=== PATIENT | male | born 1980 | race Caucasian/White ===

== ENCOUNTER 2019-01-28 20:32 | Inpatient (IN) | payer OTHER ==
[~2019-01-28] VITALS: Ht 177.8 cm; Wt 81.4 kg
[2019-01-28 22:35] VITALS: PULSE 105
[2019-01-28 22:46] VITALS: BP 104/57; PULSE 101; RESP 20
[2019-01-28 22:52] VITALS: BP 107/70; PULSE 102; RESP 18; Ht 177.8 cm; Wt 81.4 kg
[2019-01-29] VITALS (12 sets, daily range): BP systolic 91–105; BP diastolic 50–57; PULSE 101–108; RESP 18–19
[2019-01-29] MEDS ORDERED: CEFTRIAXONE 1 GM/50 ML (PMX) 50 ML IVPB SCH (01:00)
[2019-01-29] MEDS ORDERED: ONDANSETRON 4 MG INJ IV PRN (01:00)
[2019-01-29] MEDS: PANTOPRAZOLE (EC) 40 MG TAB PO SCH (07:06)
[2019-01-29] MEDS: LACTULOSE 30ML CUP PO SCH ×3 (07:06→21:42)
[2019-01-29] MEDS: DOCUSATE SODIUM 100 MG CAP PO SCH ×2 (08:21→21:42)
[2019-01-29] MEDS: SENNA TAB PO SCH (08:22)
[2019-01-29] MEDS: MIDODRINE 5 MG TAB PO SCH ×3 (08:23→17:44)
--- NOTE | 2019-01-29 14:39 | QN ---
Documentation Comment pt seen and examined MAL ENRIQUE MD Jan 29, 2019 14:39
[2019-01-29] MEDS ORDERED: ALBUMIN HUMAN 25% 100 ML IV ONE (16:00)
--- NOTE | 2019-01-29 17:32 | HP ---
DATE OF ADMISSION: 01/28/2019 REASON FOR ADMISSION: The patient is transferred from [facility] for debility, liver cirrhosi s, end-stage renal disease. HISTORY OF PRESENTING ILLNESS: This is a 39-year-old male with a past medical history of heavy alcoh ol drinking, history of alcoholic liver cirrhosis, who was recently started on dialysis at [facility] 4 months ago where he has PermCath, history of decompensated liver failure, anemia, GI bl eed status post multiple EGDs, anasarca, debility, coagulopathy, who has had multiple admissions in t he past at [facility]. He presented to [facility] on 01/27 secondary to weakness, d ebility and back pain after his HD. For the last 4 months, patient has had multiple admissions in [facility] for the same reason. The patient has been coming there every week. It has been very difficult arranging for patient for hemodialysis because of the low blood pressures and weakness. T he patient was admitted there on 01/27 for the same reasons. The patient is also having generalized low back pain. The patient has been listed at [facility] for transp lant. According to the patient, he has been feeling weak, has low back pain. He denies any hemateme sis, any melena, any bright red blood per rectum. He is awake, alert. At [facility], patient's labs showed sodium of 135, potassium 5.3, chloride 92, bicarb 24; w kush count was 22.4; AST 56, ALT 8, alkaline phosphatase 135, total bilirubin 35.8. The patient also had an ultrasound that showed cirrhosis, no focal lesion or biliary dilatation, partially contracted gallbladder with gallstones and sludge. Findings suggestive of bilateral renal parenchymal disease without evidence of hydronephrosis, large-volume ascites, splenomegaly. The patient received hemodia lysis yesterday there and also received paracentesis and was transferred due to insurance reasons. PAST MEDICAL HISTORY: 1. Cirrhosis. 2. End-stage renal disease on hemodialysis for the last 4 months. 3. Secondary hyperparathyroidism. 4. History of hepatic encephalopathy. 5. History of GI bleed status post EGD 01/04/2019 that showed distal esophagitis with nonbleeding mu cosal tear, small hiatal hernia, moderate portal hypertensive gastropathy. ALLERGIES: NONE. PAST SURGICAL HISTORY: Right PermCath placement. MEDICATIONS PATIENT WAS AT HOME: 1. Multivitamin. 2. B complex vitamin. 3. Bumex 1 mg t.i.d. 4. Ciprofloxacin. 5. Hydrocortisone suppository for hemorrhoids. 6. Lactulose. 7. Midodrine 10 mg t.i.d. 8. Protonix. 9. Probiotic. 10. Spironolactone 50. SOCIAL HISTORY: According to the patient, his last drink was in September. Denies any smoking, any r ecreational drug use currently. REVIEW OF SYSTEMS: Denies any hematemesis, any melena, any blood per rectum. Denies any chest pain, any shortness of breath. PHYSICAL EXAMINATION: VITAL SIGNS: Blood pressure is currently 91/54, afebrile, heart rate 104, respirations 18. GENERAL: The patient is awake, alert, cachectic. HEENT: The patient has marked scleral icterus. NECK: Supple. HEART: Tachycardic. LUNGS: Decreased breath sounds bilaterally. ABDOMEN: Soft. Ascites is present. EXTREMITIES: There is 2+ edema. SKIN: The patient has yellowish discoloration of the skin. The patient has a right chest wall PermC ath. DIAGNOSTIC DATA: White count 22.8, hemoglobin 7.0, platelet count 119. Direct bilirubin 18.7, total 24.7, AST 38, ALT 13, albumin 2.7. ASSESSMENT AND PLAN: This is a 39-year-old male who presented with: 1. Weakness, low back pain. The patient had x-rays there which were negative for fractures. 2. Decompensated alcoholic cirrhosis with a history of EtOH use. 3. End-stage renal disease, on hemodialysis. 4. Hypotension likely secondary to cirrhosis, rule out sepsis. 5. History of gastrointestinal bleed. 6. Coagulopathy. 7. Thrombocytopenia likely due to cirrhosis. 8. Moderate anemia, likely multifactorial disease, likely secondary to end-stage renal disease versu s bone marrow suppression versus nutritional deficiency versus cirrhosis. PLAN: At this period of time, patient is admitted to [facility]. The patient will be continued on midodri ne, albumin. Also, we will continue the patient on lactulose, Rocephin. We will give the patient 1 unit of blood. At this period of time, patient is really in decompensated liver cirrhosis and the on ly way he will be salvageable is getting a liver transplant. We will evaluate the patient for liver transplant service. The patient has extremely grim prognosis. Rest of the treatment will depend on the patient's hospitalization course. Dictated By: MAL ROMERO/MUMTAZ Conf#: [id number] DID#: [id number] CC: ABEL BARRIENTOS MD;*EndCC*
[2019-01-29] MEDS: CEFEPIME 1GM/50 ML (PMX) 50 ML IVPB SCH (20:00)
[2019-01-30] VITALS (24 sets, daily range): BP systolic 83–123; BP diastolic 48–73; PULSE 76–110; RESP 16–20
[2019-01-30] MEDS: CEFEPIME 1GM/50 ML (PMX) 50 ML IVPB SCH ×3 (00:32→22:14)
[2019-01-30] MEDS: LACTULOSE 30ML CUP PO SCH ×3 (05:54→22:14)
[2019-01-30] MEDS: PANTOPRAZOLE (EC) 40 MG TAB PO SCH (05:54)
[2019-01-30] MEDS: SENNA TAB PO SCH (09:00)
[2019-01-30] MEDS: DOCUSATE SODIUM 100 MG CAP PO SCH (09:00)
[2019-01-30] MEDS: ALBUMIN HUMAN 25% 100 ML IV SCH ×2 (10:30→18:53)
[2019-01-30] MEDS: MIDODRINE 5 MG TAB PO SCH ×3 (10:59→18:58)
[2019-01-30] MEDS ORDERED: ALBUMIN HUMAN 25% 100 ML IV ONE (12:30)
--- NOTE | 2019-01-30 13:16 | PN ---
RAMON VILLAGRAN 01/30/19 1316: Date/Time of Note Date/Time of Note DATE: 01/30/19 TIME: 13:06 Assessment/Plan VTE Prophylaxis Risk score (from [facility])>0 risk: 4 SCD applied (from [facility]): No SCD contraindicated: other Pharmacological prophylaxis: NA/contraindicated Pharm contraindication: anticoag not tolerated Lines/Catheters IV Catheter Type (from [place]): Saline Lock Assessment/Plan Hospital Course 1. Weakness, low back pain. The patient had x-rays there which were negative for fractures. 2. Decompensated alcoholic cirrhosis with a history of EtOH use. Hyperbilirubinemia 3. End-stage renal disease, on hemodialysis. 4. Hypotension likely secondary to cirrhosis, rule out sepsis. 5. History of gastrointestinal bleed. 6. Coagulopathy. 7. Thrombocytopenia likely due to cirrhosis. 8. Moderate anemia, likely multifactorial disease, likely secondary to end- stage renal disease versus bone marrow suppression versus nutritional deficiency versus cirrhosis. 9. Leucocytosis. 10. S.p paracentesis in previous hospital 01/28/2019 Assessment/Plan - tele. -CT scan of lumbar and thoracic is pending, due to fact that CT scan is busy -full code per pt -PT to start -GI prophylaxis Protonix -DVT proph. unable to tolerate - midodrine, albumin. - continue the patient on lactulose, Rocephin. -s/p 1 unit of blood transfusion. -case management initiated transfer to tertiary center -need liver transplant. - grim prognosis. -might need paracentesis soon -pain control Result Diagram: 01/30/19 0506 01/30/19 0506 Results 24hrs Laboratory Tests Test 01/30/19 05:06 01/30/19 05:30 White Blood Count 26.2 H Red Blood Count 2.57 L Hemoglobin 8.1 L Hematocrit 23.7 L Mean Corpuscular Volume 92.2 Mean Corpuscular Hemoglobin 31.5 Mean Corpuscular Hemoglobin Concent 34.2 Red Cell Distribution Width 24.5 H Platelet Count 119 L Mean Platelet Volume 12.6 H Immature Granulocytes % 2.300 H Neutrophils % Segmented Neutrophils % (Manual) 73 Band Neutrophils % (Manual) 6 H Lymphocytes % Lymphocytes % (Manual) 10 L Monocytes % Monocytes % (Manual) 9 Eosinophils % Basophils % Basophils % (Manual) 2 Nucleated Red Blood Cells % 0.0 Immature Granulocytes # 0.590 H Neutrophils # Neutrophils # (Manual) 19.5 H Band Neutrophils # 1.5 H Lymphocytes (Manual) 2.6 Lymphocytes # Monocytes # Monocytes # (Manual) 2.3 H Eosinophils # Basophils # Basophils # (Manual) 0.5 H Nucleated Red Blood Cells # Platelet Estimate DECREASED Polychromasia 1+ Poikilocytosis 3+ Anisocytosis 2+ Macrocytosis 2+ Spherocytes 1+ Prothrombin Time 35.2 H Prothrombin Time Ratio 2.8 INR International Normalized Ratio 3.51 Sodium Level 136 Potassium Level 4.8 Chloride Level 98 Carbon Dioxide Level 26 Anion Gap 12 Blood Urea Nitrogen 52 H Creatinine 5.33 H Est Glomerular Filtrat Rate mL/min 12 L Glucose Level 81 Calcium Level 9.0 Phosphorus Level 4.6 Magnesium Level 1.9 Lab Scanned Report BLOOD TRANSFUSION Subjective 24 Hr Interval Summary Musculoskeletal: back pain, other (pain in body) Exam/Review of Systems Exam Vitals Vital Signs Date Temp Pulse Resp B/P (MAP) Pulse Ox O2 O2 Flow FiO2 Time Delivery Rate 01/30/19 97 12:08 01/30/19 98.6 18 96/51 (66) 98 11:22 01/30/19 Room Air 03:23 Intake and Output 01/29/19 01/29/19 01/30/19 1515:00 23:00 07:00 IntakeIntake Total 600 ml 250 ml BalanceBalance 600 ml 250 ml Exam right chest Permcath Constitutional: alert, oriented Neck: supple Respiratory: diminished breath sounds Cardiovascular: regular rate and rhythm Gastrointestinal: distended, surgical scars Skin: ecchymosis, other (icteric) Results Result Diagram: 01/30/19 0506 01/30/19 0506 Results 24hrs Laboratory Tests Test 01/30/19 05:06 01/30/19 05:30 White Blood Count 26.2 H Red Blood Count 2.57 L Hemoglobin 8.1 L Hematocrit 23.7 L Mean Corpuscular Volume 92.2 Mean Corpuscular Hemoglobin 31.5 Mean Corpuscular Hemoglobin Concent 34.2 Red Cell Distribution Width 24.5 H Platelet Count 119 L Mean Platelet Volume 12.6 H Immature Granulocytes % 2.300 H Neutrophils % Segmented Neutrophils % (Manual) 73 Band Neutrophils % (Manual) 6 H Lymphocytes % Lymphocytes % (Manual) 10 L Monocytes % Monocytes % (Manual) 9 Eosinophils % Basophils % Basophils % (Manual) 2 Nucleated Red Blood Cells % 0.0 Immature Granulocytes # 0.590 H Neutrophils # Neutrophils # (Manual) 19.5 H Band Neutrophils # 1.5 H Lymphocytes (Manual) 2.6 Lymphocytes # Monocytes # Monocytes # (Manual) 2.3 H Eosinophils # Basophils # Basophils # (Manual) 0.5 H Nucleated Red Blood Cells # Platelet Estimate DECREASED Polychromasia 1+ Poikilocytosis 3+ Anisocytosis 2+ Macrocytosis 2+ Spherocytes 1+ Prothrombin Time 35.2 H Prothrombin Time Ratio 2.8 INR International Normalized Ratio 3.51 Sodium Level 136 Potassium Level 4.8 Chloride Level 98 Carbon Dioxide Level 26 Anion Gap 12 Blood Urea Nitrogen 52 H Creatinine 5.33 H Est Glomerular Filtrat Rate mL/min 12 L Glucose Level 81 Calcium Level 9.0 Phosphorus Level 4.6 Magnesium Level 1.9 Lab Scanned Report BLOOD TRANSFUSION Medications Medication Current Medications Pantoprazole (Protonix Tab) 40 mg DAILY@06 PO Last administered on 01/30/19 05:54; Admin Dose 40 MG; Start 01/29/19 at 06:00 Lactulose (Enulose) 10 gm Q8 PO Last administered on 01/30/19 05:54; Admin Dose 10 GM; Start 01/29/19 at 06:00 Docusate Sodium (Colace) 100 mg BID PO Last administered on 01/29/19at 21:42; Admin Dose 100 MG; Start 01/29/19 at 09:00 Ondansetron HCl (Zofran Inj) 4 mg Q6H PRN IV NAUSEA AND/OR VOMITING; Start 01/29/19 at 01:00 Senna (Senokot) 2 tab DAILY PO ; Start 01/29/19 at 09:00 Cefepime HCl 50 ml @ 100 mls/hr Q12 IVPB Last administered on 01/30/19at 10:59; Admin Dose 100 MLS/HR; Start 01/29/19 at 16:00 Epoetin Daniel-epbx (Retacrit (Esrd)) 4,000 unit MoWeFr@1700 SC ; Start 01/30/19 at 17:00 Midodrine (Proamatine) 10 mg TID@,,17 PO Last administered on 01/30/19at 10:59; Admin Dose 10 MG; Start 01/29/19 at 17:00 Albumin Human 100 ml @ 100 mls/hr Q8H IV ; Start 01/30/19 at 10:30; Stop 01/31/19 at 03:29 Multivit/Ca Carb/ B Cmplx/FA/Prenat (Liz-Eugenia) 1 tab DAILY PO ; Start 01/31/19 at 09:00 Albumin Human 100 ml @ 100 mls/hr ONCE ONCE IV ; Start 01/30/19 at 12:30; Stop 01/30/19 at 13:29 MAL ENRIQUE MD 01/30/19 1633: Assessment/Plan Assessment/Plan Assessment/Plan refferal to [facility] tranplant for liver/kidney Result Diagram: 01/30/19 0506 01/30/19 0506 RAMON VILLAGRAN Jan 30, 2019 13:16 MAL ENRIQUE MD Jan 30, 2019 16:33
[2019-01-30] MEDS ORDERED: HYDROCODONE/APAP (5/325) TAB PO PRN (13:30)
[2019-01-30] MEDS ORDERED: DOCUSATE SODIUM 100 MG CAP PO PRN (14:00)
[2019-01-30] MEDS ORDERED: SENNA TAB PO PRN (14:00)
[2019-01-30] MEDS ORDERED: PHYTONADIONE 10 MG/ML INJ SC ONE (17:00)
[2019-01-30] MEDS: EPOETIN ALFA-EPBX (ESRD) 4,000 UNIT/ML VIAL SC SCH (18:54)
[2019-01-30] MEDS: BALSAM PERU/CASTOR OIL 60 GM TUBE TOP SCH (22:13)
[2019-01-31] VITALS (10 sets, daily range): BP systolic 85–104; BP diastolic 48–65; PULSE 103–109; RESP 18–20
[2019-01-31] MEDS: ALBUMIN HUMAN 25% 100 ML IV SCH (03:38)
[2019-01-31] MEDS: LACTULOSE 30ML CUP PO SCH ×3 (06:32→22:00)
[2019-01-31] MEDS: PANTOPRAZOLE (EC) 40 MG TAB PO SCH (06:32)
--- NOTE | 2019-01-31 09:23 | CONS ---
DATE OF ADMISSION: 01/28/2019 DATE OF CONSULTATION: 01/30/2019 HISTORY OF PRESENT ILLNESS: The patient is a 39-year-old male with a history of alcoholic cirrhosis of liver, multiple episodes of GI bleeding, was initially admitted to [facility] fo r debility and end-stage renal disease. The patient was at [facility] on 01/27/2019 for debil ity and back pain. He has been on hemodialysis for last 4 months. For the insurance purpose, the jayden saeed subsequently got transferred to this facility. GI consult was called in for profound jaundice. The patient does complain of abdominal distention, no nausea, vomiting, no GI bleeding, no fever, n o chills, no chest pain, no shortness of breath. PAST MEDICAL HISTORY: Cirrhosis, end-stage renal disease for which he is on hemodialysis, hepatic en cephalopathy, history of GI bleeding. He had EGD on 01/04/2019 which showed esophagitis and nonbleed ing mucosal tear with moderate portal gastropathy. PAST SURGICAL HISTORY: Right Perm-A-Cath. MEDICATIONS: All reviewed. He is on: 1. Bumex. 2. Ciprofloxacin. 3. Hydrocortisone suppository. 4. Midodrine. 5. Protonix. 6. Spironolactone. SOCIAL HISTORY: He is sober for the last 4 or 5 months. No smoking. No recreational drug. PHYSICAL EXAMINATION GENERAL: Cachectic. Definitely jaundiced. VITAL SIGNS: Otherwise stable. ABDOMEN: He has got ascites. EXTREMITIES: 1 to 2+ pedal edema. CENTRAL NERVOUS SYSTEM: Grossly within normal limit. LUNGS: Clear. ABDOMEN: Otherwise was benign. LABORATORY DATA: B surface antigen was negative. His hematocrit is 23. WBC is 26.2, BUN 52, creati nine 5.33, total bilirubin is 24. Albumin is 2.7 and his INR is 32.8. IMPRESSION: 1. Cirrhosis of liver, decompensated. 2. Severe anemia. 3. Leukocytosis. 4. Ascites. 5. End-stage renal disease on dialysis. Plan: Correct the coagulopathy if he continues to bleed. Continue antibiotic and will do paracentes is and send the fluid for analysis. Dictated By: ELLIS SIMPSON/MUMTAZ Conf#: [id number] DID#: [id number] CC: ABEL BARRIENTOS MD;*End*
--- NOTE | 2019-01-31 09:26 | PN ---
Date/Time of Note Date/Time of Note DATE: 01/31/19 TIME: 09:24 Assessment/Plan VTE Prophylaxis Risk score (from [facility])>0 risk: 4 SCD applied (from [facility]): No SCD contraindicated: other Pharmacological prophylaxis: NA/contraindicated Pharm contraindication: anticoag not tolerated Lines/Catheters IV [facility]from [facility] Saline Lock Assessment/Plan Hospital Course 1. Weakness, low back pain. The patient had x-rays there which were negative for fractures. 2. Decompensated alcoholic cirrhosis with a history of EtOH use. Hyperbilirubinemia 3. End-stage renal disease, on hemodialysis. 4. Hypotension likely secondary to cirrhosis, rule out sepsis. 5. History of gastrointestinal bleed. 6. Coagulopathy. 7. Thrombocytopenia likely due to cirrhosis. 8. Moderate anemia, likely multifactorial disease, likely secondary to end- stage renal disease versus bone marrow suppression versus nutritional deficiency versus cirrhosis. 9. Leucocytosis. 10. S.p paracentesis in previous hospital 01/28/2019 Assessment/Plan - tele, ST on monitor. -CT scan of lumbar and thoracic is pending -full code per pt -PT for eval -GI prophylaxis Protonix -DVT proph. unable to tolerate - c/w midodrine, albumin. - continue the patient on lactulose, Rocephin. -s/p 1 unit of blood transfusion. -need liver transplant. - grim prognosis. -might need paracentesis soon -pain control CASE MANAGEMENT NOTE: PT HAS BEEN ACCEPTED AT [facility] , not contracted with [facility], [facility] other tertiary center Result Diagram: 01/31/19 0513 01/31/19 0513 Results 24hrs Laboratory Tests Test 01/31/19 05:12 01/31/19 05:13 Ammonia 22 White Blood Count 25.4 H Red Blood Count 2.25 L Hemoglobin 7.3 L Hematocrit 20.8 L Mean Corpuscular Volume 92.4 Mean Corpuscular Hemoglobin 32.4 Mean Corpuscular Hemoglobin Concent 35.1 Red Cell Distribution Width 24.8 H Platelet Count 102 L Mean Platelet Volume 12.4 H Immature Granulocytes % 1.700 H Neutrophils % Segmented Neutrophils % (Manual) 76 Band Neutrophils % (Manual) 1 Lymphocytes % Lymphocytes % (Manual) 13 L Monocytes % Monocytes % (Manual) 5 Eosinophils % Eosinophils % (Manual) 3 Basophils % Basophils % (Manual) 1 Myelocytes % (Manual) 1 H Nucleated Red Blood Cells % 0.0 Immature Granulocytes # 0.440 H Neutrophils # Neutrophils # (Manual) 19.4 H Band Neutrophils # 0.2 Lymphocytes (Manual) 3.3 H Lymphocytes # Monocytes # Monocytes # (Manual) 1.2 H Eosinophils # Basophils # Basophils # (Manual) 0.2 H Myelocytes # 0.2 H Nucleated Red Blood Cells # Platelet Estimate DECREASED Giant Platelets 1 H Polychromasia 1+ Hypochromasia 1+ Poikilocytosis 3+ Anisocytosis 3+ Target Cells 2+ Acanthocytes 2+ Schistocytes 1+ Sodium Level 136 Potassium Level 4.8 Chloride Level 98 Carbon Dioxide Level 27 Anion Gap 11 Blood Urea Nitrogen 44 H Creatinine 4.44 H Est Glomerular Filtrat Rate mL/min 15 L Glucose Level 117 Calcium Level 9.4 Subjective 24 Hr Interval Summary Musculoskeletal: back pain, bone/joint pain Exam/Review of Systems Exam Vitals Vital Signs Date Temp Pulse Resp B/P (MAP) Pulse Ox O2 O2 Flow FiO2 Time Delivery Rate 01/31/19 107 08:01 01/31/19 98.2 20 90/52 (65) 98 Room Air 07:42 Intake and Output 01/30/19 01/30/19 01/31/19 1515:00 23:00 07:00 IntakeIntake Total 400 ml 650 ml OutputOutput Total 300 ml 1100 ml BalanceBalance -300 ml -700 ml 650 ml Constitutional: alert, oriented Psych: no complaints Head: normocephalic Eyes: icteric Neck: supple Respiratory: diminished breath sounds Cardiovascular: regular rate and rhythm Gastrointestinal: distended Skin: other (icteric) Results Results 24hrs Laboratory Tests Test 01/31/19 05:12 01/31/19 05:13 Ammonia 22 White Blood Count 25.4 H Red Blood Count 2.25 L Hemoglobin 7.3 L Hematocrit 20.8 L Mean Corpuscular Volume 92.4 Mean Corpuscular Hemoglobin 32.4 Mean Corpuscular Hemoglobin Concent 35.1 Red Cell Distribution Width 24.8 H Platelet Count 102 L Mean Platelet Volume 12.4 H Immature Granulocytes % 1.700 H Neutrophils % Segmented Neutrophils % (Manual) 76 Band Neutrophils % (Manual) 1 Lymphocytes % Lymphocytes % (Manual) 13 L Monocytes % Monocytes % (Manual) 5 Eosinophils % Eosinophils % (Manual) 3 Basophils % Basophils % (Manual) 1 Myelocytes % (Manual) 1 H Nucleated Red Blood Cells % 0.0 Immature Granulocytes # 0.440 H Neutrophils # Neutrophils # (Manual) 19.4 H Band Neutrophils # 0.2 Lymphocytes (Manual) 3.3 H Lymphocytes # Monocytes # Monocytes # (Manual) 1.2 H Eosinophils # Basophils # Basophils # (Manual) 0.2 H Myelocytes # 0.2 H Nucleated Red Blood Cells # Platelet Estimate DECREASED Giant Platelets 1 H Polychromasia 1+ Hypochromasia 1+ Poikilocytosis 3+ Anisocytosis 3+ Target Cells 2+ Acanthocytes 2+ Schistocytes 1+ Sodium Level 136 Potassium Level 4.8 Chloride Level 98 Carbon Dioxide Level 27 Anion Gap 11 Blood Urea Nitrogen 44 H Creatinine 4.44 H Est Glomerular Filtrat Rate mL/min 15 L Glucose Level 117 Calcium Level 9.4 Medications Medication Current Medications Pantoprazole (Protonix Tab) 40 mg DAILY@06 PO Last administered on 01/31/19 06:32; Admin Dose 40 MG; Start 01/29/19 at 06:00 Lactulose (Enulose) 10 gm Q8 PO Last administered on 01/31/19at 06:32; Admin Dose 10 GM; Start 01/29/19 at 06:00 Ondansetron HCl (Zofran Inj) 4 mg Q6H PRN IV NAUSEA AND/OR VOMITING; Start 01/29/19 at 01:00 Cefepime HCl 50 ml @ 100 mls/hr Q12 IVPB Last administered on 01/30/19at 22:14; Admin Dose 100 MLS/HR; Start 01/29/19 at 16:00 Epoetin Daniel-epbx (Retacrit (Esrd)) 4,000 unit MoWeFr@1700 SC Last administered on 01/30/19at 18:54; Admin Dose 4,000 UNIT; Start 01/30/19 at 17:00 Midodrine (Proamatine) 10 mg TID@,13,17 PO Last administered on 01/30/19at 18:58; Admin Dose 10 MG; Start 01/29/19 at 17:00 Multivit/Ca Carb/ B Cmplx/FA/Prenat (Liz-Eugenia) 1 tab DAILY PO ; Start 01/31/19 at 09:00 Acetaminophen/ Hydrocodone Bitart ([place] (5/325)) 1 tab Q12H PRN PO MODERATE PAIN LEVEL 4-6; Start 01/30/19 at 13:30 Docusate Sodium (Colace) 100 mg BID PRN PO constipation; Start 01/30/19 at 14:00 Senna (Senokot) 2 tab DAILY PRN PO constipation; Start 01/30/19 at 14:00 RAMON VILLAGRAN Jan 31, 2019 09:26
[2019-01-31] MEDS: MIDODRINE 5 MG TAB PO SCH ×3 (10:36→19:12)
[2019-01-31] MEDS: BALSAM PERU/CASTOR OIL 60 GM TUBE TOP SCH ×2 (10:37→21:15)
[2019-01-31] MEDS: MULTIVIT/CA CARB/B CMPLX/FA TAB PO SCH (10:37)
[2019-01-31] MEDS: CEFEPIME 1GM/50 ML (PMX) 50 ML IVPB SCH ×2 (10:37→21:15)
--- NOTE | 2019-01-31 14:53 | CONS ---
Assessment/Plan Assessment/Plan Assessment/Plan (Daily) IMPRESSION: 1. Cirrhosis of liver, decompensated. 2. Severe anemia. 3. Leukocytosis. 4. Ascites. 5. End-stage renal disease on dialysis. Plan Continue present care Abdominal paracentesis and will send fluid for culture Stool for C. difficile toxins Continue antibiotic Consultation Date/Type/Reason Admit Date/Time Jan 28, 2019 at 22:17 Initial Consult Date Date/Time of Note DATE: 01/31/19 TIME: 14:51 24 HR Interval Summary Free Text/Dictation Planes of some diarrhea No abdominal pain no nausea no vomiting Exam/Review of Systems Exam Vitals Vital Signs Date Temp Pulse Resp B/P (MAP) Pulse Ox O2 O2 Flow FiO2 Time Delivery Rate 01/31/19 104 12:01 01/31/19 98.1 20 85/48 (60) 98 Room Air 11:05 Intake and Output 01/30/19 01/30/19 01/31/19 1515:00 23:00 07:00 IntakeIntake Total 400 ml 650 ml OutputOutput Total 300 ml 1100 ml BalanceBalance -300 ml -700 ml 650 ml Respiratory: clear to auscultation, normal air movement Gastrointestinal: non-tender, ascites, distended Extremities: edema Neurological: [employer] II-XII intact, nl mental status, nl speech, nl strength Results Result Diagram: 01/31/1913 01/31/19 0513 Results 24hrs Laboratory Tests Test 01/31/19 05:12 01/31/19 05:13 Ammonia 22 White Blood Count 25.4 H Red Blood Count 2.25 L Hemoglobin 7.3 L Hematocrit 20.8 L Mean Corpuscular Volume 92.4 Mean Corpuscular Hemoglobin 32.4 Mean Corpuscular Hemoglobin Concent 35.1 Red Cell Distribution Width 24.8 H Platelet Count 102 L Mean Platelet Volume 12.4 H Immature Granulocytes % 1.700 H Neutrophils % Segmented Neutrophils % (Manual) 76 Band Neutrophils % (Manual) 1 Lymphocytes % Lymphocytes % (Manual) 13 L Monocytes % Monocytes % (Manual) 5 Eosinophils % Eosinophils % (Manual) 3 Basophils % Basophils % (Manual) 1 Myelocytes % (Manual) 1 H Nucleated Red Blood Cells % 0.0 Immature Granulocytes # 0.440 H Neutrophils # Neutrophils # (Manual) 19.4 H Band Neutrophils # 0.2 Lymphocytes (Manual) 3.3 H Lymphocytes # Monocytes # Monocytes # (Manual) 1.2 H Eosinophils # Basophils # Basophils # (Manual) 0.2 H Myelocytes # 0.2 H Nucleated Red Blood Cells # Platelet Estimate DECREASED Giant Platelets 1 H Polychromasia 1+ Hypochromasia 1+ Poikilocytosis 3+ Anisocytosis 3+ Target Cells 2+ Acanthocytes 2+ Schistocytes 1+ Sodium Level 136 Potassium Level 4.8 Chloride Level 98 Carbon Dioxide Level 27 Anion Gap 11 Blood Urea Nitrogen 44 H Creatinine 4.44 H Est Glomerular Filtrat Rate mL/min 15 L Glucose Level 117 Calcium Level 9.4 Medications Medication Current Medications Pantoprazole (Protonix Tab) 40 mg DAILY@06 PO Last administered on 01/31/19 06:32; Admin Dose 40 MG; Start 01/29/19 at 06:00 Lactulose (Enulose) 10 gm Q8 PO Last administered on 01/31/19 06:32; Admin Dos e 10 GM; Start 01/29/19 at 06:00 Ondansetron HCl (Zofran Inj) 4 mg Q6H PRN IV NAUSEA AND/OR VOMITING; Start 01/29/19 at 01:00 Cefepime HCl 50 ml @ 100 mls/hr Q12 IVPB Last administered on 01/31/19 10:37; Admin Dose 100 MLS/HR; Start 01/29/19 at 16:00 Epoetin Daniel-epbx (Retacrit (Esrd)) 4,000 unit MoWeFr@1700 SC Last administered on 01/30/19 18:54; Admin Dose 4,000 UNIT; Start 01/30/19 at 17:00 Midodrine (Proamatine) 10 mg TID@,13,17 PO Last administered on 01/31/19 14:33; Admin Dose 10 MG; Start 01/29/19 at 17:00 Multivit/Ca Carb/ B Cmplx/FA/Prenat (Liz-Eugenia) 1 tab DAILY PO Last ad ministered on 01/31/19 10:37; Admin Dose 1 TAB; Start 01/31/19 at 09:00 Acetaminophen/ Hydrocodone Bitart ([place] (5/325)) 1 tab Q12H PRN PO MODERATE PAIN LEVEL 4-6; Start 01/30/19 at 13:30 Docusate Sodium (Colace) 100 mg BID PRN PO constipation; Start 01/30/19 at 14:00 Senna (Senokot) 2 tab DAILY PRN PO constipation; Start 01/30/19 at 14:00 ELLIS ESTRADA MD Jan 31, 2019 14:53
[2019-02-01] VITALS (9 sets, daily range): BP systolic 94–103; BP diastolic 54–60; PULSE 97–109; RESP 18–20
[2019-02-01] MEDS: LACTULOSE 30ML CUP PO SCH ×3 (06:48→21:23)
[2019-02-01] MEDS: PANTOPRAZOLE (EC) 40 MG TAB PO SCH (06:48)
[2019-02-01] MEDS: CEFEPIME 1GM/50 ML (PMX) 50 ML IVPB SCH ×2 (08:28→21:22)
[2019-02-01] MEDS: BALSAM PERU/CASTOR OIL 60 GM TUBE TOP SCH ×2 (08:29→21:23)
[2019-02-01] MEDS: MIDODRINE 5 MG TAB PO SCH ×3 (08:29→17:57)
[2019-02-01] MEDS: MULTIVIT/CA CARB/B CMPLX/FA TAB PO SCH (08:29)
--- NOTE | 2019-02-01 12:31 | PN ---
Date/Time of Note Date/Time of Note DATE: 02/01/19 TIME: 12:27 Assessment/Plan VTE Prophylaxis Risk score (from Ns)>0 risk: 3 SCD applied (from Ns): Yes Pharmacological prophylaxis: NA/contraindicated Pharm contraindication: blood coag disorder Lines/Catheters [facility]from [facility] Saline Lock Assessment/Plan Hospital Course 1. Weakness, low back pain. The patient had x-rays there which were negative for fractures. CT scan is positive for: Suspected acute or subacute fractures of the superior endplates/bodies of L1, L2 and L3 with associated slight anterior superior endplate wedge compression of the L1 and L3 vertebral bodies. Multilevel degenerative changes greatest at L4-5 as described above. Mild degenerative changes of the right posterior lateral aspect of the T11-12 disc space with mild central canal stenosis. 2. Decompensated alcoholic cirrhosis with a history of EtOH use. Hyperbilirubinemia 3. End-stage renal disease, on hemodialysis. 4. Hypotension likely secondary to cirrhosis, rule out sepsis. 5. History of gastrointestinal bleed. 6. Coagulopathy. 7. Thrombocytopenia likely due to cirrhosis. 8. Moderate anemia, likely multifactorial disease, likely secondary to end- stage renal disease versus bone marrow suppression versus nutritional deficiency versus cirrhosis. 9. Leucocytosis. 10. S.p paracentesis in previous hospital 01/28/2019 11. Suspicious for metastatic disease Assessment/Plan - tele, ST on monitor. -CT scan of lumbar and thoracic showed: Suspected acute or subacute fractures of the superior endplates/bodies of L1, L2 and L3 with associated slight anterior superior endplate wedge compression of the L1 and L3 vertebral bodies. No posterior retropulsion. Recommend correlate to with MRI of the lumbar spine for the most accurate determination of the chronicity is of the fractures. Mult ilevel degenerative changes greatest at L4-5 as described above -dr Borrero consult , spoke to him, he requested MRI -full code per pt -PT for eval -GI prophylaxis Protonix -DVT proph. unable to tolerate - c/w midodrine, albumin. - continue the patient on lactulose, Rocephin. -s/p 1 unit of blood transfusion. -need liver transplant, bilirubin is rising. - grim prognosis. -paracentesis tomorrow -pain control -PT HAS BEEN ACCEPTED AT [facility] , not contracted with [facility], [facility] other tertiary center Result Diagram: 02/01/19 0448 02/01/19 0448 Results 24hrs Laboratory Tests Test 02/01/19 04:48 02/01/19 10:38 White Blood Count 27.7 H Red Blood Count 2.27 L Hemoglobin 7.3 L Hematocrit 21.0 L Mean Corpuscular Volume 92.5 Mean Corpuscular Hemoglobin 32.2 Mean Corpuscular Hemoglobin Concent 34.8 Red Cell Distribution Width 24.9 H Platelet Count 108 L Mean Platelet Volume 12.8 H Immature Granulocytes % 2.100 H Neutrophils % Segmented Neutrophils % (Manual) 78 H Band Neutrophils % (Manual) 2 Lymphocytes % Lymphocytes % (Manual) 10 L Monocytes % Monocytes % (Manual) 6 Eosinophils % Eosinophils % (Manual) 1 Basophils % Basophils % (Manual) 2 Metamyelocytes % (manual) 1 H Nucleated Red Blood Cells % 0.0 Immature Granulocytes # 0.580 H Neutrophils # Neutrophils # (Manual) 21.7 H Band Neutrophils # 0.5 Lymphocytes (Manual) 2.7 Lymphocytes # Monocytes # Monocytes # (Manual) 1.6 H Eosinophils # Basophils # Basophils # (Manual) 0.5 H Metamyelocytes # 0.2 H Nucleated Red Blood Cells # Platelet Estimate DECREASED Poikilocytosis 3+ Anisocytosis 3+ Microcytosis 1+ Macrocytosis 2+ Target Cells 1+ Acanthocytes 1+ Schistocytes 1+ Sodium Level 137 Potassium Level 4.9 Chloride Level 98 Carbon Dioxide Level 23 Anion Gap 16 H Blood Urea Nitrogen 50 H Creatinine 5.19 H Est Glomerular Filtrat Rate mL/min 12 L Glucose Level 85 Calcium Level 9.4 Total Bilirubin 25.3 H Direct Bilirubin 19.80 *H Indirect Bilirubin 5.5 H Aspartate Amino Transf (AST/SGOT) 40 Alanine Aminotransferase (ALT/SGPT) 12 L Alkaline Phosphatase 105 Total Protein 6.3 Albumin 2.8 L Globulin 3.50 H Albumin/Globulin Ratio 0.80 Alpha Fetoprotein 1.28 Subjective 24 Hr Interval Summary Musculoskeletal: back pain, restricted range of motion Skin: other (icteric) Exam/Review of Systems Exam Vitals Vital Signs Date Temp Pulse Resp B/P (MAP) Pulse Ox O2 O2 Flow FiO2 Time Delivery Rate 02/01/19 107 12:01 02/01/19 98.6 20 99/55 (70) 96 Room Air 11:33 Intake and Output 01/31/19 01/31/19 02/01/19 1515:00 23:00 07:00 IntakeIntake Total 940 ml 100 ml OutputOutput Total 0 ml BalanceBalance 940 ml 100 ml Constitutional: alert, oriented Head: normocephalic Cardiovascular: regular rate and rhythm Gastrointestinal: soft Results Results 24hrs Laboratory Tests Test 02/01/19 04:48 02/01/19 10:38 White Blood Count 27.7 H Red Blood Count 2.27 L Hemoglobin 7.3 L Hematocrit 21.0 L Mean Corpuscular Volume 92.5 Mean Corpuscular Hemoglobin 32.2 Mean Corpuscular Hemoglobin Concent 34.8 Red Cell Distribution Width 24.9 H Platelet Count 108 L Mean Platelet Volume 12.8 H Immature Granulocytes % 2.100 H Neutrophils % Segmented Neutrophils % (Manual) 78 H Band Neutrophils % (Manual) 2 Lymphocytes % Lymphocytes % (Manual) 10 L Monocytes % Monocytes % (Manual) 6 Eosinophils % Eosinophils % (Manual) 1 Basophils % Basophils % (Manual) 2 Metamyelocytes % (manual) 1 H Nucleated Red Blood Cells % 0.0 Immature Granulocytes # 0.580 H Neutrophils # Neutrophils # (Manual) 21.7 H Band Neutrophils # 0.5 Lymphocytes (Manual) 2.7 Lymphocytes # Monocytes # Monocytes # (Manual) 1.6 H Eosinophils # Basophils # Basophils # (Manual) 0.5 H Metamyelocytes # 0.2 H Nucleated Red Blood Cells # Platelet Estimate DECREASED Poikilocytosis 3+ Anisocytosis 3+ Microcytosis 1+ Macrocytosis 2+ Target Cells 1+ Acanthocytes 1+ Schistocytes 1+ Sodium Level 137 Potassium Level 4.9 Chloride Level 98 Carbon Dioxide Level 23 Anion Gap 16 H Blood Urea Nitrogen 50 H Creatinine 5.19 H Est Glomerular Filtrat Rate mL/min 12 L Glucose Level 85 Calcium Level 9.4 Total Bilirubin 25.3 H Direct Bilirubin 19.80 *H Indirect Bilirubin 5.5 H Aspartate Amino Transf (AST/SGOT) 40 Alanine Aminotransferase (ALT/SGPT) 12 L Alkaline Phosphatase 105 Total Protein 6.3 Albumin 2.8 L Globulin 3.50 H Albumin/Globulin Ratio 0.80 Alpha Fetoprotein 1.28 Medications Medication Current Medications Pantoprazole (Protonix Tab) 40 mg DAILY@06 PO Last administered on 02/01/19at 06:48; Admin Dose 40 MG; Start 01/29/19 at 06:00 Lactulose (Enulose) 10 gm Q8 PO Last administered on 02/01/19at 06:48; Admin Dose 10 GM; Start 01/29/19 at 06:00 Ondansetron HCl (Zofran Inj) 4 mg Q6H PRN IV NAUSEA AND/OR VOMITING; Start 01/29/19 at 01:00 Cefepime HCl 50 ml @ 100 mls/hr Q12 IVPB Last administered on 02/01/19at 08:28; Admin Dose 100 MLS/HR; Start 01/29/19 at 16:00 Epoetin Daniel-epbx (Retacrit (Esrd)) 4,000 unit MoWeFr@1700 SC Last administered on 01/30/19at 18:54; Admin Dose 4,000 UNIT; Start 01/30/19 at 17:00 Midodrine (Proamatine) 10 mg TID@09,13,17 PO Last administered on 02/01/19at 08:29; Admin Dose 10 MG; Start 01/29/19 at 17:00 Multivit/Ca Carb/ B Cmplx/FA/Prenat ([place]iz[place]) 1 tab DAILY PO Last administered on 02/01/19at 08:29; Admin Dose 1 TAB; Start 01/31/19 at 09:00 Acetaminophen/ Hydrocodone Bitart ([place] (5/325)) 1 tab Q12H PRN PO MODERATE PAIN LEVEL 4-6; Start 01/30/19 at 13:30 Docusate Sodium (Colace) 100 mg BID PRN PO constipation; Start 01/30/19 at 14:00 Senna (Senokot) 2 tab DAILY PRN PO constipation; Start 01/30/19 at 14:00 RAMON VILLAGRAN Feb 01, 2019 12:31
[2019-02-01] MEDS ORDERED: PHYTONADIONE 10 MG/ML INJ SC ONE (17:00)
[2019-02-02] VITALS (24 sets, daily range): BP systolic 78–101; BP diastolic 45–61; PULSE 97–109; RESP 17–20
[2019-02-02] MEDS: PANTOPRAZOLE (EC) 40 MG TAB PO SCH (06:28)
[2019-02-02] MEDS: LACTULOSE 30ML CUP PO SCH ×3 (06:28→20:33)
--- NOTE | 2019-02-02 07:51 | CONS ---
Assessment/Plan Assessment/Plan Hospital Course (Demo Recall) 39 yo male with liver disease with profound jaundice 1. Decompensated end stage liver disease with hyperbilirubinemia -pt accepted at [facility] for liver tx 2. Severe anemia. 3. Leukocytosis. 4. Ascites. 5. End-stage renal disease on dialysis. Plan stat cbc, cmp, INR Plan for abdominal paracentesis and HD today Ascitic fluid cultures and count Continue lactulose Pending Stool for C. difficile toxins Continue antibiotic Consider diuretic Pt examined and plan of care discussed with Dr. Guerra Consultation Date/Type/Reason Admit Date/Time Jan 28, 2019 at 22:17 Initial Consult Date Date/Time of Note DATE: 02/02/19 TIME: 07:33 24 HR Interval Summary Free Text/Dictation SBP in 90s. Mild intermittent tachycardia. No labs ordered today Labs done 02/01: WBC 27, afebrile. HH 7.3/21. Platelets 108. total bilirubin 25. AFP 1.28. odd bundle worker 5.19. Pt received FFP yesterday. Abdominal paracentesis scheduled for today. Denies abdominal pain, or SOB. Exam/Review of Systems Exam Vitals Vital Signs Date Temp Pulse Resp B/P (MAP) Pulse Ox O2 O2 Flow FiO2 Time Delivery Rate 02/02/19 98.3 99 20 90/52 (65) 94 07:27 02/01/19 Room Air 15:32 Intake and Output 02/01/19 02/01/19 02/02/19 1515:00 23:00 07:00 IntakeIntake Total 600 ml 250 ml BalanceBalance 600 ml 250 ml Constitutional: alert, oriented Head: normocephalic Eyes: icteric ENMT: nl lips & teeth Respiratory: normal air movement, diminished breath sounds Cardiovascular: regular rate and rhythm Gastrointestinal: soft, non-tender, ascites Extremities: edema, pitting pedal edema Neurological: nl mental status, nl speech Results Result Diagram: 02/01/19 0448 02/01/19447 Results 24hrs Laboratory Tests Test 02/01/19 10:38 02/01/19 15:25 Alpha Fetoprotein 1.28 Prothrombin Time 31.6 H Prothrombin Time Ratio 2.5 INR International Normalized Ratio 3.05 Activated Partial Thromboplast Time 92.6 *H Medications Medication Current Medications Pantoprazole (Protonix Tab) 40 mg DAILY@06 PO Last administered on 02/02/19 06:28; Admin Dose 40 MG; Start 01/29/19 at 06:00 Lactulose (Enulose) 10 gm Q8 PO Last administered on 02/02/19 06:28; Admin Dose 10 GM; Start 01/29/19 at 06:00 Ondansetron HCl (Zofran Inj) 4 mg Q6H PRN IV NAUSEA AND/OR VOMITING; Start 01/29/19 at 01:00 Cefepime HCl 50 ml @ 100 mls/hr Q12 IVPB Last administered on 02/01/19at 21:22; Admin Dose 100 MLS/HR; Start 01/29/19 at 16:00 Epoetin Daniel-epbx (Retacrit (Esrd)) 4,000 unit MoWeFr@1700 SC Last administered on 01/30/19at 18:54; Admin Dose 4,000 UNIT; Start 01/30/19 at 17:00 Midodrine (Proamatine) 10 mg TID@,,17 PO Last administered on 02/01/19at 17:57; Admin Dose 10 MG; Start 01/29/19 at 17:00 Multivit/Ca Carb/ B Cmplx/FA/Prenat (Liz-[place]ug[place]) 1 tab DAILY PO Last administered on 02/01/19at 08:29; Admin Dose 1 TAB; Start 01/31/19 at 09:00 Acetaminophen/ Hydrocodone Bitart ([place] (5/325)) 1 tab Q12H PRN PO MODERATE PAIN LEVEL 4-6; Start 01/30/19 at 13:30 Docusate Sodium (Colace) 100 mg BID PRN PO constipation; Start 01/30/19 at 14:00 Senna (Senokot) 2 tab DAILY PRN PO constipation; Start 01/30/19 at 14:00 PHOENIX CUELLAR Feb 02, 2019 07:44
[2019-02-02] MEDS: CEFEPIME 1GM/50 ML (PMX) 50 ML IVPB SCH ×2 (08:15→20:33)
[2019-02-02] MEDS: MULTIVIT/CA CARB/B CMPLX/FA TAB PO SCH (08:16)
[2019-02-02] MEDS: BALSAM PERU/CASTOR OIL 60 GM TUBE TOP SCH ×2 (08:16→20:33)
[2019-02-02] MEDS: MIDODRINE 5 MG TAB PO SCH ×3 (08:16→16:42)
[2019-02-02] MEDS ORDERED: SOD CHLORIDE 0.9% 250 ML IV* ONE (09:12)
[2019-02-02] MEDS ORDERED: ALBUMIN HUMAN 25% 100 ML IV ONE (12:00)
--- NOTE | 2019-02-02 12:32 | PN ---
Date/Time of Note Date/Time of Note DATE: 02/02/19 TIME: 12:14 Assessment/Plan VTE Prophylaxis Risk score (from Nsg)>0 risk: 8 SCD applied (from Ns): No SCD contraindicated: low risk/ambulating Pharmacological prophylaxis: NA/contraindicated Pharm contraindication: low risk/ambulating Lines/Catheters IV Catheter Type (from Nrs): Saline Lock Assessment/Plan Assessment/Plan a/p 1. Weakness, low back pain. The patient had x-rays there which were negative for fractures. CT scan is positive for: Suspected acute or subacute fractures of the superior endplates/bodies of L1, L2 and L3 with associated slight anterior superior endplate wedge compression of the L1 and L3 vertebral bodies. Multilevel degenerative changes greatest at L4-5 as described above. Mild degenerative changes of the right posterior lateral aspect of the T11-12 disc space with mild central canal stenosis. 2. Decompensated alcoholic cirrhosis with a history of EtOH use. Hyperbiliru binemia BIRIBUMIN 19 3. End-stage renal disease, on hemodialysis. 4. Hypotension likely secondary to cirrhosis, rule out sepsis. 5. History of gastrointestinal bleed. 6. Coagulopathy. 7. Thrombocytopenia likely due to cirrhosis. 8. Moderate anemia, likely multifactorial disease, likely secondary to end- stage renal disease versus bone marrow suppression versus nutritional deficiency versus cirrhosis. 9. Leucocytosis. 10. S.p paracentesis in previous hospital 01/28/2019 11. Suspicious for metastatic disease Assessment/Plan -CT scan of lumbar and thoracic showed: Suspected acute or subacute fractures of the superior endplates/bodies of L1, L2 and L3 with associated slight anterior superior endplate wedge compression of the L1 and L3 vertebral bodies. No posterior retropulsion. Recommend correlate to with MRI of the lumbar spine for the most accurate determination of the chronicity is of the fractures. Multilevel degenerative changes greatest at L4-5 as described above -dr Borrero consult , spoke to him, he requested MRI> mri ppo film -2 units of blood today -will give Midodrin/albumiun and blood along with hemodialysis -Needs a tertiary setting with there is a Ability of CRRT and patient will need liver and a kidney transplant - INR elevated and elevated APTT patient questionable fresh frozen plasma vitamin K will call him consult - c/w midodrine, albumin. - grim prognosis. paracentesis on hold due to severe anemia, patient will need INR to be corrected Result Diagram: 02/02/19 0806 02/02/19 0806 Results 24hrs Laboratory Tests Test 02/01/19 15:25 02/02/19 08:06 Prothrombin Time 31.6 H 32.4 H Prothrombin Time Ratio 2.5 2.5 INR International Normalized Ratio 3.05 3.15 Activated Partial Thromboplast Time 92.6 *H 100.8 *H White Blood Count 26.1 H Red Blood Count 2.01 L Hemoglobin 6.6 *L Hematocrit 18.9 L Mean Corpuscular Volume 94.0 Mean Corpuscular Hemoglobin 32.8 Mean Corpuscular Hemoglobin Concent 34.9 Red Cell Distribution Width 25.3 H Platelet Count 91 L Mean Platelet Volume 12.0 H Immature Granulocytes % 1.700 H Neutrophils % 75.0 Lymphocytes % 10.8 L Monocytes % 11.3 H Eosinophils % 1.0 Basophils % 0.2 Nucleated Red Blood Cells % 0.0 Immature Granulocytes # 0.450 H Neutrophils # 19.6 H Lymphocytes # 2.8 Monocytes # 3.0 H Eosinophils # 0.3 Basophils # 0.1 Nucleated Red Blood Cells # 0.0 Sodium Level 136 Potassium Level 4.9 Chloride Level 98 Carbon Dioxide Level 22 Anion Gap 16 H Blood Urea Nitrogen 57 H Creatinine 5.76 H Est Glomerular Filtrat Rate mL/min 11 L Glucose Level 69 #L Calcium Level 9.7 Total Bilirubin 24.7 H Direct Bilirubin 19.70 *H Indirect Bilirubin 5.0 H Aspartate Amino Transf (AST/SGOT) 41 Alanine Aminotransferase (ALT/SGPT) 16 Alkaline Phosphatase 96 Total Protein 6.4 Albumin 2.8 L Globulin 3.60 H Albumin/Globulin Ratio 0.77 Subjective 24 Hr Interval Summary Free Text/Dictation Globin is 6.6 today no evidence of any GI bleed Blood pressure is in 80s to 90s Exam/Review of Systems Exam Vitals Vital Signs Date Temp Pulse Resp B/P (MAP) Pulse Ox O2 O2 Flow FiO2 Time Delivery Rate 02/02/19 97.5 97 20 80/45 (57) 96 11:40 02/01/19 Room Air 15:32 Intake and Output 02/01/19 02/01/19 02/02/19 1515:00 23:00 07:00 IntakeIntake Total 600 ml 250 ml BalanceBalance 600 ml 250 ml Exam Constitutional: alert, oriented, scleral icterus Head: normocephalic Cardiovascular: regular rate and rhythm Gastrointestinal: soft, distended/ascites Diffuse a yellowish discoloration of the skin Tender to palpation in the lumbar area Results Results 24hrs Laboratory Tests Test 02/01/19 15:25 02/02/19 08:06 Prothrombin Time 31.6 H 32.4 H Prothrombin Time Ratio 2.5 2.5 INR International Normalized Ratio 3.05 3.15 Activated Partial Thromboplast Time 92.6 *H 100.8 *H White Blood Count 26.1 H Red Blood Count 2.01 L Hemoglobin 6.6 *L Hematocrit 18.9 L Mean Corpuscular Volume 94.0 Mean Corpuscular Hemoglobin 32.8 Mean Corpuscular Hemoglobin Concent 34.9 Red Cell Distribution Width 25.3 H Platelet Count 91 L Mean Platelet Volume 12.0 H Immature Granulocytes % 1.700 H Neutrophils % 75.0 Lymphocytes % 10.8 L Monocytes % 11.3 H Eosinophils % 1.0 Basophils % 0.2 Nucleated Red Blood Cells % 0.0 Immature Granulocytes # 0.450 H Neutrophils # 19.6 H Lymphocytes # 2.8 Monocytes # 3.0 H Eosinophils # 0.3 Basophils # 0.1 Nucleated Red Blood Cells # 0.0 Sodium Level 136 Potassium Level 4.9 Chloride Level 98 Carbon Dioxide Level 22 Anion Gap 16 H Blood Urea Nitrogen 57 H Creatinine 5.76 H Est Glomerular Filtrat Rate mL/min 11 L Glucose Level 69 #L Calcium Level 9.7 Total Bilirubin 24.7 H Direct Bilirubin 19.70 *H Indirect Bilirubin 5.0 H Aspartate Amino Transf (AST/SGOT) 41 Alanine Aminotransferase (ALT/SGPT) 16 Alkaline Phosphatase 96 Total Protein 6.4 Albumin 2.8 L Globulin 3.60 H Albumin/Globulin Ratio 0.77 Medications Medication Current Medications Pantoprazole (Protonix Tab) 40 mg DAILY@06 PO Last administered on 02/02/19at 06:28; Admin Dose 40 MG; Start 01/29/19 at 06:00 Lactulose (Enulose) 10 gm Q8 PO Last administered on 02/02/19at 06:28; Admin Dose 10 GM; Start 01/29/19 at 06:00 Ondansetron HCl (Zofran Inj) 4 mg Q6H PRN IV NAUSEA AND/OR VOMITING; Start 01/29/19 at 01:00 Cefepime HCl 50 ml @ 100 mls/hr Q12 IVPB Last administered on 02/02/19at 08:15; Admin Dose 100 MLS/HR; Start 01/29/19 at 16:00 Epoetin Daniel-epbx (Retacrit (Esrd)) 4,000 unit MoWeFr@1700 SC Last administered on 01/30/19at 18:54; Admin Dose 4,000 UNIT; Start 01/30/19 at 17:00 Midodrine (Proamatine) 10 mg TID@,,17 PO Last administered on 02/02/19at 12:09; Admin Dose 10 MG; Start 01/29/19 at 17:00 Multivit/Ca Carb/ B Cmplx/FA/Prenat (Liz-Eugenia) 1 tab DAILY PO Last administered on 02/02/19at 08:16; Admin Dose 1 TAB; Start 01/31/19 at 09:00 Acetaminophen/ Hydrocodone Bitart ([place] (5/325)) 1 tab Q12H PRN PO MODERATE PAIN LEVEL 4-6; Start 01/30/19 at 13:30 Docusate Sodium (Colace) 100 mg BID PRN PO constipation; Start 01/30/19 at 14:00 Senna (Senokot) 2 tab DAILY PRN PO constipation; Start 01/30/19 at 14:00 Albumin Human 100 ml @ 100 mls/hr ONCE ONCE IV ; Start 02/02/19 at 12:00; Stop 02/02/19 at 12:59 MAL ENRIQUE MD Feb 02, 2019 12:32
[2019-02-02] MEDS: EPOETIN ALFA-EPBX (ESRD) 4,000 UNIT/ML VIAL SC SCH (16:43)
[2019-02-02] MEDS: LEVALBUTEROL (NEB) 0.63 MG/3 ML AMP HHN PRN (22:42)
[2019-02-03] VITALS (20 sets, daily range): BP systolic 85–102; BP diastolic 47–79; PULSE 93–110; RESP 17–20
[2019-02-03] MEDS: LACTULOSE 30ML CUP PO SCH ×3 (06:00→21:03)
[2019-02-03] MEDS: PANTOPRAZOLE (EC) 40 MG TAB PO SCH (06:44)
--- NOTE | 2019-02-03 07:21 | CONS ---
Assessment/Plan Assessment/Plan Hospital Course (Demo Recall) 39 yo male with liver disease with profound jaundice 1. Decompensated end stage liver disease with hyperbilirubinemia -pt accepted at [facility] for liver tx 2. Severe anemia. -Hgb yesterday 6.0, requiring PRBC replacement, today 7.7 3. Leukocytosis. 4. Ascites. -paracentesis on hold 5. End-stage renal disease on dialysis. 6. Coagulopathy due to #1 -paracentesis on hold, -heme onc consulted 7. Thrombocytopenia due to #1 -downtrending Plan Paracentesis on hold for coagulopathy and anemia, heme onc consulted Continue lactulose Pending Stool for C. difficile toxins Continue antibiotic Pt examined and plan of care discussed with Dr. Guerra Consultation Date/Type/Reason Admit Date/Time Jan 28, 2019 at 22:17 Initial Consult Date Date/Time of Note DATE: 02/03/19 TIME: 07:14 24 HR Interval Summary Free Text/Dictation Pt resting comfortably, denies abd pain, sob, fever or chills. Pt on 5 L NC. Exam/Review of Systems Exam Vitals Vital Signs Date Temp Pulse Resp B/P (MAP) Pulse Ox O2 O2 Flow FiO2 Time Delivery Rate 02/03/19 98.1 98 17 90/53 (65) 99 04:00 02/03/19 5.0 01:47 02/02/19 Nasal 22:42 Cannula Intake and Output 02/02/19 02/02/19 02/03/19 1515:00 23:00 07:00 IntakeIntake Total 650 ml 250 ml OutputOutput Total 1200 ml BalanceBalance -1200 ml 650 ml 250 ml Constitutional: alert, oriented Head: normocephalic Eyes: PERRL Respiratory: diminished breath sounds Cardiovascular: regular rate and rhythm Gastrointestinal: non-tender, ascites Extremities: pitting pedal edema, other (no cyanosis, warm) Neurological: nl mental status Results Result Diagram: 02/03/19 0531 02/02/19 0806 Results 24hrs Laboratory Tests Test 02/02/19 08:06 02/02/19 22:04 02/03/19 05:31 White Blood Count 26.1 H 24.7 H Red Blood Count 2.01 L 2.39 L Hemoglobin 6.6 *L 7.7 L Hematocrit 18.9 L 22.0 L Mean Corpuscular Volume 94.0 92.1 Mean Corpuscular Hemoglobin 32.8 32.2 Mean Corpuscular 34.9 35.0 Hemoglobin Concent Red Cell Distribution Width 25.3 H 22.3 H Platelet Count 91 L 79 L Mean Platelet Volume 12.0 H 13.2 H Immature Granulocytes % 1.700 H 2.000 H Neutrophils % 75.0 73.1 Lymphocytes % 10.8 L 10.3 L Monocytes % 11.3 H 13.3 H Eosinophils % 1.0 0.9 Basophils % 0.2 0.4 Nucleated Red Blood Cells % 0.0 0.0 Immature Granulocytes # 0.450 H 0.500 H Neutrophils # 19.6 H 18.1 H Lymphocytes # 2.8 2.5 Monocytes # 3.0 H 3.3 H Eosinophils # 0.3 0.2 Basophils # 0.1 0.1 Nucleated Red Blood Cells # 0.0 0.0 Prothrombin Time 32.4 H Prothrombin Time Ratio 2.5 INR International 3.15 Normalized Ratio Activated 100.8 *H Partial Thromboplast Time Sodium Level 136 Potassium Level 4.9 Chloride Level 98 Carbon Dioxide Level 22 Anion Gap 16 H Blood Urea Nitrogen 57 H Creatinine 5.76 H Est Glomerular Filtrat 11 L Rate mL/min Glucose Level 69 #L Calcium Level 9.7 Total Bilirubin 24.7 H Direct Bilirubin 19.70 *H Indirect Bilirubin 5.0 H Aspartate Amino 41 Transf (AST/SGOT) Alanine 16 Aminotransferase (ALT/SGPT) Alkaline Phosphatase 96 Total Protein 6.4 Albumin 2.8 L Globulin 3.60 H Albumin/Globulin Ratio 0.77 Blood Gas Specimen Source Blood arterial Arterial Blood Date Drawn 02/02/2019 10:21:25 PM Arterial Blood pH 7.392 (Temp corrected) Arterial Blood pCO2 40.4 (Temp correct) Arterial Blood pO2 87.5 (Temp corrected) Arterial Blood HCO3 24.0 Arterial Blood Base Excess -0.8 Arterial Blood 96.2 Oxygen Saturation [place] Test N/A Arterial Blood Gas LB Puncture Site Arterial 2.5 Blood Carboxyhemoglobin Arterial Blood 0.2 Methemoglobin Blood Gas A-a O2 122.3 H Differential Oxyhemoglobin Percent 93.6 Blood Gas Temperature 37.0 Blood Gas Modality NASAL CANNULA FiO2 36.0 Blood Gas Notified Whom LW Blood Gas Notified Time 02/02/2019 10:32:02 PM Phosphorus Level 4.1 Magnesium Level 2.0 Medications Medication Current Medications Pantoprazole (Protonix Tab) 40 mg DAILY@06 PO Last administered on 02/03/19 06:44; Admin Dose 40 MG; Start 01/29/19 at 06:00 Lactulose (Enulose) 10 gm Q8 PO Last administered on 02/02/19 20:33; Admin Dose 10 GM; Start 01/29/19 at 06:00 Ondansetron HCl (Zofran Inj) 4 mg Q6H PRN IV NAUSEA AND/OR VOMITING; Start 01/29/19 at 01:00 Cefepime HCl 50 ml @ 100 mls/hr Q12 IVPB Last administered on 02/02/19 20:33; Admin Dose 100 MLS/HR; Start 01/29/19 at 16:00 Epoetin Daniel-epbx (Retacrit (Esrd)) 4,000 unit MoWeFr@1700 SC Last administered on 02/02/19 16:43; Admin Dose 4,000 UNIT; Start 01/30/19 at 17:00 Midodrine (Proamatine) 10 mg TID@,,17 PO Last administered on 02/02/19 16:42; Admin Dose 10 MG; Start 01/29/19 at 17:00 Multivit/Ca Carb/ B Cmplx/FA/Prenat (Liz-[place]ug[place]) 1 tab DAILY PO Last administere d on 02/02/19 08:16; Admin Dose 1 TAB; Start 01/31/19 at 09:00 Acetaminophen/ Hydrocodone Bitart ([place] (5/325)) 1 tab Q12H PRN PO MODERATE PAIN LEVEL 4-6; Start 01/30/19 at 13:30 Docusate Sodium (Colace) 100 mg BID PRN PO constipation; Start 01/30/19 at 14:00 Senna (Senokot) 2 tab DAILY PRN PO constipation; Start 01/30/19 at 14:00 Levalbuterol (Xopenex Neb) 0.63 mg Q4H RESP THERAPY PRN HHN WHEEZING AND RESP DISTRESS Last administered on 02/02/19 22:42; Admin Dose 0.63 MG; Start 02/02/19 at 22:30 PHOENIX CUELLAR Feb 03, 2019 07:21
--- NOTE | 2019-02-03 07:55 | CONS ---
DATE OF ADMISSION: 01/28/2019 DATE OF CONSULTATION: 02/02/2019 HISTORY OF PRESENT ILLNESS: The patient is a 39-year-old male with multiple medical problems who was transferred in from [facility] because of the insurance arrangement on 01/28/2019. He has al coholic cirrhosis of the liver with multiple history of GI bleeding, along with end-stage renal disea se, on dialysis. Prior to the transfer, he was admitted to the [facility] because of debility along with the back pain. On inquiring, he claims that his back pain started about a month ago without any memorable trauma or heavy lifting or unusual activities. His pain is localized in the low back and without any significa nt radiation to lower extremities. He denies any significant numbness or tingling involving the lowe r extremity. His pain usually gets worse with motion or ambulation or prolonged standing. PHYSICAL EXAMINATION: My examination did not show any typical signs of radiculopathy such as numbnes s or motor weakness in the distribution of the lumbosacral nerve. Deep tendon reflexes were equal bi laterally and present with a detectable knee jerk and ankle jerk. Straight leg raising was essential ly negative up to 80 degrees bilaterally. IMAGING DATA: CT scan of the lumbar spine shows possible mild compression fracture involving the nedra tebral body of L1, L2, and L3, but this is mildly without any retroversion and mainly involving super ior endplate. MRI scan was done; however, the MRI scan was not providing any diagnostic information because of dielectric effect artifact, according to Radiology; however, the limited information repor ts congenitally short pedicle with narrow spinal canal and spinal canal stenosis in the lower lumbar area. DIAGNOSTIC IMPRESSION: Low back pain without any signs of radiculopathy, possibly from compression f racture or possibly from spinal stenosis. RECOMMENDATIONS FOR MANAGEMENT: 1. Repeat MRI scan of the lumbosacral spine with the arrangement to avoid dielectric effect artifact . 2. Trial of lumbosacral brace just in case the pain is from compression fracture of the lumbar area as reported by CT scan. 3. Trial of Medrol Dosepak if it is compatible with his other medical conditions just in case his pa in is from spinal stenosis after reviewing repeated MRI scan. Judging from history of rather sudden onset of 1 month's duration, his pain may be from compression fracture. Dictated By: NARA CONCEPCION/MUMTAZ Conf#: [id number] DID#: [id number] CC: ABEL BARRIENTOS MD;*End*
[2019-02-03] MEDS: BALSAM PERU/CASTOR OIL 60 GM TUBE TOP SCH ×2 (08:36→20:46)
[2019-02-03] MEDS: MULTIVIT/CA CARB/B CMPLX/FA TAB PO SCH (08:36)
[2019-02-03] MEDS: CEFEPIME 1GM/50 ML (PMX) 50 ML IVPB SCH (08:36)
[2019-02-03] MEDS: MIDODRINE 5 MG TAB PO SCH ×3 (08:36→18:23)
[2019-02-03] MEDS ORDERED: BUMETANIDE 1 MG INJ IV SCH (12:00)
[2019-02-03] MEDS ORDERED: PHYTONADIONE 10 MG/ML INJ SC ONE (12:00)
--- NOTE | 2019-02-03 12:07 | CONS ---
Assessment/Plan Assessment/Plan Hospital Course (Demo Recall) 39 yo with ETOH related cirrhosis, coagulopathy, on dialysis who we are asked to see for coagulopathy #coagulopathy his coags are quite elevated especially the PTT is out of proportion to what would be expected for cirrhosis related liver dysfunction give vit K 5 mg sq daily check PT/PTT mixing study check Lupus anticoagulant as this is a common cause of elevated PTT check fibrinogen to r/o DIC in terms of procedures, recommend 2 u FFP prior to proceeding with paracentesis Consultation Date/Type/Reason Admit Date/Time Jan 28, 2019 at 22:17 Date/Time of Note DATE: 02/02/19 TIME: 11:54 Hx of Present Illness 39-year-old male with heavy alcohol use, history of alcoholic liver cirrhosis, who was recently started on dialysis at [facility] 4 months ago where he has PermCath> also has history of decompensated liver failure, anemia, GI bleed status post multiple EGDs, liver failure related coagulopathy, The patient has been listed at [facility] for transplant. The ptr was at an outside hospital for weakness. The patient's labs showed sodium of 135, potassium 5.3, chloride 92, bicarb 24; white count was 22.4; AST 56, ALT 8, alkaline phosphatase 135, total bilirubin 35.8. The patient also had an ultrasound that showed cirrhosis, no focal lesion or biliary dilatation, partially contracted gallbladder with gallstones and sludge. Findings suggestive of bilateral renal parenchymal disease without evidence of hydronephrosis, large-volume ascites, splenomegaly. He is transferred to [facility] due to insurance reasons We are asked to see him for coagulopathy. PT/INR/PTT are 34/2.5/100 Constitutional: no complaints, improved Eyes: no complaints ENT: no complaints Respiratory: no complaints Cardiovascular: no complaints Gastrointestinal: no complaints Genitourinary: no complaints Musculoskeletal: no complaints Skin: no complaints Endocrine: no complaints Past Medical History Medications Current Medications Pantoprazole (Protonix Tab) 40 mg DAILY@06 PO Last administered on 02/03/19at 06:44; Admin Dose 40 MG; Start 01/29/19 at 06:00 Lactulose (Enulose) 10 gm Q8 PO Last administered on 02/02/19at 20:33; Admin Dose 10 GM; Start 01/29/19 at 06:00 Ondansetron HCl (Zofran Inj) 4 mg Q6H PRN IV NAUSEA AND/OR VOMITING; Start 01/29/19 at 01:00 Cefepime HCl 50 ml @ 100 mls/hr Q12 IVPB Last administered on 02/03/19at 08:36; Admin Dose 100 MLS/HR; Start 01/29/19 at 16:00 Epoetin Daniel-epbx (Retacrit (Esrd)) 4,000 unit MoWeFr@1700 SC Last administered on 02/02/19at 16:43; Admin Dose 4,000 UNIT; Start 01/30/19 at 17:00 Midodrine (Proamatine) 10 mg TID@,,17 PO Last administered on 02/03/19at 08:36; Admin Dose 10 MG; Start 01/29/19 at 17:00 Multivit/Ca Carb/ B Cmplx/FA/Prenat (Liz-Eugenia) 1 tab DAILY PO Last administered on 02/03/19at 08:36; Admin Dose 1 TAB; Start 01/31/19 at 09:00 Acetaminophen/ Hydrocodone Bitart ([place] (5/325)) 1 tab Q12H PRN PO MODERATE PAIN LEVEL 4-6; Start 01/30/19 at 13:30 Docusate Sodium (Colace) 100 mg BID PRN PO constipation; Start 01/30/19 at 14:00 Senna (Senokot) 2 tab DAILY PRN PO constipation; Start 01/30/19 at 14:00 Levalbuterol (Xopenex Neb) 0.63 mg Q4H RESP THERAPY PRN HHN WHEEZING AND RESP DISTRESS Last administered on 02/02/19at 22:42; Admin Dose 0.63 MG; Start 02/02/19 at 22:30 Allergies: Coded Allergies: No Known Allergy (Unverified , 01/29/19) Social History Smoking Status: Former smoker Exam/Review of Systems Exam Vitals Vital Signs Date Temp Pulse Resp B/P (MAP) Pulse Ox O2 O2 Flow FiO2 Time Delivery Rate 02/03/19 98.2 99 20 96/55 (69) 96 11:19 02/03/19 Nasal 5.0 07:26 Cannula Intake and Output 02/02/19 02/02/19 02/03/19 1515:00 23:00 07:00 IntakeIntake Total 650 ml 250 ml OutputOutput Total 1200 ml BalanceBalance -1200 ml 650 ml 250 ml Results Result Diagram: 02/03/19 0531 02/03/19 0531 Results 24hrs Laboratory Tests Test 02/02/19 22:04 02/03/19 05:31 Blood Gas Specimen Source Blood arterial Arterial Blood Date Drawn 02/02/2019 10:21:25 PM Arterial Blood pH (Temp corrected) 7.392 Arterial Blood pCO2 (Temp correct) 40.4 Arterial Blood pO2 (Temp corrected) 87.5 Arterial Blood HCO3 24.0 Arterial Blood Base Excess -0.8 Arterial Blood Oxygen Saturation 96.2 Benito Test N/A Arterial Blood Gas Puncture Site LB Arterial Blood Carboxyhemoglobin 2.5 Arterial Blood Methemoglobin 0.2 Blood Gas A-a O2 Differential 122.3 H Oxyhemoglobin Percent 93.6 Blood Gas Temperature 37.0 Blood Gas Modality NASAL CANNULA FiO2 36.0 Blood Gas Notified Whom LW Blood Gas Notified Time 02/02/2019 10:32:02 PM White Blood Count 24.7 H Red Blood Count 2.39 L Hemoglobin 7.7 L Hematocrit 22.0 L Mean Corpuscular Volume 92.1 Mean Corpuscular Hemoglobin 32.2 Mean Corpuscular Hemoglobin Concent 35.0 Red Cell Distribution Width 22.3 H Platelet Count 79 L Mean Platelet Volume 13.2 H Immature Granulocytes % 2.000 H Neutrophils % 73.1 Segmented Neutrophils % (Manual) 76 Band Neutrophils % (Manual) 7 H Lymphocytes % 10.3 L Lymphocytes % (Manual) 9 L Reactive Lymphocytes % (Manual) 2 H Monocytes % 13.3 H Monocytes % (Manual) 5 Eosinophils % 0.9 Basophils % 0.4 Basophils % (Manual) 1 Nucleated Red Blood Cells % 0.0 Immature Granulocytes # 0.500 H Neutrophils # 18.1 H Neutrophils # (Manual) 19.2 H Band Neutrophils # 1.7 H Lymphocytes (Manual) 2.2 Lymphocytes # 2.5 Reactive Lymphocytes # 0.4 H Monocytes # 3.3 H Monocytes # (Manual) 1.2 H Eosinophils # 0.2 Basophils # 0.1 Basophils # (Manual) 0.2 H Nucleated Red Blood Cells # 0.0 Platelet Estimate DECREASED Polychromasia 2+ Hypochromasia 1+ Poikilocytosis 3+ Anisocytosis 2+ Microcytosis 1+ Macrocytosis 2+ Spherocytes 1+ Sodium Level 137 Potassium Level 4.0 Chloride Level 98 Carbon Dioxide Level 26 Anion Gap 13 Blood Urea Nitrogen 38 #H Creatinine 3.91 #H Est Glomerular Filtrat Rate mL/min 17 L Glucose Level 116 # Calcium Level 9.1 Phosphorus Level 4.1 Magnesium Level 2.0 Total Bilirubin 26.5 H Direct Bilirubin 20.90 *H Indirect Bilirubin 5.6 H Aspartate Amino Transf (AST/SGOT) 42 Alanine Aminotransferase (ALT/SGPT) 14 Alkaline Phosphatase 81 Total Protein 6.4 Albumin 2.8 L Globulin 3.60 H Albumin/Globulin Ratio 0.77 Medications Medication Current Medications Pantoprazole (Protonix Tab) 40 mg DAILY@06 PO Last administered on 02/03/19 06:44; Admin Dose 40 MG; Start 01/29/19 at 06:00 Lactulose (Enulose) 10 gm Q8 PO Last administered on 02/02/19 20:33; Admin Dose 10 GM; Start 01/29/19 at 06:00 Ondansetron HCl (Zofran Inj) 4 mg Q6H PRN IV NAUSEA AND/OR VOMITING; Start 01/29/19 at 01:00 Cefepime HCl 50 ml @ 100 mls/hr Q12 IVPB Last administered on 02/03/19 08:36; Admin Dose 100 MLS/HR; Start 01/29/19 at 16:00 Epoetin Daniel-epbx (Retacrit (Esrd)) 4,000 unit MoWeFr@1700 SC Last administered on 02/02/19at 16:43; Admin Dose 4,000 UNIT; Start 01/30/19 at 17:00 Midodrine (Proamatine) 10 mg TID@09,13,17 PO Last administered on 02/03/19 08:36; Admin Dose 10 MG; Start 01/29/19 at 17:00 Multivit/Ca Carb/ B Cmplx/FA/Prenat (Liz-Eugenia) 1 tab DAILY PO Last administered on 02/03/19 08:36; Admin Dose 1 TAB; Start 01/31/19 at 09:00 Acetaminophen/ Hydrocodone Bitart ([place] (5/325)) 1 tab Q12H PRN PO MODERATE PAIN LEVEL 4-6; Start 01/30/19 at 13:30 Docusate Sodium (Colace) 100 mg BID PRN PO constipation; Start 01/30/19 at 14:00 Senna (Senokot) 2 tab DAILY PRN PO constipation; Start 01/30/19 at 14:00 Levalbuterol (Xopenex Neb) 0.63 mg Q4H RESP THERAPY PRN HHN WHEEZING AND RESP DISTRESS Last administered on 02/02/19at 22:42; Admin Dose 0.63 MG; Start 02/02/19 at 22:30 PIERCE PACE Feb 03, 2019 12:07
--- NOTE | 2019-02-03 12:14 | PN ---
Date/Time of Note Date/Time of Note DATE: 02/03/19 TIME: 12:10 Assessment/Plan VTE Prophylaxis Risk score (from Nsg)>0 risk: 3 SCD applied (from Nsg): No SCD contraindicated: low risk/ambulating Pharmacological prophylaxis: NA/contraindicated Pharm contraindication: low risk/ambulating Lines/Catheters IV Catheter Type (from Nrsg): Saline Lock Urinary Cath still in place: No Reason Cath still needed: urinary retention Assessment/Plan Assessment/Plan a/p 1. Weakness, low back pain. The patient had x-rays there which were negative for fractures. CT scan is positive for: Suspected acute or subacute fractures of the superior endplates/bodies of L1, L2 and L3 with associated slight anterior superior endplate wedge compression of the L1 and L3 vertebral bodies. Multilevel degenerative changes greatest at L4-5 as described above. Mild degenerative changes of the right posterior lateral aspect of the T11-12 disc space with mild central canal stenosis. 2. Decompensated alcoholic cirrhosis with a history of EtOH use. Hyperbilirubinemia BIRIBUMIN 19 3. End-stage renal disease, on hemodialysis. 4. Hypotension likely secondary to cirrhosis, rule out sepsis. 5. History of gastrointestinal bleed. 6. Coagulopathy. 7. Thrombocytopenia likely due to cirrhosis. 8. Moderate anemia, likely multifactorial disease, likely secondary to end- stage renal disease versus bone marrow suppression versus nutritional deficiency versus cirrhosis. 9. Leucocytosis. 10. S.p paracentesis in previous hospital 01/28/2019 11. SOB likely pul edema/ ascites Assessment/Plan -CT scan of lumbar and thoracic showed: Suspected acute or subacute fractures of the superior endplates/bodies of L1, L2 and L3 with associated slight anterior superior endplate wedge compression of the L1 and L3 vertebral bodies. No posterior retropulsion. Recommend correlate to with MRI of the lumbar spine for the most accurate determination of the chronicity is of the fractures. Multilevel degenerative changes greatest at L4-5 as described above - stat chest xray - will start iv bumex/albumin - reassess for HD ? - cw midrodrine - vitamin K, Heme consult -cw iv cefepime - cw epogen s/p 2 units PRBC --Needs a tertiary setting with there is a Ability of CRRT and patient will need liver and a kidney transplant, spoke to [facility] will call us back about update - c/w midodrine, albumin. - grim prognosis. paracentesis on hold due to severe anemia, patient will need INR to be corrected Result Diagram: 02/03/19 0531 02/03/19 0531 Results 24hrs Laboratory Tests Test 02/02/19 22:04 02/03/19 05:31 Blood Gas Specimen Source Blood arterial Arterial Blood Date Drawn 02/02/2019 10:21:25 PM Arterial Blood pH (Temp corrected) 7.392 Arterial Blood pCO2 (Temp correct) 40.4 Arterial Blood pO2 (Temp corrected) 87.5 Arterial Blood HCO3 24.0 Arterial Blood Base Excess -0.8 Arterial Blood Oxygen Saturation 96.2 Benito Test N/A Arterial Blood Gas Puncture Site LB Arterial Blood Carboxyhemoglobin 2.5 Arterial Blood Methemoglobin 0.2 Blood Gas A-a O2 Differential 122.3 H Oxyhemoglobin Percent 93.6 Blood Gas Temperature 37.0 Blood Gas Modality NASAL CANNULA FiO2 36.0 Blood Gas Notified Whom LW Blood Gas Notified Time 02/02/2019 10:32:02 PM White Blood Count 24.7 H Red Blood Count 2.39 L Hemoglobin 7.7 L Hematocrit 22.0 L Mean Corpuscular Volume 92.1 Mean Corpuscular Hemoglobin 32.2 Mean Corpuscular Hemoglobin Concent 35.0 Red Cell Distribution Width 22.3 H Platelet Count 79 L Mean Platelet Volume 13.2 H Immature Granulocytes % 2.000 H Neutrophils % 73.1 Segmented Neutrophils % (Manual) 76 Band Neutrophils % (Manual) 7 H Lymphocytes % 10.3 L Lymphocytes % (Manual) 9 L Reactive Lymphocytes % (Manual) 2 H Monocytes % 13.3 H Monocytes % (Manual) 5 Eosinophils % 0.9 Basophils % 0.4 Basophils % (Manual) 1 Nucleated Red Blood Cells % 0.0 Immature Granulocytes # 0.500 H Neutrophils # 18.1 H Neutrophils # (Manual) 19.2 H Band Neutrophils # 1.7 H Lymphocytes (Manual) 2.2 Lymphocytes # 2.5 Reactive Lymphocytes # 0.4 H Monocytes # 3.3 H Monocytes # (Manual) 1.2 H Eosinophils # 0.2 Basophils # 0.1 Basophils # (Manual) 0.2 H Nucleated Red Blood Cells # 0.0 Platelet Estimate DECREASED Polychromasia 2+ Hypochromasia 1+ Poikilocytosis 3+ Anisocytosis 2+ Microcytosis 1+ Macrocytosis 2+ Spherocytes 1+ Sodium Level 137 Potassium Level 4.0 Chloride Level 98 Carbon Dioxide Level 26 Anion Gap 13 Blood Urea Nitrogen 38 #H Creatinine 3.91 #H Est Glomerular Filtrat Rate mL/min 17 L Glucose Level 116 # Calcium Level 9.1 Phosphorus Level 4.1 Magnesium Level 2.0 Total Bilirubin 26.5 H Direct Bilirubin 20.90 *H Indirect Bilirubin 5.6 H Aspartate Amino Transf (AST/SGOT) 42 Alanine Aminotransferase (ALT/SGPT) 14 Alkaline Phosphatase 81 Total Protein 6.4 Albumin 2.8 L Globulin 3.60 H Albumin/Globulin Ratio 0.77 Subjective 24 Hr Interval Summary Free Text/Dictation SOB since yesterday unable to do paracentesis due to high INR and APTT sbp 94 Exam/Review of Systems Exam Vitals Vital Signs Date Temp Pulse Resp B/P (MAP) Pulse Ox O2 O2 Flow FiO2 Time Delivery Rate 02/03/19 99 12:02 02/03/19 98.2 20 96/55 (69) 96 11:19 02/03/19 Nasal 5.0 07:26 Cannula Intake and Output 02/02/19 02/02/19 02/03/19 1515:00 23:00 07:00 IntakeIntake Total 650 ml 250 ml OutputOutput Total 1200 ml BalanceBalance -1200 ml 650 ml 250 ml Exam onstitutional: alert, oriented, scleral icterus Head: normocephalic Cardiovascular: regular rate and rhythm decreased breath sounds at bases Gastrointestinal: soft, distended/ascites Diffuse a yellowish discoloration of the skin Tender to palpation in the lumbar area Edema legs Results Results 24hrs Laboratory Tests Test 02/02/19 22:04 02/03/19 05:31 Blood Gas Specimen Source Blood arterial Arterial Blood Date Drawn 02/02/2019 10:21:25 PM Arterial Blood pH (Temp corrected) 7.392 Arterial Blood pCO2 (Temp correct) 40.4 Arterial Blood pO2 (Temp corrected) 87.5 Arterial Blood HCO3 24.0 Arterial Blood Base Excess -0.8 Arterial Blood Oxygen Saturation 96.2 Benito Test N/A Arterial Blood Gas Puncture Site LB Arterial Blood Carboxyhemoglobin 2.5 Arterial Blood Methemoglobin 0.2 Blood Gas A-a O2 Differential 122.3 H Oxyhemoglobin Percent 93.6 Blood Gas Temperature 37.0 Blood Gas Modality NASAL CANNULA FiO2 36.0 Blood Gas Notified Whom LW Blood Gas Notified Time 02/02/2019 10:32:02 PM White Blood Count 24.7 H Red Blood Count 2.39 L Hemoglobin 7.7 L Hematocrit 22.0 L Mean Corpuscular Volume 92.1 Mean Corpuscular Hemoglobin 32.2 Mean Corpuscular Hemoglobin Concent 35.0 Red Cell Distribution Width 22.3 H Platelet Count 79 L Mean Platelet Volume 13.2 H Immature Granulocytes % 2.000 H Neutrophils % 73.1 Segmented Neutrophils % (Manual) 76 Band Neutrophils % (Manual) 7 H Lymphocytes % 10.3 L Lymphocytes % (Manual) 9 L Reactive Lymphocytes % (Manual) 2 H Monocytes % 13.3 H Monocytes % (Manual) 5 Eosinophils % 0.9 Basophils % 0.4 Basophils % (Manual) 1 Nucleated Red Blood Cells % 0.0 Immature Granulocytes # 0.500 H Neutrophils # 18.1 H Neutrophils # (Manual) 19.2 H Band Neutrophils # 1.7 H Lymphocytes (Manual) 2.2 Lymphocytes # 2.5 Reactive Lymphocytes # 0.4 H Monocytes # 3.3 H Monocytes # (Manual) 1.2 H Eosinophils # 0.2 Basophils # 0.1 Basophils # (Manual) 0.2 H Nucleated Red Blood Cells # 0.0 Platelet Estimate DECREASED Polychromasia 2+ Hypochromasia 1+ Poikilocytosis 3+ Anisocytosis 2+ Microcytosis 1+ Macrocytosis 2+ Spherocytes 1+ Sodium Level 137 Potassium Level 4.0 Chloride Level 98 Carbon Dioxide Level 26 Anion Gap 13 Blood Urea Nitrogen 38 #H Creatinine 3.91 #H Est Glomerular Filtrat Rate mL/min 17 L Glucose Level 116 # Calcium Level 9.1 Phosphorus Level 4.1 Magnesium Level 2.0 Total Bilirubin 26.5 H Direct Bilirubin 20.90 *H Indirect Bilirubin 5.6 H Aspartate Amino Transf (AST/SGOT) 42 Alanine Aminotransferase (ALT/SGPT) 14 Alkaline Phosphatase 81 Total Protein 6.4 Albumin 2.8 L Globulin 3.60 H Albumin/Globulin Ratio 0.77 Medications Medication Current Medications Pantoprazole (Protonix Tab) 40 mg DAILY@06 PO Last administered on 02/03/19at 06:44; Admin Dose 40 MG; Start 01/29/19 at 06:00 Lactulose (Enulose) 10 gm Q8 PO Last administered on 02/02/19at 20:33; Admin D ose 10 GM; Start 01/29/19 at 06:00 Ondansetron HCl (Zofran Inj) 4 mg Q6H PRN IV NAUSEA AND/OR VOMITING; Start 01/29/19 at 01:00 Cefepime HCl 50 ml @ 100 mls/hr Q12 IVPB Last administered on 02/03/19 08:36; Admin Dose 100 MLS/HR; Start 01/29/19 at 16:00 Epoetin Daniel-epbx (Retacrit (Esrd)) 4,000 unit MoWeFr@1700 SC Last administered on 02/02/19 16:43; Admin Dose 4,000 UNIT; Start 01/30/19 at 17:00 Midodrine (Proamatine) 10 mg TID@,,17 PO Last administered on 02/03/19at 08:36; Admin Dose 10 MG; Start 01/29/19 at 17:00 Multivit/Ca Carb/ B Cmplx/FA/Prenat (Liz-Eugenia) 1 tab DAILY PO Last administered on 02/03/19at 08:36; Admin Dose 1 TAB; Start 01/31/19 at 09:00 Acetaminophen/ Hydrocodone Bitart ([place] (5/325)) 1 tab Q12H PRN PO MODERATE PAIN LEVEL 4-6; Start 01/30/19 at 13:30 Docusate Sodium (Colace) 100 mg BID PRN PO constipation; Start 01/30/19 at 14:00 Senna (Senokot) 2 tab DAILY PRN PO constipation; Start 01/30/19 at 14:00 Levalbuterol (Xopenex Neb) 0.63 mg Q4H RESP THERAPY PRN HHN WHEEZING AND RESP DISTRESS Last administered on 02/02/19at 22:42; Admin Dose 0.63 MG; Start 02/02/19 at 22:30 Bumetanide (Bumex) 1 mg BID DIURETICS IV ; Start 02/03/19 at 12:00 Albumin Human 100 ml @ 100 mls/hr Q8H IV ; Start 02/03/19 at 12:00; Stop 02/04/19 at 04:59 MAL ENRIQUE MD Feb 03, 2019 12:14
--- NOTE | 2019-02-03 12:29 | CONS ---
Assessment/Plan Assessment/Plan Assessment/Plan (Daily) Assessment and recommendations; 1. Patient with history of end-stage liver cirrhosis admitted for severe abdominal distention with leukocytosis possibly spontaneous bacterial peritonitis in the setting of end-stage liver disease from alcoholic cirrhosis. 2. Coagulopathy from liver disease. Patient has received vitamin K. 3. End-stage renal disease, on hemodialysis. 4. Anemia and thrombocytopenia. 5. History of variceal bleeding. Continue current supportive care. Continue current antimicrobial regimen. 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 Paracentesis once INR is in an acceptable range. Will obtain chest x-ray. Prognosis is very poor. Consultation Date/Type/Reason Admit Date/Time Jan 28, 2019 at 22:17 Date of Consultation: Feb 03, 2019 Type of Consult Pulmonary Patient is a 39-year-old male who has been transferred from another facility because of end-stage liver disease and large ascites. By the time I saw the patient, patient appeared awake and alert and did not appear to be in any distress. Past medical history; 1. End-stage alcoholic liver cirrhosis. 2. History of variceal bleeding. 3. End-stage renal disease, on hemodialysis. 4. Chronic anemia. 5. Secondary hyperparathyroidism. Medications; reviewed. Allergies; none. Social he; history of heavy alcohol abuse. Patient has quit for some time though. Family history; noncontributory. Occupational history; patient is on disability. Review of systems; denies any headache, seizures. Complains of mild shortness of breath. Complains of abdominal distention without any pain. Denies any nausea vomiting. Denies any orthopnea. Complains of dark urine. Denies any melena or hematochezia. Complains of weight loss. Complains of easy skin bruising. General exam; young male, appears severely icteric. Currently no distress. Laying flat in bed. Date/Time of Note DATE: 02/03/19 TIME: 12:25 Past Medical History Medications Current Medications Pantoprazole (Protonix Tab) 40 mg DAILY@06 PO Last administered on 02/03/19at 06:44; Admin Dose 40 MG; Start 01/29/19 at 06:00 Lactulose (Enulose) 10 gm Q8 PO Last administered on 02/02/19at 20:33; Admin Dose 10 GM; Start 01/29/19 at 06:00 Ondansetron HCl (Zofran Inj) 4 mg Q6H PRN IV NAUSEA AND/OR VOMITING; Start 01/29/19 at 01:00 Cefepime HCl 50 ml @ 100 mls/hr Q12 IVPB Last administered on 02/03/19at 08:36; Admin Dose 100 MLS/HR; Start 01/29/19 at 16:00 Epoetin Daniel-epbx (Retacrit (Esrd)) 4,000 unit MoWeFr@1700 SC Last administered on 02/02/19at 16:43; Admin Dose 4,000 UNIT; Start 01/30/19 at 17:00 Midodrine (Proamatine) 10 mg TID@,13,17 PO Last administered on 02/03/19at 08:36; Admin Dose 10 MG; Start 01/29/19 at 17:00 Multivit/Ca Carb/ B Cmplx/FA/Prenat (Liz-Eugenia) 1 tab DAILY PO Last admini stered on 02/03/19at 08:36; Admin Dose 1 TAB; Start 01/31/19 at 09:00 Acetaminophen/ Hydrocodone Bitart ([place] (5/325)) 1 tab Q12H PRN PO MODERATE PAIN LEVEL 4-6; Start 01/30/19 at 13:30 Docusate Sodium (Colace) 100 mg BID PRN PO constipation; Start 01/30/19 at 14:00 Senna (Senokot) 2 tab DAILY PRN PO constipation; Start 01/30/19 at 14:00 Levalbuterol (Xopenex Neb) 0.63 mg Q4H RESP THERAPY PRN HHN WHEEZING AND RESP DISTRESS Last administered on 02/02/19at 22:42; Admin Dose 0.63 MG; Start 02/02 at 22:30 Bumetanide (Bumex) 1 mg BID DIURETICS IV ; Start 02/03/19 at 12:00 Albumin Human 100 ml @ 100 mls/hr Q8H IV ; Start 02/03/19 at 12:00; Stop 02/04/19 at 04:59 Allergies: Coded Allergies: No Known Allergy (Unverified , 01/29/19) Social History Smoking Status: Former smoker Exam/Review of Systems Exam Vitals Vital Signs Date Temp Pulse Resp B/P (MAP) Pulse Ox O2 O2 Flow FiO2 Time Delivery Rate 02/03/19 99 12:02 02/03/19 98.2 20 96/55 (69) 96 11:19 02/03/19 Nasal 5.0 07:26 Cannula Intake and Output 02/02/19 02/02/19 02/03/19 1515:00 23:00 07:00 IntakeIntake Total 650 ml 250 ml OutputOutput Total 1200 ml BalanceBalance -1200 ml 650 ml 250 ml Exam H EENT exam; supple neck, patient is strongly icteric. No oral bleeding seen. Pupils are midsize. No neck masses. Pharynx is clear. Patient has fair dentition. Chest exam; diminished breath sounds bilaterally. S1-S2 audible, no murmurs. Regular rhythm. Abdomen exam; grossly distended with positive fluid thrill. Bowel sounds are sluggish. Extremity exam; no peripheral edema. APPLIED TECHNOLOGIST exam; patient awake alert follows simple commands no tremor noted. Results Result Diagram: 02/03/19 0531 02/03/19 0531 Results 24hrs Laboratory Tests Test 02/02/19 22:04 02/03/19 05:31 Blood Gas Specimen Source Blood arterial Arterial Blood Date Drawn 02/02/2019 10:21:25 PM Arterial Blood pH (Temp corrected) 7.392 Arterial Blood pCO2 (Temp correct) 40.4 Arterial Blood pO2 (Temp corrected) 87.5 Arterial Blood HCO3 24.0 Arterial Blood Base Excess -0.8 Arterial Blood Oxygen Saturation 96.2 Benito Test N/A Arterial Blood Gas Puncture Site LB Arterial Blood Carboxyhemoglobin 2.5 Arterial Blood Methemoglobin 0.2 Blood Gas A-a O2 Differential 122.3 H Oxyhemoglobin Percent 93.6 Blood Gas Temperature 37.0 Blood Gas Modality NASAL CANNULA FiO2 36.0 Blood Gas Notified Whom LW Blood Gas Notified Time 02/02/2019 10:32:02 PM White Blood Count 24.7 H Red Blood Count 2.39 L Hemoglobin 7.7 L Hematocrit 22.0 L Mean Corpuscular Volume 92.1 Mean Corpuscular Hemoglobin 32.2 Mean Corpuscular Hemoglobin Concent 35.0 Red Cell Distribution Width 22.3 H Platelet Count 79 L Mean Platelet Volume 13.2 H Immature Granulocytes % 2.000 H Neutrophils % 73.1 Segmented Neutrophils % (Manual) 76 Band Neutrophils % (Manual) 7 H Lymphocytes % 10.3 L Lymphocytes % (Manual) 9 L Reactive Lymphocytes % (Manual) 2 H Monocytes % 13.3 H Monocytes % (Manual) 5 Eosinophils % 0.9 Basophils % 0.4 Basophils % (Manual) 1 Nucleated Red Blood Cells % 0.0 Immature Granulocytes # 0.500 H Neutrophils # 18.1 H Neutrophils # (Manual) 19.2 H Band Neutrophils # 1.7 H Lymphocytes (Manual) 2.2 Lymphocytes # 2.5 Reactive Lymphocytes # 0.4 H Monocytes # 3.3 H Monocytes # (Manual) 1.2 H Eosinophils # 0.2 Basophils # 0.1 Basophils # (Manual) 0.2 H Nucleated Red Blood Cells # 0.0 Platelet Estimate DECREASED Polychromasia 2+ Hypochromasia 1+ Poikilocytosis 3+ Anisocytosis 2+ Microcytosis 1+ Macrocytosis 2+ Spherocytes 1+ Sodium Level 137 Potassium Level 4.0 Chloride Level 98 Carbon Dioxide Level 26 Anion Gap 13 Blood Urea Nitrogen 38 #H Creatinine 3.91 #H Est Glomerular Filtrat Rate mL/min 17 L Glucose Level 116 # Calcium Level 9.1 Phosphorus Level 4.1 Magnesium Level 2.0 Total Bilirubin 26.5 H Direct Bilirubin 20.90 *H Indirect Bilirubin 5.6 H Aspartate Amino Transf (AST/SGOT) 42 Alanine Aminotransferase (ALT/SGPT) 14 Alkaline Phosphatase 81 Total Protein 6.4 Albumin 2.8 L Globulin 3.60 H Albumin/Globulin Ratio 0.77 Medications Medication Current Medications Pantoprazole (Protonix Tab) 40 mg DAILY@06 PO Last administered on 02/03/19at 06:44; Admin Dose 40 MG; Start 01/29/19 at 06:00 Lactulose (Enulose) 10 gm Q8 PO Last administered on 02/02/19at 20:33; Admin Dose 10 GM; Start 01/29/19 at 06:00 Ondansetron HCl (Zofran Inj) 4 mg Q6H PRN IV NAUSEA AND/OR VOMITING; Start 01/29/19 at 01:00 Cefepime HCl 50 ml @ 100 mls/hr Q12 IVPB Last administered on 02/03/19at 08:36; Admin Dose 100 MLS/HR; Start 01/29/19 at 16:00 Epoetin Daniel-epbx (Retacrit (Esrd)) 4,000 unit MoWeFr@1700 SC Last administered on 02/02/19at 16:43; Admin Dose 4,000 UNIT; Start 01/30/19 at 17:00 Midodrine (Proamatine) 10 mg TID@09,13,17 PO Last administered on 02/03/19at 08:36; Admin Dose 10 MG; Start 01/29/19 at 17:00 Multivit/Ca Carb/ B Cmplx/FA/Prenat (Liz-[place]ug[place]) 1 tab DAILY PO Last administered on 02/03/19at 08:36; Admin Dose 1 TAB; Start 01/31/19 at 09:00 Acetaminophen/ Hydrocodone Bitart ([place] (5/325)) 1 tab Q12H PRN PO MODERATE PAIN LEVEL 4-6; Start 01/30/19 at 13:30 Docusate Sodium (Colace) 100 mg BID PRN PO constipation; Start 01/30/19 at 14 :00 Senna (Senokot) 2 tab DAILY PRN PO constipation; Start 01/30/19 at 14:00 Levalbuterol (Xopenex Neb) 0.63 mg Q4H RESP THERAPY PRN HHN WHEEZING AND RESP DISTRESS Last administered on 02/02/19at 22:42; Admin Dose 0.63 MG; Start 02/02/19 at 22:30 Bumetanide (Bumex) 1 mg BID DIURETICS IV ; Start 02/03/19 at 12:00 Albumin Human 100 ml @ 100 mls/hr Q8H IV ; Start 02/03/19 at 12:00; Stop 02/04/19 at 04:59 FRANCE LINARES Feb 03, 2019 12:29
[2019-02-03] MEDS: ALBUMIN HUMAN 25% 100 ML IV SCH ×2 (12:34→20:47)
--- NOTE | 2019-02-03 13:24 | PDOCDIS ---
Discharge Instructions DIAGNOSIS Discharge Diagnosis LIVER CIRRHOSIS ESRD ON HD COAGULOPATHY CONDITION [id number] Patient Condition: [id number] Fair HOME CARE INSTRUCTIONS: Elizabeth Diet Instructions: Gerald Low Fat /Cholesterol ACTIVITY: Elizabeth Activity Restrictions: Gerald Slowly Increase Activity FOLLOW UP/APPOINTMENTS Follow-up Plan [facility] [place] MAL MURPHY MD Feb 03, 2019 13:24
--- NOTE | 2019-02-03 13:59 | CONS ---
Assessment/Plan Assessment/Plan Hospital Course (Demo Recall) 39 yo with ETOH related cirrhosis, coagulopathy, on dialysis who we are asked to see for coagulopathy #coagulopathy -2/2 cirrhosis and decompensated liver failure -IV vitamin K 5m ordered -f/u mixing studies and LAC -low fibrinogen is from liver failure. will order cryoprecipitate -if patient need paracentesis, would recommend to given 12 units of FFP 4 hours prior ot planned procedure and check stat PT/INR prior to procedure #EtOH cirrhosis -pt to be transferred ot [facility] for liver transplant #ESRD -continue HD Consultation Date/Type/Reason Admit Date/Time Jan 28, 2019 at 22:17 Initial Consult Date 02/03/19 Type of Consult hematology Reason for Consultation coagulopathy Requesting Provider: MAL ENRIQUE MD Date/Time of Note DATE: 02/03/19 TIME: 13:50 24 HR Interval Summary Free Text/Dictation no acute overnight events. Exam/Review of Systems Exam Vitals Vital Signs Date Temp Pulse Resp B/P (MAP) Pulse Ox O2 O2 Flow FiO2 Time Delivery Rate 02/03/19 99 12:02 02/03/19 98.2 20 96/55 (69) 96 11:19 02/03/19 Nasal 5.0 07:26 Cannula Intake and Output 02/02/19 02/02/19 02/03/19 1515:00 23:00 07:00 IntakeIntake Total 650 ml 250 ml OutputOutput Total 1200 ml BalanceBalance -1200 ml 650 ml 250 ml Constitutional: alert, oriented Psych: no complaints Head: normocephalic Eyes: icteric ENMT: nl external ears & nose Neck: supple Respiratory: clear to auscultation Cardiovascular: regular rate and rhythm Gastrointestinal: soft Results Result Diagram: 02/03/19 0531 02/03/19 0531 Results 24hrs Laboratory Tests Test 02/02/19 22:04 02/03/19 05:31 02/03/19 12:20 Blood Gas Specimen Source Blood arterial Arterial Blood Date Drawn 02/02/2019 10:21:25 PM Arterial Blood pH 7.392 (Temp corrected) Arterial Blood pCO2 40.4 (Temp correct) Arterial Blood pO2 87.5 (Temp corrected) Arterial Blood HCO3 24.0 Arterial Blood Base Excess -0.8 Arterial Blood 96.2 Oxygen Saturation Benito Test N/A Arterial Blood Gas LB Puncture Site Arterial 2.5 Blood Carboxyhemoglobin Arterial Blood 0.2 Methemoglobin Blood Gas A-a O2 122.3 H Differential Oxyhemoglobin Percent 93.6 Blood Gas Temperature 37.0 Blood Gas Modality NASAL CANNULA FiO2 36.0 Blood Gas Notified Whom LW Blood Gas Notified Time 02/02/2019 10:32:02 PM White Blood Count 24.7 H Red Blood Count 2.39 L Hemoglobin 7.7 L Hematocrit 22.0 L Mean Corpuscular Volume 92.1 Mean Corpuscular Hemoglobin 32.2 Mean Corpuscular 35.0 Hemoglobin Concent Red Cell Distribution Width 22.3 H Platelet Count 79 L Mean Platelet Volume 13.2 H Immature Granulocytes % 2.000 H Neutrophils % 73.1 Segmented Neutrophils 76 % (Manual) Band Neutrophils % (Manual) 7 H Lymphocytes % 10.3 L Lymphocytes % (Manual) 9 L Reactive Lymphocytes 2 H % (Manual) Monocytes % 13.3 H Monocytes % (Manual) 5 Eosinophils % 0.9 Basophils % 0.4 Basophils % (Manual) 1 Nucleated Red Blood Cells % 0.0 Immature Granulocytes # 0.500 H Neutrophils # 18.1 H Neutrophils # (Manual) 19.2 H Band Neutrophils # 1.7 H Lymphocytes (Manual) 2.2 Lymphocytes # 2.5 Reactive Lymphocytes # 0.4 H Monocytes # 3.3 H Monocytes # (Manual) 1.2 H Eosinophils # 0.2 Basophils # 0.1 Basophils # (Manual) 0.2 H Nucleated Red Blood Cells # 0.0 Platelet Estimate DECREASED Polychromasia 2+ Hypochromasia 1+ Poikilocytosis 3+ Anisocytosis 2+ Microcytosis 1+ Macrocytosis 2+ Spherocytes 1+ Sodium Level 137 Potassium Level 4.0 Chloride Level 98 Carbon Dioxide Level 26 Anion Gap 13 Blood Urea Nitrogen 38 #H Creatinine 3.91 #H Est Glomerular Filtrat 17 L Rate mL/min Glucose Level 116 # Calcium Level 9.1 Phosphorus Level 4.1 Magnesium Level 2.0 Total Bilirubin 26.5 H Direct Bilirubin 20.90 *H Indirect Bilirubin 5.6 H Aspartate Amino 42 Transf (AST/SGOT) Alanine 14 Aminotransferase (ALT/SGPT) Alkaline Phosphatase 81 Total Protein 6.4 Albumin 2.8 L Globulin 3.60 H Albumin/Globulin Ratio 0.77 Prothrombin Time 33.4 H Prothrombin Time Ratio 2.6 INR International 3.28 Normalized Ratio Activated 88.3 *H Partial Thromboplast Time Mix PTT Normal 40.0 Plasma Immediate Fibrinogen 90.0 L Medications Medication Current Medications Pantoprazole (Protonix Tab) 40 mg DAILY@06 PO Last administered on 02/03/19at 06:44; Admin Dose 40 MG; Start 01/29/19 at 06:00 Lactulose (Enulose) 10 gm Q8 PO Last administered on 02/02/19at 20:33; Admin Dose 10 GM; Start 01/29/19 at 06:00 Ondansetron HCl (Zofran Inj) 4 mg Q6H PRN IV NAUSEA AND/OR VOMITING; Start 01/29/19 at 01:00 Cefepime HCl 50 ml @ 100 mls/hr Q12 IVPB Last administered on 02/03/19at 08:36; Admin Dose 100 MLS/HR; Start 01/29/19 at 16:00 Epoetin Daniel-epbx (Retacrit (Esrd)) 4,000 unit MoWeFr@1700 SC Last administered on 02/02/19at 16:43; Admin Dose 4,000 UNIT; Start 01/30/19 at 17:00 Midodrine (Proamatine) 10 mg TID@,13,17 PO Last administered on 02/03/19at 12:37; Admin Dose 10 MG; Start 01/29/19 at 17:00 Multivit/Ca Carb/ B Cmplx/FA/Prenat (Liz-Eugenia) 1 tab DAILY PO Last administered on 02/03/19at 08:36; Admin Dose 1 TAB; Start 01/31/19 at 09:00 Acetaminophen/ Hydrocodone Bitart ([place] (5/325)) 1 tab Q12H PRN PO MODERATE PAIN LEVEL 4-6; Start 01/30/19 at 13:30 Docusate Sodium (Colace) 100 mg BID PRN PO constipation; Start 01/30/19 at 14:00 Senna (Senokot) 2 tab DAILY PRN PO constipation; Start 01/30/19 at 14:00 Levalbuterol (Xopenex Neb) 0.63 mg Q4H RESP THERAPY PRN HHN WHEEZING AND RESP DISTRESS Last administered on 02/02/19at 22:42; Admin Dose 0.63 MG; Start 02/02/19 at 22:30 Bumetanide (Bumex) 1 mg BID DIURETICS IV ; Start 02/03/19 at 12:00 Albumin Human 100 ml @ 100 mls/hr Q8H IV Last administered on 02/03/19at 12:34; Admin Dose 100 MLS/HR; Start 02/03/19 at 12:00; Stop 02/04/19 at 04:59 EBONIE TOBAR M.D. Feb 03, 2019 13:59
[2019-02-03] MEDS ORDERED: PHYTONADIONE 5 MG in DEXTROSE 5% 50 ML IVPB ONE (15:30)
[2019-02-04] VITALS (75 sets, daily range): BP systolic 81–132; BP diastolic 42–78; PULSE 85–134; RESP 11–27
[2019-02-04] MEDS: ALBUMIN HUMAN 25% 100 ML IV SCH ×3 (04:02→18:06)
[2019-02-04] MEDS: LACTULOSE 30ML CUP PO SCH ×3 (05:16→21:18)
[2019-02-04] MEDS: PANTOPRAZOLE (EC) 40 MG TAB PO SCH (05:16)
[2019-02-04] MEDS: LEVALBUTEROL (NEB) 0.63 MG/3 ML AMP HHN PRN (05:40)
--- NOTE | 2019-02-04 06:06 | EN ---
Date/Time of Note Date/Time of Note DATE: 02/04/19 TIME: 06:00 Event Note Medicine Medicine Event Note Rapid response note Rapid response was called at approximately 5:46 AM Rapid response called for altered mental status Patient was seen and examined at the bedside. Bedside RN reported that the patient was talking and then started saying that something does not feel right something does not feel right and then basically stopped being communicated.. Patient had his eyes open but he appeared to be in a daze, he was noncommunicative. Bedside blood pressure cuff showed a blood pressure of 80/50 and then subsequently upon recheck became unreadable. Patient has diffuse abdom inal ascites as well as bilateral lower extremity edema. Given his altered status decision was made to transfer the patient stat to the ICU. Vitals: Temperature 98 blood pressure 80/50 with subsequently unable to be read on the bedside monitor, rate 105, SPO2 96% on nonrebreather General: Patient appears altered, noncommunicative, awake CVS: Sinus tachycardia Lungs: Coarse breath sounds bilaterally Abdomen: Distended, ascites Neuro: Patient appears altered, his eyes are open but he is on communicative Assessment and plan: #1 acute encephalopathy: Toxic metabolic, hepatic encephalopathy, secondary to sepsis. We will check a stat ABG, CBC CMP ammonia level lactic acid level. We will transfer the patient emergently to the ICU for closer monitoring. Chest x- ray. Consider CT scan of the brain once hemodynamically stable. #2 hypotension: Suspect development of septic shock versus further decompensation of liver failure. Patient was initiated on Levophed via peripheral line. Will obtain stat CBC BMP ammonia lactic acid levels as well as blood cultures x2. Will obtain a chest x-ray. #3 anasarca: Patient does appear to be third spacing, patient is end-stage renal disease and end-stage cirrhosis. Further management as per nephrology Greater than 35 minutes critical care time spent on the care management this patient. Patient will be transferred to the ICU. Primary doctor to be notified by the RN for further orders and management. SHAILESH EVANS Feb 04, 2019 06:06
[2019-02-04] MEDS ORDERED: NA BICARBONATE 8.4% 50 ML SYG ONE (06:23)
[2019-02-04] MEDS ORDERED: LIDOCAINE 1% (MPF) 5 ML VIAL SC ONE (06:30)
[2019-02-04] MEDS ORDERED: NA BICARBONATE 8.4% 50 ML SYG IV ONE ×2 (06:30)
--- NOTE | 2019-02-04 06:56 | EN ---
Date/Time of Note Date/Time of Note DATE: 02/04/19 TIME: 06:50 ER Progress Note I have been consulted to see the patient for intubation. The patient has a history of end-stage renal disease on dialysis, cirrhosis and became altered this morning. Remainder of HPI is very limited. On exam: General: No significant distress, not protecting airway, being bagged Head: Normocephalic, atraumatic. Eyes: Pupils equally reactive, EOM intact ENT: Moist mucous membranes Neck: Supple, no lymphadenopathy Respiratory: Labored Cardiovascular: tachycardia Abdominal: Soft, protuberant : Deferred MSK: Limited movement of all 4 extremities, no bony abnormalities Neurologic: Limited exam, and encephalopathic, limited movement of all 4 extremities Skin: Jaundiced Psych: Unable to assess Procedure(s): Intubation Note: Indication: Airway protection Consent: This was an emergent situation, implied consent was observed RSI Medications: Etomidate 20 mg, succinylcholine 120 mg Tube size: 7.5 Secured at: 22 at the corner of the mouth Procedure: Endotracheal intubation was performed. The patient was preoxygenated with supplemental oxygen, the room was set up with emergency airway equipment including [id number], suction, and adjunct airways. Direct visualization of the cords was performed with direct laryngoscopy using video laryngoscope, insertion of the endotracheal tube through the cords was visualized. Bilateral breath sounds were auscultated, color change was observed. The tube was then secured in a postintubation chest x-ray was ordered. The patient tolerated the procedure well there were no complications. Assessment and plan: Patient with evidence of acute respiratory failure and acute encephalopathy requiring intubation. Patient intubated. Primary team will manage ventilator settings and follow on x-ray imaging. Diagnostic impression: Acute respiratory failure NAT TEE MD Feb 04, 2019 06:55
[2019-02-04] MEDS: MIDAZOLAM (DRIP) 50 mg/50 mL 50 ML IV SCH ×3 (07:29→21:44)
[2019-02-04] MEDS: FENTAnyl (DRIP) 1000 mcg/100mL 100 ML IV SCH ×2 (07:40→21:48)
[2019-02-04] MEDS: NORepinephrine 8MG/250 ML (PMX 250 ML IV SCH ×2 (08:07→13:53)
[2019-02-04] MEDS ORDERED: VANCOMYCIN IV PER PHARMACY XX SCH (08:30)
[2019-02-04] MEDS: MIDODRINE 5 MG TAB PO SCH ×3 (09:00→17:29)
[2019-02-04] MEDS: MULTIVIT/CA CARB/B CMPLX/FA TAB PO SCH (09:00)
--- NOTE | 2019-02-04 09:05 | CONS ---
Assessment/Plan Assessment/Plan Assessment/Plan (Daily) Chest x-ray was reviewed from today which is showing bilateral large pleural effusions. Significant worsening compared to yesterday. Ventilator setting; AC of 20, tidal volume 500, PEEP of 5, 100% FiO2. Patient is currently on Versed 5 mg/h, fentanyl 75 mics per hour, Levophed 60 mics per minute. Assessment and recommendations; 1. Patient with history of end-stage liver disease admitted with sepsis likely due to spontaneous bacterial peritonitis, currently on appropriate empiric antimicrobial regimen. INR was very high therefore paracentesis could not be performed. 2. Interval development of respiratory failure due to large bilateral pleural effusions from volume overload. 3. Chronic renal failure, on hemodialysis. 4. Severe coagulopathy. 5. Hypotension, on Levophed. 6. Anemia. 7. Thrombocytopenia. Continue current supportive care. Prognosis appears extremely poor. 35 minutes of critical care time was spent evaluating the patient. Consultation Date/Type/Reason Admit Date/Time Jan 28, 2019 at 22:17 Initial Consult Date 02/03/19 Type of Consult Pulmonary Patient is a 39-year-old male who has been transferred from another facility because of end-stage liver disease and large ascites. By the time I saw the patient, patient appeared awake and alert and did not appear to be in any distress. Past medical history; 1. End-stage alcoholic liver cirrhosis. 2. History of variceal bleeding. 3. End-stage renal disease, on hemodialysis. 4. Chronic anemia. 5. Secondary hyperparathyroidism. Medications; reviewed. Allergies; none. Social he; history of heavy alcohol abuse. Patient has quit for some time though. Family history; noncontributory. Occupational history; patient is on disability. Review of systems; denies any headache, seizures. Complains of mild shortness of breath. Complains of abdominal distention without any pain. Denies any nausea vomiting. Denies any orthopnea. Complains of dark urine. Denies any melena or hematochezia. Complains of weight loss. Complains of easy skin bruising. General exam; young male, appears severely icteric. Currently no distress. Laying flat in bed. Requesting Provider: MAL ENRIQUE MD Date/Time of Note DATE: 02/04/19 TIME: 09:01 24 HR Interval Summary Free Text/Dictation Patient's condition is extremely critical. Patient had respiratory failure last evening requiring intubation. General exam; young male, appearing deeply icteric. Orally intubated. Sedated. Currently in no distress. Exam/Review of Systems Exam Vitals Vital Signs Date Temp Pulse Resp B/P (MAP) Pulse Ox O2 O2 Flow FiO2 Time Delivery Rate 02/04/19 115 08:00 02/04/19 20 114/73 97 Mechanical 07:00 (87) Ventilator 02/04/19 100 06:47 02/04/19 97.8 06:45 02/04/19 15.0 06:33 Intake and Output 02/03/19 02/03/19 02/04/19 1515:00 23:00 07:00 IntakeIntake Total 150 ml 800 ml 609 ml OutputOutput Total 200 ml 2532 ml BalanceBalance -50 ml -1732 ml 609 ml Exam H HEENT exam; supple neck, positive JVD. No lymphadenopathy. Midline trachea. No thyromegaly. Patient is deeply icteric. Pupils are small bilaterally. No oral bleeding seen. Patient has fair dentition. Orally intubated. Chest exam; diminished breath sounds throughout. S1-S2 audible, no murmurs. Abdomen exam; protuberant. Positive fluid thrill. Umbilicus is flat. Bowel sounds are absent. Organomegaly difficult to assess. Extremity exam; no peripheral edema. TRANSACTION PROCESSOR exam; patient is sedated. Results Result Diagram: 02/04/19 0651 02/04/19 0651 Results 24hrs Laboratory Tests Test 02/03/19 12:20 02/04/19 05:10 02/04/19 05:47 02/04/19 05:53 Prothrombin Time 33.4 H 29.6 H Prothrombin Time 2.6 2.3 Ratio INR 3.28 2.81 International Normalized Ratio Activated 88.3 *H 85.3 *H Partial Thrombop last Time Mix PTT Normal 40.0 Plasma Immediate Fibrinogen 90.0 L White Blood 28.3 H Count Red Blood Count 2.16 L Hemoglobin 7.0 L Hematocrit 20.1 L Mean Corpuscular 93.1 Volume Mean Corpuscular 32.4 Hemoglobin Mean Corpuscular 34.8 Hemoglobin Criselda nt Red Cell 22.4 H Distribution Width Platelet Count 69 L Mean Platelet 12.5 H Volume Immature 1.700 H Granulocytes % Neutrophils % Segmented 81 H Neutrophils % (Manual) Band Neutrophils 1 % (Manual) Lymphocytes % Lymphocytes % 10 L (Manual) Monocytes % Monocytes % 5 (Manual) Eosinophils % Eosinophils % 2 (Manual) Basophils % Basophils % 1 (Manual) Nucleated Red 0.0 Blood Cells % Immature 0.490 H Granulocytes # Neutrophils # Neutrophils # 23.0 H (Manual) Band Neutrophils 0.2 # Lymphocytes 2.8 (Manual) Lymphocytes # Monocytes # Monocytes # 1.4 H (Manual) Eosinophils # Basophils # Basophils # 0.2 H (Manual) Nucleated Red Blood Cells # Platelet DECREASED Estimate Giant Platelets 3 H Poikilocytosis 2+ Anisocytosis 3+ Macrocytosis 2+ Target Cells 1+ Sodium Level 138 Potassium Level 4.3 Chloride Level 97 Carbon Dioxide 22 Level Anion Gap 19 H Blood Urea 43 H Nitrogen Creatinine 4.32 H Est Glomerular 15 L Filtrat Rate mL/min Glucose Level 115 Calcium Level 9.4 Phosphorus Level 4.5 Magnesium Level 1.9 Total Bilirubin 25.7 H Direct Bilirubin 20.00 *H Indirect 5.7 H Bilirubin Aspartate Amino 38 Transf (AST/SGOT ) Alanine 15 Aminotransferase (ALT/SGPT) Alkaline 98 Phosphatase Total Protein 6.6 Albumin 3.0 L Globulin 3.60 H Albumin/Globulin 0.83 Ratio Bedside Glucose 121 Blood Gas Blood arterial Specimen Source Arterial Blood 02/04/2019 5:55: Date Drawn 25 AM Arterial Blood 7.029 *L pH (Temp corrected) Arterial Blood 53.2 H pCO2 (Temp correct) Arterial Blood 76.7 L pO2 (Temp corrected) Arterial Blood 13.7 L HCO3 Arterial Blood -15.2 L Base Excess Arterial Blood 87.4 L Oxygen Saturatio n Benito Test ACCEPTAB Arterial Blood Right Radial Gas Puncture Site Arterial 1.8 Blood Carboxyhem oglobin Arterial Blood 0.7 Methemoglobin Blood Gas A-a O2 583.1 H Differential Oxyhemoglobin 85.2 L Percent Blood Gas 37.0 Temperature Blood Gas Actual 24 Respiration Rate Blood Gas MASK - NRB Modality FiO2 100.0 Blood Gas CRISTINA Whipple MD Critical Value Read Back Blood Gas KB Notified Whom Blood Gas 02/04/2019 6:08: Notified Time 14 AM Test 02/04/19 06:51 02/04/19 08:30 White Blood 32.4 H Count Red Blood Count 2.23 L Hemoglobin 7.2 L Hematocrit 21.4 L Mean Corpuscular 96.0 Volume Mean Corpuscular 32.3 Hemoglobin Mean Corpuscular 33.6 Hemoglobin Criselda nt Red Cell 23.2 H Distribution Width Platelet Count 77 L Mean Platelet 12.6 H Volume Immature 3.800 H Granulocytes % Neutrophils % Segmented 72 Neutrophils % (Manual) Lymphocytes % Lymphocytes % 20 (Manual) Monocytes % Monocytes % 2 (Manual) Eosinophils % Eosinophils % 2 (Manual) Basophils % Myelocytes % 4 H (Manual) Nucleated Red 0.1 H Blood Cells % Immature 1.220 H Granulocytes # Neutrophils # Lymphocytes 6.4 H (Manual) Lymphocytes # Monocytes # Monocytes # 0.6 (Manual) Eosinophils # Basophils # Myelocytes # 1.2 H Nucleated Red Blood Cells # Platelet DECREASED Estimate Poikilocytosis 3+ Anisocytosis 3+ Macrocytosis 2+ Target Cells 1+ Sodium Level 141 Potassium Level 5.2 H Chloride Level 95 L Carbon Dioxide 26 Level Anion Gap 20 H Blood Urea 43 H Nitrogen Creatinine 4.57 H Est Glomerular 14 L Filtrat Rate mL/min Glucose Level 114 Lactic Acid 4.3 *H Level Calcium Level 9.3 Total Bilirubin 28.4 H Direct Bilirubin 22.50 *H Indirect 5.9 H Bilirubin Aspartate Amino 41 Transf (AST/SGOT ) Alanine 14 Aminotransferase (ALT/SGPT) Alkaline 99 Phosphatase Ammonia 90 #H Total Protein 7.6 # Albumin 3.6 Globulin 4.00 H Albumin/Globulin 0.90 Ratio Blood Gas Blood arterial Specimen Source Arterial Blood 02/04/2019 8:45: Date Drawn 08 AM Arterial Blood 7.392 pH (Temp corrected) Arterial Blood 37.3 pCO2 (Temp correct) Arterial Blood 142.9 H pO2 (Temp corrected) Arterial Blood 22.2 HCO3 Arterial Blood -2.5 Base Excess Arterial Blood 99.1 H Oxygen Saturatio n Benito Test ACCEPTAB Arterial Blood Right Brachial Gas Puncture Site Arterial 2.2 Blood Carboxyhem oglobin Arterial Blood 0.6 Methemoglobin Blood Gas A-a O2 532.8 H Differential Oxyhemoglobin 96.3 Percent Blood Gas 37.0 Temperature Blood Gas 20.0 Respiration Rate Blood Gas Actual 20 Respiration Rate Blood Gas VENT - AC Modality FiO2 100.0 Blood Gas Tidal 500.0 Volume Blood Gas Low 5.0 PEEP Setting Blood Gas TM Notified Whom Blood Gas 02/04/2019 8:53: Notified Time 48 AM Medications Medication Current Medications Pantoprazole (Protonix Tab) 40 mg DAILY@06 PO Last administered on 02/04/19 05:16; Admin Dose 40 MG; Start 01/29/19 at 06:00 Lactulose (Enulose) 10 gm Q8 PO Last administered on 02/02/19at 20:33; Admin Dose 10 GM; Start 01/29/19 at 06:00 Ondansetron HCl (Zofran Inj) 4 mg Q6H PRN IV NAUSEA AND/OR VOMITING; Start 01/29/19 at 01:00 Epoetin Daniel-epbx (Retacrit (Esrd)) 4,000 unit MoWeFr@1700 SC Last administered on 02/02/19 16:43; Admin Dose 4,000 UNIT; Start 01/30/19 at 17:00 Midodrine (Proamatine) 10 mg TID@,,17 PO Last administered on 02/03/19 18:23; Admin Dose 10 MG; Start 01/29/19 at 17:00 Multivit/Ca Carb/ B Cmplx/FA/Prenat (Liz-Eugenia) 1 tab DAILY PO Last administere d on 02/03/19at 08:36; Admin Dose 1 TAB; Start 01/31/19 at 09:00 Acetaminophen/ Hydrocodone Bitart ([place] (5/325)) 1 tab Q12H PRN PO MODERATE PAIN LEVEL 4-6 Last administered on 02/04/19 05:16; Admin Dose 1 TAB; Start 01/30/19 at 13:30 Docusate Sodium (Colace) 100 mg BID PRN PO constipation; Start 01/30/19 at 14:00 Senna (Senokot) 2 tab DAILY PRN PO constipation; Start 01/30/19 at 14:00 Levalbuterol (Xopenex Neb) 0.63 mg Q4H RESP THERAPY PRN HHN WHEEZING AND RESP DISTRESS Last administered on 02/04/19 05:40; Admin Dose 0.63 MG; Start 02/02/19 at 22:30 Cefepime HCl 50 ml @ 100 mls/hr Q24H IVPB ; Start 02/04/19 at 09:00 Norepinephrine 250 ml @ 1.875 mls/ hr TITRATE IV Last administered on 02/04/19 08:07; Admin Dose 30 MLS/HR; Start 02/04/19 at 06:30 Midazolam HCl 50 ml @ 1 mls/hr TITRATE IV Last administered on 02/04/19at 07:29; Admin Dose 1 MLS/HR; Start 02/04/19 at 07:00 Fentanyl 100 ml @ 2.5 mls/hr TITRATE IV Last administered on 02/04/19at 07:40; Admin Dose 2.5 MLS/HR; Start 02/04/19 at 07:00 Vancomycin HCl (Vanco Iv Per Pharmacy) VANCOMYCIN PER PHARMACY PER PROTOCOL XX ; Start 02/04/19 at 08:30 Vancomycin HCl 1.5 gm/Sodium Chloride 250 ml @ 83.333 mls/ hr ONCE ONCE IVPB ; Start 02/04/19 at 09:30; Stop 02/04/19 at 12:29 [place] LINARSE 19, 2019 09:05
[2019-02-04] MEDS: CEFEPIME 1GM/50 ML (PMX) 50 ML IVPB SCH (09:23)
[2019-02-04] MEDS: BALSAM PERU/CASTOR OIL 60 GM TUBE TOP SCH ×2 (09:23→21:18)
[2019-02-04] MEDS ORDERED: VANCOMYCIN HCL 1.5 GM in SOD CHLORIDE 0.9% 250 ML IVPB ONE (09:30)
[2019-02-04] MEDS ORDERED: PHYTONADIONE 10 MG/ML INJ SC ONE (11:00)
[2019-02-04] MEDS: BUMETANIDE 1 MG INJ IV SCH ×2 (11:16→18:03)
--- NOTE | 2019-02-04 11:45 | PN ---
Date/Time of Note Date/Time of Note DATE: 02/04/19 TIME: 11:35 Assessment/Plan VTE Prophylaxis Risk score (from Nsg)>0 risk: 3 SCD applied (from Nsg): No SCD contraindicated: low risk/ambulating Pharmacological prophylaxis: NA/contraindicated Pharm contraindication: low risk/ambulating Lines/Catheters IV Catheter Type (from Nrsg): Intraosseous Central line still needed: Yes Urinary Cath still in place: No Assessment/Plan Assessment/Plan #Shock likely secondary to sepsis , patient has history of cirrhosis #Respiratory failure status post intubation secondary to large pleural effusions secondary to volume overload s post hemodialysis yesterday # Weakness, low back pain. The patient had x-rays there which were negative for fractures. CT scan is positive for: Suspected acute or subacute fractures of the superior endplates/bodies of L1, L2 and L3 with associated slight anterior superior endplate wedge compression of the L1 and L3 vertebral bodies. Multilevel degenerative changes greatest at L4-5 as described above. Mild degenerative changes of the right posterior lateral aspect of the T11-12 disc space with mild central canal stenosis. #. Decompensated alcoholic cirrhosis with a history of EtOH use. Hyperbilirubinemia BIRIBUMIN 19 > 20 # Abdominal distention with ascites # End-stage renal disease, on hemodialysis. # History of gastrointestinal bleed. This post multiple EGDs in the past # Coagulopathy. Elevated INR 2.81 elevated APTT and low fibrinogen Jennifer due to his liver disease # Thrombocytopenia likely due to cirrhosis. # Moderate anemia, likely multifactorial disease, likely secondary to end-stage renal disease versus bone marrow suppression versus nutritional deficiency versus cirrhosis. #. Leucocytosis. Be secondary to sepsis/alcoholic liver cirrhosis #. S.p paracentesis in previous hospital 01/28/2019 # Hepatic encephlaopathy Assessment/Plan -Will give 2 units of FFP/cryoprecipitate/vitamin K, INR 2.81 -Spoke to radiology Dr. Noble will do paracentesis today, hopefully will help to lower down FI02 REQUIREMENTS -Give IV albumin before start of paracentesis -Slow HD today with likely 1 unit of blood -The new with the vancomycin/cefepime -Continue with lactulose - cw with midodrine - blood cx - cw epogen s/p 2 units PRBC --Needs a tertiary setting with there is a Ability of CRRT and patient will need liver and a kidney transplant, spoke to [facility] will call us back about update, patient was accepted by Dr. Moore however now on higher amounts of FiO2, need to be stabilized before transfer, spoke to for possible transfer in 1-2 days - c/w midodrine, albumin. - grim prognosis. spoke to uncle at bedside Result Diagram: 02/04/19 0651 02/04/19 0651 Results 24hrs Laboratory Tests Test 02/03/19 12:20 02/04/19 05:10 02/04/19 05:47 02/04/19 05:53 Prothrombin Time 33.4 H 29.6 H Prothrombin Time 2.6 2.3 Ratio INR 3.28 2.81 International Normalized Ratio Activated 88.3 *H 85.3 *H Partial Thrombop last Time Mix PTT Normal 40.0 Plasma Immediate Fibrinogen 90.0 L White Blood 28.3 H Count Red Blood Count 2.16 L Hemoglobin 7.0 L Hematocrit 20.1 L Mean Corpuscular 93.1 Volume Mean Corpuscular 32.4 Hemoglobin Mean Corpuscular 34.8 Hemoglobin Criselda nt Red Cell 22.4 H Distribution Width Platelet Count 69 L Mean Platelet 12.5 H Volume Immature 1.700 H Granulocytes % Neutrophils % Segmented 81 H Neutrophils % (Manual) Band Neutrophils 1 % (Manual) Lymphocytes % Lymphocytes % 10 L (Manual) Monocytes % Monocytes % 5 (Manual) Eosinophils % Eosinophils % 2 (Manual) Basophils % Basophils % 1 (Manual) Nucleated Red 0.0 Blood Cells % Immature 0.490 H Granulocytes # Neutrophils # Neutrophils # 23.0 H (Manual) Band Neutrophils 0.2 # Lymphocytes 2.8 (Manual) Lymphocytes # Monocytes # Monocytes # 1.4 H (Manual) Eosinophils # Basophils # Basophils # 0.2 H (Manual) Nucleated Red Blood Cells # Platelet DECREASED Estimate Giant Platelets 3 H Poikilocytosis 2+ Anisocytosis 3+ Macrocytosis 2+ Target Cells 1+ Sodium Level 138 Potassium Level 4.3 Chloride Level 97 Carbon Dioxide 22 Level Anion Gap 19 H Blood Urea 43 H Nitrogen Creatinine 4.32 H Est Glomerular 15 L Filtrat Rate mL/min Glucose Level 115 Calcium Level 9.4 Phosphorus Level 4.5 Magnesium Level 1.9 Total Bilirubin 25.7 H Direct Bilirubin 20.00 *H Indirect 5.7 H Bilirubin Aspartate Amino 38 Transf (AST/SGOT ) Alanine 15 Aminotransferase (ALT/SGPT) Alkaline 98 Phosphatase Total Protein 6.6 Albumin 3.0 L Globulin 3.60 H Albumin/Globulin 0.83 Ratio Bedside Glucose 121 Blood Gas Blood arterial Specimen Source Arterial Blood 02/04/2019 5:55: Date Drawn 25 AM Arterial Blood 7.029 *L pH (Temp corrected) Arterial Blood 53.2 H pCO2 (Temp correct) Arterial Blood 76.7 L pO2 (Temp corrected) Arterial Blood 13.7 L HCO3 Arterial Blood -15.2 L Base Excess Arterial Blood 87.4 L Oxygen Saturatio n Benito Test ACCEPTAB Arterial Blood Right Radial Gas Puncture Site Arterial 1.8 Blood Carboxyhem oglobin Arterial Blood 0.7 Methemoglobin Blood Gas A-a O2 583.1 H Differential Oxyhemoglobin 85.2 L Percent Blood Gas 37.0 Temperature Blood Gas Actual 24 Respiration Rate Blood Gas MASK - NRB Modality FiO2 100.0 Blood Gas CRISTINA Whipple MD Critical Value Read Back Blood Gas KB Notified Whom Blood Gas 02/04/2019 6:08: Notified Time 14 AM Test 02/04/19 06:51 02/04/19 08:30 White Blood 32.4 H Count Red Blood Count 2.23 L Hemoglobin 7.2 L Hematocrit 21.4 L Mean Corpuscular 96.0 Volume Mean Corpuscular 32.3 Hemoglobin Mean Corpuscular 33.6 Hemoglobin Criselda nt Red Cell 23.2 H Distribution Width Platelet Count 77 L Mean Platelet 12.6 H Volume Immature 3.800 H Granulocytes % Neutrophils % Segmented 72 Neutrophils % (Manual) Lymphocytes % Lymphocytes % 20 (Manual) Monocytes % Monocytes % 2 (Manual) Eosinophils % Eosinophils % 2 (Manual) Basophils % Myelocytes % 4 H (Manual) Nucleated Red 0.1 H Blood Cells % Immature 1.220 H Granulocytes # Neutrophils # Lymphocytes 6.4 H (Manual) Lymphocytes # Monocytes # Monocytes # 0.6 (Manual) Eosinophils # Basophils # Myelocytes # 1.2 H Nucleated Red Blood Cells # Platelet DECREASED Estimate Poikilocytosis 3+ Anisocytosis 3+ Macrocytosis 2+ Target Cells 1+ Sodium Level 141 Potassium Level 5.2 H Chloride Level 95 L Carbon Dioxide 26 Level Anion Gap 20 H Blood Urea 43 H Nitrogen Creatinine 4.57 H Est Glomerular 14 L Filtrat Rate mL/min Glucose Level 114 Lactic Acid 4.3 *H Level Calcium Level 9.3 Total Bilirubin 28.4 H Direct Bilirubin 22.50 *H Indirect 5.9 H Bilirubin Aspartate Amino 41 Transf (AST/SGOT ) Alanine 14 Aminotransferase (ALT/SGPT) Alkaline 99 Phosphatase Ammonia 90 #H Total Protein 7.6 # Albumin 3.6 Globulin 4.00 H Albumin/Globulin 0.90 Ratio Blood Gas Blood arterial Specimen Source Arterial Blood 02/04/2019 8:45: Date Drawn 08 AM Arterial Blood 7.392 pH (Temp corrected) Arterial Blood 37.3 pCO2 (Temp correct) Arterial Blood 142.9 H pO2 (Temp corrected) Arterial Blood 22.2 HCO3 Arterial Blood -2.5 Base Excess Arterial Blood 99.1 H Oxygen Saturatio n Benito Test ACCEPTAB Arterial Blood Right Brachial Gas Puncture Site Arterial 2.2 Blood Carboxyhem oglobin Arterial Blood 0.6 Methemoglobin Blood Gas A-a O2 532.8 H Differential Oxyhemoglobin 96.3 Percent Blood Gas 37.0 Temperature Blood Gas 20.0 Respiration Rate Blood Gas Actual 20 Respiration Rate Blood Gas VENT - AC Modality FiO2 100.0 Blood Gas Tidal 500.0 Volume Blood Gas Low 5.0 PEEP Setting Blood Gas TM Notified Whom Blood Gas 02/04/2019 8:53: Notified Time 48 AM Subjective 24 Hr Interval Summary Free Text/Dictation Patient was altered yesterday, rapid response was called, patient was acidotic and was intubated Ammonia levels are high Currently patient is on levo fed 12 FiO2 of 80% INR 2.81 , elevated APTT and low fibrogen Exam/Review of Systems Exam Vitals Vital Signs Date Temp Pulse Resp B/P (MAP) Pulse Ox O2 O2 Flow FiO2 Time Delivery Rate 02/04/19 110 20 98 80 11:27 02/04/19 114/73 Mechanical 07:00 (87) Ventilator 02/04/19 97.8 06:45 02/04/19 15.0 06:33 Intake and Output 02/03/19 02/03/19 02/04/19 1515:00 23:00 07:00 IntakeIntake Total 150 ml 800 ml 609 ml OutputOutput Total 200 ml 2532 ml BalanceBalance -50 ml -1732 ml 609 ml Exam nstitutional: sedated scleral icterus, open eyes Head: normocephalic Cardiovascular: regular rate and rhythm decreased breath sounds at bases Gastrointestinal: soft, distended/ascites ++ Diffuse a yellowish discoloration of the skin Tender to palpation in the lumbar area Edema legs Right permacath site oozing blood Blood also noted from mouth Results Results 24hrs Laboratory Tests Test 02/03/19 12:20 02/04/19 05:10 02/04/19 05:47 02/04/19 05:53 Prothrombin Time 33.4 H 29.6 H Prothrombin Time 2.6 2.3 Ratio INR 3.28 2.81 International Normalized Ratio Activated 88.3 *H 85.3 *H Partial Thrombop last Time Mix PTT Normal 40.0 Plasma Immediate Fibrinogen 90.0 L White Blood 28.3 H Count Red Blood Count 2.16 L Hemoglobin 7.0 L Hematocrit 20.1 L Mean Corpuscular 93.1 Volume Mean Corpuscular 32.4 Hemoglobin Mean Corpuscular 34.8 Hemoglobin Criselda nt Red Cell 22.4 H Distribution Width Platelet Count 69 L Mean Platelet 12.5 H Volume Immature 1.700 H Granulocytes % Neutrophils % Segmented 81 H Neutrophils % (Manual) Band Neutrophils 1 % (Manual) Lymphocytes % Lymphocytes % 10 L (Manual) Monocytes % Monocytes % 5 (Manual) Eosinophils % Eosinophils % 2 (Manual) Basophils % Basophils % 1 (Manual) Nucleated Red 0.0 Blood Cells % Immature 0.490 H Granulocytes # Neutrophils # Neutrophils # 23.0 H (Manual) Band Neutrophils 0.2 # Lymphocytes 2.8 (Manual) Lymphocytes # Monocytes # Monocytes # 1.4 H (Manual) Eosinophils # Basophils # Basophils # 0.2 H (Manual) Nucleated Red Blood Cells # Platelet DECREASED Estimate Giant Platelets 3 H Poikilocytosis 2+ Anisocytosis 3+ Macrocytosis 2+ Target Cells 1+ Sodium Level 138 Potassium Level 4.3 Chloride Level 97 Carbon Dioxide 22 Level Anion Gap 19 H Blood Urea 43 H Nitrogen Creatinine 4.32 H Est Glomerular 15 L Filtrat Rate mL/min Glucose Level 115 Calcium Level 9.4 Phosphorus Level 4.5 Magnesium Level 1.9 Total Bilirubin 25.7 H Direct Bilirubin 20.00 *H Indirect 5.7 H Bilirubin Aspartate Amino 38 Transf (AST/SGOT ) Alanine 15 Aminotransferase (ALT/SGPT) Alkaline 98 Phosphatase Total Protein 6.6 Albumin 3.0 L Globulin 3.60 H Albumin/Globulin 0.83 Ratio Bedside Glucose 121 Blood Gas Blood arterial Specimen Source Arterial Blood 02/04/2019 5:55: Date Drawn 25 AM Arterial Blood 7.029 *L pH (Temp corrected) Arterial Blood 53.2 H pCO2 (Temp correct) Arterial Blood 76.7 L pO2 (Temp corrected) Arterial Blood 13.7 L HCO3 Arterial Blood -15.2 L Base Excess Arterial Blood 87.4 L Oxygen Saturatio n Benito Test ACCEPTAB Arterial Blood Right Radial Gas Puncture Site Arterial 1.8 Blood Carboxyhem oglobin Arterial Blood 0.7 Methemoglobin Blood Gas A-a O2 583.1 H Differential Oxyhemoglobin 85.2 L Percent Blood Gas 37.0 Temperature Blood Gas Actual 24 Respiration Rate Blood Gas MASK - NRB Modality FiO2 100.0 Blood Gas CRISTINA Whipple MD Critical Value Read Back Blood Gas KB Notified Whom Blood Gas 02/04/2019 6:08: Notified Time 14 AM Test 02/04/19 06:51 02/04/19 08:30 White Blood 32.4 H Count Red Blood Count 2.23 L Hemoglobin 7.2 L Hematocrit 21.4 L Mean Corpuscular 96.0 Volume Mean Corpuscular 32.3 Hemoglobin Mean Corpuscular 33.6 Hemoglobin Criselda nt Red Cell 23.2 H Distribution Width Platelet Count 77 L Mean Platelet 12.6 H Volume Immature 3.800 H Granulocytes % Neutrophils % Segmented 72 Neutrophils % (Manual) Lymphocytes % Lymphocytes % 20 (Manual) Monocytes % Monocytes % 2 (Manual) Eosinophils % Eosinophils % 2 (Manual) Basophils % Myelocytes % 4 H (Manual) Nucleated Red 0.1 H Blood Cells % Immature 1.220 H Granulocytes # Neutrophils # Lymphocytes 6.4 H (Manual) Lymphocytes # Monocytes # Monocytes # 0.6 (Manual) Eosinophils # Basophils # Myelocytes # 1.2 H Nucleated Red Blood Cells # Platelet DECREASED Estimate Poikilocytosis 3+ Anisocytosis 3+ Macrocytosis 2+ Target Cells 1+ Sodium Level 141 Potassium Level 5.2 H Chloride Level 95 L Carbon Dioxide 26 Level Anion Gap 20 H Blood Urea 43 H Nitrogen Creatinine 4.57 H Est Glomerular 14 L Filtrat Rate mL/min Glucose Level 114 Lactic Acid 4.3 *H Level Calcium Level 9.3 Total Bilirubin 28.4 H Direct Bilirubin 22.50 *H Indirect 5.9 H Bilirubin Aspartate Amino 41 Transf (AST/SGOT ) Alanine 14 Aminotransferase (ALT/SGPT) Alkaline 99 Phosphatase Ammonia 90 #H Total Protein 7.6 # Albumin 3.6 Globulin 4.00 H Albumin/Globulin 0.90 Ratio Blood Gas Blood arterial Specimen Source Arterial Blood 02/04/2019 8:45: Date Drawn 08 AM Arterial Blood 7.392 pH (Temp corrected) Arterial Blood 37.3 pCO2 (Temp correct) Arterial Blood 142.9 H pO2 (Temp corrected) Arterial Blood 22.2 HCO3 Arterial Blood -2.5 Base Excess Arterial Blood 99.1 H Oxygen Saturatio n Benito Test ACCEPTAB Arterial Blood Right Brachial Gas Puncture Site Arterial 2.2 Blood Carboxyhem oglobin Arterial Blood 0.6 Methemoglobin Blood Gas A-a O2 532.8 H Differential Oxyhemoglobin 96.3 Percent Blood Gas 37.0 Temperature Blood Gas 20.0 Respiration Rate Blood Gas Actual 20 Respiration Rate Blood Gas VENT - AC Modality FiO2 100.0 Blood Gas Tidal 500.0 Volume Blood Gas Low 5.0 PEEP Setting Blood Gas TM Notified Whom Blood Gas 02/04/2019 8:53: Notified Time 48 AM Medications Medication Current Medications Pantoprazole (Protonix Tab) 40 mg DAILY@06 PO Last administered on 02/04/19at 05:16; Admin Dose 40 MG; Start 01/29/19 at 06:00 Lactulose (Enulose) 10 gm Q8 PO Last administered on 02/02/19at 20:33; Admin Dose 10 GM; Start 01/29/19 at 06:00 Ondansetron HCl (Zofran Inj) 4 mg Q6H PRN IV NAUSEA AND/OR VOMITING; Start 01/29/19 at 01:00 Epoetin Daniel-epbx (Retacrit (Esrd)) 4,000 unit MoWeFr@1700 SC Last administered on 02/02/19at 16:43; Admin Dose 4,000 UNIT; Start 01/30/19 at 17:00 Midodrine (Proamatine) 10 mg TID@,,17 PO Last administered on 02/03/19at 18:23; Admin Dose 10 MG; Start 01/29/19 at 17:00 Multivit/Ca Carb/ B Cmplx/FA/Prenat (Liz-Eugenia) 1 tab DAILY PO Last administered on 02/03/19 08:36; Admin Dose 1 TAB; Start 01/31/19 at 09:00 Docusate Sodium (Colace) 100 mg BID PRN PO constipation; Start 01/30/19 at 14:00 Senna (Senokot) 2 tab DAILY PRN PO constipation; Start 01/30/19 at 14:00 Levalbuterol (Xopenex Neb) 0.63 mg Q4H RESP THERAPY PRN HHN WHEEZING AND RESP DISTRESS Last administered on 02/04/19 05:40; Admin Dose 0.63 MG; Start 02/02/19 at 22:30 Cefepime HCl 50 ml @ 100 mls/hr Q24H IVPB Last administered on 02/04/19 09:23; Admin Dose 100 MLS/HR; Start 02/04/19 at 09:00 Norepinephrine 250 ml @ 1.875 mls/ hr TITRATE IV Last administered on 02/04/19 08:07; Admin Dose 30 MLS/HR; Start 02/04/19 at 06:30 Midazolam HCl 50 ml @ 1 mls/hr TITRATE IV Last administered on 02/04/19 07:29; Admin Dose 1 MLS/HR; Start 02/04/19 at 07:00 Fentanyl 100 ml @ 2.5 mls/hr TITRATE IV Last administered on 02/04/19 07:40; Admin Dose 2.5 MLS/HR; Start 02/04/19 at 07:00 Vancomycin HCl (Vanco Iv Per Pharmacy) VANCOMYCIN PER PHARMACY PER PROTOCOL XX ; Start 02/04/19 at 08:30 Vancomycin HCl 1.5 gm/Sodium Chloride 250 ml @ 83.333 mls/ hr ONCE ONCE IVPB Last administered on 02/04/19 10:30; Admin Dose 83.333 MLS/HR; Start 02/04/19 at 09:30; Stop 02/04/19 at 12:29 Bumetanide (Bumex) 1 mg BID DIURETICS IV Last administered on 02/04/19 11:16; Admin Dose 1 MG; Start 02/04/19 at 10:30 Albumin Human 100 ml @ 100 mls/hr Q8H IV ; Start 02/04/19 at 11:00; Stop 02/05/19 at 03:59 MAL ENRIQUE MD Feb 04, 2019 11:45
--- NOTE | 2019-02-04 16:36 | CONS ---
Assessment/Plan Assessment/Plan Assessment/Plan (Daily) Consultation Assessment/Plan Assessment/Plan Hospital Course (Demo Recall) 39 yo male with liver disease with profound jaundice 1. Decompensated end stage liver disease with hyperbilirubinemia -pt accepted at [facility] for liver tx 2. Severe anemia. -Hgb yesterday 6.0, requiring PRBC replacement, today 7.7 3. Leukocytosis. 4. Ascites. -paracentesis possible today 5. End-stage renal disease on dialysis. 6. Coagulopathy due to #1 - 7. Thrombocytopenia due to #1 -downtrending Plan Paracentesis today we will send fluid for culture and WBC Continue lactulose Pending Stool for C. difficile toxins Continue antibiotic Alpha-fetoprotein Rifaximin Continue antibiotic and pressor support Consultation Date/Type/Reason Admit Date/Time Jan 28, 2019 at 22:17 Initial Consult Date Requesting Provider: MAL ENRIQUE MD Date/Time of Note DATE: 02/04/19 TIME: 16:34 24 HR Interval Summary Free Text/Dictation Is intubated on ventilator Paracentesis in process Abdomen is massively distended Exam/Review of Systems Exam Vitals Vital Signs Date Temp Pulse Resp B/P (MAP) Pulse Ox O2 O2 Flow FiO2 Time Delivery Rate 02/04/19 102 12:00 02/04/19 20 98 80 11:27 02/04/19 114/73 Mechanical 07:00 (87) Ventilator 02/04/19 97.8 06:45 02/04/19 15.0 06:33 Intake and Output 02/03/19 02/03/19 02/04/19 1414:59 22:59 06:59 IntakeIntake Total 150 ml 800 ml 609 ml OutputOutput Total 2732 ml BalanceBalance 150 ml -1932 ml 609 ml Constitutional: non-verbal Respiratory: diminished breath sounds Cardiovascular: regular rate and rhythm, nl pulses Gastrointestinal: ascites, distended Extremities: edema Results Result Diagram: 02/04/19 0651 02/04/19 0651 Results 24hrs Laboratory Tests Test 02/04/19 05:10 02/04/19 05:47 02/04/19 05:53 02/04/19 06:51 White Blood 28.3 H 32.4 H Count Red Blood Count 2.16 L 2.23 L Hemoglobin 7.0 L 7.2 L Hematocrit 20.1 L 21.4 L Mean Corpuscular 93.1 96.0 Volume Mean Corpuscular 32.4 32.3 Hemoglobin Mean Corpuscular 34.8 33.6 Hemoglobin Criselda nt Red Cell 22.4 H 23.2 H Distribution Width Platelet Count 69 L 77 L Mean Platelet 12.5 H 12.6 H Volume Immature 1.700 H 3.800 H Granulocytes % Neutrophils % Segmented 81 H 72 Neutrophils % (Manual) Band Neutrophils 1 % (Manual) Lymphocytes % Lymphocytes % 10 L 20 (Manual) Monocytes % Monocytes % 5 2 (Manual) Eosinophils % Eosinophils % 2 2 (Manual) Basophils % Basophils % 1 (Manual) Nucleated Red 0.0 0.1 H Blood Cells % Immature 0.490 H 1.220 H Granulocytes # Neutrophils # Neutrophils # 23.0 H (Manual) Band Neutrophils 0.2 # Lymphocytes 2.8 6.4 H (Manual) Lymphocytes # Monocytes # Monocytes # 1.4 H 0.6 (Manual) Eosinophils # Basophils # Basophils # 0.2 H (Manual) Nucleated Red Blood Cells # Platelet DECREASED DECREASED Estimate Giant Platelets 3 H Poikilocytosis 2+ 3+ Anisocytosis 3+ 3+ Macrocytosis 2+ 2+ Target Cells 1+ 1+ Prothrombin Time 29.6 H Prothrombin Time 2.3 Ratio INR 2.81 International Normalized Ratio Activated 85.3 *H Partial Thrombop last Time Sodium Level 138 141 Potassium Level 4.3 5.2 H Chloride Level 97 95 L Carbon Dioxide 22 26 Level Anion Gap 19 H 20 H Blood Urea 43 H 43 H Nitrogen Creatinine 4.32 H 4.57 H Est Glomerular 15 L 14 L Filtrat Rate mL/min Glucose Level 115 114 Calcium Level 9.4 9.3 Phosphorus Level 4.5 Magnesium Level 1.9 Total Bilirubin 25.7 H 28.4 H Direct Bilirubin 20.00 *H 22.50 *H Indirect 5.7 H 5.9 H Bilirubin Aspartate Amino 38 41 Transf (AST/SGOT ) Alanine 15 14 Aminotransferase (ALT/SGPT) Alkaline 98 99 Phosphatase Total Protein 6.6 7.6 # Albumin 3.0 L 3.6 Globulin 3.60 H 4.00 H Albumin/Globulin 0.83 0.90 Ratio Bedside Glucose 121 Blood Gas Blood arterial Specimen Source Arterial Blood 02/04/2019 5:55: Date Drawn 25 AM Arterial Blood 7.029 *L pH (Temp corrected) Arterial Blood 53.2 H pCO2 (Temp correct) Arterial Blood 76.7 L pO2 (Temp corrected) Arterial Blood 13.7 L HCO3 Arterial Blood -15.2 L Base Excess Arterial Blood 87.4 L Oxygen Saturatio n Benito Test ACCEPTAB Arterial Blood Right Radial Gas Puncture Site Arterial 1.8 Blood Carboxyhem oglobin Arterial Blood 0.7 Methemoglobin Blood Gas A-a O2 583.1 H Differential Oxyhemoglobin 85.2 L Percent Blood Gas 37.0 Temperature Blood Gas Actual 24 Respiration Rate Blood Gas MASK - NRB Modality FiO2 100.0 Blood Gas CRISTINA Whipple MD Critical Value Read Back Blood Gas KB Notified Whom Blood Gas 02/04/2019 6:08: Notified Time 14 AM Myelocytes % 4 H (Manual) Myelocytes # 1.2 H Lactic Acid 4.3 *H Level Ammonia 90 #H Test 02/04/19 08:30 Blood Gas Blood arterial Specimen Source Arterial Blood 02/04/2019 8:45: Date Drawn 08 AM Arterial Blood 7.392 pH (Temp corrected) Arterial Blood 37.3 pCO2 (Temp correct) Arterial Blood 142.9 H pO2 (Temp corrected) Arterial Blood 22.2 HCO3 Arterial Blood -2.5 Base Excess Arterial Blood 99.1 H Oxygen Saturatio n Benito Test ACCEPTAB Arterial Blood Right Brachial Gas Puncture Site Arterial 2.2 Blood Carboxyhem oglobin Arterial Blood 0.6 Methemoglobin Blood Gas A-a O2 532.8 H Differential Oxyhemoglobin 96.3 Percent Blood Gas 37.0 Temperature Blood Gas 20.0 Respiration Rate Blood Gas Actual 20 Respiration Rate Blood Gas VENT - AC Modality FiO2 100.0 Blood Gas Tidal 500.0 Volume Blood Gas Low 5.0 PEEP Setting Blood Gas TM Notified Whom Blood Gas 02/04/2019 8:53: Notified Time 48 AM Medications Medication Current Medications Lactulose (Enulose) 10 gm Q8 PO Last administered on 02/04/19at 13:11; Admin Dose 10 GM; Start 01/29/19 at 06:00 Ondansetron HCl (Zofran Inj) 4 mg Q6H PRN IV NAUSEA AND/OR VOMITING; Start 01/29/19 at 01:00 Epoetin Daniel-epbx (Retacrit (Esrd)) 4,000 unit MoWeFr@1700 SC Last administered on 02/02/19at 16:43; Admin Dose 4,000 UNIT; Start 01/30/19 at 17:00 Midodrine (Proamatine) 10 mg TID@09,13,17 PO Last administered on 02/04/19 13:11; Admin Dose 10 MG; Start 01/29/19 at 17:00 Multivit/Ca Carb/ B Cmplx/FA/Prenat (Liz-Eugenia) 1 tab DAILY PO Last administered on 02/03/19 08:36; Admin Dose 1 TAB; Start 01/31/19 at 09:00 Docusate Sodium (Colace) 100 mg BID PRN PO constipation; Start 01/30/19 at 14:00 Senna (Senokot) 2 tab DAILY PRN PO constipation; Start 01/30/19 at 14:00 Levalbuterol (Xopenex Neb) 0.63 mg Q4H RESP THERAPY PRN HHN WHEEZING AND RESP DISTRESS Last administered on 02/04/19 05:40; Admin Dose 0.63 MG; Start 02/02/19 at 22:30 Cefepime HCl 50 ml @ 100 mls/hr Q24H IVPB Last administered on 02/04/19 09:23; Admin Dose 100 MLS/HR; Start 02/04/19 at 09:00 Norepinephrine 250 ml @ 1.875 mls/ hr TITRATE IV Last administered on 02/04/19 13:53; Admin Dose 22.5 MLS/HR; Start 02/04/19 at 06:30 Midazolam HCl 50 ml @ 1 mls/hr TITRATE IV Last administered on 02/04/19at 12:07; Admin Dose 2 MLS/HR; Start 02/04/19 at 07:00 Fentanyl 100 ml @ 2.5 mls/hr TITRATE IV Last administered on 02/04/19at 07:40; Admin Dose 2.5 MLS/HR; Start 02/04/19 at 07:00 Vancomycin HCl (Vanco Iv Per Pharmacy) VANCOMYCIN PER PHARMACY PER PROTOCOL XX ; Start 02/04/19 at 08:30 Bumetanide (Bumex) 1 mg BID DIURETICS IV Last administered on 02/04/19 11:16; Admin Dose 1 MG; Start 02/04/19 at 10:30 Albumin Human 100 ml @ 100 mls/hr Q8H IV ; Start 02/04/19 at 11:00; Stop 02/05/19 at 03:59 Pantoprazole (Protonix Iv) 40 mg BID@06,18 IV ; Start 02/04/19 at 18:00 ELLIS ESTRADA MD Feb 04, 2019 16:36
[2019-02-04] MEDS: EPOETIN ALFA-EPBX (ESRD) 4,000 UNIT/ML VIAL SC SCH (17:00)
[2019-02-04] MEDS ORDERED: LIDOCAINE 1% (MPF) 5 ML VIAL ONE (17:11)
[2019-02-04] MEDS: PANTOPRAZOLE 40 MG INJ IV SCH (18:03)
[2019-02-04] MEDS ORDERED: ETOMIDATE 20 MG INJ IV SCH (20:30)
[2019-02-04] MEDS ORDERED: SUCCINYLCHOLINE CHLORIDE 100 MG/5 ML SYG IV SCH (20:30)
[2019-02-05] VITALS (105 sets, daily range): BP systolic 70–116; BP diastolic 35–59; PULSE 86–130; RESP 20–25
[2019-02-05] MEDS: NORepinephrine 8MG/250 ML (PMX 250 ML IV SCH ×4 (00:43→20:06)
[2019-02-05] MEDS: ALBUMIN HUMAN 25% 100 ML IV SCH ×3 (02:24→17:46)
[2019-02-05] MEDS: LACTULOSE 30ML CUP PO SCH ×3 (06:38→21:10)
[2019-02-05] MEDS: PANTOPRAZOLE 40 MG INJ IV SCH ×2 (06:38→17:45)
[2019-02-05] MEDS: BUMETANIDE 1 MG INJ IV SCH ×2 (06:38→17:46)
[2019-02-05] MEDS: BALSAM PERU/CASTOR OIL 60 GM TUBE TOP SCH ×2 (08:43→21:10)
[2019-02-05] MEDS: CEFEPIME 1GM/50 ML (PMX) 50 ML IVPB SCH (08:43)
[2019-02-05] MEDS: MULTIVIT/CA CARB/B CMPLX/FA TAB PO SCH (08:43)
[2019-02-05] MEDS: MIDODRINE 5 MG TAB PO SCH ×3 (08:43→17:46)
--- NOTE | 2019-02-05 09:06 | CONS ---
DATE OF ADMISSION: 01/28/2019 DATE OF CONSULTATION: 02/04/2019 TYPE OF CONSULTATION: Infectious Disease. REASON FOR CONSULTATION: Antibiotic management. HISTORY OF PRESENT ILLNESS: Kosta Carias is a 39-year-old unfortunate male admitted on with numerous problems who was transferred from [facility] for debility, liver cirrhosi s and end-stage renal disease. He is a 39-year-old male with has a long history of heavy al cohol drinking, alcoholic cirrhosis. He was recently started on dialysis four months ago. He had a Perm-A-Cath placed. He has a history of decompensated liver failure, anemia, GI bleed, multiple EGD s, anasarca, debility and coagulopathy. He has had multiple admissions in the past to [facility]. He presented to [facility] on 01/27/2019 secondary to weakness, debility and back pain after his hemodialysis for the last 4 months. The patient has had multiple admissions in the same hospital for the same reason. According to Dr. Cunningham difficult to arrange for hemodialysis because of low b lood pressure and weakness. He has generalized low back pain. He is listed at [facility] for some type of transplant, although it makes no sense because he has both end-stage renal disease and cirrhosis of the liver. His other problems include secondary hyperparathyroidism and hepatic encephalopathy, hist ory of GI bleed. On admission, his white count was 22.8, hemoglobin 7, platelet count 119,000, direc t bilirubin 18.7, total 24.7, AST 38, ALT 13, albumin 2.7. The patient presented with weakness, low back pain. X-rays were negative for fractures, hypotension, likely secondary to cirrhosis. HOSPITAL COURSE: The patient was seen by Dr. Dani Guerra in GI consultation. The patient has been sober for the last 4 or 5 months. White count on the was 26.2. The patient was seen by Dr. Miranda Borrero, orthopedist, for low back pain. His exam did not show any type of radiculopathy such as numbness or motor weakness in the distributio n of the lumbosacral nerves. CT scan of the lumbar spine shows possible mild compression fractures i nvolving the vertebral bodies of L1, L2, L3. His diagnostic impression was low back pain without any signs of radiculopathy, possibly from compression fracture or possibly spinal stenosis. The patient has some urinary retention. On the , his white count was 24.7, hemoglobin and hematocrit 7.7 an d 22, platelet count 79,000. BUN and creatinine 38/3.91. Today the patient was transferred to the ntensive care unit and intubated. Chest x-ray showed bilateral large pleural effusions, worse since yesterday, end-stage liver disease admitted with sepsis likely due to spontaneous bacterial peritonit is, currently on empiric antibiotic therapy. He developed respiratory failure due to large effusions . He has a severe coagulopathy, chronic renal failure on hemodialysis. PAST MEDICAL HISTORY: Essentially as outlined. FAMILY HISTORY: Noncontributory. PHYSICAL EXAMINATION: GENERAL: The patient is extremely ill and deeply icteric. He has respiratory failure requiring intu bation last night. SKIN: Skin is markedly icteric. HEENT: The patient is intubated. He has an ET tube, and OG tube. NECK: Supple. LYMPH NODES: None palpable. THORAX: He has a Perm-A-Cath in the right chest, which is bleeding significantly and oozing, he has pressure dressing on it. CHEST: Decreased breath sounds at the bases. HEART: Without murmur or gallop. ABDOMEN: Status post thoracentesis. It is still somewhat protuberant. EXTREMITIES: Without cyanosis, clubbing, or edema. [place] catheter in place. RECTAL AND GENITAL: Deferred. NEUROLOGIC: The patient is sedated. ANCILLARY LABORATORY DATA: White count 32.4, hemoglobin and hematocrit 7.2 and 21.4, platelet count 77,000. BUN and creatinine 43/4.57, potassium 5.2. He has 81 polys, 1 bands. 10 lymphocytes. The patient is on vancomycin and cefepime. Chest x-ray, increasing opacification left hemithorax consist ent with worsening atelectasis infiltrate and pleural effusion, moderate right pleural effusion, righ t patchy lung consolidation consistent with atelectasis and infiltrate. In conclusion, the patient appears to have respiratory failure. He has liver failure. He has kidney failure. He is on appropriate antibiotic therapy, although he has a white count of 32.4. We will c ontinue him on his current therapy. Dictated By: URSULA SANDOVAL MD, JD/MUMTAZ Conf#: [id number] DID#: [id number] CC: URSULA SANDOVAL MD; ABEL BARRIENTOS MD;*End*
--- NOTE | 2019-02-05 09:16 | CONS ---
Assessment/Plan Assessment/Plan Assessment/Plan (Daily) Ventilator setting; assist control of 20, tidal volume 500, PEEP of 5, 30% FiO2. Patient is currently on Versed 1 mg/h, fentanyl 50 mics per hour. Assessment and recommendations; 1. Patient admitted with end-stage liver cirrhosis then developed respiratory failure requiring intubation. 2. Massive ascites with large bilateral pleural effusion, status post large- volume paracentesis yesterday with marked overall clinical improvement. 3. End-stage renal disease, on hemodialysis. 4. Coagulopathy. 5. Anemia and thrombocytopenia. 6. Interval improvement in hypotension. 7. Possibly spontaneous bacterial peritonitis. Patient currently on appropriate antimicrobial regimen. Continue current supportive care. Patient likely to be transferred to tertiary care center for liver transplant. Clinically patient is stable for transportation. Prognosis though remains very guarded. 35 minutes of critical care time was spent evaluating the patient. Consultation Date/Type/Reason Admit Date/Time Jan 28, 2019 at 22:17 Initial Consult Date 02/03/19 Type of Consult Pulmonary Patient is a 39-year-old male who has been transferred from another facility because of end-stage liver disease and large ascites. By the time I saw the patient, patient appeared awake and alert and did not appear to be in any distress. Past medical history; 1. End-stage alcoholic liver cirrhosis. 2. History of variceal bleeding. 3. End-stage renal disease, on hemodialysis. 4. Chronic anemia. 5. Secondary hyperparathyroidism. Medications; reviewed. Allergies; none. Social he; history of heavy alcohol abuse. Patient has quit for some time though. Family history; noncontributory. Occupational history; patient is on disability. Review of systems; denies any headache, seizures. Complains of mild shortness of breath. Complains of abdominal distention without any pain. Denies any nausea vomiting. Denies any orthopnea. Complains of dark urine. Denies any melena or hematochezia. Complains of weight loss. Complains of easy skin bruising. General exam; young male, appears severely icteric. Currently no distress. Laying flat in bed. Requesting Provider: MAL ENRIQUE MD Date/Time of Note DATE: 02/05/19 TIME: 09:12 24 HR Interval Summary Free Text/Dictation Patient's condition is critical. But the patient has improved hemodynamically. Underwent paracentesis yesterday. Around 4 L of fluid was removed. General exam; young male, orally intubated, sedated, currently in no distress. Exam/Review of Systems Exam Vitals Vital Signs Date Temp Pulse Resp B/P (MAP) Pulse Ox O2 O2 Flow FiO2 Time Delivery Rate 02/05/19 104 20 88/46 (60) 98 08:45 02/05/19 Mechanical 08:00 Ventilator 02/05/19 98.2 07:30 02/05/19 30 05:00 02/04/19 15.0 06:33 Intake and Output 02/04/19 02/04/19 02/05/19 1515:00 23:00 07:00 IntakeIntake Total 704.75 ml 444.00 ml 198.625 ml OutputOutput Total 700 ml 2100 ml BalanceBalance 4.75 ml 444.00 ml -1901.375 ml Exam H EENT exam; supple neck, no lymphadenopathy. Positive JVD. No oral bleeding seen. Pupils are small bilaterally. Patient remains deeply icteric. Chest exam; diminished breath sounds bilaterally. S1-S2 audible, no murmurs. Regular rhythm. Abdomen exam; soft, protuberant. Positive fluid thrill. Umbilicus is flat. There is no scrotal edema. Extremity exam; trace peripheral edema. GROOMING ASSISTANT exam; patient is sedated. Results Result Diagram: 02/05/1952302/05/19523 Results 24hrs Laboratory Tests Test 02/04/19 16:30 02/04/19 17:18 02/05/19 00:52 02/05/19 04:49 Body Fluid Type ASCITIES FLUID Body Fluid 550.0 Volume Body Fluid Color RED Body Fluid CLOUDY Appearance Body Fluid WBC 954 Body Fluid RBC [id number] (Auto) Body Fluid 71.7 Polynuclear WBCs (%) Body Fluid 28.3 Mononuclear Cells % Auto Body Fluid 75 Glucose Body Fluid Total 2.6 Protein Body Fluid 414 Lactate Dehydrog enase White Blood 26.6 H Count Red Blood Count 1.69 #L Hemoglobin 5.6 #*L Hematocrit 15.9 #L Mean Corpuscular 94.1 Volume Mean Corpuscular 33.1 H Hemoglobin Mean Corpuscular 35.2 Hemoglobin Criselda nt Red Cell 22.6 H Distribution Width Platelet Count 66 L Mean Platelet 13.3 H Volume Immature 2.000 H Granulocytes % Neutrophils % 80.1 H Segmented 78 H Neutrophils % (Manual) Band Neutrophils 1 % (Manual) Lymphocytes % 8.0 L Lymphocytes % 8 L (Manual) Monocytes % 9.3 Monocytes % 11 (Manual) Eosinophils % 0.4 Basophils % 0.2 Promyelocytes % 2 H (Manual) Nucleated Red 0.0 Blood Cells % Immature 0.520 H Granulocytes # Neutrophils # 21.4 H Neutrophils # 20.8 H (Manual) Band Neutrophils 0.2 # Lymphocytes 2.1 (Manual) Lymphocytes # 2.1 Monocytes # 2.5 H Monocytes # 2.9 H (Manual) Eosinophils # 0.1 Basophils # 0.0 Promyelocytes # 0.5 H Nucleated Red 0.0 Blood Cells # Poikilocytosis 2+ Basophilic 1+ Stippling Anisocytosis 2+ Macrocytosis 2+ Ovalocytes 1+ Echinocytes 1+ Elliptocytes 1+ Acanthocytes 2+ Schistocytes 1+ Prothrombin Time 24.0 H 25.9 H Prothrombin Time 1.9 2.0 Ratio INR 2.14 2.36 International Normalized Ratio Activated 70.7 *H Partial Thrombop last Time Fibrinogen 154.0 #L Lab Scanned BLOOD TRANSFUSI Report ON Test 02/05/19 05:24 02/05/19 08:20 White Blood 29.3 H Count Red Blood Count 2.50 #L Hemoglobin 7.8 #L Hematocrit 22.4 #L Mean Corpuscular 89.6 Volume Mean Corpuscular 31.2 Hemoglobin Mean Corpuscular 34.8 Hemoglobin Criselda nt Red Cell 19.5 H Distribution Width Platelet Count 61 L Mean Platelet 13.2 H Volume Immature 1.800 H Granulocytes % Neutrophils % Segmented 76 Neutrophils % (Manual) Band Neutrophils 7 H % (Manual) Lymphocytes % Lymphocytes % 5 L (Manual) Monocytes % Monocytes % 5 (Manual) Eosinophils % Eosinophils % 1 (Manual) Basophils % Basophils % 1 (Manual) Myelocytes % 4 H (Manual) Promyelocytes % 1 H (Manual) Nucleated Red 0.0 Blood Cells % Immature 0.520 H Granulocytes # Neutrophils # Neutrophils # 22.9 H (Manual) Band Neutrophils 2.0 H # Lymphocytes 1.4 (Manual) Lymphocytes # Monocytes # Monocytes # 1.4 H (Manual) Eosinophils # Basophils # Basophils # 0.2 H (Manual) Myelocytes # 1.1 H Promyelocytes # 0.2 H Nucleated Red Blood Cells # Platelet DECREASED Estimate Polychromasia 1+ Poikilocytosis 3+ Anisocytosis 2+ Microcytosis 1+ Macrocytosis 1+ Acanthocytes 1+ Prothrombin Time 24.5 H Prothrombin Time 1.9 Ratio INR 2.20 International Normalized Ratio Sodium Level 140 Potassium Level 3.8 Chloride Level 95 L Carbon Dioxide 24 Level Anion Gap 21 H Blood Urea 35 H Nitrogen Creatinine 3.60 H Est Glomerular 19 L Filtrat Rate mL/min Glucose Level 53 #L Calcium Level 10.3 H Total Bilirubin 27.3 H Direct Bilirubin 19.60 *H Indirect 7.7 H Bilirubin Aspartate Amino 47 H Transf (AST/SGOT ) Alanine 10 L Aminotransferase (ALT/SGPT) Alkaline 94 Phosphatase Total Protein 7.5 Albumin 4.0 Globulin 3.50 H Albumin/Globulin 1.14 Ratio Bedside Glucose 119 Medications Medication Current Medications Lactulose (Enulose) 10 gm Q8 PO Last administered on 02/05/19 06:38; Admin Dose 10 GM; Start 01/29/19 at 06:00 Ondansetron HCl (Zofran Inj) 4 mg Q6H PRN IV NAUSEA AND/OR VOMITING; Start 01/29/19 at 01:00 Epoetin Daniel-epbx (Retacrit (Esrd)) 4,000 unit MoWeFr@1700 SC Last administered on 02/04/19 17:00; Admin Dose 4,000 UNIT; Start 01/30/19 at 17:00 Midodrine (Proamatine) 10 mg TID@09,13,17 PO Last administered on 02/05/19 08:43; Admin Dose 10 MG; Start 01/29/19 at 17:00 Multivit/Ca Carb/ B Cmplx/FA/Prenat (Liz-Eugenia) 1 tab DAILY PO Last administered on 02/05/19 08:43; Admin Dose 1 TAB; Start 01/31/19 at 09:00 Docusate Sodium (Colace) 100 mg BID PRN PO constipation; Start 01/30/19 at 14:00 Senna (Senokot) 2 tab DAILY PRN PO constipation; Start 01/30/19 at 14:00 Levalbuterol (Xopenex Neb) 0.63 mg Q4H RESP THERAPY PRN HHN WHEEZING AND RESP DISTRESS Last administered on 02/04/19at 05:40; Admin Dose 0.63 MG; Start 02/02/19 at 22:30 Cefepime HCl 50 ml @ 100 mls/hr Q24H IVPB Last administered on 02/05/19 08:43; Admin Dose 100 MLS/HR; Start 02/04/19 at 09:00 Norepinephrine 250 ml @ 1.875 mls/ hr TITRATE IV Last administered on 02/05/19 04:48; Admin Dose 22.5 MLS/HR; Start 02/04/19 at 06:30 Midazolam HCl 50 ml @ 1 mls/hr TITRATE IV Last administered on 02/04/19 21:44; Admin Dose 5 MLS/HR; Start 02/04/19 at 07:00 Fentanyl 100 ml @ 2.5 mls/hr TITRATE IV Last administered on 02/04/19 21:48; Admin Dose 5 MLS/HR; Start 02/04/19 at 07:00 Vancomycin HCl (Vanco Iv Per Pharmacy) VANCOMYCIN PER PHARMACY PER PROTOCOL XX ; Start 02/04/19 at 08:30 Bumetanide (Bumex) 1 mg BID DIURETICS IV Last administered on 02/05/19 06:38; Admin Dose 1 MG; Start 02/04/19 at 10:30 Pantoprazole (Protonix Iv) 40 mg BID@06,18 IV Last administered on 02/05/19 06:38; Admin Dose 40 MG; Start 02/04/19 at 18:00 [place] LINARES Feb 05, 2019 09:16
--- NOTE | 2019-02-05 09:50 | PN ---
Date/Time of Note Date/Time of Note DATE: 02/05/19 TIME: 09:44 Assessment/Plan VTE Prophylaxis Risk score (from Nsg)>0 risk: 7 SCD applied (from Nsg): No SCD contraindicated: low risk/ambulating Pharmacological prophylaxis: NA/contraindicated Pharm contraindication: low risk/ambulating Lines/Catheters IV Catheter Type (from Nrsg): Intraosseous Urinary Cath still in place: Yes Reason Cath still needed: urinary retention Assessment/Plan Assessment/Plan ssessment/Plan #Shock likely secondary to sepsis , patient has history of cirrhosis #Respiratory failure status post intubation secondary to large pleural effusions secondary to volume overload s post hemodialysis # Weakness, low back pain. The patient had x-rays there which were negative for fractures. CT scan is positive for: Suspected acute or subacute fractures of the superior endplates/bodies of L1, L2 and L3 with associated slight anterior superior endplate wedge compression of the L1 and L3 vertebral bodies. Multilevel degenerative changes greatest at L4-5 as described above. Mild degenerative changes of the right posterior lateral aspect of the T11-12 disc space with mild central canal stenosis. #. Decompensated alcoholic cirrhosis with a history of EtOH use. Hyperbilirubinemia BIRIBUMIN 19 > 20 # Abdominal distention with ascites # End-stage renal disease, on hemodialysis. # History of gastrointestinal bleed. This post multiple EGDs in the past # Coagulopathy. Elevated INR 2.81 elevated APTT and low fibrinogen Jennifer due to his liver disease # Thrombocytopenia likely due to cirrhosis. # Moderate anemia, likely multifactorial disease, likely secondary to end-stage renal disease versus bone marrow suppression versus nutritional deficiency versus cirrhosis. #. Leucocytosis. Be secondary to sepsis/alcoholic liver cirrhosis #. S.p paracentesis in previous hospital 01/28/2019 # Hepatic encephlaopathy Assessment/Plan -FiO2 is much lower down today -Titrate the levo fed to keep systolic blood pressure greater than 85 and map greater than 60 as patient has history of cirrhosis -Status post HD yesterday and paracentesis yesterday with removal of 4 L -Status post vitamin K/FFP/cryoprecipitate yesterday -Hemoglobin 7.8 and INR 2.2 today -Give more albumin today to lower down the pressor requirements -repeat chest x-ray and ABG tomorrow - cw vancomycin/cefepime -Continue with lactulose - blood cx NEG SO Fr - cw epogen s/p 2 units PRBC --Needs a tertiary setting with there is a Ability of CRRT and patient will need liver and a kidney transplant, spoke to [facility] will call us back about update, patient was accepted by Dr. Moore however now on higher amounts of FiO2> however prior FiO2 has improved considerable status post paracentesis> will try to transfer today Result Diagram: 02/05/19 0524 02/05/19 0524 Results 24hrs Laboratory Tests Test 02/04/19 16:30 02/04/19 17:18 02/05/19 00:52 02/05/19 04:49 Body Fluid Type ASCITIES FLUID Body Fluid 550.0 Volume Body Fluid Color RED Body Fluid CLOUDY Appearance Body Fluid WBC 954 Body Fluid RBC 119358 (Auto) Body Fluid 71.7 Polynuclear WBCs (%) Body Fluid 28.3 Mononuclear Cells % Auto Body Fluid 75 Glucose Body Fluid Total 2.6 Protein Body Fluid 414 Lactate Dehydrog enase White Blood 26.6 H Count Red Blood Count 1.69 #L Hemoglobin 5.6 #*L Hematocrit 15.9 #L Mean Corpuscular 94.1 Volume Mean Corpuscular 33.1 H Hemoglobin Mean Corpuscular 35.2 Hemoglobin Criselda nt Red Cell 22.6 H Distribution Width Platelet Count 66 L Mean Platelet 13.3 H Volume Immature 2.000 H Granulocytes % Neutrophils % 80.1 H Segmented 78 H Neutrophils % (Manual) Band Neutrophils 1 % (Manual) Lymphocytes % 8.0 L Lymphocytes % 8 L (Manual) Monocytes % 9.3 Monocytes % 11 (Manual) Eosinophils % 0.4 Basophils % 0.2 Promyelocytes % 2 H (Manual) Nucleated Red 0.0 Blood Cells % Immature 0.520 H Granulocytes # Neutrophils # 21.4 H Neutrophils # 20.8 H (Manual) Band Neutrophils 0.2 # Lymphocytes 2.1 (Manual) Lymphocytes # 2.1 Monocytes # 2.5 H Monocytes # 2.9 H (Manual) Eosinophils # 0.1 Basophils # 0.0 Promyelocytes # 0.5 H Nucleated Red 0.0 Blood Cells # Poikilocytosis 2+ Basophilic 1+ Stippling Anisocytosis 2+ Macrocytosis 2+ Ovalocytes 1+ Echinocytes 1+ Elliptocytes 1+ Acanthocytes 2+ Schistocytes 1+ Prothrombin Time 24.0 H 25.9 H Prothrombin Time 1.9 2.0 Ratio INR 2.14 2.36 International Normalized Ratio Activated 70.7 *H Partial Thrombop last Time Fibrinogen 154.0 #L Lab Scanned BLOOD TRANSFUSI Report ON Test 02/05/19 05:24 02/05/19 08:20 White Blood 29.3 H Count Red Blood Count 2.50 #L Hemoglobin 7.8 #L Hematocrit 22.4 #L Mean Corpuscular 89.6 Volume Mean Corpuscular 31.2 Hemoglobin Mean Corpuscular 34.8 Hemoglobin Criselda nt Red Cell 19.5 H Distribution Width Platelet Count 61 L Mean Platelet 13.2 H Volume Immature 1.800 H Granulocytes % Neutrophils % Segmented 76 Neutrophils % (Manual) Band Neutrophils 7 H % (Manual) Lymphocytes % Lymphocytes % 5 L (Manual) Monocytes % Monocytes % 5 (Manual) Eosinophils % Eosinophils % 1 (Manual) Basophils % Basophils % 1 (Manual) Myelocytes % 4 H (Manual) Promyelocytes % 1 H (Manual) Nucleated Red 0.0 Blood Cells % Immature 0.520 H Granulocytes # Neutrophils # Neutrophils # 22.9 H (Manual) Band Neutrophils 2.0 H # Lymphocytes 1.4 (Manual) Lymphocytes # Monocytes # Monocytes # 1.4 H (Manual) Eosinophils # Basophils # Basophils # 0.2 H (Manual) Myelocytes # 1.1 H Promyelocytes # 0.2 H Nucleated Red Blood Cells # Platelet DECREASED Estimate Polychromasia 1+ Poikilocytosis 3+ Anisocytosis 2+ Microcytosis 1+ Macrocytosis 1+ Acanthocytes 1+ Prothrombin Time 24.5 H Prothrombin Time 1.9 Ratio INR 2.20 International Normalized Ratio Sodium Level 140 Potassium Level 3.8 Chloride Level 95 L Carbon Dioxide 24 Level Anion Gap 21 H Blood Urea 35 H Nitrogen Creatinine 3.60 H Est Glomerular 19 L Filtrat Rate mL/min Glucose Level 53 #L Calcium Level 10.3 H Total Bilirubin 27.3 H Direct Bilirubin 19.60 *H Indirect 7.7 H Bilirubin Aspartate Amino 47 H Transf (AST/SGOT ) Alanine 10 L Aminotransferase (ALT/SGPT) Alkaline 94 Phosphatase Total Protein 7.5 Albumin 4.0 Globulin 3.50 H Albumin/Globulin 1.14 Ratio Bedside Glucose 119 Subjective 24 Hr Interval Summary Free Text/Dictation he is much better today. On 30% of FiO2 down from 100, post paracentesis with removal of 4 L yesterday This post HD yesterday with removal of 1 L Currently on levo fed of 15 however map is greater than 60 Bleeding has stopped from the permacath site. hb has improved to 7.8 today Exam/Review of Systems Exam Vitals Vital Signs Date Temp Pulse Resp B/P (MAP) Pulse Ox O2 O2 Flow FiO2 Time Delivery Rate 02/05/19 104 20 88/46 (60) 98 08:45 02/05/19 Mechanical 08:00 Ventilator 02/05/19 98.2 07:30 02/05/19 30 05:00 02/04/19 15.0 06:33 Intake and Output 02/04/19 02/04/19 02/05/19 1515:00 23:00 07:00 IntakeIntake Total 704.75 ml 444.00 ml 198.625 ml OutputOutput Total 700 ml 2100 ml BalanceBalance 4.75 ml 444.00 ml -1901.375 ml Exam nstitutional: sedated scleral icterus, intubated Head: normocephalic Cardiovascular: regular rate and rhythm decreased breath sounds at bases Gastrointestinal: soft, distended/ascites ++ Diffuse a yellowish discoloration of the skin Tender to palpation in the lumbar area Edema legs Right permacath site oozing blood stopped with bandage Blood also noted from mouth stopped Results Results 24hrs Laboratory Tests Test 02/04/19 16:30 02/04/19 17:18 02/05/19 00:52 02/05/19 04:49 Body Fluid Type ASCITIES FLUID Body Fluid 550.0 Volume Body Fluid Color RED Body Fluid CLOUDY Appearance Body Fluid WBC 954 Body Fluid RBC 616841 (Auto) Body Fluid 71.7 Polynuclear WBCs (%) Body Fluid 28.3 Mononuclear Cells % Auto Body Fluid 75 Glucose Body Fluid Total 2.6 Protein Body Fluid 414 Lactate Dehydrog enase White Blood 26.6 H Count Red Blood Count 1.69 #L Hemoglobin 5.6 #*L Hematocrit 15.9 #L Mean Corpuscular 94.1 Volume Mean Corpuscular 33.1 H Hemoglobin Mean Corpuscular 35.2 Hemoglobin Criselda nt Red Cell 22.6 H Distribution Width Platelet Count 66 L Mean Platelet 13.3 H Volume Immature 2.000 H Granulocytes % Neutrophils % 80.1 H Segmented 78 H Neutrophils % (Manual) Band Neutrophils 1 % (Manual) Lymphocytes % 8.0 L Lymphocytes % 8 L (Manual) Monocytes % 9.3 Monocytes % 11 (Manual) Eosinophils % 0.4 Basophils % 0.2 Promyelocytes % 2 H (Manual) Nucleated Red 0.0 Blood Cells % Immature 0.520 H Granulocytes # Neutrophils # 21.4 H Neutrophils # 20.8 H (Manual) Band Neutrophils 0.2 # Lymphocytes 2.1 (Manual) Lymphocytes # 2.1 Monocytes # 2.5 H Monocytes # 2.9 H (Manual) Eosinophils # 0.1 Basophils # 0.0 Promyelocytes # 0.5 H Nucleated Red 0.0 Blood Cells # Poikilocytosis 2+ Basophilic 1+ Stippling Anisocytosis 2+ Macrocytosis 2+ Ovalocytes 1+ Echinocytes 1+ Elliptocytes 1+ Acanthocytes 2+ Schistocytes 1+ Prothrombin Time 24.0 H 25.9 H Prothrombin Time 1.9 2.0 Ratio INR 2.14 2.36 International Normalized Ratio Activated 70.7 *H Partial Thrombop last Time Fibrinogen 154.0 #L Lab Scanned BLOOD TRANSFUSI Report ON Test 02/05/19 05:24 02/05/19 08:20 White Blood 29.3 H Count Red Blood Count 2.50 #L Hemoglobin 7.8 #L Hematocrit 22.4 #L Mean Corpuscular 89.6 Volume Mean Corpuscular 31.2 Hemoglobin Mean Corpuscular 34.8 Hemoglobin Criselda nt Red Cell 19.5 H Distribution Width Platelet Count 61 L Mean Platelet 13.2 H Volume Immature 1.800 H Granulocytes % Neutrophils % Segmented 76 Neutrophils % (Manual) Band Neutrophils 7 H % (Manual) Lymphocytes % Lymphocytes % 5 L (Manual) Monocytes % Monocytes % 5 (Manual) Eosinophils % Eosinophils % 1 (Manual) Basophils % Basophils % 1 (Manual) Myelocytes % 4 H (Manual) Promyelocytes % 1 H (Manual) Nucleated Red 0.0 Blood Cells % Immature 0.520 H Granulocytes # Neutrophils # Neutrophils # 22.9 H (Manual) Band Neutrophils 2.0 H # Lymphocytes 1.4 (Manual) Lymphocytes # Monocytes # Monocytes # 1.4 H (Manual) Eosinophils # Basophils # Basophils # 0.2 H (Manual) Myelocytes # 1.1 H Promyelocytes # 0.2 H Nucleated Red Blood Cells # Platelet DECREASED Estimate Polychromasia 1+ Poikilocytosis 3+ Anisocytosis 2+ Microcytosis 1+ Macrocytosis 1+ Acanthocytes 1+ Prothrombin Time 24.5 H Prothrombin Time 1.9 Ratio INR 2.20 International Normalized Ratio Sodium Level 140 Potassium Level 3.8 Chloride Level 95 L Carbon Dioxide 24 Level Anion Gap 21 H Blood Urea 35 H Nitrogen Creatinine 3.60 H Est Glomerular 19 L Filtrat Rate mL/min Glucose Level 53 #L Calcium Level 10.3 H Total Bilirubin 27.3 H Direct Bilirubin 19.60 *H Indirect 7.7 H Bilirubin Aspartate Amino 47 H Transf (AST/SGOT ) Alanine 10 L Aminotransferase (ALT/SGPT) Alkaline 94 Phosphatase Total Protein 7.5 Albumin 4.0 Globulin 3.50 H Albumin/Globulin 1.14 Ratio Bedside Glucose 119 Medications Medication Current Medications Lactulose (Enulose) 10 gm Q8 PO Last administered on 02/05/19at 06:38; Admin Dose 10 GM; Start 01/29/19 at 06:00 Ondansetron HCl (Zofran Inj) 4 mg Q6H PRN IV NAUSEA AND/OR VOMITING; Start 01/29/19 at 01:00 Epoetin Daniel-epbx (Retacrit (Esrd)) 4,000 unit MoWeFr@1700 SC Last administered on 02/04/19at 17:00; Admin Dose 4,000 UNIT; Start 01/30/19 at 17:00 Midodrine (Proamatine) 10 mg TID@09,13,17 PO Last administered on 02/05/19at 08:43; Admin Dose 10 MG; Start 01/29/19 at 17:00 Multivit/Ca Carb/ B Cmplx/FA/Prenat (Liz-Eugenia) 1 tab DAILY PO Last administered on 02/05/19at 08:43; Admin Dose 1 TAB; Start 01/31/19 at 09:00 Docusate Sodium (Colace) 100 mg BID PRN PO constipation; Start 01/30/19 at 14:00 Senna (Senokot) 2 tab DAILY PRN PO constipation; Start 01/30/19 at 14:00 Levalbuterol (Xopenex Neb) 0.63 mg Q4H RESP THERAPY PRN HHN WHEEZING AND RESP DISTRESS Last administered on 02/04/19at 05:40; Admin Dose 0.63 MG; Start 02/02/19 at 22:30 Cefepime HCl 50 ml @ 100 mls/hr Q24H IVPB Last administered on 02/05/19 08:43; Admin Dose 100 MLS/HR; Start 02/04/19 at 09:00 Norepinephrine 250 ml @ 1.875 mls/ hr TITRATE IV Last administered on 02/05/19 04:48; Admin Dose 22.5 MLS/HR; Start 02/04/19 at 06:30 Midazolam HCl 50 ml @ 1 mls/hr TITRATE IV Last administered on 02/04/19 21:44; Admin Dose 5 MLS/HR; Start 02/04/19 at 07:00 Fentanyl 100 ml @ 2.5 mls/hr TITRATE IV Last administered on 02/04/19 21:48; Admin Dose 5 MLS/HR; Start 02/04/19 at 07:00 Vancomycin HCl (Vanco Iv Per Pharmacy) VANCOMYCIN PER PHARMACY PER PROTOCOL XX ; Start 02/04/19 at 08:30 Bumetanide (Bumex) 1 mg BID DIURETICS IV Last administered on 02/05/19 06:38; Admin Dose 1 MG; Start 02/04/19 at 10:30 Pantoprazole (Protonix Iv) 40 mg BID@06,18 IV Last administered on 02/05/19 06:38; Admin Dose 40 MG; Start 02/04/19 at 18:00 MAL ENRIQUE MD Feb 05, 2019 09:50
--- NOTE | 2019-02-05 10:11 | CONS ---
Assessment/Plan Assessment/Plan Hospital Course (Demo Recall) 39 yo with ETOH related cirrhosis, coagulopathy, on dialysis who we are asked to see for coagulopathy #coagulopathy -2/2 cirrhosis and decompensated liver failure -s/p IV vitamin K 5mg. INE 2.2 today -fibrinogen is 150 after cryoprecipitate. will need to check daily DIC panel and keep fibrinogen > 100 -pt tolerated paracentesis well. received FFP, cryo and platelets prior to procedure #Anemia -2/2 to liver failure and CKD -check epo level and start procrit 10,000 3x week -check iron panel, vitamin b12 and folate #EtOH cirrhosis -pt to be transferred to [facility] for liver transplant #ESRD -continue HD Consultation Date/Type/Reason Admit Date/Time Jan 28, 2019 at 22:17 Initial Consult Date 02/03/19 Type of Consult hematology Reason for Consultation coagulopathy Requesting Provider: MAL ENRIQUE MD Date/Time of Note DATE: 02/05/19 TIME: 10:03 24 HR Interval Summary Free Text/Dictation in ICU on pressor support, levo 17mcg. received HD yesterday. oozing from his line. received IV vitamin K yesterday. also received cryo. ffp, PRBC and platelets yesterday. waiting for transfer to [facility] Exam/Review of Systems Exam Vitals Vital Signs Date Temp Pulse Resp B/P (MAP) Pulse Ox O2 O2 Flow FiO2 Time Delivery Rate 02/05/19 104 20 88/46 (60) 98 08:45 02/05/19 Mechanical 08:00 Ventilator 02/05/19 98.2 07:30 02/05/19 30 05:00 02/04/19 15.0 06:33 Intake and Output 02/04/19 02/04/19 02/05/19 1515:00 23:00 07:00 IntakeIntake Total 704.75 ml 444.00 ml 198.625 ml OutputOutput Total 700 ml 2100 ml BalanceBalance 4.75 ml 444.00 ml -1901.375 ml Constitutional: alert, distress, frail Psych: anxiety, confusion Eyes: nl conjunctiva ENMT: nl external ears & nose Neck: supple Respiratory: clear to auscultation Cardiovascular: regular rate and rhythm Gastrointestinal: soft Musculoskeletal: nl extremities to inspection Results Result Diagram: 02/05/1952302/05/19 0524 Results 24hrs Laboratory Tests Test 02/04/19 16:30 02/04/19 17:18 02/05/19 00:52 02/05/19 04:49 Body Fluid Type ASCITIES FLUID Body Fluid 550.0 Volume Body Fluid Color RED Body Fluid CLOUDY Appearance Body Fluid WBC 954 Body Fluid RBC 127065 (Auto) Body Fluid 71.7 Polynuclear WBCs (%) Body Fluid 28.3 Mononuclear Cells % Auto Body Fluid 75 Glucose Body Fluid Total 2.6 Protein Body Fluid 414 Lactate Dehydrog enase White Blood 26.6 H Count Red Blood Count 1.69 #L Hemoglobin 5.6 #*L Hematocrit 15.9 #L Mean Corpuscular 94.1 Volume Mean Corpuscular 33.1 H Hemoglobin Mean Corpuscular 35.2 Hemoglobin Criselda nt Red Cell 22.6 H Distribution Width Platelet Count 66 L Mean Platelet 13.3 H Volume Immature 2.000 H Granulocytes % Neutrophils % 80.1 H Segmented 78 H Neutrophils % (Manual) Band Neutrophils 1 % (Manual) Lymphocytes % 8.0 L Lymphocytes % 8 L (Manual) Monocytes % 9.3 Monocytes % 11 (Manual) Eosinophils % 0.4 Basophils % 0.2 Promyelocytes % 2 H (Manual) Nucleated Red 0.0 Blood Cells % Immature 0.520 H Granulocytes # Neutrophils # 21.4 H Neutrophils # 20.8 H (Manual) Band Neutrophils 0.2 # Lymphocytes 2.1 (Manual) Lymphocytes # 2.1 Monocytes # 2.5 H Monocytes # 2.9 H (Manual) Eosinophils # 0.1 Basophils # 0.0 Promyelocytes # 0.5 H Nucleated Red 0.0 Blood Cells # Poikilocytosis 2+ Basophilic 1+ Stippling Anisocytosis 2+ Macrocytosis 2+ Ovalocytes 1+ Echinocytes 1+ Elliptocytes 1+ Acanthocytes 2+ Schistocytes 1+ Prothrombin Time 24.0 H 25.9 H Prothrombin Time 1.9 2.0 Ratio INR 2.14 2.36 International Normalized Ratio Activated 70.7 *H Partial Thrombop last Time Fibrinogen 154.0 #L Lab Scanned BLOOD TRANSFUSI Report ON Test 02/05/19 05:24 02/05/19 08:20 White Blood 29.3 H Count Red Blood Count 2.50 #L Hemoglobin 7.8 #L Hematocrit 22.4 #L Mean Corpuscular 89.6 Volume Mean Corpuscular 31.2 Hemoglobin Mean Corpuscular 34.8 Hemoglobin Criselda nt Red Cell 19.5 H Distribution Width Platelet Count 61 L Mean Platelet 13.2 H Volume Immature 1.800 H Granulocytes % Neutrophils % Segmented 76 Neutrophils % (Manual) Band Neutrophils 7 H % (Manual) Lymphocytes % Lymphocytes % 5 L (Manual) Monocytes % Monocytes % 5 (Manual) Eosinophils % Eosinophils % 1 (Manual) Basophils % Basophils % 1 (Manual) Myelocytes % 4 H (Manual) Promyelocytes % 1 H (Manual) Nucleated Red 0.0 Blood Cells % Immature 0.520 H Granulocytes # Neutrophils # Neutrophils # 22.9 H (Manual) Band Neutrophils 2.0 H # Lymphocytes 1.4 (Manual) Lymphocytes # Monocytes # Monocytes # 1.4 H (Manual) Eosinophils # Basophils # Basophils # 0.2 H (Manual) Myelocytes # 1.1 H Promyelocytes # 0.2 H Nucleated Red Blood Cells # Platelet DECREASED Estimate Polychromasia 1+ Poikilocytosis 3+ Anisocytosis 2+ Microcytosis 1+ Macrocytosis 1+ Acanthocytes 1+ Prothrombin Time 24.5 H Prothrombin Time 1.9 Ratio INR 2.20 International Normalized Ratio Sodium Level 140 Potassium Level 3.8 Chloride Level 95 L Carbon Dioxide 24 Level Anion Gap 21 H Blood Urea 35 H Nitrogen Creatinine 3.60 H Est Glomerular 19 L Filtrat Rate mL/min Glucose Level 53 #L Calcium Level 10.3 H Total Bilirubin 27.3 H Direct Bilirubin 19.60 *H Indirect 7.7 H Bilirubin Aspartate Amino 47 H Transf (AST/SGOT ) Alanine 10 L Aminotransferase (ALT/SGPT) Alkaline 94 Phosphatase Total Protein 7.5 Albumin 4.0 Globulin 3.50 H Albumin/Globulin 1.14 Ratio Bedside Glucose 119 Medications Medication Current Medications Lactulose (Enulose) 10 gm Q8 PO Last administered on 02/05/19at 06:38; Admin Dose 10 GM; Start 01/29/19 at 06:00 Ondansetron HCl (Zofran Inj) 4 mg Q6H PRN IV NAUSEA AND/OR VOMITING; Start 01/29/19 at 01:00 Epoetin Daniel-epbx (Retacrit (Esrd)) 4,000 unit MoWeFr@1700 SC Last administered on 02/04/19at 17:00; Admin Dose 4,000 UNIT; Start 01/30/19 at 17:00 Midodrine (Proamatine) 10 mg TID@,, PO Last administered on 02/05/19 08:43; Admin Dose 10 MG; Start 01/29/19 at 17:00 Multivit/Ca Carb/ B Cmplx/FA/Prenat (Liz-Eugenia) 1 tab DAILY PO Last administered on 02/05/19 08:43; Admin Dose 1 TAB; Start 01/31/19 at 09:00 Docusate Sodium (Colace) 100 mg BID PRN PO constipation; Start 01/30/19 at 14:00 Senna (Senokot) 2 tab DAILY PRN PO constipation; Start 01/30/19 at 14:00 Levalbuterol (Xopenex Neb) 0.63 mg Q4H RESP THERAPY PRN HHN WHEEZING AND RESP DISTRESS Last administered on 02/04/19 05:40; Admin Dose 0.63 MG; Start 02/02/19 at 22:30 Cefepime HCl 50 ml @ 100 mls/hr Q24H IVPB Last administered on 02/05/19 08:43 ; Admin Dose 100 MLS/HR; Start 02/04/19 at 09:00 Norepinephrine 250 ml @ 1.875 mls/ hr TITRATE IV Last administered on 02/05/19 04:48; Admin Dose 22.5 MLS/HR; Start 02/04/19 at 06:30 Midazolam HCl 50 ml @ 1 mls/hr TITRATE IV Last administered on 02/04/19 21:44; Admin Dose 5 MLS/HR; Start 02/04/19 at 07:00 Fentanyl 100 ml @ 2.5 mls/hr TITRATE IV Last administered on 02/04/19 21:48; Admin Dose 5 MLS/HR; Start 02/04/19 at 07:00 Vancomycin HCl (Vanco Iv Per Pharmacy) VANCOMYCIN PER PHARMACY PER PROTOCOL XX ; Start 02/04/19 at 08:30 Bumetanide (Bumex) 1 mg BID DIURETICS IV Last administered on 02/05/19 06:38; Admin Dose 1 MG; Start 02/04/19 at 10:30 Pantoprazole (Protonix Iv) 40 mg BID@18 IV Last administered on 6/20/19at 06:38; Admin Dose 40 MG; Start 02/04/19 at 18:00 Albumin Human 100 ml @ 100 mls/hr Q8H IV ; Start 02/05/19 at 10:00; Stop 02/06/19 at 02:59 EOBNIE TOBAR M.D. Feb 05, 2019 10:11
--- NOTE | 2019-02-05 11:35 | CONS ---
Assessment/Plan Assessment/Plan Hospital Course (Demo Recall) Patient is on pressors intubated tachycardic in no distress temperature 98.2 pulse 104 respirations 20 blood pressure 88/46 saturation 99% on vent WBC 29.3 H&H 7.8 and 22.4 platelets 61 bands 7 BUN 35 creatinine 3.60 lactic acid yesterday 4.3 total bilirubin 27.3 Microbiology: Blood cultures negative a sciatic fluid culture pending Diagnostics chest x-ray this morning revealed slightly improved interstitial edema/infiltrates Indwelling's: Endotracheal tube NG tube right subclavian Hieu catheter Antimicrobials: Vancomycin, cefepime Physical examination: Chronically ill-appearing wasted middle-aged man who is in no distress head atraumatic normocephalic neck is supple chest rise symmetrical breath sounds diminished bases. Heart: S1-S2 tachycardic abdomen distended bowel sounds hypoactive patient has tympany on percussion. Extremities with bilateral dependent edema. Skin: Positive for jaundice Assessment: 1. Septic shock with multisystem organ failure 2. Acute hypoxemic respiratory failure, intubated 3. Possible pneumonia 4. Ascites, rule out SBP 5. End-stage liver cirrhosis 6. Acute renal failure likely hepatorenal 7. Severe anemia 8. Coagulopathy Plan: Change cefepime to meropenem, continue vancomycin, follow GI and pulmonary recommendations, overall prognosis poor Consultation Date/Type/Reason Admit Date/Time Jan 28, 2019 at 22:17 Initial Consult Date 02/03/19 Type of Consult id Requesting Provider: MAL ENRIQUE MD Date/Time of Note DATE: 02/05/19 TIME: 11:35 Exam/Review of Systems Exam Vitals Vital Signs Date Temp Pulse Resp B/P (MAP) Pulse Ox O2 O2 Flow FiO2 Time Delivery Rate 02/05/19 104 20 88/46 (60) 98 08:45 02/05/19 Mechanical 08:00 Ventilator 02/05/19 98.2 07:30 02/05/19 30 05:00 02/04/19 15.0 06:33 Intake and Output 02/04/19 02/04/19 02/05/19 1515:00 23:00 07:00 IntakeIntake Total 704.75 ml 444.00 ml 198.625 ml OutputOutput Total 700 ml 2100 ml BalanceBalance 4.75 ml 444.00 ml -1901.375 ml Results Result Diagram: 02/05/19 0524 02/05/19 0524 Results 24hrs Laboratory Tests Test 02/04/19 16:30 02/04/19 17:18 02/05/19 00:52 02/05/19 04:49 Body Fluid Type ASCITIES FLUID Body Fluid 550.0 Volume Body Fluid Color RED Body Fluid CLOUDY Appearance Body Fluid WBC 954 Body Fluid RBC [id number] (Auto) Body Fluid 71.7 Polynuclear WBCs (%) Body Fluid 28.3 Mononuclear Cells % Auto Body Fluid 75 Glucose Body Fluid Total 2.6 Protein Body Fluid 414 Lactate Dehydrog enase White Blood 26.6 H Count Red Blood Count 1.69 #L Hemoglobin 5.6 #*L Hematocrit 15.9 #L Mean Corpuscular 94.1 Volume Mean Corpuscular 33.1 H Hemoglobin Mean Corpuscular 35.2 Hemoglobin Criselda nt Red Cell 22.6 H Distribution Width Platelet Count 66 L Mean Platelet 13.3 H Volume Immature 2.000 H Granulocytes % Neutrophils % 80.1 H Segmented 78 H Neutrophils % (Manual) Band Neutrophils 1 % (Manual) Lymphocytes % 8.0 L Lymphocytes % 8 L (Manual) Monocytes % 9.3 Monocytes % 11 (Manual) Eosinophils % 0.4 Basophils % 0.2 Promyelocytes % 2 H (Manual) Nucleated Red 0.0 Blood Cells % Immature 0.520 H Granulocytes # Neutrophils # 21.4 H Neutrophils # 20.8 H (Manual) Band Neutrophils 0.2 # Lymphocytes 2.1 (Manual) Lymphocytes # 2.1 Monocytes # 2.5 H Monocytes # 2.9 H (Manual) Eosinophils # 0.1 Basophils # 0.0 Promyelocytes # 0.5 H Nucleated Red 0.0 Blood Cells # Poikilocytosis 2+ Basophilic 1+ Stippling Anisocytosis 2+ Macrocytosis 2+ Ovalocytes 1+ Echinocytes 1+ Elliptocytes 1+ Acanthocytes 2+ Schistocytes 1+ Prothrombin Time 24.0 H 25.9 H Prothrombin Time 1.9 2.0 Ratio INR 2.14 2.36 International Normalized Ratio Activated 70.7 *H Partial Thrombop last Time Fibrinogen 154.0 #L Lab Scanned BLOOD TRANSFUSI Report ON Test 02/05/19 05:24 02/05/19 08:20 White Blood 29.3 H Count Red Blood Count 2.50 #L Hemoglobin 7.8 #L Hematocrit 22.4 #L Mean Corpuscular 89.6 Volume Mean Corpuscular 31.2 Hemoglobin Mean Corpuscular 34.8 Hemoglobin Criselda nt Red Cell 19.5 H Distribution Width Platelet Count 61 L Mean Platelet 13.2 H Volume Immature 1.800 H Granulocytes % Neutrophils % Segmented 76 Neutrophils % (Manual) Band Neutrophils 7 H % (Manual) Lymphocytes % Lymphocytes % 5 L (Manual) Monocytes % Monocytes % 5 (Manual) Eosinophils % Eosinophils % 1 (Manual) Basophils % Basophils % 1 (Manual) Myelocytes % 4 H (Manual) Promyelocytes % 1 H (Manual) Nucleated Red 0.0 Blood Cells % Immature 0.520 H Granulocytes # Neutrophils # Neutrophils # 22.9 H (Manual) Band Neutrophils 2.0 H # Lymphocytes 1.4 (Manual) Lymphocytes # Monocytes # Monocytes # 1.4 H (Manual) Eosinophils # Basophils # Basophils # 0.2 H (Manual) Myelocytes # 1.1 H Promyelocytes # 0.2 H Nucleated Red Blood Cells # Platelet DECREASED Estimate Polychromasia 1+ Poikilocytosis 3+ Anisocytosis 2+ Microcytosis 1+ Macrocytosis 1+ Acanthocytes 1+ Prothrombin Time 24.5 H Prothrombin Time 1.9 Ratio INR 2.20 International Normalized Ratio Sodium Level 140 Potassium Level 3.8 Chloride Level 95 L Carbon Dioxide 24 Level Anion Gap 21 H Blood Urea 35 H Nitrogen Creatinine 3.60 H Est Glomerular 19 L Filtrat Rate mL/min Glucose Level 53 #L Calcium Level 10.3 H Total Bilirubin 27.3 H Direct Bilirubin 19.60 *H Indirect 7.7 H Bilirubin Aspartate Amino 47 H Transf (AST/SGOT ) Alanine 10 L Aminotransferase (ALT/SGPT) Alkaline 94 Phosphatase Total Protein 7.5 Albumin 4.0 Globulin 3.50 H Albumin/Globulin 1.14 Ratio Bedside Glucose 119 Medications Medication Current Medications Lactulose (Enulose) 10 gm Q8 PO Last administered on 02/05/19at 06:38; Admin Dose 10 GM; Start 01/29/19 at 06:00 Ondansetron HCl (Zofran Inj) 4 mg Q6H PRN IV NAUSEA AND/OR VOMITING; Start 01/29/19 at 01:00 Epoetin Daniel-epbx (Retacrit (Esrd)) 4,000 unit MoWeFr@1700 SC Last administered on 02/04/19 17:00; Admin Dose 4,000 UNIT; Start 01/30/19 at 17:00 Midodrine (Proamatine) 10 mg TID@,,17 PO Last administered on 02/05/19 08:43; Admin Dose 10 MG; Start 01/29/19 at 17:00 Multivit/Ca Carb/ B Cmplx/FA/Prenat (Liz-Eugenia) 1 tab DAILY PO Last administered on 02/05/19 08:43; Admin Dose 1 TAB; Start 01/31/19 at 09:00 Docusate Sodium (Colace) 100 mg BID PRN PO constipation; Start 01/30/19 at 14:00 Senna (Senokot) 2 tab DAILY PRN PO constipation; Start 01/30/19 at 14:00 Levalbuterol (Xopenex Neb) 0.63 mg Q4H RESP THERAPY PRN HHN WHEEZING AND RESP DISTRESS Last administered on 02/04/19 05:40; Admin Dose 0.63 MG; Start at 22:30 Cefepime HCl 50 ml @ 100 mls/hr Q24H IVPB Last administered on 02/05/19 08:43; Admin Dose 100 MLS/HR; Start 02/04/19 at 09:00 Norepinephrine 250 ml @ 1.875 mls/ hr TITRATE IV Last administered on 02/05/19 11:29; Admin Dose 37.5 MLS/HR; Start 02/04/19 at 06:30 Midazolam HCl 50 ml @ 1 mls/hr TITRATE IV Last administered on 02/04/19 21:44; Admin Dose 5 MLS/HR; Start 02/04/19 at 07:00 Fentanyl 100 ml @ 2.5 mls/hr TITRATE IV Last administered on 02/04/19 21:48; Admin Dose 5 MLS/HR; Start 02/04/19 at 07:00 Vancomycin HCl (Vanco Iv Per Pharmacy) VANCOMYCIN PER PHARMACY PER PROTOCOL XX ; Start 02/04/19 at 08:30 Bumetanide (Bumex) 1 mg BID DIURETICS IV Last administered on 02/05/19 06:38; Admin Dose 1 MG; Start 02/04/19 at 10:30 Pantoprazole (Protonix Iv) 40 mg BID@06,18 IV Last administered on 02/05/19at 06:38; Admin Dose 40 MG; Start 02/04/19 at 18:00 Albumin Human 100 ml @ 100 mls/hr Q8H IV Last administered on 02/05/19at 11:34; Admin Dose 100 MLS/HR; Start 02/05/19 at 10:00; Stop 02/06/19 at 02:59 Epoetin Daniel-epbx (Retacrit (Esrd)) 10,000 unit TuThSa@09 SC ; Start 02/07/19 at 12:00 JAXON VASQUES NP Feb 05, 2019 11:35
[2019-02-05] MEDS: MEROPENEM 500MG/50 ML (PMX) 50 ML IVPB SCH ×2 (13:23→21:10)
[2019-02-05] MEDS: FENTAnyl (DRIP) 1000 mcg/100mL 100 ML IV SCH (17:54)
--- NOTE | 2019-02-05 18:40 | CONS ---
Assessment/Plan Assessment/Plan Assessment/Plan (Daily) Assessment/Plan Hospital Course (Demo Recall) 39 yo male with liver disease with profound jaundice 1. Decompensated end stage liver disease with hyperbilirubinemia -pt accepted at [facility] for liver tx 2. Severe anemia. -Hgb yesterday 6.0, requiring PRBC replacement, today 7.7 3. Leukocytosis. Patient is septic 4. Ascites. -paracentesis possible today 5. End-stage renal disease on dialysis. 6. Coagulopathy due to #1 - 7. Thrombocytopenia due to #1 -downtrending 8. Encephalopathy Plan Paracentesis today we will send fluid for culture and WBC Continue lactulose Pending Stool for C. difficile toxins Continue antibiotic Alpha-fetoprotein Rifaximin Continue antibiotic and pressor support We will pass NG tube for nutrition support Consultation Date/Type/Reason Admit Date/Time Jan 28, 2019 at 22:17 Initial Consult Date Requesting Provider: MAL ENRIUQE MD Date/Time of Note DATE: 02/05/19 TIME: 18:39 24 HR Interval Summary Free Text/Dictation Patient very critical on vent and not responsive Exam/Review of Systems Exam Vitals Vital Signs Date Temp Pulse Resp B/P (MAP) Pulse Ox O2 O2 Flow FiO2 Time Delivery Rate 02/05/19 110 16:00 02/05/19 20 99 30 15:40 02/05/19 94/50 (65) Mechanical 12:00 Ventilator 02/05/19 98.2 07:30 02/04/19 15.0 06:33 Intake and Output 02/04/19 02/04/19 02/05/19 1515:00 23:00 07:00 IntakeIntake Total 704.75 ml 444.00 ml 198.625 ml OutputOutput Total 700 ml 2100 ml BalanceBalance 4.75 ml 444.00 ml -1901.375 ml Constitutional: non-verbal ENMT: intubated Respiratory: diminished breath sounds Cardiovascular: regular rate and rhythm, nl pulses Gastrointestinal: ascites, distended Extremities: edema Results Result Diagram: 02/05/1952302/05/19523 Results 24hrs Laboratory Tests Test 02/05/19 00:52 02/05/19 04:49 02/05/19 05:24 02/05/19 08:20 Prothrombin Time 25.9 H 24.5 H Prothrombin Time 2.0 1.9 Ratio INR International 2.36 2.20 Normalized Ratio Activated 70.7 *H Partial Thrombopl ast Time Fibrinogen 154.0 #L Lab Scanned BLOOD TRANSFUSIO Report N White Blood Count 29.3 H Red Blood Count 2.50 #L Hemoglobin 7.8 #L Hematocrit 22.4 #L Mean Corpuscular 89.6 Volume Mean Corpuscular 31.2 Hemoglobin Mean Corpuscular 34.8 Hemoglobin Concen t Red Cell 19.5 H Distribution Width Platelet Count 61 L Mean Platelet 13.2 H Volume Immature 1.800 H Granulocytes % Neutrophils % Segmented 76 Neutrophils % (Manual) Band Neutrophils 7 H % (Manual) Lymphocytes % Lymphocytes % 5 L (Manual) Monocytes % Monocytes % 5 (Manual) Eosinophils % Eosinophils % 1 (Manual) Basophils % Basophils % 1 (Manual) Myelocytes % 4 H (Manual) Promyelocytes % 1 H (Manual) Nucleated Red 0.0 Blood Cells % Immature 0.520 H Granulocytes # Neutrophils # Neutrophils # 22.9 H (Manual) Band Neutrophils 2.0 H # Lymphocytes 1.4 (Manual) Lymphocytes # Monocytes # Monocytes # 1.4 H (Manual) Eosinophils # Basophils # Basophils # 0.2 H (Manual) Myelocytes # 1.1 H Promyelocytes # 0.2 H Nucleated Red Blood Cells # Platelet Estimate DECREASED Polychromasia 1+ Poikilocytosis 3+ Anisocytosis 2+ Microcytosis 1+ Macrocytosis 1+ Acanthocytes 1+ Sodium Level 140 Potassium Level 3.8 Chloride Level 95 L Carbon Dioxide 24 Level Anion Gap 21 H Blood Urea 35 H Nitrogen Creatinine 3.60 H Est Glomerular 19 L Filtrat Rate mL/min Glucose Level 53 #L Calcium Level 10.3 H Total Bilirubin 27.3 H Direct Bilirubin 19.60 *H Indirect 7.7 H Bilirubin Aspartate Amino 47 H Transf (AST/SGOT) Alanine 10 L Aminotransferase (ALT/SGPT) Alkaline 94 Phosphatase Total Protein 7.5 Albumin 4.0 Globulin 3.50 H Albumin/Globulin 1.14 Ratio Bedside Glucose 119 Test 02/05/19 11:14 Iron Level 101 Total Iron 124 L Binding Capacity Percent Iron 81 H Saturation Ferritin Pending Vitamin B12 Level > 1000 H Folate > 20.0 H Medications Medication Current Medications Lactulose (Enulose) 10 gm Q8 PO Last administered on 02/05/19at 13:23; Admin Dose 20 GM; Start 01/29/19 at 06:00 Ondansetron HCl (Zofran Inj) 4 mg Q6H PRN IV NAUSEA AND/OR VOMITING; Start 01/29/19 at 01:00 Epoetin Daniel-epbx (Retacrit (Esrd)) 4,000 unit MoWeFr@1700 SC Last administered on 02/04/19at 17:00; Admin Dose 4,000 UNIT; Start 01/30/19 at 17:00 Midodrine (Proamatine) 10 mg TID@,13,17 PO Last administered on 02/05/19at 17:46; Admin Dose 10 MG; Start 01/29/19 at 17:00 Multivit/Ca Carb/ B Cmplx/FA/Prenat (Liz-Eugenia) 1 tab DAILY PO Last administ ered on 02/05/19at 08:43; Admin Dose 1 TAB; Start 01/31/19 at 09:00 Docusate Sodium (Colace) 100 mg BID PRN PO constipation; Start 01/30/19 at 14:00 Senna (Senokot) 2 tab DAILY PRN PO constipation; Start 01/30/19 at 14:00 Levalbuterol (Xopenex Neb) 0.63 mg Q4H RESP THERAPY PRN HHN WHEEZING AND RESP DISTRESS Last administered on 02/04/19at 05:40; Admin Dose 0.63 MG; Start 02/02/19 at 22:30 Norepinephrine 250 ml @ 1.875 mls/ hr TITRATE IV Last administered on 02/05/19 11:29; Admin Dose 37.5 MLS/HR; Start 02/04/19 at 06:30 Midazolam HCl 50 ml @ 1 mls/hr TITRATE IV Last administered on 02/04/19at 21:44; Admin Dose 5 MLS/HR; Start 02/04/19 at 07:00 Fentanyl 100 ml @ 2.5 mls/hr TITRATE IV Last administered on 02/05/19at 17:54; Admin Dose 5 MLS/HR; Start 02/04/19 at 07:00 Vancomycin HCl (Vanco Iv Per Pharmacy) VANCOMYCIN PER PHARMACY PER PROTOCOL XX ; Start 02/04/19 at 08:30 Bumetanide (Bumex) 1 mg BID DIURETICS IV Last administered on 02/05/19at 17:46; Admin Dose 1 MG; Start 02/04/19 at 10:30 Pantoprazole (Protonix Iv) 40 mg BID@06,18 IV Last administered on 02/05/19at 17:45; Admin Dose 40 MG; Start 02/04/19 at 18:00 Albumin Human 100 ml @ 100 mls/hr Q8H IV Last administered on 02/05/19at 17:46; Admin Dose 100 MLS/HR; Start 02/05/19 at 10:00; Stop 02/06/19 at 02:59 Epoetin Daniel-epbx (Retacrit (Esrd)) 10,000 unit TuThSa@09 SC ; Start 02/07/19 at 12:00 Meropenem/Sodium Chloride 50 ml @ 100 mls/hr Q12 IVPB Last administered on 02/05/19at 13:23; Admin Dose 100 MLS/HR; Start 02/05/19 at 12:00 ELLIS ESTRADA MD Feb 05, 2019 18:40
[2019-02-05] MEDS: RIFAXIMIN 550 MG TAB PO SCH (21:10)
[2019-02-06] VITALS (108 sets, daily range): BP systolic 71–113; BP diastolic 43–69; PULSE 117–135; RESP 18–23
[2019-02-06] MEDS: ALBUMIN HUMAN 25% 100 ML IV SCH ×3 (01:30→23:13)
[2019-02-06] MEDS: NORepinephrine 8MG/250 ML (PMX 250 ML IV SCH ×5 (02:42→22:11)
[2019-02-06] MEDS: LACTULOSE 30ML CUP PO SCH ×3 (06:45→21:59)
[2019-02-06] MEDS: BUMETANIDE 1 MG INJ IV SCH (06:45)
[2019-02-06] MEDS: PANTOPRAZOLE 40 MG INJ IV SCH ×2 (06:45→17:30)
[2019-02-06] MEDS ORDERED: DEXTROSE 50% 50 ML SYRINGE ONE (07:24)
[2019-02-06] MEDS ORDERED: DEXTROSE 50% 50 ML SYRINGE IV PRN (07:30)
[2019-02-06] MEDS: DEXTROSE 10% 1,000 ML IV SCH (07:41)
[2019-02-06] MEDS ORDERED: PHYTONADIONE 10 MG/ML INJ SC ONE (08:00)
[2019-02-06] MEDS: RIFAXIMIN 550 MG TAB PO SCH ×2 (08:42→21:59)
[2019-02-06] MEDS: MIDODRINE 5 MG TAB PO SCH ×3 (08:44→17:30)
[2019-02-06] MEDS: BALSAM PERU/CASTOR OIL 60 GM TUBE TOP SCH ×2 (08:45→21:59)
[2019-02-06] MEDS: MULTIVIT/CA CARB/B CMPLX/FA TAB PO SCH (08:45)
[2019-02-06] MEDS: MEROPENEM 500MG/50 ML (PMX) 50 ML IVPB SCH ×2 (08:46→21:58)
[2019-02-06] MEDS: PHENYLephrine 80 MG in DEXTROSE 5% 242 ML IV PRN (08:51)
--- NOTE | 2019-02-06 09:24 | CONS ---
Assessment/Plan Assessment/Plan Assessment/Plan (Daily) Ventilator setting; AC of 20, tidal volume 500, PEEP of 5, 40% FiO2. Patient is currently on Levophed 28 mics per minute. Assessment and recommendations; 1. Patient admitted with shortness of breath due to severe pulmonary edema as well as abdominal distention due to ascites, then developed respiratory failure requiring intubation. 2. End-stage liver disease. Awaiting transplant. 3. Chronic renal failure, on hemodialysis. 4. Status post paracentesis with significant improvement. There is marked reduction in pleural effusions and pulmonary edema. 5. Severe coagulopathy with severe anemia and thrombocytopenia. 6. Persistent shock. 7. Gram-positive bacteremia. Continue current supportive care. Patient to get packed RBCs as well as FFP. Prognosis appears extremely poor. Patient currently is too unstable to be transferred to a tertiary care center for further care. 35 minutes of critical care time was spent evaluating patient. Consultation Date/Type/Reason Admit Date/Time Jan 28, 2019 at 22:17 Initial Consult Date 02/03/19 Type of Consult Pulmonary Patient is a 39-year-old male who has been transferred from another facility because of end-stage liver disease and large ascites. By the time I saw the patient, patient appeared awake and alert and did not appear to be in any distress. Past medical history; 1. End-stage alcoholic liver cirrhosis. 2. History of variceal bleeding. 3. End-stage renal disease, on hemodialysis. 4. Chronic anemia. 5. Secondary hyperparathyroidism. Medications; reviewed. Allergies; none. Social he; history of heavy alcohol abuse. Patient has quit for some time though. Family history; noncontributory. Occupational history; patient is on disability. Review of systems; denies any headache, seizures. Complains of mild shortness of breath. Complains of abdominal distention without any pain. Denies any nausea vomiting. Denies any orthopnea. Complains of dark urine. Denies any melena or hematochezia. Complains of weight loss. Complains of easy skin bruising. General exam; young male, appears severely icteric. Currently no distress. Laying flat in bed. Requesting Provider: MAL ENRIQUE MD Date/Time of Note DATE: 02/06/19 TIME: 09:18 24 HR Interval Summary Free Text/Dictation Patient's condition is extremely critical. On high-dose Levophed. General exam; young male, orally intubated, off sedation. Unresponsive. Currently no distress. Exam/Review of Systems Exam Vitals Vital Signs Date Temp Pulse Resp B/P (MAP) Pulse Ox O2 O2 Flow FiO2 Time Delivery Rate 02/06/19 122 20 84/49 (61) 96 06:45 02/06/19 Mechanical 06:00 Ventilator 02/06/19 30 05:16 02/06/19 98.6 04:00 02/04/19 15.0 06:33 Intake and Output 02/05/19 02/05/19 02/06/19 1515:00 23:00 07:00 IntakeIntake Total 590.25 ml 494.500 ml 454.250 ml OutputOutput Total 0 ml 5 ml BalanceBalance 590.25 ml 489.500 ml 454.250 ml Exam H EENT exam; supple neck, positive JVD. No lymphadenopathy. Midline trachea. No thyromegaly. Patient has fair dentition. No oral bleeding seen. Patient remains deeply icteric. Chest exam; diminished breath sounds bilaterally. S1-S2 audible, no murmurs. Regular rhythm. Abdomen exam; soft, mildly protuberant. Positive fluid thrill. Bowel sounds are very sluggish. Umbilicus is flat. There is no scrotal edema. Extremity exam; trace edema. 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 Results Result Diagram: 02/06/19 0400 02/06/19 0400 Results 24hrs Laboratory Tests Test 02/05/19 11:14 02/06/19 04:00 02/06/19 04:51 02/06/19 06:00 Iron Level 101 Total Iron 124 L Binding Capacity Percent Iron 81 H Saturation Ferritin 1260.0 H Vitamin B12 > 1000 H Level Folate > 20.0 H White Blood 25.4 H Count Red Blood Count 1.77 #L Hemoglobin 5.7 #*L Hematocrit 16.2 #L Mean 91.5 Corpuscular Volume Mean 32.2 Corpuscular Hemoglobin Mean 35.2 Corpuscular Hemoglobin Conc ent Red Cell 21.0 H Distribution Width Platelet Count 61 L Mean Platelet 12.9 H Volume Immature 1.000 H Granulocytes % Neutrophils % Segmented 78 H Neutrophils % (Manual) Band 12 H Neutrophils % (Manual) Lymphocytes % Lymphocytes % 3 L (Manual) Monocytes % Monocytes % 5 (Manual) Eosinophils % Basophils % Myelocytes % 1 H (Manual) Promyelocytes % 1 H (Manual) Nucleated Red 0.1 H Blood Cells % Immature 0.260 H Granulocytes # Neutrophils # Neutrophils # 20.6 H (Manual) Band 3.0 H Neutrophils # Lymphocytes 0.7 L (Manual) Lymphocytes # Monocytes # Monocytes # 1.2 H (Manual) Eosinophils # Basophils # Myelocytes # 0.2 H Promyelocytes # 0.2 H Nucleated Red Blood Cells # Platelet SIG DECREASED Estimate Polychromasia 3+ Poikilocytosis 3+ Anisocytosis 2+ Microcytosis 1+ Macrocytosis 1+ Prothrombin 38.2 H Time Prothrombin 3.0 Time Ratio INR 3.90 International Normalized Rati o Activated 97.4 *H Partial Thrombo plast Time Thrombin Time 20.6 H Fibrinogen 145.0 L D-Dimer > 43479.00 H Sodium Level 143 Potassium Level 4.6 Chloride Level 99 Carbon Dioxide 21 Level Anion Gap 23 H Blood Urea 39 H Nitrogen Creatinine 4.02 H Est Glomerular 17 L Filtrat Rate mL/min Glucose Level < 20 #*L Calcium Level 10.5 H Total Bilirubin 26.1 H Direct 18.90 *H Bilirubin Indirect 7.2 H Bilirubin Aspartate Amino 71 #H Transf (AST/SGO T) Alanine 9 L Aminotransferas e (ALT/SGPT) Alkaline 99 Phosphatase Total Protein 7.0 Albumin 3.9 Globulin 3.10 Albumin/Globuli 1.25 n Ratio Random 12.8 Vancomycin Level Lab Scanned BLOOD TRANSFUSI Report ON Blood Gas Blood Specimen arterial Source Arterial Blood 02/06/2019 7:45 Date Drawn :05 AM Arterial Blood 7.409 pH (Temp corrected ) Arterial Blood 31.9 L pCO2 (Temp correct) Arterial Blood 58.6 L pO2 (Temp corrected ) Arterial Blood 19.7 L HCO3 Arterial Blood -4.5 L Base Excess Arterial Blood 87.7 L Oxygen Saturati on Benito Test ACCEPTAB Arterial Blood Right Radial Gas Puncture Site Arterial 3.1 H Blood Carboxyhe moglobin Arterial Blood 0.6 Methemoglobin Blood Gas A-a 117.8 H O2 Differential Oxyhemoglobin 84.5 L Percent Blood Gas 37.0 Temperature Blood Gas 20.0 Respiration Rate Blood Gas 20 Actual Respiration Rat e Blood Gas VENT - AC Modality FiO2 30.0 Blood Gas Tidal 500.0 Volume Blood Gas Low 5.0 PEEP Setting Blood Gas TM Notified Whom Blood Gas 02/06/2019 8:06 Notified Time :56 AM Test 02/06/19 07:21 02/06/19 07:22 02/06/19 07:45 02/06/19 07:57 Bedside Glucose 21 *L 21 *L 99 85 Test 02/06/19 08:34 02/06/19 09:11 Bedside Glucose 73 80 Medications Medication Current Medications Lactulose (Enulose) 10 gm Q8 PO Last administered on 02/06/19 06:45; Admin Dose 10 GM; Start 01/29/19 at 06:00 Ondansetron HCl (Zofran Inj) 4 mg Q6H PRN IV NAUSEA AND/OR VOMITING; Start 01/29/19 at 01:00 Epoetin Daniel-epbx (Retacrit (Esrd)) 4,000 unit MoWeFr@1700 SC Last administered on 02/04/19at 17:00; Admin Dose 4,000 UNIT; Start 01/30/19 at 17:00 Midodrine (Proamatine) 10 mg TID@09,13,17 PO Last administered on 02/06/19at 08:44; Admin Dose 10 MG; Start 01/29/19 at 17:00 Multivit/Ca Carb/ B Cmplx/FA/Prenat (Liz-Eugenia) 1 tab DAILY PO Last administered on 02/06/19at 08:45; Admin Dose 1 TAB; Start 01/31/19 at 09:00 Docusate Sodium (Colace) 100 mg BID PRN PO constipation; Start 01/30/19 at 14:00 Senna (Senokot) 2 tab DAILY PRN PO constipation; Start 01/30/19 at 14:00 Levalbuterol (Xopenex Neb) 0.63 mg Q4H RESP THERAPY PRN HHN WHEEZING AND RESP DISTRESS Last administered on 02/04/19at 05:40; Admin Dose 0.63 MG; Start 02/02/19 at 22:30 Norepinephrine 250 ml @ 1.875 mls/ hr TITRATE IV Last administered on 02/06/19at 06:51; Admin Dose 52.5 MLS/HR; Start 02/04/19 at 06:30 Midazolam HCl 50 ml @ 1 mls/hr TITRATE IV Last administered on 02/04/19at 21:44; Admin Dose 5 MLS/HR; Start 02/04/19 at 07:00 Fentanyl 100 ml @ 2.5 mls/hr TITRATE IV Last administered on 02/05/19 17:54; Admin Dose 5 MLS/HR; Start 02/04/19 at 07:00 Vancomycin HCl (Vanco Iv Per Pharmacy) VANCOMYCIN PER PHARMACY PER PROTOCOL XX ; Start 02/04/19 at 08:30 Bumetanide (Bumex) 1 mg BID DIURETICS IV Last administered on 02/06/19 06:45; Admin Dose 1 MG; Start 02/04/19 at 10:30 Pantoprazole (Protonix Iv) 40 mg BID@06,18 IV Last administered on 02/06/19 06:45; Admin Dose 40 MG; Start 02/04/19 at 18:00 Epoetin Daniel-epbx (Retacrit (Esrd)) 10,000 unit TuThSa@09 SC ; Start 02/07/19 at 12:00 Meropenem/Sodium Chloride 50 ml @ 100 mls/hr Q12 IVPB Last administered on 02/06/19 08:46; Admin Dose 100 MLS/HR; Start 02/05/19 at 12:00 Rifaximin (Xifaxan) 550 mg BID PO Last administered on 02/06/19 08:42; Admin Dose 550 MG; Start 02/05/19 at 21:00 Phenylephrine HCl 80 mg/Dextrose 250 ml @ 18.75 mls/ hr TITRATE PRN IV BLOOD PRESSURE SUPPORT Last administered on 02/06/19 08:51; Admin Dose 18.75 MLS/HR; Start 02/06/19 at 02:00 Dextrose 1,000 ml @ 50 mls/hr Q20H IV Last administered on 02/06/19 07:41; Admin Dose 50 MLS/HR; Start 02/06/19 at 07:30 Dextrose (D50w Syringe) 50 ml PRN PRN IV HYPOGLYCEMIA (BS<70) Last administered on 02/06/19 07:42; Admin Dose 50 ML; Start 02/06/19 at 07:30 FRANCE LINARES Feb 06, 2019 09:24
--- NOTE | 2019-02-06 11:38 | PN ---
Date/Time of Note Date/Time of Note DATE: 02/06/19 TIME: 11:38 Assessment/Plan VTE Prophylaxis Risk score (from Ns)>0 risk: 11 SCD applied (from [facility] [place]): No SCD contraindicated: bilateral LE trauma Pharmacological prophylaxis: NA/contraindicated Pharm contraindication: bleeding, thrombocytopenia Lines/Catheters IV Catheter Type (from [facility]): Hieu cath Central line still needed: Yes Urinary Cath still in place: Yes Reason Cath still needed: urinary retention Assessment/Plan Hospital Course 1. Shock likely secondary to sepsis, patient has history of cirrhosis 2. Acute Respiratory failure status post intubation secondary to large pleural effusions secondary to volume overload post hemodialysis 3. Fractures of the superior endplates/bodies of L1, L2 and L3 with associated slight anterior superior endplate wedge compression of the L1 and L3 vertebral bodies. Multilevel degenerative changes greatest at L4-5 as described above. Mild degenerative changes of the right posterior lateral aspect of the T11-12 disc space with mild central canal stenosis. 4. Decompensated alcoholic cirrhosis with a history of EtOH use. Hyperbilirubinemia 5. End-stage renal disease, on hemodialysis. 6. Coagulopathy. 7. Thrombocytopenia likely due to cirrhosis. 8. Moderate anemia, likely multifactorial disease, likely secondary to end- stage renal disease versus bone marrow suppression versus nutritional deficiency versus cirrhosis. 9. Leucocytosis. 10. S.p paracentesis in previous hospital 01/28/2019 11. Suspicious for metastatic disease 12. Hypotension likely secondary to cirrhosis, rule out sepsis. 13. History of gastrointestinal bleed. 14. Hypoglycemia Assessment/Plan -FiO2 is50% -Titrate the levo/neosynephrine to keep systolic blood pressure greater than 85 and map greater than 60 as patient has history of cirrhosis -c/w HD today -s/p paracentesis -Status post vitamin K/FFP/cryoprecipitate yesterday -c/w albumin - cw vancomycin/cefepime -Continue with lactulose - blood cx NEG SO Far - cw epogen -s/p 2 units PRBC, today 3 PRBC --Needs a tertiary setting with there is a Ability of CRRT and patient will need liver and a kidney transplant, spoke to [facility] will call us back about update, patient was accepted by Dr. Moore however now on higher amounts of FiO2> however prior FiO2 has improved considerable status post paracentesis -poor prognosis Result Diagram: 02/06/190 02/06/19 0400 Results 24hrs Laboratory Tests Test 02/06/19 04:00 02/06/19 04:51 02/06/19 06:00 02/06/19 07:21 White Blood 25.4 H Count Red Blood Count 1.77 #L Hemoglobin 5.7 #*L Hematocrit 16.2 #L Mean 91.5 Corpuscular Volume Mean 32.2 Corpuscular Hemoglobin Mean 35.2 Corpuscular Hemoglobin Conc ent Red Cell 21.0 H Distribution Width Platelet Count 61 L Mean Platelet 12.9 H Volume Immature 1.000 H Granulocytes % Neutrophils % Segmented 78 H Neutrophils % (Manual) Band 12 H Neutrophils % (Manual) Lymphocytes % Lymphocytes % 3 L (Manual) Monocytes % Monocytes % 5 (Manual) Eosinophils % Basophils % Myelocytes % 1 H (Manual) Promyelocytes % 1 H (Manual) Nucleated Red 0.1 H Blood Cells % Immature 0.260 H Granulocytes # Neutrophils # Neutrophils # 20.6 H (Manual) Band 3.0 H Neutrophils # Lymphocytes 0.7 L (Manual) Lymphocytes # Monocytes # Monocytes # 1.2 H (Manual) Eosinophils # Basophils # Myelocytes # 0.2 H Promyelocytes # 0.2 H Nucleated Red Blood Cells # Platelet SIG DECREASED Estimate Polychromasia 3+ Poikilocytosis 3+ Anisocytosis 2+ Microcytosis 1+ Macrocytosis 1+ Prothrombin 38.2 H Time Prothrombin 3.0 Time Ratio INR 3.90 International Normalized Rati o Activated 97.4 *H Partial Thrombo plast Time Thrombin Time 20.6 H Fibrinogen 145.0 L D-Dimer > 43422.00 H Sodium Level 143 Potassium Level 4.6 Chloride Level 99 Carbon Dioxide 21 Level Anion Gap 23 H Blood Urea 39 H Nitrogen Creatinine 4.02 H Est Glomerular 17 L Filtrat Rate mL/min Glucose Level < 20 #*L Calcium Level 10.5 H Total Bilirubin 26.1 H Direct 18.90 *H Bilirubin Indirect 7.2 H Bilirubin Aspartate Amino 71 #H Transf (AST/SGO T) Alanine 9 L Aminotransferas e (ALT/SGPT) Alkaline 99 Phosphatase Total Protein 7.0 Albumin 3.9 Globulin 3.10 Albumin/Globuli 1.25 n Ratio Random 12.8 Vancomycin Level Lab Scanned BLOOD TRANSFUSI Report ON Blood Gas Blood Specimen arterial Source Arterial Blood 02/06/2019 7:45 Date Drawn :05 AM Arterial Blood 7.409 pH (Temp corrected ) Arterial Blood 31.9 L pCO2 (Temp correct) Arterial Blood 58.6 L pO2 (Temp corrected ) Arterial Blood 19.7 L HCO3 Arterial Blood -4.5 L Base Excess Arterial Blood 87.7 L Oxygen Saturati on Benito Test ACCEPTAB Arterial Blood Right Radial Gas Puncture Site Arterial 3.1 H Blood Carboxyhe moglobin Arterial Blood 0.6 Methemoglobin Blood Gas A-a 117.8 H O2 Differential Oxyhemoglobin 84.5 L Percent Blood Gas 37.0 Temperature Blood Gas 20.0 Respiration Rate Blood Gas 20 Actual Respiration Rat e Blood Gas VENT - AC Modality FiO2 30.0 Blood Gas Tidal 500.0 Volume Blood Gas Low 5.0 PEEP Setting Blood Gas TM Notified Whom Blood Gas 02/06/2019 8:06 Notified Time :56 AM Bedside Glucose 21 *L Test 02/06/19 07:22 02/06/19 07:45 02/06/19 07:57 02/06/19 08:34 Bedside Glucose 21 *L 99 85 73 Test 02/06/19 09:11 Bedside Glucose 80 Exam/Review of Systems Exam Vitals Vital Signs Date Temp Pulse Resp B/P (MAP) Pulse Ox O2 O2 Flow FiO2 Time Delivery Rate 02/06/19 134 21 86/51 (63) 97 Mechanical 11:00 Ventilator 02/06/19 50 09:10 02/06/19 98.6 08:30 02/04/19 15.0 06:33 Intake and Output 02/05/19 02/05/19 02/06/19 1515:00 23:00 07:00 IntakeIntake Total 590.25 ml 494.500 ml 506.750 ml OutputOutput Total 0 ml 5 ml 0 ml BalanceBalance 590.25 ml 489.500 ml 506.750 ml Results Results 24hrs Laboratory Tests Test 02/06/19 04:00 02/06/19 04:51 02/06/19 06:00 02/06/19 07:21 White Blood 25.4 H Count Red Blood Count 1.77 #L Hemoglobin 5.7 #*L Hematocrit 16.2 #L Mean 91.5 Corpuscular Volume Mean 32.2 Corpuscular Hemoglobin Mean 35.2 Corpuscular Hemoglobin Conc ent Red Cell 21.0 H Distribution Width Platelet Count 61 L Mean Platelet 12.9 H Volume Immature 1.000 H Granulocytes % Neutrophils % Segmented 78 H Neutrophils % (Manual) Band 12 H Neutrophils % (Manual) Lymphocytes % Lymphocytes % 3 L (Manual) Monocytes % Monocytes % 5 (Manual) Eosinophils % Basophils % Myelocytes % 1 H (Manual) Promyelocytes % 1 H (Manual) Nucleated Red 0.1 H Blood Cells % Immature 0.260 H Granulocytes # Neutrophils # Neutrophils # 20.6 H (Manual) Band 3.0 H Neutrophils # Lymphocytes 0.7 L (Manual) Lymphocytes # Monocytes # Monocytes # 1.2 H (Manual) Eosinophils # Basophils # Myelocytes # 0.2 H Promyelocytes # 0.2 H Nucleated Red Blood Cells # Platelet SIG DECREASED Estimate Polychromasia 3+ Poikilocytosis 3+ Anisocytosis 2+ Microcytosis 1+ Macrocytosis 1+ Prothrombin 38.2 H Time Prothrombin 3.0 Time Ratio INR 3.90 International Normalized Rati o Activated 97.4 *H Partial Thrombo plast Time Thrombin Time 20.6 H Fibrinogen 145.0 L D-Dimer > 06728.00 H Sodium Level 143 Potassium Level 4.6 Chloride Level 99 Carbon Dioxide 21 Level Anion Gap 23 H Blood Urea 39 H Nitrogen Creatinine 4.02 H Est Glomerular 17 L Filtrat Rate mL/min Glucose Level < 20 #*L Calcium Level 10.5 H Total Bilirubin 26.1 H Direct 18.90 *H Bilirubin Indirect 7.2 H Bilirubin Aspartate Amino 71 #H Transf (AST/SGO T) Alanine 9 L Aminotransferas e (ALT/SGPT) Alkaline 99 Phosphatase Total Protein 7.0 Albumin 3.9 Globulin 3.10 Albumin/Globuli 1.25 n Ratio Random 12.8 Vancomycin Level Lab Scanned BLOOD TRANSFUSI Report ON Blood Gas Blood Specimen arterial Source Arterial Blood 02/06/2019 7:45 Date Drawn :05 AM Arterial Blood 7.409 pH (Temp corrected ) Arterial Blood 31.9 L pCO2 (Temp correct) Arterial Blood 58.6 L pO2 (Temp corrected ) Arterial Blood 19.7 L HCO3 Arterial Blood -4.5 L Base Excess Arterial Blood 87.7 L Oxygen Saturati on Benito Test ACCEPTAB Arterial Blood Right Radial Gas Puncture Site Arterial 3.1 H Blood Carboxyhe moglobin Arterial Blood 0.6 Methemoglobin Blood Gas A-a 117.8 H O2 Differential Oxyhemoglobin 84.5 L Percent Blood Gas 37.0 Temperature Blood Gas 20.0 Respiration Rate Blood Gas 20 Actual Respiration Rat e Blood Gas VENT - AC Modality FiO2 30.0 Blood Gas Tidal 500.0 Volume Blood Gas Low 5.0 PEEP Setting Blood Gas TM Notified Whom Blood Gas 02/06/2019 8:06 Notified Time :56 AM Bedside Glucose 21 *L Test 02/06/19 07:22 02/06/19 07:45 02/06/19 07:57 02/06/19 08:34 Bedside Glucose 21 *L 99 85 73 Test 02/06/19 09:11 Bedside Glucose 80 Medications Medication Current Medications Lactulose (Enulose) 10 gm Q8 PO Last administered on 02/06/19 06:45; Admin Dose 10 GM; Start 01/29/19 at 06:00 Ondansetron HCl (Zofran Inj) 4 mg Q6H PRN IV NAUSEA AND/OR VOMITING; Start 01/29/19 at 01:00 Epoetin Daniel-epbx (Retacrit (Esrd)) 4,000 unit MoWeFr@1700 SC Last administered on 02/04/19at 17:00; Admin Dose 4,000 UNIT; Start 01/30/19 at 17:00 Midodrine (Proamatine) 10 mg TID@,13,17 PO Last administered on 02/06/19at 08:44; Admin Dose 10 MG; Start 01/29/19 at 17:00 Multivit/Ca Carb/ B Cmplx/FA/Prenat (Liz-Eugenia) 1 tab DAILY PO Last administered on 02/06/19at 08:45; Admin Dose 1 TAB; Start 01/31/19 at 09:00 Docusate Sodium (Colace) 100 mg BID PRN PO constipation; Start 01/30/19 at 14:00 Senna (Senokot) 2 tab DAILY PRN PO constipation; Start 01/30/19 at 14:00 Levalbuterol (Xopenex Neb) 0.63 mg Q4H RESP THERAPY PRN HHN WHEEZING AND RESP DISTRESS Last administered on 02/04/19at 05:40; Admin Dose 0.63 MG; Start 02/02/19 at 22:30 Norepinephrine 250 ml @ 1.875 mls/ hr TITRATE IV Last administered on 02/06/19at 11:36; Admin Dose 43.125 MLS/HR; Start 02/04/19 at 06:30 Midazolam HCl 50 ml @ 1 mls/hr TITRATE IV Last administered on 02/04/19 21:44; Admin Dose 5 MLS/HR; Start 02/04/19 at 07:00 Fentanyl 100 ml @ 2.5 mls/hr TITRATE IV Last administered on 02/05/19at 17:54; Admin Dose 5 MLS/HR; Start 02/04/19 at 07:00 Vancomycin HCl (Vanco Iv Per Pharmacy) VANCOMYCIN PER PHARMACY PER PROTOCOL XX ; Start 02/04/19 at 08:30 Bumetanide (Bumex) 1 mg BID DIURETICS IV Last administered on 02/06/19 06:45; Admin Dose 1 MG; Start 02/04/19 at 10:30 Pantoprazole (Protonix Iv) 40 mg BID@06,18 IV Last administered on 02/06/19 06:45; Admin Dose 40 MG; Start 02/04/19 at 18:00 Epoetin Daniel-epbx (Retacrit (Esrd)) 10,000 unit TuThSa@09 SC ; Start 02/07/19 at 12:00 Meropenem/Sodium Chloride 50 ml @ 100 mls/hr Q12 IVPB Last administered on 02/06/19 08:46; Admin Dose 100 MLS/HR; Start 02/05/19 at 12:00 Rifaximin (Xifaxan) 550 mg BID PO Last administered on 02/06/19 08:42; Admin Dose 550 MG; Start 02/05/19 at 21:00 Phenylephrine HCl 80 mg/Dextrose 250 ml @ 18.75 mls/ hr TITRATE PRN IV BLOOD PRESSURE SUPPORT Last administered on 02/06/19 08:51; Admin Dose 18.75 MLS/HR; Start 02/06/19 at 02:00 Dextrose 1,000 ml @ 50 mls/hr Q20H IV Last administered on 02/06/19 07:41; Admin Dose 50 MLS/HR; Start 02/06/19 at 07:30 Dextrose (D50w Syringe) 50 ml PRN PRN IV HYPOGLYCEMIA (BS<70) Last administered on 02/06/19 07:42; Admin Dose 50 ML; Start 02/06/19 at 07:30 RAMON VILLAGRAN Feb 06, 2019 11:38
--- NOTE | 2019-02-06 13:03 | CONS ---
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 his coags are quite elevated especially the PTT is out of proportion to what would be expected for cirrhosis related liver dysfunction mixing study shows: Not corrected = Lupus Inhibitor or Time Dependent Inhibitor give vit K 10 mg sq daily await Lupus anticoagulant as this is a common cause of elevated PTT low fibrinogen likely due to synthetic dysfunction but maybe also component if DIC ---> transfuse 10 units cryprecipitate if fibrinogen <100, transfuse 2 u FFP if fibrinogen <150 in terms of procedures, recommend 2 u FFP prior to proceeding with paracentesis, repeat PT/INR/PTT prior to paracentesis to ensure that coags are in safer range for the procedure transfuse to keep hgb>7, plt >20K check daily PTT/PT/INR/fibrinogen keep fibrinogen >100 grim prognosis--remains intubated, renal failure,liver failure and coagulopathy recommend discussion of goals of care and code status Consultation Date/Type/Reason Admit Date/Time Jan 29, 2019 at 01:13 Initial Consult Date 02/03/19 Requesting Provider: MAL ENRIQUE MD Date/Time of Note DATE: 02/06/19 TIME: 11:21 24 HR Interval Summary Free Text/Dictation pt very critical Exam/Review of Systems Exam Vitals Vital Signs Date Temp Pulse Resp B/P (MAP) Pulse Ox O2 O2 Flow FiO2 Time Delivery Rate 02/06/19 134 21 86/51 (63) 97 Mechanical 11:00 Ventilator 02/06/19 50 09:10 02/06/19 98.6 08:30 02/04/19 15.0 06:33 Intake and Output 02/05/19 02/05/19 02/06/19 1515:00 23:00 07:00 IntakeIntake Total 590.25 ml 494.500 ml 506.750 ml OutputOutput Total 0 ml 5 ml 0 ml BalanceBalance 590.25 ml 489.500 ml 506.750 ml Constitutional: non-verbal, frail Eyes: icteric ENMT: intubated Results Result Diagram: 02/06/19 0400 02/06/19 0400 Results 24hrs Laboratory Tests Test 02/06/19 04:00 02/06/19 04:51 02/06/19 06:00 02/06/19 07:21 White Blood 25.4 H Count Red Blood Count 1.77 #L Hemoglobin 5.7 #*L Hematocrit 16.2 #L Mean 91.5 Corpuscular Volume Mean 32.2 Corpuscular Hemoglobin Mean 35.2 Corpuscular Hemoglobin Conc ent Red Cell 21.0 H Distribution Width Platelet Count 61 L Mean Platelet 12.9 H Volume Immature 1.000 H Granulocytes % Neutrophils % Segmented 78 H Neutrophils % (Manual) Band 12 H Neutrophils % (Manual) Lymphocytes % Lymphocytes % 3 L (Manual) Monocytes % Monocytes % 5 (Manual) Eosinophils % Basophils % Myelocytes % 1 H (Manual) Promyelocytes % 1 H (Manual) Nucleated Red 0.1 H Blood Cells % Immature 0.260 H Granulocytes # Neutrophils # Neutrophils # 20.6 H (Manual) Band 3.0 H Neutrophils # Lymphocytes 0.7 L (Manual) Lymphocytes # Monocytes # Monocytes # 1.2 H (Manual) Eosinophils # Basophils # Myelocytes # 0.2 H Promyelocytes # 0.2 H Nucleated Red Blood Cells # Platelet SIG DECREASED Estimate Polychromasia 3+ Poikilocytosis 3+ Anisocytosis 2+ Microcytosis 1+ Macrocytosis 1+ Prothrombin 38.2 H Time Prothrombin 3.0 Time Ratio INR 3.90 International Normalized Rati o Activated 97.4 *H Partial Thrombo plast Time Thrombin Time 20.6 H Fibrinogen 145.0 L D-Dimer > 64130.00 H Sodium Level 143 Potassium Level 4.6 Chloride Level 99 Carbon Dioxide 21 Level Anion Gap 23 H Blood Urea 39 H Nitrogen Creatinine 4.02 H Est Glomerular 17 L Filtrat Rate mL/min Glucose Level < 20 #*L Calcium Level 10.5 H Total Bilirubin 26.1 H Direct 18.90 *H Bilirubin Indirect 7.2 H Bilirubin Aspartate Amino 71 #H Transf (AST/SGO T) Alanine 9 L Aminotransferas e (ALT/SGPT) Alkaline 99 Phosphatase Total Protein 7.0 Albumin 3.9 Globulin 3.10 Albumin/Globuli 1.25 n Ratio Random 12.8 Vancomycin Level Lab Scanned BLOOD TRANSFUSI Report ON Blood Gas Blood Specimen arterial Source Arterial Blood 02/06/2019 7:45 Date Drawn :05 AM Arterial Blood 7.409 pH (Temp corrected ) Arterial Blood 31.9 L pCO2 (Temp correct) Arterial Blood 58.6 L pO2 (Temp corrected ) Arterial Blood 19.7 L HCO3 Arterial Blood -4.5 L Base Excess Arterial Blood 87.7 L Oxygen Saturati on Benito Test ACCEPTAB Arterial Blood Right Radial Gas Puncture Site Arterial 3.1 H Blood Carboxyhe moglobin Arterial Blood 0.6 Methemoglobin Blood Gas A-a 117.8 H O2 Differential Oxyhemoglobin 84.5 L Percent Blood Gas 37.0 Temperature Blood Gas 20.0 Respiration Rate Blood Gas 20 Actual Respiration Rat e Blood Gas VENT - AC Modality FiO2 30.0 Blood Gas Tidal 500.0 Volume Blood Gas Low 5.0 PEEP Setting Blood Gas TM Notified Whom Blood Gas 02/06/2019 8:06 Notified Time :56 AM Bedside Glucose 21 *L Test 02/06/19 07:22 02/06/19 07:45 02/06/19 07:57 02/06/19 08:34 Bedside Glucose 21 *L 99 85 73 Test 02/06/19 09:11 Bedside Glucose 80 Medications Medication Current Medications Lactulose (Enulose) 10 gm Q8 PO Last administered on 02/06/19at 06:45; Admin Dose 10 GM; Start 01/29/19 at 06:00 Ondansetron HCl (Zofran Inj) 4 mg Q6H PRN IV NAUSEA AND/OR VOMITING; Start 01/29/19 at 01:00 Epoetin Daniel-epbx (Retacrit (Esrd)) 4,000 unit MoWeFr@1700 SC Last administered on 02/04/19at 17:00; Admin Dose 4,000 UNIT; Start 01/30/19 at 17:00 Midodrine (Proamatine) 10 mg TID@,17 PO Last administered on 02/06/19at 08:44; Admin Dose 10 MG; Start 01/29/19 at 17:00 Multivit/Ca Carb/ B Cmplx/FA/Prenat (Liz-Eugenia) 1 tab DAILY PO Last administered on 02/06/19at 08:45; Admin Dose 1 TAB; Start 01/31/19 at 09:00 Docusate Sodium (Colace) 100 mg BID PRN PO constipation; Start 01/30/19 at 14:00 Senna (Senokot) 2 tab DAILY PRN PO constipation; Start 01/30/19 at 14:00 Levalbuterol (Xopenex Neb) 0.63 mg Q4H RESP THERAPY PRN HHN WHEEZING AND RESP DISTRESS Last administered on 02/04/19 05:40; Admin Dose 0.63 MG; Start 02/02/19 at 22:30 Norepinephrine 250 ml @ 1.875 mls/ hr TITRATE IV Last administered on 02/06/19 06:51; Admin Dose 52.5 MLS/HR; Start 02/04/19 at 06:30 Midazolam HCl 50 ml @ 1 mls/hr TITRATE IV Last administered on 02/04/19at 21:44; Admin Dose 5 MLS/HR; Start 02/04/19 at 07:00 Fentanyl 100 ml @ 2.5 mls/hr TITRATE IV Last administered on 02/05/19at 17:54; Admin Dose 5 MLS/HR; Start 02/04/19 at 07:00 Vancomycin HCl (Vanco Iv Per Pharmacy) VANCOMYCIN PER PHARMACY PER PROTOCOL XX ; Start 02/04/19 at 08:30 Bumetanide (Bumex) 1 mg BID DIURETICS IV Last administered on 02/06/19at 06:45; Admin Dose 1 MG; Start 02/04/19 at 10:30 Pantoprazole (Protonix Iv) 40 mg BID@06,18 IV Last administered on 02/06/19at 06:45; Admin Dose 40 MG; Start 02/04/19 at 18:00 Epoetin Daniel-epbx (Retacrit (Esrd)) 10,000 unit TuThSa@09 SC ; Start 02/07/19 at 12:00 Meropenem/Sodium Chloride 50 ml @ 100 mls/hr Q12 IVPB Last administered on 02/06/19at 08:46; Admin Dose 100 MLS/HR; Start 02/05/19 at 12:00 Rifaximin (Xifaxan) 550 mg BID PO Last administered on 02/06/19 08:42; Admin Dose 550 MG; Start 02/05/19 at 21:00 Phenylephrine HCl 80 mg/Dextrose 250 ml @ 18.75 mls/ hr TITRATE PRN IV BLOOD PRESSURE SUPPORT Last administered on 02/06/19 08:51; Admin Dose 18.75 MLS/HR; Start 02/06/19 at 02:00 Dextrose 1,000 ml @ 50 mls/hr Q20H IV Last administered on 02/06/19at 07:41; Admin Dose 50 MLS/HR; Start 02/06/19 at 07:30 Dextrose (D50w Syringe) 50 ml PRN PRN IV HYPOGLYCEMIA (BS<70) Last administered on 02/06/19at 07:42; Admin Dose 50 ML; Start 02/06/19 at 07:30 PIERCE PACE Feb 06, 2019 11:31
--- NOTE | 2019-02-06 14:04 | CONS ---
Assessment/Plan Assessment/Plan Hospital Course (Demo Recall) Patient remains on pressors, getting blood transfusion, he is in no distress intubated no fevers overnight WBC 25.4 H&H 5.7 and 16.2 platelets 69 BUN 39 creatinine 4.02 glucose 20 Microbiology: Blood culture growing gram-positive cocci in pairs, sciatic fluid culture preliminary negative Chest x-ray this morning revealed mild improved left greater than right mixed interstitial and alveolar infiltrates Indwelling's: Endotracheal tube NG tube right subclavian Hieu catheter Antimicrobials: Vancomycin, Merrem Physical examination: Chronically ill-appearing wasted middle-aged man who is in no distress head atraumatic normocephalic neck is supple chest rise symmetrical breath sounds diminished bases. Heart: S1-S2 tachycardic abdomen distended bowel sounds hypoactive patient has tympany on percussion. Extremities with bilateral dependent edema. Skin: Positive for jaundice Assessment: 1. Septic shock with multisystem organ failure 2. Bacteremia 3. Acute respiratory failure, possible pneumonia 4. Ascites, rule out SBP 5. End-stage liver cirrhosis 6. Acute renal failure likely hepatorenal 7. Severe anemia 8. Coagulopathy 9. Hypoglycemia Plan: Remains hemodynamically unstable, continue antibiotics, prognosis very poor Consultation Date/Type/Reason Admit Date/Time Jan 29, 2019 at 01:13 Initial Consult Date 02/03/19 Type of Consult id Requesting Provider: MAL ENRIQUE MD Date/Time of Note DATE: 02/06/19 TIME: 14:02 Exam/Review of Systems Exam Vitals Vital Signs Date Temp Pulse Resp B/P (MAP) Pulse Ox O2 O2 Flow FiO2 Time Delivery Rate 02/06/19 120 20 97 50 13:18 02/06/19 86/51 (63) Mechanical 11:00 Ventilator 02/06/19 98.6 08:30 02/04/19 15.0 06:33 Intake and Output 02/05/19 02/05/19 02/06/19 1515:00 23:00 07:00 IntakeIntake Total 590.25 ml 494.500 ml 506.750 ml OutputOutput Total 0 ml 5 ml 0 ml BalanceBalance 590.25 ml 489.500 ml 506.750 ml Results Result Diagram: 02/06/19 0400 02/06/19 0400 Results 24hrs Laboratory Tests Test 02/06/19 04:00 02/06/19 04:51 02/06/19 06:00 02/06/19 07:21 White Blood 25.4 H Count Red Blood Count 1.77 #L Hemoglobin 5.7 #*L Hematocrit 16.2 #L Mean 91.5 Corpuscular Volume Mean 32.2 Corpuscular Hemoglobin Mean 35.2 Corpuscular Hemoglobin Conc ent Red Cell 21.0 H Distribution Width Platelet Count 61 L Mean Platelet 12.9 H Volume Immature 1.000 H Granulocytes % Neutrophils % Segmented 78 H Neutrophils % (Manual) Band 12 H Neutrophils % (Manual) Lymphocytes % Lymphocytes % 3 L (Manual) Monocytes % Monocytes % 5 (Manual) Eosinophils % Basophils % Myelocytes % 1 H (Manual) Promyelocytes % 1 H (Manual) Nucleated Red 0.1 H Blood Cells % Immature 0.260 H Granulocytes # Neutrophils # Neutrophils # 20.6 H (Manual) Band 3.0 H Neutrophils # Lymphocytes 0.7 L (Manual) Lymphocytes # Monocytes # Monocytes # 1.2 H (Manual) Eosinophils # Basophils # Myelocytes # 0.2 H Promyelocytes # 0.2 H Nucleated Red Blood Cells # Platelet SIG DECREASED Estimate Polychromasia 3+ Poikilocytosis 3+ Anisocytosis 2+ Microcytosis 1+ Macrocytosis 1+ Prothrombin 38.2 H Time Prothrombin 3.0 Time Ratio INR 3.90 International Normalized Rati o Activated 97.4 *H Partial Thrombo plast Time Thrombin Time 20.6 H Fibrinogen 145.0 L D-Dimer > 74961.00 H Sodium Level 143 Potassium Level 4.6 Chloride Level 99 Carbon Dioxide 21 Level Anion Gap 23 H Blood Urea 39 H Nitrogen Creatinine 4.02 H Est Glomerular 17 L Filtrat Rate mL/min Glucose Level < 20 #*L Calcium Level 10.5 H Total Bilirubin 26.1 H Direct 18.90 *H Bilirubin Indirect 7.2 H Bilirubin Aspartate Amino 71 #H Transf (AST/SGO T) Alanine 9 L Aminotransferas e (ALT/SGPT) Alkaline 99 Phosphatase Total Protein 7.0 Albumin 3.9 Globulin 3.10 Albumin/Globuli 1.25 n Ratio Random 12.8 Vancomycin Level Lab Scanned BLOOD TRANSFUSI Report ON Blood Gas Blood Specimen arterial Source Arterial Blood 02/06/2019 7:45 Date Drawn :05 AM Arterial Blood 7.409 pH (Temp corrected ) Arterial Blood 31.9 L pCO2 (Temp correct) Arterial Blood 58.6 L pO2 (Temp corrected ) Arterial Blood 19.7 L HCO3 Arterial Blood -4.5 L Base Excess Arterial Blood 87.7 L Oxygen Saturati on Benito Test ACCEPTAB Arterial Blood Right Radial Gas Puncture Site Arterial 3.1 H Blood Carboxyhe moglobin Arterial Blood 0.6 Methemoglobin Blood Gas A-a 117.8 H O2 Differential Oxyhemoglobin 84.5 L Percent Blood Gas 37.0 Temperature Blood Gas 20.0 Respiration Rate Blood Gas 20 Actual Respiration Rat e Blood Gas VENT - AC Modality FiO2 30.0 Blood Gas Tidal 500.0 Volume Blood Gas Low 5.0 PEEP Setting Blood Gas TM Notified Whom Blood Gas 02/06/2019 8:06 Notified Time :56 AM Bedside Glucose 21 *L Test 02/06/19 07:22 02/06/19 07:45 02/06/19 07:57 02/06/19 08:34 Bedside Glucose 21 *L 99 85 73 Test 02/06/19 09:11 02/06/19 11:54 Bedside Glucose 80 94 Medications Medication Current Medications Lactulose (Enulose) 10 gm Q8 PO Last administered on 02/06/19at 06:45; Admin Dose 10 GM; Start 01/29/19 at 06:00 Ondansetron HCl (Zofran Inj) 4 mg Q6H PRN IV NAUSEA AND/OR VOMITING; Start 01/29/19 at 01:00 Epoetin Daniel-epbx (Retacrit (Esrd)) 4,000 unit MoWeFr@1700 SC Last administered on 02/04/19at 17:00; Admin Dose 4,000 UNIT; Start 01/30/19 at 17:00 Midodrine (Proamatine) 10 mg TID@,13,17 PO Last administered on 02/06/19at 08:44; Admin Dose 10 MG; Start 01/29/19 at 17:00 Multivit/Ca Carb/ B Cmplx/FA/Prenat (Liz-Eugenia) 1 tab DAILY PO Last administered on 02/06/19at 08:45; Admin Dose 1 TAB; Start 01/31/19 at 09:00 Docusate Sodium (Colace) 100 mg BID PRN PO constipation; Start 01/30/19 at 14:00 Senna (Senokot) 2 tab DAILY PRN PO constipation; Start 01/30/19 at 14:00 Levalbuterol (Xopenex Neb) 0.63 mg Q4H RESP THERAPY PRN HHN WHEEZING AND RESP DISTRESS Last administered on 02/04/19 05:40; Admin Dose 0.63 MG; Start 02/02/19 at 22:30 Norepinephrine 250 ml @ 1.875 mls/ hr TITRATE IV Last administered on 02/06/19 11:36; Admin Dose 43.125 MLS/HR; Start 02/04/19 at 06:30 Midazolam HCl 50 ml @ 1 mls/hr TITRATE IV Last administered on 02/04/19 21:44; Admin Dose 5 MLS/HR; Start 02/04/19 at 07:00 Fentanyl 100 ml @ 2.5 mls/hr TITRATE IV Last administered on 02/05/19 17:54; Admin Dose 5 MLS/HR; Start 02/04/19 at 07:00 Vancomycin HCl (Vanco Iv Per Pharmacy) VANCOMYCIN PER PHARMACY PER PROTOCOL XX ; Start 02/04/19 at 08:30 Pantoprazole (Protonix Iv) 40 mg BID@06,18 IV Last administered on 02/06/19 06:45; Admin Dose 40 MG; Start 02/04/19 at 18:00 Epoetin Daniel-epbx (Retacrit (Esrd)) 10,000 unit TuThSa@09 SC ; Start 02/07/19 at 12:00 Meropenem/Sodium Chloride 50 ml @ 100 mls/hr Q12 IVPB Last administered on 02/06/19 08:46; Admin Dose 100 MLS/HR; Start 02/05/19 at 12:00 Rifaximin (Xifaxan) 550 mg BID PO Last administered on 02/06/19 08:42; Admin Dose 550 MG; Start 02/05/19 at 21:00 Phenylephrine HCl 80 mg/Dextrose 250 ml @ 18.75 mls/ hr TITRATE PRN IV BLOOD PRESSURE SUPPORT Last administered on 02/06/19 08:51; Admin Dose 18.75 MLS/HR; Start 02/06/19 at 02:00 Dextrose 1,000 ml @ 50 mls/hr Q20H IV Last administered on 02/06/19 07:41; Admin Dose 50 MLS/HR; Start 02/06/19 at 07:30 Dextrose (D50w Syringe) 50 ml PRN PRN IV HYPOGLYCEMIA (BS<70) Last administered on 02/06/19at 07:42; Admin Dose 50 ML; Start 02/06/19 at 07:30 Vancomycin HCl 250 ml @ 125 mls/hr ONCE IVPB ; Start 02/06/19 at 18:00; Stop 02/06/19 at 23:59 Albumin Human 100 ml @ 100 mls/hr Q8H IV ; Start 02/06/19 at 14:00; Stop 02/07/19 at 06:59 JAXON VASQUES NP Feb 06, 2019 14:04
--- NOTE | 2019-02-06 17:05 | CONS ---
Assessment/Plan Assessment/Plan Assessment/Plan (Daily) Assessment/Plan Hospital Course (Demo Recall) 39 yo male with liver disease with profound jaundice 1. Decompensated end stage liver disease with hyperbilirubinemia -pt accepted at [facility] for liver tx 2. Severe anemia. -Hgb yesterday 6.0, requiring PRBC replacement, today 7.7 3. Leukocytosis. Patient is septic 4. Ascites. -paracentesis possible today 5. End-stage renal disease on dialysis. 6. Coagulopathy due to #1 - 7. Thrombocytopenia due to #1 -downtrending 8. Encephalopathy Plan Paracentesis today we will send fluid for culture and WBC Continue lactulose Pending Stool for C. difficile toxins Continue antibiotic Alpha-fetoprotein Rifaximin Continue antibiotic and pressor support We will pass NG tube for nutrition support Resume feeding through NG tube nephro 20 cc/h Blood transfusion and monitor for any acute GI bleeding Consultation Date/Type/Reason Admit Date/Time Jan 29, 2019 at 01:13 Initial Consult Date Requesting Provider: MAL ENRIQUE MD Date/Time of Note DATE: 02/06/19 TIME: 17:04 24 HR Interval Summary Free Text/Dictation Patient bleeding from the IV site. No GI bleeding noted NG aspirate was negative for blood Exam/Review of Systems Exam Vitals Vital Signs Date Temp Pulse Resp B/P (MAP) Pulse Ox O2 O2 Flow FiO2 Time Delivery Rate 02/06/19 120 20 97 50 13:18 02/06/19 86/51 (63) Mechanical 11:00 Ventilator 02/06/19 98.6 08:30 02/04/19 15.0 06:33 Intake and Output 02/05/19 02/05/19 02/06/19 1515:00 23:00 07:00 IntakeIntake Total 590.25 ml 494.500 ml 506.750 ml OutputOutput Total 0 ml 5 ml 0 ml BalanceBalance 590.25 ml 489.500 ml 506.750 ml Constitutional: non-verbal ENMT: intubated Respiratory: diminished breath sounds Cardiovascular: regular rate and rhythm, nl pulses Gastrointestinal: ascites, distended Extremities: clubbing Results Result Diagram: 02/06/19 0400 02/06/19 0400 Results 24hrs Laboratory Tests Test 02/06/19 04:00 02/06/19 04:51 02/06/19 06:00 02/06/19 07:21 White Blood 25.4 H Count Red Blood Count 1.77 #L Hemoglobin 5.7 #*L Hematocrit 16.2 #L Mean 91.5 Corpuscular Volume Mean 32.2 Corpuscular Hemoglobin Mean 35.2 Corpuscular Hemoglobin Conc ent Red Cell 21.0 H Distribution Width Platelet Count 61 L Mean Platelet 12.9 H Volume Immature 1.000 H Granulocytes % Neutrophils % Segmented 78 H Neutrophils % (Manual) Band 12 H Neutrophils % (Manual) Lymphocytes % Lymphocytes % 3 L (Manual) Monocytes % Monocytes % 5 (Manual) Eosinophils % Basophils % Myelocytes % 1 H (Manual) Promyelocytes % 1 H (Manual) Nucleated Red 0.1 H Blood Cells % Immature 0.260 H Granulocytes # Neutrophils # Neutrophils # 20.6 H (Manual) Band 3.0 H Neutrophils # Lymphocytes 0.7 L (Manual) Lymphocytes # Monocytes # Monocytes # 1.2 H (Manual) Eosinophils # Basophils # Myelocytes # 0.2 H Promyelocytes # 0.2 H Nucleated Red Blood Cells # Platelet SIG DECREASED Estimate Polychromasia 3+ Poikilocytosis 3+ Anisocytosis 2+ Microcytosis 1+ Macrocytosis 1+ Prothrombin 38.2 H Time Prothrombin 3.0 Time Ratio INR 3.90 International Normalized Rati o Activated 97.4 *H Partial Thrombo plast Time Thrombin Time 20.6 H Fibrinogen 145.0 L D-Dimer > 26815.00 H Sodium Level 143 Potassium Level 4.6 Chloride Level 99 Carbon Dioxide 21 Level Anion Gap 23 H Blood Urea 39 H Nitrogen Creatinine 4.02 H Est Glomerular 17 L Filtrat Rate mL/min Glucose Level < 20 #*L Calcium Level 10.5 H Total Bilirubin 26.1 H Direct 18.90 *H Bilirubin Indirect 7.2 H Bilirubin Aspartate Amino 71 #H Transf (AST/SGO T) Alanine 9 L Aminotransferas e (ALT/SGPT) Alkaline 99 Phosphatase Total Protein 7.0 Albumin 3.9 Globulin 3.10 Albumin/Globuli 1.25 n Ratio Random 12.8 Vancomycin Level Lab Scanned BLOOD TRANSFUSI Report ON Blood Gas Blood Specimen arterial Source Arterial Blood 02/06/2019 7:45 Date Drawn :05 AM Arterial Blood 7.409 pH (Temp corrected ) Arterial Blood 31.9 L pCO2 (Temp correct) Arterial Blood 58.6 L pO2 (Temp corrected ) Arterial Blood 19.7 L HCO3 Arterial Blood -4.5 L Base Excess Arterial Blood 87.7 L Oxygen Saturati on Benito Test ACCEPTAB Arterial Blood Right Radial Gas Puncture Site Arterial 3.1 H Blood Carboxyhe moglobin Arterial Blood 0.6 Methemoglobin Blood Gas A-a 117.8 H O2 Differential Oxyhemoglobin 84.5 L Percent Blood Gas 37.0 Temperature Blood Gas 20.0 Respiration Rate Blood Gas 20 Actual Respiration Rat e Blood Gas VENT - AC Modality FiO2 30.0 Blood Gas Tidal 500.0 Volume Blood Gas Low 5.0 PEEP Setting Blood Gas TM Notified Whom Blood Gas 02/06/2019 8:06 Notified Time :56 AM Bedside Glucose 21 *L Test 02/06/19 07:22 02/06/19 07:45 02/06/19 07:57 02/06/19 08:34 Bedside Glucose 21 *L 99 85 73 Test 02/06/19 09:11 02/06/19 11:54 02/06/19 16:18 Bedside Glucose 80 94 116 Medications Medication Current Medications Lactulose (Enulose) 10 gm Q8 PO Last administered on 02/06/19at 14:17; Admin Dose 10 GM; Start 01/29/19 at 06:00 Ondansetron HCl (Zofran Inj) 4 mg Q6H PRN IV NAUSEA AND/OR VOMITING; Start 01/29/19 at 01:00 Epoetin Daniel-epbx (Retacrit (Esrd)) 4,000 unit MoWeFr@1700 SC Last administered on 02/04/19at 17:00; Admin Dose 4,000 UNIT; Start 01/30/19 at 17:00 Midodrine (Proamatine) 10 mg TID@,13,17 PO Last administered on 02/06/19at 14:18; Admin Dose 10 MG; Start 01/29/19 at 17:00 Multivit/Ca Carb/ B Cmplx/FA/Prenat (Liz-Eugenia) 1 tab DAILY PO Last administered on 02/06/19at 08:45; Admin Dose 1 TAB; Start 01/31/19 at 09:00 Docusate Sodium (Colace) 100 mg BID PRN PO constipation; Start 01/30/19 at 14:00 Senna (Senokot) 2 tab DAILY PRN PO constipation; Start 01/30/19 at 14:00 Levalbuterol (Xopenex Neb) 0.63 mg Q4H RESP THERAPY PRN HHN WHEEZING AND RESP DISTRESS Last administered on 02/04/19 05:40; Admin Dose 0.63 MG; Start 02/02/19 at 22:30 Norepinephrine 250 ml @ 1.875 mls/ hr TITRATE IV Last administered on 02/06/19 11:36; Admin Dose 43.125 MLS/HR; Start 02/04/19 at 06:30 Midazolam HCl 50 ml @ 1 mls/hr TITRATE IV Last administered on 02/04/19 21:44; Admin Dose 5 MLS/HR; Start 02/04/19 at 07:00 Fentanyl 100 ml @ 2.5 mls/hr TITRATE IV Last administered on 02/05/19 17:54; Admin Dose 5 MLS/HR; Start 02/04/19 at 07:00 Vancomycin HCl (Vanco Iv Per Pharmacy) VANCOMYCIN PER PHARMACY PER PROTOCOL XX ; Start 02/04/19 at 08:30 Pantoprazole (Protonix Iv) 40 mg BID@06,18 IV Last administered on 02/06/19 06:45; Admin Dose 40 MG; Start 02/04/19 at 18:00 Meropenem/Sodium Chloride 50 ml @ 100 mls/hr Q12 IVPB Last administered on 02/06/19 08:46; Admin Dose 100 MLS/HR; Start 02/05/19 at 12:00 Rifaximin (Xifaxan) 550 mg BID PO Last administered on 02/06/19 08:42; Admin Dose 550 MG; Start 02/05/19 at 21:00 Phenylephrine HCl 80 mg/Dextrose 250 ml @ 18.75 mls/ hr TITRATE PRN IV BLOOD PRESSURE SUPPORT Last administered on 02/06/19 08:51; Admin Dose 18.75 MLS/HR; Start 02/06/19 at 02:00 Dextrose 1,000 ml @ 50 mls/hr Q20H IV Last administered on 02/06/19 07:41; Admin Dose 50 MLS/HR; Start 02/06/19 at 07:30 Dextrose (D50w Syringe) 50 ml PRN PRN IV HYPOGLYCEMIA (BS<70) Last administered on 02/06/19 07:42; Admin Dose 50 ML; Start 02/06/19 at 07:30 Vancomycin HCl 250 ml @ 125 mls/hr ONCE IVPB ; Start 02/06/19 at 18:00; Stop 02/06/19 at 23:59 Albumin Human 100 ml @ 100 mls/hr Q8H IV ; Start 02/06/19 at 14:00; Stop 02/07/19 at 06:59 ELLIS ESTRADA MD Feb 06, 2019 17:05
[2019-02-06] MEDS: EPOETIN ALFA-EPBX (ESRD) 4,000 UNIT/ML VIAL SC SCH (17:49)
[2019-02-06] MEDS ORDERED: VANCOMYCIN 1 GM 250 ML IVPB SCH (18:00)
[2019-02-07] VITALS (98 sets, daily range): BP systolic 74–111; BP diastolic 44–75; PULSE 101–137; RESP 10–28
[2019-02-07] MEDS: DEXTROSE 10% 1,000 ML IV SCH (01:55)
[2019-02-07] MEDS: NORepinephrine 8MG/250 ML (PMX 250 ML IV SCH ×2 (04:42→19:51)
[2019-02-07] MEDS: ALBUMIN HUMAN 25% 100 ML IV SCH (05:49)
[2019-02-07] MEDS: LACTULOSE 30ML CUP PO SCH ×3 (05:52→21:14)
[2019-02-07] MEDS: PHENYLephrine 80 MG in DEXTROSE 5% 242 ML IV PRN (05:56)
[2019-02-07] MEDS: PANTOPRAZOLE 40 MG INJ IV SCH ×2 (06:00→17:26)
[2019-02-07] MEDS: MEROPENEM 500MG/50 ML (PMX) 50 ML IVPB SCH ×2 (08:19→21:12)
[2019-02-07] MEDS: RIFAXIMIN 550 MG TAB PO SCH ×2 (08:19→21:12)
[2019-02-07] MEDS: MULTIVIT/CA CARB/B CMPLX/FA TAB PO SCH (08:20)
[2019-02-07] MEDS: MIDODRINE 5 MG TAB PO SCH ×3 (08:20→17:26)
[2019-02-07] MEDS: BALSAM PERU/CASTOR OIL 60 GM TUBE TOP SCH ×2 (08:20→21:12)
--- NOTE | 2019-02-07 08:34 | CONS ---
Assessment/Plan Assessment/Plan Assessment/Plan (Daily) Ventilator setting; AC of 20, tidal volume 500, PEEP of 5, 45% FiO2. Patient is currently on phenylephrine drip 80 mics per minute, Levophed 80 mics per minute. Assessment and recommendations; 1. Patient admitted with severe ascites and shortness of breath due to pulmonary edema and bilateral pleural effusions. Patient developed respiratory failure requiring intubation. 2. Severe end-stage alcoholic liver disease. With severe hyperbilirubinemia. 3. Chronic renal failure, dialysis dependent. 4. Severe shock. 5. Severe coagulopathy. 6. Status post paracentesis. 7. Possibly SBP. Transfuse 1 unit packed RBC and 2 units of FFP. Continue other supportive measures. Further recommendations per net mvc developer. Prognosis appears extremely poor. 35 minutes of critical care time was spent evaluating patient. Consultation Date/Type/Reason Admit Date/Time Jan 29, 2019 at 01:13 Initial Consult Date 02/03/19 Type of Consult Pulmonary Patient is a 39-year-old male who has been transferred from another facility bec ause of end-stage liver disease and large ascites. By the time I saw the patient, patient appeared awake and alert and did not appear to be in any distress. Past medical history; 1. End-stage alcoholic liver cirrhosis. 2. History of variceal bleeding. 3. End-stage renal disease, on hemodialysis. 4. Chronic anemia. 5. Secondary hyperparathyroidism. Medications; reviewed. Allergies; none. Social he; history of heavy alcohol abuse. Patient has quit for some time though. Family history; noncontributory. Occupational history; patient is on disability. Review of systems; denies any headache, seizures. Complains of mild shortness of breath. Complains of abdominal distention without any pain. Denies any nausea vomiting. Denies any orthopnea. Complains of dark urine. Denies any melena or hematochezia. Complains of weight loss. Complains of easy skin bruising. General exam; young male, appears severely icteric. Currently no distress. Laying flat in bed. Requesting Provider: MAL ENRIQUE MD Date/Time of Note DATE: 02/07/19 TIME: 08:31 24 HR Interval Summary Free Text/Dictation Patient's condition is extremely critical. On high-dose combination pressor support. General exam; young male, orally intubated, appears severely icteric. Unresponsive. Currently in no distress. Exam/Review of Systems Exam Vitals Vital Signs Date Temp Pulse Resp B/P (MAP) Pulse Ox O2 O2 Flow FiO2 Time Delivery Rate 02/07/19 117 21 85/48 (60) 100 Mechanical 05:30 Ventilator 02/07/19 45 05:15 02/07/19 98.2 04:00 02/04/19 15.0 06:33 Intake and Output 02/06/19 02/06/19 02/07/19 1515:00 23:00 07:00 IntakeIntake Total 1816.280 ml 1956.665 ml 596.27 ml OutputOutput Total 0 ml 1000 ml 0 ml BalanceBalance 1816.280 ml 956.665 ml 596.27 ml Exam H EENT exam; supple neck, positive JVD. No lymphadenopathy. Midline trachea. No thyromegaly. There is crusting of blood in oral cavity with mild oozing of fresh blood. Pupils are small bilaterally. Patient is deeply icteric. Orally intubated. Chest exam; diminished breath sound bilaterally. S1-S2 audible, no murmurs. Tachycardic. Regular rhythm. Abdomen exam; positive ascites. Bowel sounds are sluggish to absent. There is no scrotal edema. Extremity exam; trace peripheral edema. Patient does have patchy ecchymosis. SIGN HANGER SUPERVISOR exam; patient is unresponsive. Results Result Diagram: 02/07/19 0459 02/07/19 0457 Results 24hrs Laboratory Tests Test 02/06/19 08:34 02/06/19 09:11 02/06/19 11:54 02/06/19 16:18 Bedside Glucose 73 80 94 116 Test 02/06/19 20:10 02/07/19 00:13 02/07/19 04:46 02/07/19 04:57 Bedside Glucose 120 118 135 Platelet Count 47 #L Prothrombin Time 40.8 H Prothrombin Time 3.2 Ratio INR International 4.25 Normalized Ratio Activated 97.7 *H Partial Thrombopl ast Time Thrombin Time 22.4 H Fibrinogen 113.0 #L D-Dimer > 66848.00 H Sodium Level 143 Potassium Level 3.5 Chloride Level 98 Carbon Dioxide 21 Level Anion Gap 24 H Blood Urea 30 H Nitrogen Creatinine 3.61 H Est Glomerular 19 L Filtrat Rate mL/min Glucose Level 127 # Calcium Level 10.6 H Test 02/07/19 04:59 02/07/19 05:07 White Blood Count 25.7 H Red Blood Count 2.20 #L Hemoglobin 6.9 #*L Hematocrit 19.3 L Mean Corpuscular 87.7 Volume Mean Corpuscular 31.4 Hemoglobin Mean Corpuscular 35.8 Hemoglobin Concen t Red Cell 17.6 H Distribution Width Platelet Count 50 #L Mean Platelet 13.0 H Volume Immature 1.300 H Granulocytes % Neutrophils % Lymphocytes % Monocytes % Eosinophils % Basophils % Nucleated Red 0.5 H Blood Cells % Immature 0.330 H Granulocytes # Neutrophils # Lymphocytes # Monocytes # Eosinophils # Basophils # Nucleated Red Blood Cells # Lab Scanned BLOOD TRANSFUSIO Report N Medications Medication Current Medications Lactulose (Enulose) 10 gm Q8 PO Last administered on 02/07/19at 05:52; Admin Dose 10 GM; Start 01/29/19 at 06:00 Ondansetron HCl (Zofran Inj) 4 mg Q6H PRN IV NAUSEA AND/OR VOMITING; Start 01/29/19 at 01:00 Epoetin Daniel-epbx (Retacrit (Esrd)) 4,000 unit MoWeFr@1700 SC Last administered on 02/06/19at 17:49; Admin Dose 4,000 UNIT; Start 01/30/19 at 17:00 Midodrine (Proamatine) 10 mg TID@09,13,17 PO Last administered on 02/07/19at 08:20; Admin Dose 10 MG; Start 01/29/19 at 17:00 Multivit/Ca Carb/ B Cmplx/FA/Prenat (Liz-Eugenia) 1 tab DAILY PO Last administered on 02/07/19at 08:20; Admin Dose 1 TAB; Start 01/31/19 at 09:00 Docusate Sodium (Colace) 100 mg BID PRN PO constipation; Start 01/30/19 at 14:00 Senna (Senokot) 2 tab DAILY PRN PO constipation; Start 01/30/19 at 14:00 Levalbuterol (Xopenex Neb) 0.63 mg Q4H RESP THERAPY PRN HHN WHEEZING AND RESP DISTRESS Last administered on 02/04/19at 05:40; Admin Dose 0.63 MG; Start 02/02/19 at 22:30 Norepinephrine 250 ml @ 1.875 mls/ hr TITRATE IV Last administered on 02/07/19 04:42; Admin Dose 33.75 MLS/HR; Start 02/04/19 at 06:30 Midazolam HCl 50 ml @ 1 mls/hr TITRATE IV Last administered on 02/04/19 21:44; Admin Dose 5 MLS/HR; Start 02/04/19 at 07:00 Fentanyl 100 ml @ 2.5 mls/hr TITRATE IV Last administered on 02/05/19 17:54; Admin Dose 5 MLS/HR; Start 02/04/19 at 07:00 Vancomycin HCl (Vanco Iv Per Pharmacy) VANCOMYCIN PER PHARMACY PER PROTOCOL XX ; Start 02/04/19 at 08:30 Pantoprazole (Protonix Iv) 40 mg BID@06,18 IV Last administered on 02/06/19 17:30; Admin Dose 40 MG; Start 02/04/19 at 18:00 Meropenem/Sodium Chloride 50 ml @ 100 mls/hr Q12 IVPB Last administered on 02/07/19 08:19; Admin Dose 100 MLS/HR; Start 02/05/19 at 12:00 Rifaximin (Xifaxan) 550 mg BID PO Last administered on 02/07/19 08:19; Admin Dose 550 MG; Start 02/05/19 at 21:00 Phenylephrine HCl 80 mg/Dextrose 250 ml @ 18.75 mls/ hr TITRATE PRN IV BLOOD PRESSURE SUPPORT Last administered on 02/07/19 05:56; Admin Dose 9.38 MLS/HR; Start 02/06/19 at 02:00 Dextrose 1,000 ml @ 50 mls/hr Q20H IV Last administered on 02/07/19 01:55; Admin Dose 50 MLS/HR; Start 02/06/19 at 07:30 Dextrose (D50w Syringe) 50 ml PRN PRN IV HYPOGLYCEMIA (BS<70) Last administered on 02/06/19 07:42; Admin Dose 50 ML; Start 02/06/19 at 07:30 FRANCE LINARES Feb 07, 2019 08:34
--- NOTE | 2019-02-07 10:58 | CONS ---
Assessment/Plan Assessment/Plan Hospital Course (Demo Recall) ID PROGRESS NOTE CURRENT ABX: DAY # =>Vanco IV + Merrem 02/07/19 0459 02/07/19 0457 24H INTERVAL SUMMARY * VSS, NAD, no fevers -- bloody oral secretions * Endotracheal tube NG tube right subclavian Hieu catheter * Eyes open -- Non-communicative --> Chronically ill-appearing wasted middle- aged man who is in no distress MICRO * 02/04/19 BCX (+) 1/2 bottles Organism 1 GRAM POSITIVE COCCI IN PAIRS * 02/04/19 Ascitic fluid (-) DIAGNOSTIC IMAGING * 02/07/19 CXR: Radiographic findings of congestive heart failure again seen with slight improvement in the pulmonary edema and pulmonary vascular congestion. PHYSICAL EXAMINATION: GENERAL: VSS, acutely ill with chronic co-morbid conditions HEENT: AT, NC, orally intubated w/blood tinged lip oral secretions NECK: Supple, CHEST: Vented HEART: Pulse RRR ABDOMEN: Distended, firm EXTREMITIES: Warm, dry SKIN: No rash, no diaphoresis ID ASSESSMENT 39 yo M admit with: 1. Septic shock with multisystem organ failure 2. Bacteremia - presumptive SBP 3. Acute respiratory failure, possible pneumonia 4. Ascites,s/p Para 02/04/19 w/presumptive SBP 5. End-stage liver cirrhosis 6. Acute renal failure likely hepatorenal 7. Severe anemia 8. Coagulopathy 9. Hypoglycemia (-)MRSA Nares ABX ALLERGIES: KNDA INVASIVES: PIV, Endotracheal tube NG tube right subclavian Hieu catheter CURRENT ABX: DAY # ID RECOMMENDATIONS/PLAN: 1. Continue current ABX and supportive care -- FULL CODE status notes . Consultation Date/Type/Reason Admit Date/Time Jan 29, 2019 at 01:13 Initial Consult Date 02/03/19 Requesting Provider: MAL ENRIQUE MD Date/Time of Note DATE: 02/07/19 TIME: 10:57 Exam/Review of Systems Exam Vitals Vital Signs Date Temp Pulse Resp B/P (MAP) Pulse Ox O2 O2 Flow FiO2 Time Delivery Rate 02/07/19 123 22 95/47 (63) 100 Mechanical 10:00 Ventilator 02/07/19 98.1 08:00 02/07/19 45 05:15 02/04/19 15.0 06:33 Intake and Output 02/06/19 02/06/19 02/07/19 1515:00 23:00 07:00 IntakeIntake Total 1816.280 ml 1956.665 ml 709.40 ml OutputOutput Total 0 ml 1000 ml 0 ml BalanceBalance 1816.280 ml 956.665 ml 709.40 ml Results Result Diagram: 02/07/19 0459 02/07/19 0457 Results 24hrs Laboratory Tests Test 02/06/19 11:54 02/06/19 16:18 02/06/19 20:10 02/07/19 00:13 Bedside Glucose 94 116 120 118 Test 02/07/19 04:46 02/07/19 04:57 02/07/19 04:59 02/07/19 05:07 Bedside Glucose 135 Platelet Count 47 #L 50 #L Prothrombin Time 40.8 H Prothrombin Time 3.2 Ratio INR International 4.25 Normalized Ratio Activated 97.7 *H Partial Thrombopl ast Time Thrombin Time 22.4 H Fibrinogen 113.0 #L D-Dimer > 54330.00 H Sodium Level 143 Potassium Level 3.5 Chloride Level 98 Carbon Dioxide 21 Level Anion Gap 24 H Blood Urea 30 H Nitrogen Creatinine 3.61 H Est Glomerular 19 L Filtrat Rate mL/min Glucose Level 127 # Calcium Level 10.6 H White Blood Count 25.7 H Red Blood Count 2.20 #L Hemoglobin 6.9 #*L Hematocrit 19.3 L Mean Corpuscular 87.7 Volume Mean Corpuscular 31.4 Hemoglobin Mean Corpuscular 35.8 Hemoglobin Concen t Red Cell 17.6 H Distribution Width Mean Platelet 13.0 H Volume Immature 1.300 H Granulocytes % Neutrophils % Segmented 63 Neutrophils % (Manual) Band Neutrophils 14 H % (Manual) Lymphocytes % Lymphocytes % 15 (Manual) Monocytes % Monocytes % 3 (Manual) Eosinophils % Eosinophils % 2 (Manual) Basophils % Myelocytes % 1 H (Manual) Promyelocytes % 1 H (Manual) Blast Cells % 1.0 H (Manual) Nucleated Red 0.5 H Blood Cells % Immature 0.330 H Granulocytes # Neutrophils # Neutrophils # 17.1 H (Manual) Band Neutrophils 3.5 H # Lymphocytes 3.8 H (Manual) Lymphocytes # Monocytes # Monocytes # 0.7 (Manual) Eosinophils # Basophils # Myelocytes # 0.2 H Promyelocytes # 0.2 H Nucleated Red Blood Cells # Platelet Estimate NORMAL Giant Platelets 1 H Poikilocytosis 2+ Anisocytosis 2+ Macrocytosis 1+ Spherocytes 1+ Tear Drop Cells 1+ Elliptocytes 1+ Lab Scanned BLOOD TRANSFUSIO Report N Medications Medication Current Medications Lactulose (Enulose) 10 gm Q8 PO Last administered on 02/07/19 05:52; Admin Dos e 10 GM; Start 01/29/19 at 06:00 Ondansetron HCl (Zofran Inj) 4 mg Q6H PRN IV NAUSEA AND/OR VOMITING; Start 01/29/19 at 01:00 Epoetin Daniel-epbx (Retacrit (Esrd)) 4,000 unit MoWeFr@1700 SC Last administered on 02/06/19at 17:49; Admin Dose 4,000 UNIT; Start 01/30/19 at 17:00 Midodrine (Proamatine) 10 mg TID@09,13,17 PO Last administered on 02/07/19 08:20; Admin Dose 10 MG; Start 01/29/19 at 17:00 Multivit/Ca Carb/ B Cmplx/FA/Prenat (Lzi-Eugenia) 1 tab DAILY PO Last administered on 02/07/19at 08:20; Admin Dose 1 TAB; Start 01/31/19 at 09:00 Docusate Sodium (Colace) 100 mg BID PRN PO constipation; Start 01/30/19 at 14:00 Senna (Senokot) 2 tab DAILY PRN PO constipation; Start 01/30/19 at 14:00 Levalbuterol (Xopenex Neb) 0.63 mg Q4H RESP THERAPY PRN HHN WHEEZING AND RESP DISTRESS Last administered on 02/04/19at 05:40; Admin Dose 0.63 MG; Start 02/02/19 at 22:30 Norepinephrine 250 ml @ 1.875 mls/ hr TITRATE IV Last administered on 02/07/19at 04:42; Admin Dose 33.75 MLS/HR; Start 02/04/19 at 06:30 Midazolam HCl 50 ml @ 1 mls/hr TITRATE IV Last administered on 02/04/19at 21:44; Admin Dose 5 MLS/HR; Start 02/04/19 at 07:00 Fentanyl 100 ml @ 2.5 mls/hr TITRATE IV Last administered on 02/05/19at 17:54; Admin Dose 5 MLS/HR; Start 02/04/19 at 07:00 Vancomycin HCl (Vanco Iv Per Pharmacy) VANCOMYCIN PER PHARMACY PER PROTOCOL XX ; Start 02/04/19 at 08:30 Pantoprazole (Protonix Iv) 40 mg BID@06,18 IV Last administered on 02/06/19at 17:30; Admin Dose 40 MG; Start 02/04/19 at 18:00 Meropenem/Sodium Chloride 50 ml @ 100 mls/hr Q12 IVPB Last administered on 02/07/19 08:19; Admin Dose 100 MLS/HR; Start 02/05/19 at 12:00 Rifaximin (Xifaxan) 550 mg BID PO Last administered on 02/07/19at 08:19; Admin Dose 550 MG; Start 02/05/19 at 21:00 Phenylephrine HCl 80 mg/Dextrose 250 ml @ 18.75 mls/ hr TITRATE PRN IV BLOOD PRESSURE SUPPORT Last administered on 02/07/19at 05:56; Admin Dose 9.38 MLS/HR; Start 02/06/19 at 02:00 Dextrose 1,000 ml @ 50 mls/hr Q20H IV Last administered on 02/07/19at 01:55; Admin Dose 50 MLS/HR; Start 02/06/19 at 07:30 Dextrose (D50w Syringe) 50 ml PRN PRN IV HYPOGLYCEMIA (BS<70) Last administered on 02/06/19at 07:42; Admin Dose 50 ML; Start 02/06/19 at 07:30 ZEYAD LOZANO NP Feb 07, 2019 10:58
--- NOTE | 2019-02-07 11:15 | PN ---
Date/Time of Note Date/Time of Note DATE: 02/07/19 TIME: 11:08 Assessment/Plan VTE Prophylaxis Risk score (from Ns)>0 risk: 6 SCD applied (from [facility]): No SCD contraindicated: bilateral LE trauma Pharmacological prophylaxis: NA/contraindicated Pharm contraindication: surgical contra, anticoag not tolerated Lines/Catheters IV Catheter Type (from [facility]): RADU CATHETER Central line still needed: Yes Urinary Cath still in place: Yes Reason Cath still needed: urinary retention Assessment/Plan Hospital Course 1. Shock likely secondary to sepsis, patient has history of cirrhosis 2. Acute Respiratory failure status post intubation secondary to large pleural effusions secondary to volume overload post hemodialysis 3. Fractures of the superior endplates/bodies of L1, L2 and L3 with associated slight anterior superior endplate wedge compression of the L1 and L3 vertebral bodies. Multilevel degenerative changes greatest at L4-5 as described above. Mild degenerative changes of the right posterior lateral aspect of the T11-12 disc space with mild central canal stenosis. 4. Decompensated alcoholic cirrhosis with a history of EtOH use. Hyperbilirubinemia 5. End-stage renal disease, on hemodialysis. 6. Coagulopathy. 7. Severe anemia with thrombocytopenia likely due to cirrhosis. Pt is bleeding rectally and from mouth. 8. Moderate anemia, likely multifactorial disease, likely secondary to end- stage renal disease versus bone marrow suppression versus nutritional deficiency versus cirrhosis. 9. Leucocytosis. 10. S.p paracentesis in previous hospital 01/28/2019 11. Suspicious for metastatic disease 12. Hypotension likely secondary to cirrhosis, rule out sepsis. 13. History of gastrointestinal bleed. 14. Hypoglycemia Assessment/Plan -FiO2 is 45% -Titrate the levo/neosynephrine to keep systolic blood pressure greater than 85 and map greater than 60 as patient has history of cirrhosis -c/w HD -s/p paracentesis -Status post vitamin K/FFP/cryoprecipitate -c/w albumin - cw vancomycin/cefepime -Continue with lactulose - blood cx NEG SO Far - cw epogen -s/p multiple blood transfusion:2 units PRBC, yesterday 3 PRBC, today 1 transfusing --Needs a tertiary setting with there is a Ability of CRRT and patient will need liver and a kidney transplant, spoke to [facility] will call us back about update, patient was accepted by Dr. Haan however now on higher amounts of FiO2> however prior FiO2 has improved considerable status post paracentesis -poor prognosis Result Diagram: 02/07/19 0459 02/07/19 0457 Results 24hrs Laboratory Tests Test 02/06/19 11:54 02/06/19 16:18 02/06/19 20:10 02/07/19 00:13 Bedside Glucose 94 116 120 118 Test 02/07/19 04:46 02/07/19 04:57 02/07/19 04:59 02/07/19 05:07 Bedside Glucose 135 Platelet Count 47 #L 50 #L Prothrombin Time 40.8 H Prothrombin Time 3.2 Ratio INR International 4.25 Normalized Ratio Activated 97.7 *H Partial Thrombopl ast Time Thrombin Time 22.4 H Fibrinogen 113.0 #L D-Dimer > 25764.00 H Sodium Level 143 Potassium Level 3.5 Chloride Level 98 Carbon Dioxide 21 Level Anion Gap 24 H Blood Urea 30 H Nitrogen Creatinine 3.61 H Est Glomerular 19 L Filtrat Rate mL/min Glucose Level 127 # Calcium Level 10.6 H White Blood Count 25.7 H Red Blood Count 2.20 #L Hemoglobin 6.9 #*L Hematocrit 19.3 L Mean Corpuscular 87.7 Volume Mean Corpuscular 31.4 Hemoglobin Mean Corpuscular 35.8 Hemoglobin Concen t Red Cell 17.6 H Distribution Width Mean Platelet 13.0 H Volume Immature 1.300 H Granulocytes % Neutrophils % Segmented 63 Neutrophils % (Manual) Band Neutrophils 14 H % (Manual) Lymphocytes % Lymphocytes % 15 (Manual) Monocytes % Monocytes % 3 (Manual) Eosinophils % Eosinophils % 2 (Manual) Basophils % Myelocytes % 1 H (Manual) Promyelocytes % 1 H (Manual) Blast Cells % 1.0 H (Manual) Nucleated Red 0.5 H Blood Cells % Immature 0.330 H Granulocytes # Neutrophils # Neutrophils # 17.1 H (Manual) Band Neutrophils 3.5 H # Lymphocytes 3.8 H (Manual) Lymphocytes # Monocytes # Monocytes # 0.7 (Manual) Eosinophils # Basophils # Myelocytes # 0.2 H Promyelocytes # 0.2 H Nucleated Red Blood Cells # Platelet Estimate NORMAL Giant Platelets 1 H Poikilocytosis 2+ Anisocytosis 2+ Macrocytosis 1+ Spherocytes 1+ Tear Drop Cells 1+ Elliptocytes 1+ Lab Scanned BLOOD TRANSFUSIO Report N Subjective 24 Hr Interval Summary Subjective hx not possible: pt non-verbal Exam/Review of Systems Exam Vitals Vital Signs Date Temp Pulse Resp B/P (MAP) Pulse Ox O2 O2 Flow FiO2 Time Delivery Rate 02/07/19 123 22 95/47 (63) 100 Mechanical 10:00 Ventilator 02/07/19 98.1 08:00 02/07/19 45 05:15 02/04/19 15.0 06:33 Intake and Output 02/06/19 02/06/19 02/07/19 1515:00 23:00 07:00 IntakeIntake Total 1816.280 ml 1956.665 ml 709.40 ml OutputOutput Total 0 ml 1000 ml 0 ml BalanceBalance 1816.280 ml 956.665 ml 709.40 ml Exam orally intubated, non verbal Constitutional: frail Head: normocephalic Eyes: nl conjunctiva ENMT: nl external ears & nose Neck: supple Respiratory: diminished breath sounds Cardiovascular: regular rate and rhythm Gastrointestinal: soft, distended, other (blood from the mouth) Genitourinary - Male: CVA tenderness, other; No nl penis, No nl scrotum, No discharge Results Results 24hrs Laboratory Tests Test 02/06/19 11:54 02/06/19 16:18 02/06/19 20:10 02/07/19 00:13 Bedside Glucose 94 116 120 118 Test 02/07/19 04:46 02/07/19 04:57 02/07/19 04:59 02/07/19 05:07 Bedside Glucose 135 Platelet Count 47 #L 50 #L Prothrombin Time 40.8 H Prothrombin Time 3.2 Ratio INR International 4.25 Normalized Ratio Activated 97.7 *H Partial Thrombopl ast Time Thrombin Time 22.4 H Fibrinogen 113.0 #L D-Dimer > 50839.00 H Sodium Level 143 Potassium Level 3.5 Chloride Level 98 Carbon Dioxide 21 Level Anion Gap 24 H Blood Urea 30 H Nitrogen Creatinine 3.61 H Est Glomerular 19 L Filtrat Rate mL/min Glucose Level 127 # Calcium Level 10.6 H White Blood Count 25.7 H Red Blood Count 2.20 #L Hemoglobin 6.9 #*L Hematocrit 19.3 L Mean Corpuscular 87.7 Volume Mean Corpuscular 31.4 Hemoglobin Mean Corpuscular 35.8 Hemoglobin Concen t Red Cell 17.6 H Distribution Width Mean Platelet 13.0 H Volume Immature 1.300 H Granulocytes % Neutrophils % Segmented 63 Neutrophils % (Manual) Band Neutrophils 14 H % (Manual) Lymphocytes % Lymphocytes % 15 (Manual) Monocytes % Monocytes % 3 (Manual) Eosinophils % Eosinophils % 2 (Manual) Basophils % Myelocytes % 1 H (Manual) Promyelocytes % 1 H (Manual) Blast Cells % 1.0 H (Manual) Nucleated Red 0.5 H Blood Cells % Immature 0.330 H Granulocytes # Neutrophils # Neutrophils # 17.1 H (Manual) Band Neutrophils 3.5 H # Lymphocytes 3.8 H (Manual) Lymphocytes # Monocytes # Monocytes # 0.7 (Manual) Eosinophils # Basophils # Myelocytes # 0.2 H Promyelocytes # 0.2 H Nucleated Red Blood Cells # Platelet Estimate NORMAL Giant Platelets 1 H Poikilocytosis 2+ Anisocytosis 2+ Macrocytosis 1+ Spherocytes 1+ Tear Drop Cells 1+ Elliptocytes 1+ Lab Scanned BLOOD TRANSFUSIO Report N Medications Medication Current Medications Lactulose (Enulose) 10 gm Q8 PO Last administered on 02/07/19at 05:52; Admin Dose 10 GM; Start 01/29/19 at 06:00 Ondansetron HCl (Zofran Inj) 4 mg Q6H PRN IV NAUSEA AND/OR VOMITING; Start 01/29/19 at 01:00 Epoetin Daniel-epbx (Retacrit (Esrd)) 4,000 unit MoWeFr@1700 SC Last administered on 02/06/19at 17:49; Admin Dose 4,000 UNIT; Start 01/30/19 at 17:00 Midodrine (Proamatine) 10 mg TID@,,17 PO Last administered on 02/07/19at 08:20; Admin Dose 10 MG; Start 01/29/19 at 17:00 Multivit/Ca Carb/ B Cmplx/FA/Prenat (Liz-Eugenia) 1 tab DAILY PO Last administered on 02/07/19at 08:20; Admin Dose 1 TAB; Start 01/31/19 at 09:00 Docusate Sodium (Colace) 100 mg BID PRN PO constipation; Start 01/30/19 at 14:00 Senna (Senokot) 2 tab DAILY PRN PO constipation; Start 01/30/19 at 14:00 Levalbuterol (Xopenex Neb) 0.63 mg Q4H RESP THERAPY PRN HHN WHEEZING AND RESP DISTRESS Last administered on 02/04/19 05:40; Admin Dose 0.63 MG; Start 02/02/19 at 22:30 Norepinephrine 250 ml @ 1.875 mls/ hr TITRATE IV Last administered on 02/07/19 04:42; Admin Dose 33.75 MLS/HR; Start 02/04/19 at 06:30 Midazolam HCl 50 ml @ 1 mls/hr TITRATE IV Last administered on 02/04/19 21:44; Admin Dose 5 MLS/HR; Start 02/04/19 at 07:00 Fentanyl 100 ml @ 2.5 mls/hr TITRATE IV Last administered on 02/05/19 17:54; Admin Dose 5 MLS/HR; Start 02/04/19 at 07:00 Vancomycin HCl (Vanco Iv Per Pharmacy) VANCOMYCIN PER PHARMACY PER PROTOCOL XX ; Start 02/04/19 at 08:30 Pantoprazole (Protonix Iv) 40 mg BID@06,18 IV Last administered on 02/06/19 17:30; Admin Dose 40 MG; Start 02/04/19 at 18:00 Meropenem/Sodium Chloride 50 ml @ 100 mls/hr Q12 IVPB Last administered on 02/07/19 08:19; Admin Dose 100 MLS/HR; Start 02/05/19 at 12:00 Rifaximin (Xifaxan) 550 mg BID PO Last administered on 02/07/19 08:19; Admin Dose 550 MG; Start 02/05/19 at 21:00 Phenylephrine HCl 80 mg/Dextrose 250 ml @ 18.75 mls/ hr TITRATE PRN IV BLOOD PRESSURE SUPPORT Last administered on 02/07/19 05:56; Admin Dose 9.38 MLS/HR; Start 02/06/19 at 02:00 Dextrose 1,000 ml @ 50 mls/hr Q20H IV Last administered on 02/07/19 01:55; Admin Dose 50 MLS/HR; Start 02/06/19 at 07:30 Dextrose (D50w Syringe) 50 ml PRN PRN IV HYPOGLYCEMIA (BS<70) Last administered on 02/06/19 07:42; Admin Dose 50 ML; Start 02/06/19 at 07:30 RAMON VILLAGRAN Feb 07, 2019 11:15
[2019-02-07] MEDS ORDERED: EPOETIN ALFA-EPBX (ESRD) 10,000 UNIT/ML VIAL SC SCH (12:00)
--- NOTE | 2019-02-07 12:08 | CONS ---
Assessment/Plan Assessment/Plan Assessment/Plan (Daily) Assessment/Plan Hospital Course (Demo Recall) 39 yo male with liver disease with profound jaundice 1. Decompensated end stage liver disease with hyperbilirubinemia -pt accepted at [facility] for liver tx 2. Severe anemia. -Hgb yesterday 6.0, requiring PRBC replacement, today 7.7 3. Leukocytosis. Patient is septic 4. Ascites. -paracentesis possible today 5. End-stage renal disease on dialysis. 6. Coagulopathy due to #1 not getting corrected by conventional treatment - 7. Thrombocytopenia due to #1 -downtrending 8. Encephalopathy Plan Paracentesis today we will send fluid for culture and WBC Continue lactulose Pending Stool for C. difficile toxins Continue antibiotic Alpha-fetoprotein Rifaximin Continue antibiotic and pressor support We will pass NG tube for nutrition support Resume feeding through NG tube nephro 20 cc/h Blood transfusion and monitor for any acute GI bleeding Patient's prognosis remains poor Consultation Date/Type/Reason Admit Date/Time Jan 29, 2019 at 01:13 Initial Consult Date Requesting Provider: MAL ENRIQUE MD Date/Time of Note DATE: 02/07/19 TIME: 12:06 24 HR Interval Summary Free Text/Dictation Patient bleeding from the mouth secondary to coagulopathy NG aspirate is negative for any blood Patient is on vent and nonresponsive Exam/Review of Systems Exam Vitals Vital Signs Date Temp Pulse Resp B/P (MAP) Pulse Ox O2 O2 Flow FiO2 Time Delivery Rate 02/07/19 123 22 95/47 (63) 100 Mechanical 10:00 Ventilator 02/07/19 98.1 08:00 02/07/19 45 08:00 02/04/19 15.0 06:33 Intake and Output 02/06/19 02/06/19 02/07/19 1515:00 23:00 07:00 IntakeIntake Total 1816.280 ml 1956.665 ml 709.40 ml OutputOutput Total 0 ml 1000 ml 0 ml BalanceBalance 1816.280 ml 956.665 ml 709.40 ml Constitutional: non-verbal ENMT: intubated Respiratory: diminished breath sounds Cardiovascular: regular rate and rhythm, nl pulses Gastrointestinal: soft, ascites, distended Extremities: pitting pedal edema Results Result Diagram: 02/07/1945802/07/19 045 Results 24hrs Laboratory Tests Test 02/06/19 16:18 02/06/19 20:10 02/07/19 00:13 02/07/19 04:46 Bedside Glucose 116 120 118 135 Test 02/07/19 04:57 02/07/19 04:59 02/07/19 05:07 02/07/19 09:30 Platelet Count 47 #L 50 #L Prothrombin Time 40.8 H Prothrombin Time 3.2 Ratio INR International 4.25 Normalized Ratio Activated 97.7 *H Partial Thrombopl ast Time Thrombin Time 22.4 H Fibrinogen 113.0 #L D-Dimer > 74862.00 H Sodium Level 143 Potassium Level 3.5 Chloride Level 98 Carbon Dioxide 21 Level Anion Gap 24 H Blood Urea 30 H Nitrogen Creatinine 3.61 H Est Glomerular 19 L Filtrat Rate mL/min Glucose Level 127 # Calcium Level 10.6 H White Blood Count 25.7 H Red Blood Count 2.20 #L Hemoglobin 6.9 #*L Hematocrit 19.3 L Mean Corpuscular 87.7 Volume Mean Corpuscular 31.4 Hemoglobin Mean Corpuscular 35.8 Hemoglobin Concen t Red Cell 17.6 H Distribution Width Mean Platelet 13.0 H Volume Immature 1.300 H Granulocytes % Neutrophils % Segmented 63 Neutrophils % (Manual) Band Neutrophils 14 H % (Manual) Lymphocytes % Lymphocytes % 15 (Manual) Monocytes % Monocytes % 3 (Manual) Eosinophils % Eosinophils % 2 (Manual) Basophils % Myelocytes % 1 H (Manual) Promyelocytes % 1 H (Manual) Blast Cells % 1.0 H (Manual) Nucleated Red 0.5 H Blood Cells % Immature 0.330 H Granulocytes # Neutrophils # Neutrophils # 17.1 H (Manual) Band Neutrophils 3.5 H # Lymphocytes 3.8 H (Manual) Lymphocytes # Monocytes # Monocytes # 0.7 (Manual) Eosinophils # Basophils # Myelocytes # 0.2 H Promyelocytes # 0.2 H Nucleated Red Blood Cells # Platelet Estimate NORMAL Giant Platelets 1 H Poikilocytosis 2+ Anisocytosis 2+ Macrocytosis 1+ Spherocytes 1+ Tear Drop Cells 1+ Elliptocytes 1+ Lab Scanned BLOOD TRANSFUSIO Report N Stool Occult POSITIVE Blood Medications Medication Current Medications Lactulose (Enulose) 10 gm Q8 PO Last administered on 02/07/19at 05:52; Admin Dose 10 GM; Start 01/29/19 at 06:00 Ondansetron HCl (Zofran Inj) 4 mg Q6H PRN IV NAUSEA AND/OR VOMITING; Start 01/29/19 at 01:00 Epoetin Daniel-epbx (Retacrit (Esrd)) 4,000 unit MoWeFr@1700 SC Last administered on 02/06/19at 17:49; Admin Dose 4,000 UNIT; Start 01/30/19 at 17:00 Midodrine (Proamatine) 10 mg TID@,,17 PO Last administered on 02/07/19 08:20; Admin Dose 10 MG; Start 01/29/19 at 17:00 Multivit/Ca Carb/ B Cmplx/FA/Prenat (Liz-Eugenia) 1 tab DAILY PO Last administere d on 02/07/19at 08:20; Admin Dose 1 TAB; Start 01/31/19 at 09:00 Docusate Sodium (Colace) 100 mg BID PRN PO constipation; Start 01/30/19 at 14:00 Senna (Senokot) 2 tab DAILY PRN PO constipation; Start 01/30/19 at 14:00 Levalbuterol (Xopenex Neb) 0.63 mg Q4H RESP THERAPY PRN HHN WHEEZING AND RESP D ISTRESS Last administered on 02/04/19at 05:40; Admin Dose 0.63 MG; Start 02/02/19 at 22:30 Norepinephrine 250 ml @ 1.875 mls/ hr TITRATE IV Last administered on 02/07/19 04:42; Admin Dose 33.75 MLS/HR; Start 02/04/19 at 06:30 Midazolam HCl 50 ml @ 1 mls/hr TITRATE IV Last administered on 02/04/19at 21:44; Admin Dose 5 MLS/HR; Start 02/04/19 at 07:00 Fentanyl 100 ml @ 2.5 mls/hr TITRATE IV Last administered on 02/05/19at 17:54; Admin Dose 5 MLS/HR; Start 02/04/19 at 07:00 Vancomycin HCl (Vanco Iv Per Pharmacy) VANCOMYCIN PER PHARMACY PER PROTOCOL XX ; Start 02/04/19 at 08:30 Pantoprazole (Protonix Iv) 40 mg BID@,18 IV Last administered on 02/06/19 17:30; Admin Dose 40 MG; Start 02/04/19 at 18:00 Meropenem/Sodium Chloride 50 ml @ 100 mls/hr Q12 IVPB Last administered on 02/07/19 08:19; Admin Dose 100 MLS/HR; Start 02/05/19 at 12:00 Rifaximin (Xifaxan) 550 mg BID PO Last administered on 02/07/19 08:19; Admin Dose 550 MG; Start 02/05/19 at 21:00 Phenylephrine HCl 80 mg/Dextrose 250 ml @ 18.75 mls/ hr TITRATE PRN IV BLOOD PRESSURE SUPPORT Last administered on 02/07/19 05:56; Admin Dose 9.38 MLS/HR; Start 02/06/19 at 02:00 Dextrose 1,000 ml @ 50 mls/hr Q20H IV Last administered on 02/07/19 01:55; Admin Dose 50 MLS/HR; Start 02/06/19 at 07:30 Dextrose (D50w Syringe) 50 ml PRN PRN IV HYPOGLYCEMIA (BS<70) Last administered on 02/06/19at 07:42; Admin Dose 50 ML; Start 02/06/19 at 07:30 ELLIS ESTRADA MD Feb 07, 2019 12:08
[2019-02-07] MEDS: ACCU-CHEK XX SCH ×2 (17:00→21:00)
--- NOTE | 2019-02-07 18:00 | CONS ---
DATE OF ADMISSION: 01/29/2019 DATE OF CONSULTATION: 02/07/2019 TYPE OF CONSULTATION: Cardiology. REFERRING PHYSICIAN: Willy Avina MD REASON FOR EVALUATION: Hypotension, tachycardia. HISTORY OF PRESENT ILLNESS: Mr. Cairas is a 39-year-old gentleman with a history of end-stage liver disease/cirrhosis, history of chronic anemia, history of bleeding diathesis, a history of respirator y failure with intubation, who comes to the hospital now for evaluation of acute bleeding as well as hypotension. The patient is receiving blood transfusion right now. In the setting of this event, th e patient has been hypotensive and I have been asked to see patient in consultation. His hypertensio n is most likely related to his anemia. As described above, there is no indication for any acute car diac intervention at this particular point. I think for now, conservative therapy will be followed. We will continue to treat the patient with supportive care and follow expectantly. Once the fluid a re replaced, we will consider further optimization as needed. I am going to see if patient had a rec ent 2D echo to assess ejection fraction, but I do not think it is going to change the management aggr essively. PAST MEDICAL HISTORY: History of renal insufficiency, history of respiratory failure. He has end-st age liver disease, history of renal disease, history of recurrent encephalopathy, and GI bleeds. ALLERGIES: NO KNOWN DRUG ALLERGIES. SOCIAL HISTORY: The patient does not smoked, does not drink, does not use any drugs. FAMILY HISTORY: Negative for sudden cardiac or coronary artery disease. Apparently, the patient was listed for liver transplant easily at some point, but I do not believe he is any longer on the transplant list. MEDICATIONS: Here includes: 1. Levophed. 2. Pantoprazole. 3. Midazolam. 4. Fentanyl. 5. Antibiotics. 6. He is also on midodrine for blood pressure support. REVIEW OF SYSTEMS: CONSTITUTIONAL: No fevers, chills noted. Active gastrointestinal bleeding. HEENT: No change in vision or hearing. CARDIAC: No chest pain reported. RESPIRATORY: Short of breath, acute on chronic. GASTROINTESTINAL: Liver disease, cirrhosis. GENITOURINARY: No dysuria, hematuria, dialysis. PHYSICAL EXAMINATION: VITAL SIGNS: Temperature is 98.7, heart rate is 118, blood pressure now 98/47. GENERAL: He is ill appearing gentleman with active bleeding from the nasal cavity. He is intubated. NECK: Supple. JVD 6 cm. No lymphadenopathy. HEART: Regular, soft holosystolic murmur. PMI is nondisplaced. I do not hear an S3. LUNGS: Coarse at the base. ABDOMEN: Distended, bowel sounds are present. There is no hepatosplenomegaly. GENITOURINARY: Intact. EXTREMITIES: No clubbing, cyanosis, or edema. LABORATORY DATA: Shows white blood cell count is 25.7, hemoglobin is 6.9, platelets of 50. INR is 4 .5 with creatinine 3.6. ASSESSMENT AND PLAN: 1. History of coronary ____ in nature. This is expected with such a significant degree of anemia. Continue supportive care now. 2. History of cirrhosis. Defer to primary team. Apparently, the patient was listed for liver trans plant easily at one time, but is no longer a candidate. 3. Hypotension. Continue supportive care with blood transfusion. 4. Respiratory failure: The patient is intubated. Pulmonary team follows. 5. Anemia with bleeding diathesis. All related to liver team. GI to follow up. I would like to thank Dr. Avina for referring this patient for my evaluation. Dictated By: TRE DNUNE MD ML/MUMTAZ Conf#: [id number] DID#: [id number]
[2019-02-08] VITALS (105 sets, daily range): BP systolic 70–103; BP diastolic 36–66; PULSE 112–135; RESP 19–35
[2019-02-08] MEDS: DEXTROSE 10% 1,000 ML IV SCH ×2 (00:35→23:30)
[2019-02-08] MEDS: ACCU-CHEK XX SCH ×6 (01:07→23:50)
[2019-02-08] MEDS: PHENYLephrine 80 MG in DEXTROSE 5% 242 ML IV PRN ×3 (05:18→23:49)
[2019-02-08] MEDS: LACTULOSE 30ML CUP PO SCH ×3 (05:18→21:15)
[2019-02-08] MEDS: PANTOPRAZOLE 40 MG INJ IV SCH ×2 (05:19→17:17)
[2019-02-08] MEDS: NORepinephrine 8MG/250 ML (PMX 250 ML IV SCH ×2 (05:34→20:31)
--- NOTE | 2019-02-08 09:19 | CONS ---
Assessment/Plan Assessment/Plan Assessment/Plan (Daily) Ventilator setting; AC of 20, tidal volume 500, PEEP of 5, 45% FiO2. Patient is currently on phenylephrine drip at 60 mics per minute, Levophed 12 mics per minute. Assessment and recommendations; 1. Patient with history of end-stage liver cirrhosis admitted for severe sepsis and hypotension. Had to be intubated for respiratory failure. 2. Status post paracentesis. With apparent recurrence of ascites fluid. 3. Severe coagulopathy. Status post multiple blood product transfusion. 4. Chronic renal failure, on hemodialysis. 5. Possibly SBP. 6. Severe persistent hypotension. 7. Anemia and thrombocytopenia. Continue current supportive care. Further recommendations per sheet folder. Prognosis appears extremely poor. Patient currently is too unstable to be transferred to tertiary care center. 35 minutes of critical care time was spent evaluating the patient. Consultation Date/Type/Reason Admit Date/Time Jan 29, 2019 at 01:13 Initial Consult Date 02/03/19 Type of Consult Pulmonary Patient is a 39-year-old male who has been transferred from another facility because of end-stage liver disease and large ascites. By the time I saw the patient, patient appeared awake and alert and did not appear to be in any distress. Past medical history; 1. End-stage alcoholic liver cirrhosis. 2. History of variceal bleeding. 3. End-stage renal disease, on hemodialysis. 4. Chronic anemia. 5. Secondary hyperparathyroidism. Medications; reviewed. Allergies; none. Social he; history of heavy alcohol abuse. Patient has quit for some time though. Family history; noncontributory. Occupational history; patient is on disability. Review of systems; denies any headache, seizures. Complains of mild shortness of breath. Complains of abdominal distention without any pain. Denies any nausea vomiting. Denies any orthopnea. Complains of dark urine. Denies any melena or hematochezia. Complains of weight loss. Complains of easy skin bruising. General exam; young male, appears severely icteric. Currently no distress. Laying flat in bed. Requesting Provider: MAL ENRIQUE MD Date/Time of Note DATE: 02/08/19 TIME: 09:15 24 HR Interval Summary Free Text/Dictation Patient's condition is critical. Remains profoundly unresponsive. Remains hypotensive on combination pressor support. General exam; young male, orally intubated, unresponsive, patient appearing deeply icteric. Exam/Review of Systems Exam Vitals Vital Signs Date Temp Pulse Resp B/P (MAP) Pulse Ox O2 O2 Flow FiO2 Time Delivery Rate 02/08/19 129 25 100 45 08:20 02/08/19 91/55 (67) Mechanical 06:00 Ventilator 02/08/19 99.0 04:00 Intake and Output 02/07/19 02/07/19 02/08/19 1414:59 22:59 06:59 IntakeIntake Total 1365.008 ml 1037.790 ml 439.379 ml OutputOutput Total 10 ml 0 ml BalanceBalance 1365.008 ml 1027.790 ml 439.379 ml Exam H EENT exam; supple neck, positive JVD. No lymphadenopathy. Midline trachea. No thyromegaly. Patient is deeply icteric. Mild oozing of blood seen in oral cavity. Chest exam; diminished breath sounds bilaterally. S1-S2 audible, no murmurs. Tachycardic. Regular rhythm. Abdomen exam; protuberant. Positive fluid thrill. Bowel sounds are absent. There is no scrotal edema. Extremity exam; trace edema. [employer] exam; patient remains unresponsive. Results Result Diagram: 02/08/19 0423 02/08/19 0423 Results 24hrs Laboratory Tests Test 02/07/19 09:30 02/07/19 17:34 02/07/19 21:13 02/08/19 00:54 Stool Occult Blood POSITIVE Bedside Glucose 150 144 176 Test 02/08/19 04:23 02/08/19 05:20 White Blood Count 23.1 H Red Blood Count 2.38 L Hemoglobin 7.4 L Hematocrit 21.4 L Mean Corpuscular 89.9 Volume Mean Corpuscular 31.1 Hemoglobin Mean Corpuscular 34.6 Hemoglobin Concent Red Cell 18.1 H Distribution Width Platelet Count 51 L Mean Platelet Volume 12.9 H Immature 2.000 H Granulocytes % Neutrophils % Segmented 55 Neutrophils % (Manual) Band Neutrophils % 15 H (Manual) Lymphocytes % Lymphocytes % 16 (Manual) Reactive Lymphocytes 2 H % (Manual) Monocytes % Monocytes % (Manual) 10 Eosinophils % Eosinophils % 2 (Manual) Basophils % Nucleated Red Blood 5 H Cells % Immature 0.470 H Granulocytes # Neutrophils # Neutrophils # 13.5 H (Manual) Band Neutrophils # 3.4 H Lymphocytes (Manual) 3.6 H Lymphocytes # Reactive Lymphocytes 0.4 H # Monocytes # Monocytes # (Manual) 2.3 H Eosinophils # Basophils # Nucleated Red Blood Cells # Platelet Estimate DECREASED Polychromasia 2+ Poikilocytosis 3+ Anisocytosis 2+ Macrocytosis 2+ Prothrombin Time 30.8 #H Prothrombin Time 2.4 Ratio INR International 2.95 Normalized Ratio Activated 78.4 *H Partial Thromboplast Time Thrombin Time 22.8 H Fibrinogen 132.0 L D-Dimer > 10782.00 H Sodium Level 138 Potassium Level 3.4 L Chloride Level 98 Carbon Dioxide Level 23 Anion Gap 17 #H Blood Urea Nitrogen 35 H Creatinine 3.82 H Est Glomerular 18 L Filtrat Rate mL/min Glucose Level 134 Calcium Level 9.9 Bedside Glucose 152 Medications Medication Current Medications Lactulose (Enulose) 10 gm Q8 PO Last administered on 02/08/19 05:18; Admin Dose 10 GM; Start 01/29/19 at 06:00 Ondansetron HCl (Zofran Inj) 4 mg Q6H PRN IV NAUSEA AND/OR VOMITING; Start 01/29/19 at 01:00 Epoetin Daniel-epbx (Retacrit (Esrd)) 4,000 unit MoWeFr@1700 SC Last administered on 02/06/19at 17:49; Admin Dose 4,000 UNIT; Start 01/30/19 at 17:00 Midodrine (Proamatine) 10 mg TID@,13,17 PO Last administered on 02/07/19at 17: 26; Admin Dose 10 MG; Start 01/29/19 at 17:00 Multivit/Ca Carb/ B Cmplx/FA/Prenat (Liz-Eugenia) 1 tab DAILY PO Last administered on 02/07/19 08:20; Admin Dose 1 TAB; Start 01/31/19 at 09:00 Docusate Sodium (Colace) 100 mg BID PRN PO constipation; Start 01/30/19 at 14:00 Senna (Senokot) 2 tab DAILY PRN PO constipation; Start 01/30/19 at 14:00 Levalbuterol (Xopenex Neb) 0.63 mg Q4H RESP THERAPY PRN HHN WHEEZING AND RESP DISTRESS Last administered on 02/04/19at 05:40; Admin Dose 0.63 MG; Start at 22:30 Norepinephrine 250 ml @ 1.875 mls/ hr TITRATE IV Last administered on 02/08/19 05:34; Admin Dose 24.375 MLS/HR; Start 02/04/19 at 06:30 Midazolam HCl 50 ml @ 1 mls/hr TITRATE IV Last administered on 02/04/19at 21:44; Admin Dose 5 MLS/HR; Start 02/04/19 at 07:00 Fentanyl 100 ml @ 2.5 mls/hr TITRATE IV Last administered on 02/05/19 17:54; Admin Dose 5 MLS/HR; Start 02/04/19 at 07:00 Vancomycin HCl (Vanco Iv Per Pharmacy) VANCOMYCIN PER PHARMACY PER PROTOCOL XX ; Start 02/04/19 at 08:30 Pantoprazole (Protonix Iv) 40 mg BID@06,18 IV Last administered on 02/08/19 05:19; Admin Dose 40 MG; Start 02/04/19 at 18:00 Meropenem/Sodium Chloride 50 ml @ 100 mls/hr Q12 IVPB Last administered on 02/07/19 21:12; Admin Dose 100 MLS/HR; Start 02/05/19 at 12:00 Rifaximin (Xifaxan) 550 mg BID PO Last administered on 02/07/19 21:12; Admin Dose 550 MG; Start 02/05/19 at 21:00 Phenylephrine HCl 80 mg/Dextrose 250 ml @ 18.75 mls/ hr TITRATE PRN IV BLOOD PRESSURE SUPPORT Last administered on 02/08/19 05:18; Admin Dose 11.25 MLS/HR; Start 02/06/19 at 02:00 Dextrose 1,000 ml @ 50 mls/hr Q20H IV Last administered on 02/08/19 00:35; Admin Dose 50 MLS/HR; Start 02/06/19 at 07:30 Dextrose (D50w Syringe) 50 ml PRN PRN IV HYPOGLYCEMIA (BS<70) Last administered on 02/06/19at 07:42; Admin Dose 50 ML; Start 02/06/19 at 07:30 Diagnostic Test (Pha) (Accu-Chek) 1 ea Q4 XX Last administered on 02/08/19 05:20; Admin Dose 1 EA; Start 02/07/19 at 17:00 FRANCE LINARES Feb 08, 2019 09:19
--- NOTE | 2019-02-08 09:21 | PN ---
Date/Time of Note Date/Time of Note DATE: 02/08/19 TIME: 09:17 Assessment/Plan VTE Prophylaxis Risk score (from [facility] [place]0 risk: 11 SCD applied (from [facility] [place] No SCD contraindicated: other Pharmacological prophylaxis: NA/contraindicated Pharm contraindication: liver dx, anticoag not tolerated Lines/Catheters IV Catheter Type (from [facility]): Hieu cath Urinary Cath still in place: Yes Reason Cath still needed: urinary retention Assessment/Plan Hospital Course 1. Shock likely secondary to sepsis. Sepsis 2. Acute Respiratory failure status post intubation secondary to large pleural effusions secondary to volume overload post hemodialysis 3. Fractures of the superior endplates/bodies of L1, L2 and L3 with associated slight anterior superior endplate wedge compression of the L1 and L3 vertebral bodies. Multilevel degenerative changes greatest at L4-5 as described above. Mild degenerative changes of the right posterior lateral aspect of the T11-12 disc space with mild central canal stenosis. 4. Decompensated alcoholic cirrhosis with a history of EtOH use. Hyperbilirubinemia 5. End-stage renal disease, on hemodialysis. 6. Coagulopathy. 7. Severe anemia with thrombocytopenia likely due to cirrhosis. Pt is bleeding rectally and from mouth. 8. Moderate anemia, likely multifactorial disease, likely secondary to end- stage renal disease versus bone marrow suppression versus nutritional deficiency versus cirrhosis. 9. Leucocytosis. 10. S.p paracentesis in previous hospital 01/28/2019 11. Suspicious for metastatic disease 12. Hypotension likely secondary to cirrhosis, rule out sepsis. 13. History of gastrointestinal bleed. 14. Hypoglycemia 15.History of cirrhosis Assessment/Plan -FiO2 is 45% -Titrate the neosynephrine to keep systolic blood pressure greater than 85 and map greater than 60 as patient has history of cirrhosis.Titrate Levo down is -c/w HD -s/p paracentesis -Status post vitamin K/FFP/cryoprecipitate -c/w albumin - cw vancomycin/rifampin/Meropenem -Continue with lactulose - blood cx positive - cw Epogen -s/p multiple blood transfusion --Needs a tertiary setting with there is a Ability of CRRT and patient will need liver and a kidney transplant -poor prognosis Result Diagram: 02/08/19 0423 02/08/19 0423 Results 24hrs Laboratory Tests Test 02/07/19 09:30 02/07/19 17:34 02/07/19 21:13 02/08/19 00:54 Stool Occult Blood POSITIVE Bedside Glucose 150 144 176 Test 02/08/19 04:23 02/08/19 05:20 White Blood Count 23.1 H Red Blood Count 2.38 L Hemoglobin 7.4 L Hematocrit 21.4 L Mean Corpuscular 89.9 Volume Mean Corpuscular 31.1 Hemoglobin Mean Corpuscular 34.6 Hemoglobin Concent Red Cell 18.1 H Distribution Width Platelet Count 51 L Mean Platelet Volume 12.9 H Immature 2.000 H Granulocytes % Neutrophils % Segmented 55 Neutrophils % (Manual) Band Neutrophils % 15 H (Manual) Lymphocytes % Lymphocytes % 16 (Manual) Reactive Lymphocytes 2 H % (Manual) Monocytes % Monocytes % (Manual) 10 Eosinophils % Eosinophils % 2 (Manual) Basophils % Nucleated Red Blood 5 H Cells % Immature 0.470 H Granulocytes # Neutrophils # Neutrophils # 13.5 H (Manual) Band Neutrophils # 3.4 H Lymphocytes (Manual) 3.6 H Lymphocytes # Reactive Lymphocytes 0.4 H # Monocytes # Monocytes # (Manual) 2.3 H Eosinophils # Basophils # Nucleated Red Blood Cells # Platelet Estimate DECREASED Polychromasia 2+ Poikilocytosis 3+ Anisocytosis 2+ Macrocytosis 2+ Prothrombin Time 30.8 #H Prothrombin Time 2.4 Ratio INR International 2.95 Normalized Ratio Activated 78.4 *H Partial Thromboplast Time Thrombin Time 22.8 H Fibrinogen 132.0 L D-Dimer > 51368.00 H Sodium Level 138 Potassium Level 3.4 L Chloride Level 98 Carbon Dioxide Level 23 Anion Gap 17 #H Blood Urea Nitrogen 35 H Creatinine 3.82 H Est Glomerular 18 L Filtrat Rate mL/min Glucose Level 134 Calcium Level 9.9 Bedside Glucose 152 Subjective 24 Hr Interval Summary Subjective hx not possible: pt non-verbal, pt critical status Exam/Review of Systems Exam Vitals Vital Signs Date Temp Pulse Resp B/P (MAP) Pulse Ox O2 O2 Flow FiO2 Time Delivery Rate 02/08/19 129 25 100 45 08:20 02/08/19 91/55 (67) Mechanical 06:00 Ventilator 02/08/19 99.0 04:00 Intake and Output 02/07/19 02/07/19 02/08/19 1515:00 23:00 07:00 IntakeIntake Total 1306.883 ml 1080.915 ml 341.249 ml OutputOutput Total 10 ml 0 ml BalanceBalance 1306.883 ml 1070.915 ml 341.249 ml Exam orally intubated, NG tube with feed Constitutional: frail Head: normocephalic Neck: supple Respiratory: diminished breath sounds Cardiovascular: regular rate and rhythm Gastrointestinal: soft Genitourinary - Male: other (lowe) Musculoskeletal: swelling Extremities: edema Results Results 24hrs Laboratory Tests Test 02/07/19 09:30 02/07/19 17:34 02/07/19 21:13 02/08/19 00:54 Stool Occult Blood POSITIVE Bedside Glucose 150 144 176 Test 02/08/19 04:23 02/08/19 05:20 White Blood Count 23.1 H Red Blood Count 2.38 L Hemoglobin 7.4 L Hematocrit 21.4 L Mean Corpuscular 89.9 Volume Mean Corpuscular 31.1 Hemoglobin Mean Corpuscular 34.6 Hemoglobin Concent Red Cell 18.1 H Distribution Width Platelet Count 51 L Mean Platelet Volume 12.9 H Immature 2.000 H Granulocytes % Neutrophils % Segmented 55 Neutrophils % (Manual) Band Neutrophils % 15 H (Manual) Lymphocytes % Lymphocytes % 16 (Manual) Reactive Lymphocytes 2 H % (Manual) Monocytes % Monocytes % (Manual) 10 Eosinophils % Eosinophils % 2 (Manual) Basophils % Nucleated Red Blood 5 H Cells % Immature 0.470 H Granulocytes # Neutrophils # Neutrophils # 13.5 H (Manual) Band Neutrophils # 3.4 H Lymphocytes (Manual) 3.6 H Lymphocytes # Reactive Lymphocytes 0.4 H # Monocytes # Monocytes # (Manual) 2.3 H Eosinophils # Basophils # Nucleated Red Blood Cells # Platelet Estimate DECREASED Polychromasia 2+ Poikilocytosis 3+ Anisocytosis 2+ Macrocytosis 2+ Prothrombin Time 30.8 #H Prothrombin Time 2.4 Ratio INR International 2.95 Normalized Ratio Activated 78.4 *H Partial Thromboplast Time Thrombin Time 22.8 H Fibrinogen 132.0 L D-Dimer > 05527.00 H Sodium Level 138 Potassium Level 3.4 L Chloride Level 98 Carbon Dioxide Level 23 Anion Gap 17 #H Blood Urea Nitrogen 35 H Creatinine 3.82 H Est Glomerular 18 L Filtrat Rate mL/min Glucose Level 134 Calcium Level 9.9 Bedside Glucose 152 Medications Medication Current Medications Lactulose (Enulose) 10 gm Q8 PO Last administered on 02/08/19at 05:18; Admin Dose 10 GM; Start 01/29/19 at 06:00 Ondansetron HCl (Zofran Inj) 4 mg Q6H PRN IV NAUSEA AND/OR VOMITING; Start 01/29/19 at 01:00 Epoetin Daniel-epbx (Retacrit (Esrd)) 4,000 unit MoWeFr@1700 SC Last administered on 02/06/19at 17:49; Admin Dose 4,000 UNIT; Start 01/30/19 at 17:00 Midodrine (Proamatine) 10 mg TID@,,17 PO Last administered on 02/07/19 17:26; Admin Dose 10 MG; Start 01/29/19 at 17:00 Multivit/Ca Carb/ B Cmplx/FA/Prenat (Liz-Eugenia) 1 tab DAILY PO Last administered on 02/07/19 08:20; Admin Dose 1 TAB; Start 01/31/19 at 09:00 Docusate Sodium (Colace) 100 mg BID PRN PO constipation; Start 01/30/19 at 14:00 Senna (Senokot) 2 tab DAILY PRN PO constipation; Start 01/30/19 at 14:00 Levalbuterol (Xopenex Neb) 0.63 mg Q4H RESP THERAPY PRN HHN WHEEZING AND RESP DISTRESS Last administered on 02/04/19at 05:40; Admin Dose 0.63 MG; Start 02/02/19 at 22:30 Norepinephrine 250 ml @ 1.875 mls/ hr TITRATE IV Last administered on 02/08/19 05:34; Admin Dose 24.375 MLS/HR; Start 02/04/19 at 06:30 Midazolam HCl 50 ml @ 1 mls/hr TITRATE IV Last administered on 02/04/19at 21:44; Admin Dose 5 MLS/HR; Start 02/04/19 at 07:00 Fentanyl 100 ml @ 2.5 mls/hr TITRATE IV Last administered on 02/05/19at 17:54; Admin Dose 5 MLS/HR; Start 02/04/19 at 07:00 Vancomycin HCl (Vanco Iv Per Pharmacy) VANCOMYCIN PER PHARMACY PER PROTOCOL XX ; Start 02/04/19 at 08:30 Pantoprazole (Protonix Iv) 40 mg BID@,18 IV Last administered on 02/08/19 05:19; Admin Dose 40 MG; Start 02/04/19 at 18:00 Meropenem/Sodium Chloride 50 ml @ 100 mls/hr Q12 IVPB Last administered on 02/07/19 21:12; Admin Dose 100 MLS/HR; Start 02/05/19 at 12:00 Rifaximin (Xifaxan) 550 mg BID PO Last administered on 02/07/19 21:12; Admin Dose 550 MG; Start 02/05/19 at 21:00 Phenylephrine HCl 80 mg/Dextrose 250 ml @ 18.75 mls/ hr TITRATE PRN IV BLOOD PRESSURE SUPPORT Last administered on 02/08/19 05:18; Admin Dose 11.25 MLS/HR; Start 02/06/19 at 02:00 Dextrose 1,000 ml @ 50 mls/hr Q20H IV Last administered on 02/08/19 00:35; Admin Dose 50 MLS/HR; Start 02/06/19 at 07:30 Dextrose (D50w Syringe) 50 ml PRN PRN IV HYPOGLYCEMIA (BS<70) Last administered on 02/06/19at 07:42; Admin Dose 50 ML; Start 02/06/19 at 07:30 Diagnostic Test (Pha) (Accu-Chek) 1 ea Q4 XX Last administered on 02/08/19 05:20; Admin Dose 1 EA; Start 02/07/19 at 17:00 RAMON VILLAGRAN Feb 08, 2019 09:21
[2019-02-08] MEDS: MEROPENEM 500MG/50 ML (PMX) 50 ML IVPB SCH ×2 (10:02→21:16)
[2019-02-08] MEDS: MIDODRINE 5 MG TAB PO SCH ×3 (10:03→17:18)
[2019-02-08] MEDS: MULTIVIT/CA CARB/B CMPLX/FA TAB PO SCH (10:03)
[2019-02-08] MEDS: RIFAXIMIN 550 MG TAB PO SCH ×2 (10:03→21:15)
[2019-02-08] MEDS: BALSAM PERU/CASTOR OIL 60 GM TUBE TOP SCH ×2 (10:05→21:16)
--- NOTE | 2019-02-08 10:49 | CONS ---
Assessment/Plan Assessment/Plan Hospital Course (Demo Recall) ID PROGRESS NOTE CURRENT ABX: DAY # =>Vanco IV + Merrem 02/08/1942202/08/19 0423 24H INTERVAL SUMMARY * No new issues since yesterday --- VSS, NAD, no fevers --WBC down slightly, bloody oral secretions * Endotracheal tube NG tube right subclavian Hieu catheter * Eyes open -- Non-communicative --> Chronically ill-appearing wasted middle-aged man who is in no distress MICRO * 02/04/19 BCX (+) 1/2 bottles Organism 1 GRAM POSITIVE COCCI IN PAIRS * 02/04/19 Ascitic fluid (-) DIAGNOSTIC IMAGING * 02/08/19 CXR:Pulmonary vascular congestion. Bilateral effusions, left greater than right. Rule out failure. * 02/07/19 CXR: Radiographic findings of congestive heart failure again seen with slight improvement in the pulmonary edema and pulmonary vascular congestion. PHYSICAL EXAMINATION: GENERAL: VSS, acutely ill with chronic co-morbid conditions HEENT: AT, NC, orally intubated w/blood tinged lip oral secretions NECK: Supple, CHEST: Vented HEART: Pulse RRR ABDOMEN: Distended, firm EXTREMITIES: Warm, dry SKIN: No rash, no diaphoresis ID ASSESSMENT 39 yo M admit with: 1. Septic shock with multisystem organ failure 2. Bacteremia - presumptive SBP 3. Acute respiratory failure, possible pneumonia 4. Ascites,s/p Para 02/04/19 w/presumptive SBP 5. End-stage liver cirrhosis 6. Acute renal failure likely hepatorenal 7. Severe anemia 8. Coagulopathy 9. Hypoglycemia (-)MRSA Nares ABX ALLERGIES: KNDA INVASIVES: PIV, Endotracheal tube NG tube right subclavian Hieu catheter CURRENT ABX: DAY # Vanco IV + Merrem ID RECOMMENDATIONS/PLAN: 1. Continue current ABX and supportive care -- FULL CODE status notes . Consultation Date/Type/Reason Admit Date/Time Jan 29, 2019 at 01:13 Initial Consult Date 02/03/19 Requesting Provider: MAL ENRIQUE MD Date/Time of Note DATE: 02/08/19 TIME: 10:47 Exam/Review of Systems Exam Vitals Vital Signs Date Temp Pulse Resp B/P (MAP) Pulse Ox O2 O2 Flow FiO2 Time Delivery Rate 02/08/19 129 25 100 45 08:20 02/08/19 91/55 (67) Mechanical 06:00 Ventilator 02/08/19 99.0 04:00 Intake and Output 02/07/19 02/07/19 02/08/19 1515:00 23:00 07:00 IntakeIntake Total 1306.883 ml 1080.915 ml 341.249 ml OutputOutput Total 10 ml 0 ml BalanceBalance 1306.883 ml 1070.915 ml 341.249 ml Results Result Diagram: 02/08/19 0423 02/08/19 0423 Results 24hrs Laboratory Tests Test 02/07/19 17:34 02/07/19 21:13 02/08/19 00:54 02/08/19 04:23 Bedside Glucose 150 144 176 White Blood Count 23.1 H Red Blood Count 2.38 L Hemoglobin 7.4 L Hematocrit 21.4 L Mean Corpuscular 89.9 Volume Mean Corpuscular 31.1 Hemoglobin Mean Corpuscular 34.6 Hemoglobin Concent Red Cell 18.1 H Distribution Width Platelet Count 51 L Mean Platelet Volume 12.9 H Immature 2.000 H Granulocytes % Neutrophils % Segmented 55 Neutrophils % (Manual) Band Neutrophils % 15 H (Manual) Lymphocytes % Lymphocytes % 16 (Manual) Reactive Lymphocytes 2 H % (Manual) Monocytes % Monocytes % (Manual) 10 Eosinophils % Eosinophils % 2 (Manual) Basophils % Nucleated Red Blood 5 H Cells % Immature 0.470 H Granulocytes # Neutrophils # Neutrophils # 13.5 H (Manual) Band Neutrophils # 3.4 H Lymphocytes (Manual) 3.6 H Lymphocytes # Reactive Lymphocytes 0.4 H # Monocytes # Monocytes # (Manual) 2.3 H Eosinophils # Basophils # Nucleated Red Blood Cells # Platelet Estimate DECREASED Polychromasia 2+ Poikilocytosis 3+ Anisocytosis 2+ Macrocytosis 2+ Prothrombin Time 30.8 #H Prothrombin Time 2.4 Ratio INR International 2.95 Normalized Ratio Activated 78.4 *H Partial Thromboplast Time Thrombin Time 22.8 H Fibrinogen 132.0 L D-Dimer > 92091.00 H Sodium Level 138 Potassium Level 3.4 L Chloride Level 98 Carbon Dioxide Level 23 Anion Gap 17 #H Blood Urea Nitrogen 35 H Creatinine 3.82 H Est Glomerular 18 L Filtrat Rate mL/min Glucose Level 134 Calcium Level 9.9 Test 02/08/19 05:20 02/08/19 10:20 Bedside Glucose 152 154 Medications Medication Current Medications Lactulose (Enulose) 10 gm Q8 PO Last administered on 02/08/19 05:18; Admin Dose 10 GM; Start 01/29/19 at 06:00 Ondansetron HCl (Zofran Inj) 4 mg Q6H PRN IV NAUSEA AND/OR VOMITING; Start 01/29/19 at 01:00 Epoetin Daniel-epbx (Retacrit (Esrd)) 4,000 unit MoWeFr@1700 SC Last administered on 02/06/19 17:49; Admin Dose 4,000 UNIT; Start 01/30/19 at 17:00 Midodrine (Proamatine) 10 mg TID@09,13,17 PO Last administered on 02/08/19 10: 03; Admin Dose 10 MG; Start 01/29/19 at 17:00 Multivit/Ca Carb/ B Cmplx/FA/Prenat (Liz-Eugenia) 1 tab DAILY PO Last administered on 02/08/19 10:03; Admin Dose 1 TAB; Start 01/31/19 at 09:00 Docusate Sodium (Colace) 100 mg BID PRN PO constipation; Start 01/30/19 at 14:00 Senna (Senokot) 2 tab DAILY PRN PO constipation; Start 01/30/19 at 14:00 Levalbuterol (Xopenex Neb) 0.63 mg Q4H RESP THERAPY PRN HHN WHEEZING AND RESP DISTRESS Last administered on 02/04/19 05:40; Admin Dose 0.63 MG; Start at 22:30 Norepinephrine 250 ml @ 1.875 mls/ hr TITRATE IV Last administered on 02/08/19 05:34; Admin Dose 24.375 MLS/HR; Start 02/04/19 at 06:30 Midazolam HCl 50 ml @ 1 mls/hr TITRATE IV Last administered on 02/04/19 21:44; Admin Dose 5 MLS/HR; Start 02/04/19 at 07:00 Fentanyl 100 ml @ 2.5 mls/hr TITRATE IV Last administered on 02/05/19 17:54; Admin Dose 5 MLS/HR; Start 02/04/19 at 07:00 Vancomycin HCl (Vanco Iv Per Pharmacy) VANCOMYCIN PER PHARMACY PER PROTOCOL XX ; Start 02/04/19 at 08:30 Pantoprazole (Protonix Iv) 40 mg BID@06,18 IV Last administered on 02/08/19 05:19; Admin Dose 40 MG; Start 02/04/19 at 18:00 Meropenem/Sodium Chloride 50 ml @ 100 mls/hr Q12 IVPB Last administered on 02/08/19 10:02; Admin Dose 100 MLS/HR; Start 02/05/19 at 12:00 Rifaximin (Xifaxan) 550 mg BID PO Last administered on 02/08/19 10:03; Admin Dose 550 MG; Start 02/05/19 at 21:00 Phenylephrine HCl 80 mg/Dextrose 250 ml @ 18.75 mls/ hr TITRATE PRN IV BLOOD PRESSURE SUPPORT Last administered on 02/08/19 05:18; Admin Dose 11.25 MLS/HR; Start 02/06/19 at 02:00 Dextrose 1,000 ml @ 20 mls/hr Q24H IV Last administered on 02/08/19at 00:35; Admin Dose 50 MLS/HR; Start 02/06/19 at 07:30 Dextrose (D50w Syringe) 50 ml PRN PRN IV HYPOGLYCEMIA (BS<70) Last administered on 02/06/19at 07:42; Admin Dose 50 ML; Start 02/06/19 at 07:30 Diagnostic Test (Pha) (Accu-Chek) 1 ea Q6 XX ; Start 02/08/19 at 12:00 ZEYAD LOZANO NP Feb 08, 2019 10:49
--- NOTE | 2019-02-08 14:10 | CONS ---
Consult Date/Type/Reason Admit Date/Time Jan 29, 2019 at 01:13 Initial Consult Date 02/03/19 Requesting Provider: MAL ENRIQUE MD Date/Time of Note DATE: 02/08/19 TIME: 14:08 Subjective NO acute events - pt critically ill still - con't BP support and blood rX. ROS: No F/C/N/V + bleeding Objective Vitals Vital Signs Date Temp Pulse Resp B/P (MAP) Pulse Ox O2 O2 Flow FiO2 Time Delivery Rate 02/08/19 122 21 83/51 (62) 99 Mechanical 13:30 Ventilator 02/08/19 99.9 12:00 02/08/19 45 08:20 Intake and Output 02/07/19 02/07/19 02/08/19 1515:00 23:00 07:00 IntakeIntake Total 1306.883 ml 1080.915 ml 446.874 ml OutputOutput Total 10 ml 0 ml BalanceBalance 1306.883 ml 1070.915 ml 446.874 ml Exam General: WN/WD/NAD, AOx 0 HEENT: Icetric/atraumatic/EOMI (does not follow commands) - intubated, blood on oral cavity NECK: JVD elevated, no thyromegaly Lymph: no lymphadenopathy HEART: regular with no S3, II/ systolic murmur at apex LUNGS: Coarse sounds ABD: soft, NT, ND, +BS - ascites : Intact Neuro: non focal SKIN: chronic changes EXT: trace edema Results/Medications Result Diagram: 02/08/19 0423 02/08/19 0423 Results 24 hrs Laboratory Tests Test 02/07/19 17:34 02/07/19 21:13 02/08/19 00:54 02/08/19 04:23 Bedside Glucose 150 144 176 White Blood Count 23.1 H Red Blood Count 2.38 L Hemoglobin 7.4 L Hematocrit 21.4 L Mean Corpuscular 89.9 Volume Mean Corpuscular 31.1 Hemoglobin Mean Corpuscular 34.6 Hemoglobin Concent Red Cell 18.1 H Distribution Width Platelet Count 51 L Mean Platelet Volume 12.9 H Immature 2.000 H Granulocytes % Neutrophils % Segmented 55 Neutrophils % (Manual) Band Neutrophils % 15 H (Manual) Lymphocytes % Lymphocytes % 16 (Manual) Reactive Lymphocytes 2 H % (Manual) Monocytes % Monocytes % (Manual) 10 Eosinophils % Eosinophils % 2 (Manual) Basophils % Nucleated Red Blood 5 H Cells % Immature 0.470 H Granulocytes # Neutrophils # Neutrophils # 13.5 H (Manual) Band Neutrophils # 3.4 H Lymphocytes (Manual) 3.6 H Lymphocytes # Reactive Lymphocytes 0.4 H # Monocytes # Monocytes # (Manual) 2.3 H Eosinophils # Basophils # Nucleated Red Blood Cells # Platelet Estimate DECREASED Polychromasia 2+ Poikilocytosis 3+ Anisocytosis 2+ Macrocytosis 2+ Prothrombin Time 30.8 #H Prothrombin Time 2.4 Ratio INR International 2.95 Normalized Ratio Activated 78.4 *H Partial Thromboplast Time Thrombin Time 22.8 H Fibrinogen 132.0 L D-Dimer > 93592.00 H Sodium Level 138 Potassium Level 3.4 L Chloride Level 98 Carbon Dioxide Level 23 Anion Gap 17 #H Blood Urea Nitrogen 35 H Creatinine 3.82 H Est Glomerular 18 L Filtrat Rate mL/min Glucose Level 134 Calcium Level 9.9 Test 02/08/19 05:20 02/08/19 10:20 02/08/19 13:15 Bedside Glucose 152 154 141 Medications Current Medications Lactulose (Enulose) 10 gm Q8 PO Last administered on 02/08/19at 13:09; Admin Dose 10 GM; Start 01/29/19 at 06:00 Ondansetron HCl (Zofran Inj) 4 mg Q6H PRN IV NAUSEA AND/OR VOMITING; Start 01/29/19 at 01:00 Epoetin Daniel-epbx (Retacrit (Esrd)) 4,000 unit MoWeFr@1700 SC Last administered on 02/06/19at 17:49; Admin Dose 4,000 UNIT; Start 01/30/19 at 17:00 Midodrine (Proamatine) 10 mg TID@,,17 PO Last administered on 02/08/19at 13:10; Admin Dose 10 MG; Start 01/29/19 at 17:00 Multivit/Ca Carb/ B Cmplx/FA/Prenat (Liz-Eugenia) 1 tab DAILY PO Last administered on 02/08/19at 10:03; Admin Dose 1 TAB; Start 01/31/19 at 09:00 Docusate Sodium (Colace) 100 mg BID PRN PO constipation; Start 01/30/19 at 14:00 Senna (Senokot) 2 tab DAILY PRN PO constipation; Start 01/30/19 at 14:00 Levalbuterol (Xopenex Neb) 0.63 mg Q4H RESP THERAPY PRN HHN WHEEZING AND RESP DISTRESS Last administered on 02/04/19 05:40; Admin Dose 0.63 MG; Start 02/02/19 at 22:30 Norepinephrine 250 ml @ 1.875 mls/ hr TITRATE IV Last administered on 02/08/19 05:34; Admin Dose 24.375 MLS/HR; Start 02/04/19 at 06:30 Midazolam HCl 50 ml @ 1 mls/hr TITRATE IV Last administered on 02/04/19 21:44; Admin Dose 5 MLS/HR; Start 02/04/19 at 07:00 Fentanyl 100 ml @ 2.5 mls/hr TITRATE IV Last administered on 02/05/19 17:54; Admin Dose 5 MLS/HR; Start 02/04/19 at 07:00 Vancomycin HCl (Vanco Iv Per Pharmacy) VANCOMYCIN PER PHARMACY PER PROTOCOL XX ; Start 02/04/19 at 08:30 Pantoprazole (Protonix Iv) 40 mg BID@06,18 IV Last administered on 02/08/19 05:19; Admin Dose 40 MG; Start 02/04/19 at 18:00 Meropenem/Sodium Chloride 50 ml @ 100 mls/hr Q12 IVPB Last administered on 02/08/19 10:02; Admin Dose 100 MLS/HR; Start 02/05/19 at 12:00 Rifaximin (Xifaxan) 550 mg BID PO Last administered on 02/08/19 10:03; Admin Dose 550 MG; Start 02/05/19 at 21:00 Phenylephrine HCl 80 mg/Dextrose 250 ml @ 18.75 mls/ hr TITRATE PRN IV BLOOD PRESSURE SUPPORT Last administered on 02/08/19 05:18; Admin Dose 11.25 MLS/HR; Start 02/06/19 at 02:00 Dextrose 1,000 ml @ 20 mls/hr Q24H IV Last administered on 02/08/19 00:35; Admin Dose 50 MLS/HR; Start 02/06/19 at 07:30 Dextrose (D50w Syringe) 50 ml PRN PRN IV HYPOGLYCEMIA (BS<70) Last administered on 02/06/19at 07:42; Admin Dose 50 ML; Start 02/06/19 at 07:30 Diagnostic Test (Pha) (Accu-Chek) 1 ea Q6 XX ; Start 02/08/19 at 12:00 Miscellaneous Information (*Rx Drug Level Order Reminder*) KISHA TR 0500 ONCE XX ; Start 02/09/19 at 05:00; Stop 02/09/19 at 05:01 Assessment/Plan Hospital Course (Demo Recall) 1. Sinus atchycardia - This is expected with such a significant degree of anemia. Continue supportive care now. Con't supportive care. 2. History of cirrhosis. Defer to primary team. Apparently, the patient was listed for liver transplant easily at one time, but is no longer a candidate. 3. Hypotension. Continue supportive care with blood transfusion. 4. Respiratory failure: The patient is intubated. Pulmonary team follows. Con't resp Rx 5. Anemia with bleeding diathesis. All related to liver team. GI to follow up. 6. ARF - renal team follows VERY POOR PROGNOSIS TRE DUNNE MD Feb 08, 2019 14:10
--- NOTE | 2019-02-08 15:01 | CONS ---
Assessment/Plan Assessment/Plan Assessment/Plan (Daily) Assessment/Plan Hospital Course (Demo Recall) 39 yo male with liver disease with profound jaundice 1. Decompensated end stage liver disease with hyperbilirubinemia -pt accepted at [facility] for liver tx 2. Severe anemia. -Hgb yesterday 6.0, requiring PRBC replacement, today 7.7 3. Leukocytosis. Patient is septic 4. Ascites. -paracentesis possible today 5. End-stage renal disease on dialysis. 6. Coagulopathy due to #1 not getting corrected by conventional treatment - 7. Thrombocytopenia due to #1 -downtrending 8. Encephalopathy Plan Paracentesis today we will send fluid for culture and WBC Continue lactulose Pending Stool for C. difficile toxins Continue antibiotic Alpha-fetoprotein Rifaximin Continue antibiotic and pressor support We will pass NG tube for nutrition support Resume feeding through NG tube nephro 30 cc/h Blood transfusion and monitor for any acute GI bleeding Patient's prognosis remains poor Consultation Date/Type/Reason Admit Date/Time Jan 29, 2019 at 01:13 Initial Consult Date Requesting Provider: MAL ENRIQUE MD Date/Time of Note DATE: 02/08/19 TIME: 15:00 24 HR Interval Summary Subjective hx not possible: pt non-verbal, pt critical Exam/Review of Systems Exam Vitals Vital Signs Date Temp Pulse Resp B/P (MAP) Pulse Ox O2 O2 Flow FiO2 Time Delivery Rate 02/08/19 130 21 100 45 14:51 02/08/19 83/51 (62) Mechanical 13:30 Ventilator 02/08/19 99.9 12:00 Intake and Output 02/07/19 02/07/19 02/08/19 1515:00 23:00 07:00 IntakeIntake Total 1306.883 ml 1080.915 ml 446.874 ml OutputOutput Total 10 ml 0 ml BalanceBalance 1306.883 ml 1070.915 ml 446.874 ml ENMT: intubated Respiratory: diminished breath sounds Gastrointestinal: non-tender, ascites, distended Extremities: pitting pedal edema Neurological: unresponsive Results Result Diagram: 02/08/19 0423 02/08/19 0423 Results 24hrs Laboratory Tests Test 02/07/19 17:34 02/07/19 21:13 02/08/19 00:54 02/08/19 04:23 Bedside Glucose 150 144 176 White Blood Count 23.1 H Red Blood Count 2.38 L Hemoglobin 7.4 L Hematocrit 21.4 L Mean Corpuscular 89.9 Volume Mean Corpuscular 31.1 Hemoglobin Mean Corpuscular 34.6 Hemoglobin Concent Red Cell 18.1 H Distribution Width Platelet Count 51 L Mean Platelet Volume 12.9 H Immature 2.000 H Granulocytes % Neutrophils % Segmented 55 Neutrophils % (Manual) Band Neutrophils % 15 H (Manual) Lymphocytes % Lymphocytes % 16 (Manual) Reactive Lymphocytes 2 H % (Manual) Monocytes % Monocytes % (Manual) 10 Eosinophils % Eosinophils % 2 (Manual) Basophils % Nucleated Red Blood 5 H Cells % Immature 0.470 H Granulocytes # Neutrophils # Neutrophils # 13.5 H (Manual) Band Neutrophils # 3.4 H Lymphocytes (Manual) 3.6 H Lymphocytes # Reactive Lymphocytes 0.4 H # Monocytes # Monocytes # (Manual) 2.3 H Eosinophils # Basophils # Nucleated Red Blood Cells # Platelet Estimate DECREASED Polychromasia 2+ Poikilocytosis 3+ Anisocytosis 2+ Macrocytosis 2+ Prothrombin Time 30.8 #H Prothrombin Time 2.4 Ratio INR International 2.95 Normalized Ratio Activated 78.4 *H Partial Thromboplast Time Thrombin Time 22.8 H Fibrinogen 132.0 L D-Dimer > 69132.00 H Sodium Level 138 Potassium Level 3.4 L Chloride Level 98 Carbon Dioxide Level 23 Anion Gap 17 #H Blood Urea Nitrogen 35 H Creatinine 3.82 H Est Glomerular 18 L Filtrat Rate mL/min Glucose Level 134 Calcium Level 9.9 Test 02/08/19 05:20 02/08/19 10:20 02/08/19 13:15 Bedside Glucose 152 154 141 Medications Medication Current Medications Lactulose (Enulose) 10 gm Q8 PO Last administered on 02/08/19at 13:09; Admin Dose 10 GM; Start 01/29/19 at 06:00 Ondansetron HCl (Zofran Inj) 4 mg Q6H PRN IV NAUSEA AND/OR VOMITING; Start 01/29/19 at 01:00 Epoetin Daniel-epbx (Retacrit (Esrd)) 4,000 unit MoWeFr@1700 SC Last administered on 02/06/19at 17:49; Admin Dose 4,000 UNIT; Start 01/30/19 at 17:00 Midodrine (Proamatine) 10 mg TID@09,13,17 PO Last administered on 02/08/19 13:10; Admin Dose 10 MG; Start 01/29/19 at 17:00 Multivit/Ca Carb/ B Cmplx/FA/Prenat (Liz-Eugenia) 1 tab DAILY PO Last administered on 02/08/19 10:03; Admin Dose 1 TAB; Start 01/31/19 at 09:00 Docusate Sodium (Colace) 100 mg BID PRN PO constipation; Start 01/30/19 at 14:00 Senna (Senokot) 2 tab DAILY PRN PO constipation; Start 01/30/19 at 14:00 Levalbuterol (Xopenex Neb) 0.63 mg Q4H RESP THERAPY PRN HHN WHEEZING AND RESP DISTRESS Last administered on 02/04/19 05:40; Admin Dose 0.63 MG; Start 02/02/19 at 22:30 Norepinephrine 250 ml @ 1.875 mls/ hr TITRATE IV Last administered on 02/08/19 05:34; Admin Dose 24.375 MLS/HR; Start 02/04/19 at 06:30 Midazolam HCl 50 ml @ 1 mls/hr TITRATE IV Last administered on 02/04/19 21:44; Admin Dose 5 MLS/HR; Start 02/04/19 at 07:00 Fentanyl 100 ml @ 2.5 mls/hr TITRATE IV Last administered on 02/05/19 17:54; Admin Dose 5 MLS/HR; Start 02/04/19 at 07:00 Vancomycin HCl (Vanco Iv Per Pharmacy) VANCOMYCIN PER PHARMACY PER PROTOCOL XX ; Start 02/04/19 at 08:30 Pantoprazole (Protonix Iv) 40 mg BID@06,18 IV Last administered on 02/08/19 05:19; Admin Dose 40 MG; Start 02/04/19 at 18:00 Meropenem/Sodium Chloride 50 ml @ 100 mls/hr Q12 IVPB Last administered on 02/08/19 10:02; Admin Dose 100 MLS/HR; Start 02/05/19 at 12:00 Rifaximin (Xifaxan) 550 mg BID PO Last administered on 02/08/19 10:03; Admin Dose 550 MG; Start 02/05/19 at 21:00 Phenylephrine HCl 80 mg/Dextrose 250 ml @ 18.75 mls/ hr TITRATE PRN IV BLOOD PRESSURE SUPPORT Last administered on 02/08/19at 05:18; Admin Dose 11.25 MLS/HR; Start 02/06/19 at 02:00 Dextrose 1,000 ml @ 20 mls/hr Q24H IV Last administered on 02/08/19at 00:35; Admin Dose 50 MLS/HR; Start 02/06/19 at 07:30 Dextrose (D50w Syringe) 50 ml PRN PRN IV HYPOGLYCEMIA (BS<70) Last administered on 02/06/19at 07:42; Admin Dose 50 ML; Start 02/06/19 at 07:30 Diagnostic Test (Pha) (Accu-Chek) 1 ea Q6 XX ; Start 02/08/19 at 12:00 Miscellaneous Information (*Rx Drug Level Order Reminder*) VANCO TR 0500 ONCE XX ; Start 02/09/19 at 05:00; Stop 02/09/19 at 05:01 ELLIS ESTRADA MD Feb 08, 2019 15:01
[2019-02-09] VITALS (102 sets, daily range): BP systolic 66–140; BP diastolic 41–100; PULSE 107–130; RESP 15–37
[2019-02-09] MEDS: PHENYLephrine 80 MG in DEXTROSE 5% 242 ML IV PRN ×5 (05:01→22:46)
[2019-02-09] MEDS: NORepinephrine 32 MG in DEXTROSE 5% 218 ML IV SCH (05:01)
[2019-02-09] MEDS: PANTOPRAZOLE 40 MG INJ IV SCH ×2 (05:50→18:08)
[2019-02-09] MEDS: LACTULOSE 30ML CUP PO SCH ×3 (05:50→21:10)
[2019-02-09] MEDS: ACCU-CHEK XX SCH ×3 (05:55→18:29)
[2019-02-09] MEDS: MULTIVIT/CA CARB/B CMPLX/FA TAB PO SCH (08:23)
[2019-02-09] MEDS: MIDODRINE 5 MG TAB PO SCH ×3 (08:23→18:09)
[2019-02-09] MEDS: MEROPENEM 500MG/50 ML (PMX) 50 ML IVPB SCH ×2 (08:23→21:10)
[2019-02-09] MEDS: RIFAXIMIN 550 MG TAB PO SCH ×2 (08:23→21:10)
[2019-02-09] MEDS: BALSAM PERU/CASTOR OIL 60 GM TUBE TOP SCH ×2 (08:46→21:10)
[2019-02-09] MEDS ORDERED: LIDOCAINE 1% (MPF) 5 ML VIAL SC ONE (09:30)
--- NOTE | 2019-02-09 10:20 | PN ---
Date/Time of Note Date/Time of Note DATE: 02/09/19 TIME: 10:12 Assessment/Plan VTE Prophylaxis Risk score (from Ns)>0 risk: 10 SCD applied (from Ns): No SCD contraindicated: low risk/ambulating Pharmacological prophylaxis: NA/contraindicated Pharm contraindication: low risk/ambulating Lines/Catheters IV Catheter Type (from [facility]): Permacath Urinary Cath still in place: Yes Reason Cath still needed: urinary retention Assessment/Plan Assessment/Plan 1 Shock likely secondary to sepsis. Sepsis possibly + SBP , now with necrotic lesions on penile area, on pressors 2. Acute Respiratory failure status post intubation secondary to large pleural effusions secondary to volume overload post hemodialysis 3. Fractures of the superior endplates/bodies of L1, L2 and L3 with associated slight anterior superior endplate wedge compression of the L1 and L3 vertebral bodies. Multilevel degenerative changes greatest at L4-5 as described above. Mild degenerative changes of the right posterior lateral aspect of the T11-12 d isc space with mild central canal stenosis. 4. Decompensated alcoholic cirrhosis with a history of EtOH use. Hyperbilirubinemia 5. End-stage renal disease, on hemodialysis. 6. Coagulopathy. 7. Severe anemia with thrombocytopenia likely due to cirrhosis. Pt is bleeding rectally and from mouth. 8. Moderate anemia, likely multifactorial disease, likely secondary to end- stage renal disease versus bone marrow suppression versus nutritional deficiency versus cirrhosis. 9. Leucocytosis. 10. S.p paracentesis in previous hospital 01/28/2019 11. Suspicious for metastatic disease 12. Hypotension likely secondary to cirrhosis, rule out sepsis. 13. History of gastrointestinal bleed. 14. Hypoglycemia 15.History of cirrhosis 16 Penile lesions Assessment/Plan - cw pressor support - HD today along with PRBC - will give Vit K , ffp - now on FI02 60> UNSTABLE for transfer, pt reponded to his name - possible paracentesis tmw - cw vancomycin/rifampin/Meropenem -Continue with lactulose - blood cx positive gram postiv e? contaminant - dR [facility] called - cw Epogen -s/p multiple blood transfusion --Needs a tertiary setting with there is a Ability of CRRT and patient will need liver and a kidney transplant, pt was accepted at [facility] but unstable currently -poor prognosis - fu ID / Heme recs Result Diagram: 02/09/19 0500 02/09/19 0500 Results 24hrs Laboratory Tests Test 02/08/19 10:20 02/08/19 13:15 02/08/19 17:25 02/08/19 23:47 Bedside Glucose 154 141 145 141 Test 02/09/19 05:00 02/09/19 05:36 02/09/19 05:54 White Blood Count 25.0 H Red Blood Count 2.22 L Hemoglobin 7.0 L Hematocrit 20.3 L Mean Corpuscular 91.4 Volume Mean Corpuscular 31.5 Hemoglobin Mean Corpuscular 34.5 Hemoglobin Concen t Red Cell 19.3 H Distribution Width Platelet Count 55 L Mean Platelet 13.0 H Volume Immature 4.600 H Granulocytes % Neutrophils % Lymphocytes % Monocytes % Eosinophils % Basophils % Nucleated Red 3.0 H Blood Cells % Immature 1.140 H Granulocytes # Neutrophils # Lymphocytes # Monocytes # Eosinophils # Basophils # Nucleated Red Blood Cells # Prothrombin Time 36.8 H Prothrombin Time 2.9 Ratio INR International 3.72 Normalized Ratio Activated 93.4 *H Partial Thrombopl ast Time Thrombin Time 24.7 H Fibrinogen 127.0 L D-Dimer > 18644.00 H Sodium Level 137 Potassium Level 3.8 Chloride Level 97 Carbon Dioxide 21 Level Anion Gap 19 H Blood Urea 41 H Nitrogen Creatinine 4.35 H Est Glomerular 15 L Filtrat Rate mL/min Glucose Level 123 Calcium Level 9.5 Random Vancomycin 13.3 Level Lab Scanned BLOOD TRANSFUSIO Report N Bedside Glucose 128 Subjective 24 Hr Interval Summary Free Text/Dictation On levophed 8 and neospherine 300 responded on name hb 7.0 Ascites ++ Exam/Review of Systems Exam Vitals Vital Signs Date Temp Pulse Resp B/P (MAP) Pulse Ox O2 O2 Flow FiO2 Time Delivery Rate 02/09/19 116 22 91/49 (63) 100 08:45 02/09/19 60 08:11 02/09/19 99.5 Mechanical 08:00 Ventilator Intake and Output 02/08/19 02/08/19 02/09/19 1515:00 23:00 07:00 IntakeIntake Total 883.39 ml 934.630 ml 767.185 ml OutputOutput Total 100 ml 250 ml BalanceBalance 883.39 ml 834.630 ml 517.185 ml Exam orally intubated, NG tube with feed Constitutional: frail, scleral icterus Head: normocephalic Neck: supple Respiratory: diminished breath sounds Cardiovascular: regular rate and rhythm Gastrointestinal: soft, ascites+++ Genitourinary - Male: other (lowe) Musculoskeletal: swelling Extremities: edema +++ Results Results 24hrs Laboratory Tests Test 02/08/19 10:20 02/08/19 13:15 02/08/19 17:25 02/08/19 23:47 Bedside Glucose 154 141 145 141 Test 02/09/19 05:00 02/09/19 05:36 02/09/19 05:54 White Blood Count 25.0 H Red Blood Count 2.22 L Hemoglobin 7.0 L Hematocrit 20.3 L Mean Corpuscular 91.4 Volume Mean Corpuscular 31.5 Hemoglobin Mean Corpuscular 34.5 Hemoglobin Concen t Red Cell 19.3 H Distribution Width Platelet Count 55 L Mean Platelet 13.0 H Volume Immature 4.600 H Granulocytes % Neutrophils % Lymphocytes % Monocytes % Eosinophils % Basophils % Nucleated Red 3.0 H Blood Cells % Immature 1.140 H Granulocytes # Neutrophils # Lymphocytes # Monocytes # Eosinophils # Basophils # Nucleated Red Blood Cells # Prothrombin Time 36.8 H Prothrombin Time 2.9 Ratio INR International 3.72 Normalized Ratio Activated 93.4 *H Partial Thrombopl ast Time Thrombin Time 24.7 H Fibrinogen 127.0 L D-Dimer > 47708.00 H Sodium Level 137 Potassium Level 3.8 Chloride Level 97 Carbon Dioxide 21 Level Anion Gap 19 H Blood Urea 41 H Nitrogen Creatinine 4.35 H Est Glomerular 15 L Filtrat Rate mL/min Glucose Level 123 Calcium Level 9.5 Random Vancomycin 13.3 Level Lab Scanned BLOOD TRANSFUSIO Report N Bedside Glucose 128 Medications Medication Current Medications Lactulose (Enulose) 10 gm Q8 PO Last administered on 02/09/19at 05:50; Admin Dose 10 GM; Start 01/29/19 at 06:00 Ondansetron HCl (Zofran Inj) 4 mg Q6H PRN IV NAUSEA AND/OR VOMITING; Start 01/29/19 at 01:00 Epoetin Daniel-epbx (Retacrit (Esrd)) 4,000 unit MoWeFr@1700 SC Last administered on 02/06/19at 17:49; Admin Dose 4,000 UNIT; Start 01/30/19 at 17:00 Midodrine (Proamatine) 10 mg TID@,,17 PO Last administered on 02/09/19 08: 23; Admin Dose 10 MG; Start 01/29/19 at 17:00 Multivit/Ca Carb/ B Cmplx/FA/Prenat (Liz-Eugenia) 1 tab DAILY PO Last administered on 02/09/19 08:23; Admin Dose 1 TAB; Start 01/31/19 at 09:00 Docusate Sodium (Colace) 100 mg BID PRN PO constipation; Start 01/30/19 at 14:00 Senna (Senokot) 2 tab DAILY PRN PO constipation; Start 01/30/19 at 14:00 Levalbuterol (Xopenex Neb) 0.63 mg Q4H RESP THERAPY PRN HHN WHEEZING AND RESP DISTRESS Last administered on 02/04/19 05:40; Admin Dose 0.63 MG; Start at 22:30 Midazolam HCl 50 ml @ 1 mls/hr TITRATE IV Last administered on 02/04/19 21:44; Admin Dose 5 MLS/HR; Start 02/04/19 at 07:00 Fentanyl 100 ml @ 2.5 mls/hr TITRATE IV Last administered on 02/05/19 17:54; Admin Dose 5 MLS/HR; Start 02/04/19 at 07:00 Vancomycin HCl (Vanco Iv Per Pharmacy) VANCOMYCIN PER PHARMACY PER PROTOCOL XX ; Start 02/04/19 at 08:30 Pantoprazole (Protonix Iv) 40 mg BID@06,18 IV Last administered on 02/09/19 05:50; Admin Dose 40 MG; Start 02/04/19 at 18:00 Meropenem/Sodium Chloride 50 ml @ 100 mls/hr Q12 IVPB Last administered on 02/09/19 08:23; Admin Dose 100 MLS/HR; Start 02/05/19 at 12:00 Rifaximin (Xifaxan) 550 mg BID PO Last administered on 02/09/19 08:23; Admin Dose 550 MG; Start 02/05/19 at 21:00 Phenylephrine HCl 80 mg/Dextrose 250 ml @ 18.75 mls/ hr TITRATE PRN IV BLOOD PRESSURE SUPPORT Last administered on 02/09/19 08:54; Admin Dose 56.25 MLS/HR; Start 02/06/19 at 02:00 Dextrose (D50w Syringe) 50 ml PRN PRN IV HYPOGLYCEMIA (BS<70) Last administered on 02/06/19at 07:42; Admin Dose 50 ML; Start 02/06/19 at 07:30 Diagnostic Test (Pha) (Accu-Chek) 1 ea Q6 XX Last administered on 02/09/19at 05:55; Admin Dose 1 EA; Start 02/08/19 at 12:00 Norepinephrine 32 mg/Dextrose 250 ml @ 0.47 mls/hr TITRATE IV Last administered on 02/09/19at 05:01; Admin Dose 2.81 MLS/HR; Start 02/08/19 at 23:00 MAL ENRIQUE MD Feb 09, 2019 10:20
[2019-02-09] MEDS ORDERED: PHYTONADIONE 10 MG/ML INJ SC ONE (10:30)
--- NOTE | 2019-02-09 11:42 | CONS ---
Consult Date/Type/Reason Admit Date/Time Jan 29, 2019 at 01:13 Initial Consult Date 02/03/19 Type of Consult Pulmonary Requesting Provider: MAL ENRIQUE MD Date/Time of Note DATE: 02/09/19 TIME: 11:39 Subjective Patient continues mechanical ventilation remains somnolent. Chest x-ray shows worsening left effusion. Objective Vital Signs Date Temp Pulse Resp B/P (MAP) Pulse Ox O2 O2 Flow FiO2 Time Delivery Rate 02/09/19 116 22 90/49 (63) 99 10:30 02/09/19 Mechanical 10:00 Ventilator 02/09/19 60 08:11 02/09/19 99.5 08:00 Intake and Output 02/08/19 02/08/19 02/09/19 1515:00 23:00 07:00 IntakeIntake Total 883.39 ml 934.630 ml 846.245 ml OutputOutput Total 100 ml 250 ml BalanceBalance 883.39 ml 834.630 ml 596.245 ml Exam GENERAL: Visible jaundice VITAL SIGNS: per chart NECK: Supple. No JVD or lymphadenopathy. CARDIAC EXAM: S1, S2. No added sounds or murmurs. CHEST: Diminished air entry bilaterally ABDOMEN: Distended but no guarding or rebound EXTREMITIES: No cyanosis, clubbing or edema. NEUROLOGIC: Generalized weakness. No focal deficits. Chronically ill- appearing gentleman orally intubated on mechanical ventilation Vent Setting Ventilator Support Mode: AC Fraction of Inspired Oxygen pe: 60 Positive End Expiratory Pressu: 5.0 Results/Medications Result Diagram: 02/09/19 0500 02/09/19 0500 Results 24 hrs Laboratory Tests Test 02/08/19 13:15 02/08/19 17:25 02/08/19 23:47 02/09/19 05:00 Bedside Glucose 141 145 141 White Blood 25.0 H Count Red Blood Count 2.22 L Hemoglobin 7.0 L Hematocrit 20.3 L Mean Corpuscular 91.4 Volume Mean Corpuscular 31.5 Hemoglobin Mean Corpuscular 34.5 Hemoglobin Criselda nt Red Cell 19.3 H Distribution Width Platelet Count 55 L Mean Platelet 13.0 H Volume Immature 4.600 H Granulocytes % Neutrophils % Segmented 55 Neutrophils % (Manual) Band Neutrophils 10 H % (Manual) Lymphocytes % Lymphocytes % 14 L (Manual) Monocytes % Monocytes % 10 (Manual) Eosinophils % Eosinophils % 2 (Manual) Basophils % Basophils % 3 H (Manual) Myelocytes % 2 H (Manual) Promyelocytes % 4 H (Manual) Nucleated Red 6 H Blood Cells % Immature 1.140 H Granulocytes # Neutrophils # Neutrophils # 14.4 H (Manual) Band Neutrophils 2.5 H # Lymphocytes 3.5 H (Manual) Lymphocytes # Monocytes # Monocytes # 2.5 H (Manual) Eosinophils # Basophils # Basophils # 0.7 H (Manual) Myelocytes # 0.5 H Promyelocytes # 1.0 H Nucleated Red Blood Cells # Platelet SIG DECREASED Estimate Giant Platelets 1 H Hypochromasia 1+ Poikilocytosis 3+ Anisocytosis 2+ Macrocytosis 2+ Prothrombin Time 36.8 H Prothrombin Time 2.9 Ratio INR 3.72 International Normalized Ratio Activated 93.4 *H Partial Thrombop last Time Thrombin Time 24.7 H Fibrinogen 127.0 L D-Dimer > 62224.00 H Sodium Level 137 Potassium Level 3.8 Chloride Level 97 Carbon Dioxide 21 Level Anion Gap 19 H Blood Urea 41 H Nitrogen Creatinine 4.35 H Est Glomerular 15 L Filtrat Rate mL/min Glucose Level 123 Calcium Level 9.5 Random 13.3 Vancomycin Level Test 02/09/19 05:36 02/09/19 05:54 Lab Scanned BLOOD TRANSFUSI Report ON Bedside Glucose 128 Medications Current Medications Lactulose (Enulose) 10 gm Q8 PO Last administered on 02/09/19at 05:50; Admin Dose 10 GM; Start 01/29/19 at 06:00 Ondansetron HCl (Zofran Inj) 4 mg Q6H PRN IV NAUSEA AND/OR VOMITING; Start 01/29/19 at 01:00 Epoetin Daniel-epbx (Retacrit (Esrd)) 4,000 unit MoWeFr@1700 SC Last administered on 02/06/19at 17:49; Admin Dose 4,000 UNIT; Start 01/30/19 at 17:00 Midodrine (Proamatine) 10 mg TID@,,17 PO Last administered on 02/09/19at 08:23; Admin Dose 10 MG; Start 01/29/19 at 17:00 Multivit/Ca Carb/ B Cmplx/FA/Prenat (Liz-Eugenia) 1 tab DAILY PO Last administered on 02/09/19at 08:23; Admin Dose 1 TAB; Start 01/31/19 at 09:00 Docusate Sodium (Colace) 100 mg BID PRN PO constipation; Start 01/30/19 at 14:00 Senna (Senokot) 2 tab DAILY PRN PO constipation; Start 01/30/19 at 14:00 Levalbuterol (Xopenex Neb) 0.63 mg Q4H RESP THERAPY PRN HHN WHEEZING AND RESP DISTRESS Last administered on 02/04/19 05:40; Admin Dose 0.63 MG; Start at 22:30 Midazolam HCl 50 ml @ 1 mls/hr TITRATE IV Last administered on 02/04/19 21:44; Admin Dose 5 MLS/HR; Start 02/04/19 at 07:00 Fentanyl 100 ml @ 2.5 mls/hr TITRATE IV Last administered on 02/05/19 17:54; Admin Dose 5 MLS/HR; Start 02/04/19 at 07:00 Vancomycin HCl (Vanco Iv Per Pharmacy) VANCOMYCIN PER PHARMACY PER PROTOCOL XX ; Start 02/04/19 at 08:30 Pantoprazole (Protonix Iv) 40 mg BID@06,18 IV Last administered on 02/09/19 05:50; Admin Dose 40 MG; Start 02/04/19 at 18:00 Meropenem/Sodium Chloride 50 ml @ 100 mls/hr Q12 IVPB Last administered on 02/09/19 08:23; Admin Dose 100 MLS/HR; Start 02/05/19 at 12:00 Rifaximin (Xifaxan) 550 mg BID PO Last administered on 02/09/19 08:23; Admin Dose 550 MG; Start 02/05/19 at 21:00 Phenylephrine HCl 80 mg/Dextrose 250 ml @ 18.75 mls/ hr TITRATE PRN IV BLOOD PRESSURE SUPPORT Last administered on 02/09/19 08:54; Admin Dose 56.25 MLS/HR; Start 02/06/19 at 02:00 Dextrose (D50w Syringe) 50 ml PRN PRN IV HYPOGLYCEMIA (BS<70) Last administered on 02/06/19 07:42; Admin Dose 50 ML; Start 02/06/19 at 07:30 Diagnostic Test (Pha) (Accu-Chek) 1 ea Q6 XX Last administered on 6/24/19at 05:55; Admin Dose 1 EA; Start 02/08/19 at 12:00 Norepinephrine 32 mg/Dextrose 250 ml @ 0.47 mls/hr TITRATE IV Last administered on 02/09/19at 05:01; Admin Dose 2.81 MLS/HR; Start 02/08/19 at 23:00 Assessment/Plan Hospital Course (Demo Recall) Assessment 1. End-stage liver disease 2. Renal failure on hemodialysis 3. Hypoxemic respiratory failure requiring mechanical ventilation 4. Encephalopathy probably toxic metabolic 5. Septic shock on multiple vasopressors Plan 1. Continue mechanical ventilation 2. Titrate vasopressors to keep map greater than 65 3. Hemodialysis as tolerated 4. Tube feeding 5. Lactulose and rifaximin 6. Palliative care consultation is overall prognosis extremely poor 7. DC intraosseous line placed PICC line Critical care time 40 minutes Prognosis extremely poor. JIMMIE ACEVES MD, [facility] Feb 09, 2019 11:42
--- NOTE | 2019-02-09 12:03 | CONS ---
Assessment/Plan Assessment/Plan Hospital Course (Demo Recall) No acute events overnight patient remains on multiple pressors intubated tachycardic with low-grade fevers, T-max 100.4 T-current 99.5. WBC 25 H&H 7 and 20.3 platelets 53 Microbiology: Blood culture since admission grew gram-positive cocci in pairs. Testicular ultrasound suggested right sided epididymitis. Chest x-ray from yesterday revealed no change. Bilateral effusions left greater than right Antimicrobials: Meropenem vancomycin Indwelling's: Endotracheal tube NG tube right subclavian Hieu catheter Physical examination: Chronically ill-appearing wasted middle-aged man who is in no distress head atraumatic normocephalic neck is supple chest rise symmetrical breath sounds diminished bases. Heart: S1-S2 tachycardic abdomen distended bowel sounds hypoactive patient has tympany on percussion. Extremities with bilateral dependent edema. Skin: Positive for jaundice Assessment: 1. Septic shock with multisystem organ failure 2. GPC Bacteremia 3. Acute respiratory failure, possible pneumonia 4. Ascites, rule out SBP 5. End-stage liver cirrhosis 6. Acute renal failure likely hepatorenal 7. Severe anemia 8. Coagulopathy 9. Hypoglycemia Plan: Remains hemodynamically unstable, continue antibiotics, repeat blood cultures, plan for bld tx with HD today, prognosis very poor Consultation Date/Type/Reason Admit Date/Time Jan 29, 2019 at 01:13 Initial Consult Date 02/03/19 Type of Consult id Requesting Provider: MAL ENRIQUE MD Date/Time of Note DATE: 02/09/19 TIME: 11:59 Exam/Review of Systems Exam Vitals Vital Signs Date Temp Pulse Resp B/P (MAP) Pulse Ox O2 O2 Flow FiO2 Time Delivery Rate 02/09/19 116 22 90/49 (63) 99 10:30 02/09/19 Mechanical 10:00 Ventilator 02/09/19 60 08:11 02/09/19 99.5 08:00 Intake and Output 02/08/19 02/08/19 02/09/19 1515:00 23:00 07:00 IntakeIntake Total 883.39 ml 934.630 ml 846.245 ml OutputOutput Total 100 ml 250 ml BalanceBalance 883.39 ml 834.630 ml 596.245 ml Results Result Diagram: 02/09/19 0500 02/09/19 0500 Results 24hrs Laboratory Tests Test 02/08/19 13:15 02/08/19 17:25 02/08/19 23:47 02/09/19 05:00 Bedside Glucose 141 145 141 White Blood 25.0 H Count Red Blood Count 2.22 L Hemoglobin 7.0 L Hematocrit 20.3 L Mean Corpuscular 91.4 Volume Mean Corpuscular 31.5 Hemoglobin Mean Corpuscular 34.5 Hemoglobin Criselda nt Red Cell 19.3 H Distribution Width Platelet Count 55 L Mean Platelet 13.0 H Volume Immature 4.600 H Granulocytes % Neutrophils % Segmented 55 Neutrophils % (Manual) Band Neutrophils 10 H % (Manual) Lymphocytes % Lymphocytes % 14 L (Manual) Monocytes % Monocytes % 10 (Manual) Eosinophils % Eosinophils % 2 (Manual) Basophils % Basophils % 3 H (Manual) Myelocytes % 2 H (Manual) Promyelocytes % 4 H (Manual) Nucleated Red 6 H Blood Cells % Immature 1.140 H Granulocytes # Neutrophils # Neutrophils # 14.4 H (Manual) Band Neutrophils 2.5 H # Lymphocytes 3.5 H (Manual) Lymphocytes # Monocytes # Monocytes # 2.5 H (Manual) Eosinophils # Basophils # Basophils # 0.7 H (Manual) Myelocytes # 0.5 H Promyelocytes # 1.0 H Nucleated Red Blood Cells # Platelet SIG DECREASED Estimate Giant Platelets 1 H Hypochromasia 1+ Poikilocytosis 3+ Anisocytosis 2+ Macrocytosis 2+ Prothrombin Time 36.8 H Prothrombin Time 2.9 Ratio INR 3.72 International Normalized Ratio Activated 93.4 *H Partial Thrombop last Time Thrombin Time 24.7 H Fibrinogen 127.0 L D-Dimer > 62343.00 H Sodium Level 137 Potassium Level 3.8 Chloride Level 97 Carbon Dioxide 21 Level Anion Gap 19 H Blood Urea 41 H Nitrogen Creatinine 4.35 H Est Glomerular 15 L Filtrat Rate mL/min Glucose Level 123 Calcium Level 9.5 Random 13.3 Vancomycin Level Test 02/09/19 05:36 02/09/19 05:54 Lab Scanned BLOOD TRANSFUSI Report ON Bedside Glucose 128 Medications Medication Current Medications Lactulose (Enulose) 10 gm Q8 PO Last administered on 02/09/19at 05:50; Admin Dose 10 GM; Start 01/29/19 at 06:00 Ondansetron HCl (Zofran Inj) 4 mg Q6H PRN IV NAUSEA AND/OR VOMITING; Start 01/29/19 at 01:00 Epoetin Daniel-epbx (Retacrit (Esrd)) 4,000 unit MoWeFr@1700 SC Last administered on 02/06/19 17:49; Admin Dose 4,000 UNIT; Start 01/30/19 at 17:00 Midodrine (Proamatine) 10 mg TID@, PO Last administered on 02/09/19 08:23; Admin Dose 10 MG; Start 01/29/19 at 17:00 Multivit/Ca Carb/ B Cmplx/FA/Prenat (Liz-Eugenia) 1 tab DAILY PO Last administered on 02/09/19 08:23; Admin Dose 1 TAB; Start 01/31/19 at 09:00 Docusate Sodium (Colace) 100 mg BID PRN PO constipation; Start 01/30/19 at 14:00 Senna (Senokot) 2 tab DAILY PRN PO constipation; Start 01/30/19 at 14:00 Levalbuterol (Xopenex Neb) 0.63 mg Q4H RESP THERAPY PRN HHN WHEEZING AND RESP DISTRESS Last administered on 02/04/19 05:40; Admin Dose 0.63 MG; Start 02/02/19 at 22:30 Midazolam HCl 50 ml @ 1 mls/hr TITRATE IV Last administered on 02/04/19 21:44; Admin Dose 5 MLS/HR; Start 02/04/19 at 07:00 Fentanyl 100 ml @ 2.5 mls/hr TITRATE IV Last administered on 02/05/19 17:54; Admin Dose 5 MLS/HR; Start 02/04/19 at 07:00 Vancomycin HCl (Vanco Iv Per Pharmacy) VANCOMYCIN PER PHARMACY PER PROTOCOL XX ; Start 02/04/19 at 08:30 Pantoprazole (Protonix Iv) 40 mg BID@06,18 IV Last administered on 02/09/19 05:50; Admin Dose 40 MG; Start 02/04/19 at 18:00 Meropenem/Sodium Chloride 50 ml @ 100 mls/hr Q12 IVPB Last administered on 02/09/19 08:23; Admin Dose 100 MLS/HR; Start 02/05/19 at 12:00 Rifaximin (Xifaxan) 550 mg BID PO Last administered on 02/09/19 08:23; Admin Dose 550 MG; Start 02/05/19 at 21:00 Phenylephrine HCl 80 mg/Dextrose 250 ml @ 18.75 mls/ hr TITRATE PRN IV BLOOD PRESSURE SUPPORT Last administered on 02/09/19 08:54; Admin Dose 56.25 MLS/HR; Start 02/06/19 at 02:00 Dextrose (D50w Syringe) 50 ml PRN PRN IV HYPOGLYCEMIA (BS<70) Last administered on 02/06/19at 07:42; Admin Dose 50 ML; Start 02/06/19 at 07:30 Diagnostic Test (Pha) (Accu-Chek) 1 ea Q6 XX Last administered on 02/09/19 05:55; Admin Dose 1 EA; Start 02/08/19 at 12:00 Norepinephrine 32 mg/Dextrose 250 ml @ 0.47 mls/hr TITRATE IV Last administered on 02/09/19 05:01; Admin Dose 2.81 MLS/HR; Start 02/08/19 at 23:00 JAXON VASQUES NP Feb 09, 2019 12:03
--- NOTE | 2019-02-09 12:09 | CONS ---
Assessment/Plan Assessment/Plan Hospital Course (Demo Recall) 39 yo with ETOH related cirrhosis, coagulopathy, on dialysis who we were asked to see for coagulopathy #coagulopathy: most likely related to cirrhosis related synthetic dysfunction his coags are quite elevated especially the PTT is out of proportion to what would be expected for cirrhosis related liver dysfunction mixing study shows: Not corrected = Lupus Inhibitor or Time Dependent Inhibitor; ordered Lupus anticoagulant and it was not detected give vit K 10 mg sq daily low fibrinogen likely due to synthetic dysfunction but maybe also component if DIC ---> transfuse 10 units cryprecipitate if fibrinogen <100, transfuse 2 u FFP if fibrinogen <150 in terms of procedures, recommend 2 u FFP prior to proceeding with paracentesis, repeat PT/INR/PTT prior to paracentesis to ensure that coags are in safer range for the procedure transfuse to keep hgb>7, plt >20K check daily PTT/PT/INR/fibrinogen keep fibrinogen >100 TODAY TRANSFUSE: 10 UNITS CRYO VIT K 5 MG SQ grim prognosis--remains intubated, renal failure,liver failure and coagulopathy recommend discussion of goals of care and code status Consultation Date/Type/Reason Admit Date/Time Jan 29, 2019 at 01:13 Initial Consult Date 02/03/19 Requesting Provider: MAL ENRIQUE MD Date/Time of Note DATE: 02/09/19 TIME: 12:06 24 HR Interval Summary Free Text/Dictation remains intubated on pressors Subjective hx not possible: pt critical Exam/Review of Systems Exam Vitals Vital Signs Date Temp Pulse Resp B/P (MAP) Pulse Ox O2 O2 Flow FiO2 Time Delivery Rate 02/09/19 116 22 90/49 (63) 99 10:30 02/09/19 Mechanical 10:00 Ventilator 02/09/19 60 08:11 02/09/19 99.5 08:00 Intake and Output 02/08/19 02/08/19 02/09/19 1515:00 23:00 07:00 IntakeIntake Total 883.39 ml 934.630 ml 846.245 ml OutputOutput Total 100 ml 250 ml BalanceBalance 883.39 ml 834.630 ml 596.245 ml Constitutional: non-verbal, frail Eyes: icteric ENMT: intubated Respiratory: diminished breath sounds Gastrointestinal: hepatomegaly Extremities: pitting pedal edema Results Result Diagram: 6/24/19 0500 02/09/19 0500 Results 24hrs Laboratory Tests Test 02/08/19 13:15 02/08/19 17:25 02/08/19 23:47 02/09/19 05:00 Bedside Glucose 141 145 141 White Blood 25.0 H Count Red Blood Count 2.22 L Hemoglobin 7.0 L Hematocrit 20.3 L Mean Corpuscular 91.4 Volume Mean Corpuscular 31.5 Hemoglobin Mean Corpuscular 34.5 Hemoglobin Criselda nt Red Cell 19.3 H Distribution Width Platelet Count 55 L Mean Platelet 13.0 H Volume Immature 4.600 H Granulocytes % Neutrophils % Segmented 55 Neutrophils % (Manual) Band Neutrophils 10 H % (Manual) Lymphocytes % Lymphocytes % 14 L (Manual) Monocytes % Monocytes % 10 (Manual) Eosinophils % Eosinophils % 2 (Manual) Basophils % Basophils % 3 H (Manual) Myelocytes % 2 H (Manual) Promyelocytes % 4 H (Manual) Nucleated Red 6 H Blood Cells % Immature 1.140 H Granulocytes # Neutrophils # Neutrophils # 14.4 H (Manual) Band Neutrophils 2.5 H # Lymphocytes 3.5 H (Manual) Lymphocytes # Monocytes # Monocytes # 2.5 H (Manual) Eosinophils # Basophils # Basophils # 0.7 H (Manual) Myelocytes # 0.5 H Promyelocytes # 1.0 H Nucleated Red Blood Cells # Platelet SIG DECREASED Estimate Giant Platelets 1 H Hypochromasia 1+ Poikilocytosis 3+ Anisocytosis 2+ Macrocytosis 2+ Prothrombin Time 36.8 H Prothrombin Time 2.9 Ratio INR 3.72 International Normalized Ratio Activated 93.4 *H Partial Thrombop last Time Thrombin Time 24.7 H Fibrinogen 127.0 L D-Dimer > 20514.00 H Sodium Level 137 Potassium Level 3.8 Chloride Level 97 Carbon Dioxide 21 Level Anion Gap 19 H Blood Urea 41 H Nitrogen Creatinine 4.35 H Est Glomerular 15 L Filtrat Rate mL/min Glucose Level 123 Calcium Level 9.5 Random 13.3 Vancomycin Level Test 02/09/19 05:36 02/09/19 05:54 Lab Scanned BLOOD TRANSFUSI Report ON Bedside Glucose 128 Medications Medication Current Medications Lactulose (Enulose) 10 gm Q8 PO Last administered on 02/09/19at 05:50; Admin Dose 10 GM; Start 01/29/19 at 06:00 Ondansetron HCl (Zofran Inj) 4 mg Q6H PRN IV NAUSEA AND/OR VOMITING; Start 01/29/19 at 01:00 Epoetin Daniel-epbx (Retacrit (Esrd)) 4,000 unit MoWeFr@1700 SC Last administered on 02/06/19at 17:49; Admin Dose 4,000 UNIT; Start 01/30/19 at 17:00 Midodrine (Proamatine) 10 mg TID@,,17 PO Last administered on 02/09/19 08:23; Admin Dose 10 MG; Start 01/29/19 at 17:00 Multivit/Ca Carb/ B Cmplx/FA/Prenat (Liz-Eugenia) 1 tab DAILY PO Last administered on 02/09/19 08:23; Admin Dose 1 TAB; Start 01/31/19 at 09:00 Docusate Sodium (Colace) 100 mg BID PRN PO constipation; Start 01/30/19 at 14:00 Senna (Senokot) 2 tab DAILY PRN PO constipation; Start 01/30/19 at 14:00 Levalbuterol (Xopenex Neb) 0.63 mg Q4H RESP THERAPY PRN HHN WHEEZING AND RESP DISTRESS Last administered on 02/04/19 05:40; Admin Dose 0.63 MG; Start 02/02/19 at 22:30 Midazolam HCl 50 ml @ 1 mls/hr TITRATE IV Last administered on 02/04/19at 21:44; Admin Dose 5 MLS/HR; Start 02/04/19 at 07:00 Fentanyl 100 ml @ 2.5 mls/hr TITRATE IV Last administered on 02/05/19at 17:54; Admin Dose 5 MLS/HR; Start 02/04/19 at 07:00 Vancomycin HCl (Vanco Iv Per Pharmacy) VANCOMYCIN PER PHARMACY PER PROTOCOL XX ; Start 02/04/19 at 08:30 Pantoprazole (Protonix Iv) 40 mg BID@06,18 IV Last administered on 02/09/19at 05:50; Admin Dose 40 MG; Start 02/04/19 at 18:00 Meropenem/Sodium Chloride 50 ml @ 100 mls/hr Q12 IVPB Last administered on 02/09/19 08:23; Admin Dose 100 MLS/HR; Start 02/05/19 at 12:00 Rifaximin (Xifaxan) 550 mg BID PO Last administered on 02/09/19 08:23; Admin Dose 550 MG; Start 02/05/19 at 21:00 Phenylephrine HCl 80 mg/Dextrose 250 ml @ 18.75 mls/ hr TITRATE PRN IV BLOOD PRESSURE SUPPORT Last administered on 02/09/19 08:54; Admin Dose 56.25 MLS/HR; Start 02/06/19 at 02:00 Dextrose (D50w Syringe) 50 ml PRN PRN IV HYPOGLYCEMIA (BS<70) Last administered on 02/06/19at 07:42; Admin Dose 50 ML; Start 02/06/19 at 07:30 Diagnostic Test (Pha) (Accu-Chek) 1 ea Q6 XX Last administered on 02/09/19at 05:55; Admin Dose 1 EA; Start 02/08/19 at 12:00 Norepinephrine 32 mg/Dextrose 250 ml @ 0.47 mls/hr TITRATE IV Last administered on 02/09/19 05:01; Admin Dose 2.81 MLS/HR; Start 02/08/19 at 23:00 PIERCE PACE Feb 09, 2019 12:09
--- NOTE | 2019-02-09 13:14 | CONS ---
Assessment/Plan Assessment/Plan Hospital Course (Demo Recall) 39 yo male with liver disease with profound jaundice 1. Decompensated end stage liver disease with hyperbilirubinemia 2. Severe anemia. -positive FOB, there are wound around rectum 3. Leukocytosis. -trending up 4. Ascites. -paracentesis 02/04 -neg cultures of ascitic fluid 5. End-stage renal disease on dialysis. 6. Coagulopathy due to #1 -heme onc consulted 7. Thrombocytopenia due to #1 -downtrending 8. Scrotal cellulitis 9. Epididymitis rt side Plan PICC placement Pt will receive PRBC with HD May consider EGD or colonoscopy if pt stablizes Continue lactulose and rifaximin Pending Stool for C. difficile toxins Continue antibiotic Continue supportive care Monitor HH and for acute GI bleeding Patient's prognosis remains poor: Dr Boggs consult pending Pt examined and plan of care discussed with Dr. Guerra Consultation Date/Type/Reason Admit Date/Time Jan 29, 2019 at 01:13 Initial Consult Date Requesting Provider: MAL ENRIQUE MD Date/Time of Note DATE: 02/09/19 TIME: 13:10 24 HR Interval Summary Free Text/Dictation Tolerating tube feeds. On levophed gtt and neosynephrine gtt. Hemodynamically unstable. Exam/Review of Systems Exam Vitals Vital Signs Date Temp Pulse Resp B/P (MAP) Pulse Ox O2 O2 Flow FiO2 Time Delivery Rate 02/09/19 125 28 89/54 (66) 100 12:15 02/09/19 99.3 Mechanical 12:00 Ventilator 02/09/19 60 08:11 Intake and Output 02/08/19 02/08/19 02/09/19 1515:00 23:00 07:00 IntakeIntake Total 883.39 ml 934.630 ml 846.245 ml OutputOutput Total 100 ml 250 ml BalanceBalance 883.39 ml 834.630 ml 596.245 ml Constitutional: alert Head: normocephalic Eyes: PERRL Respiratory: normal air movement Cardiovascular: regular rate and rhythm Gastrointestinal: ascites Neurological: other (pt is not tracking) Results Result Diagram: 02/09/19 0500 02/09/19 0500 Results 24hrs Laboratory Tests Test 02/08/19 13:15 02/08/19 17:25 02/08/19 23:47 02/09/19 05:00 Bedside Glucose 141 145 141 White Blood 25.0 H Count Red Blood Count 2.22 L Hemoglobin 7.0 L Hematocrit 20.3 L Mean Corpuscular 91.4 Volume Mean Corpuscular 31.5 Hemoglobin Mean Corpuscular 34.5 Hemoglobin Criselda nt Red Cell 19.3 H Distribution Width Platelet Count 55 L Mean Platelet 13.0 H Volume Immature 4.600 H Granulocytes % Neutrophils % Segmented 55 Neutrophils % (Manual) Band Neutrophils 10 H % (Manual) Lymphocytes % Lymphocytes % 14 L (Manual) Monocytes % Monocytes % 10 (Manual) Eosinophils % Eosinophils % 2 (Manual) Basophils % Basophils % 3 H (Manual) Myelocytes % 2 H (Manual) Promyelocytes % 4 H (Manual) Nucleated Red 6 H Blood Cells % Immature 1.140 H Granulocytes # Neutrophils # Neutrophils # 14.4 H (Manual) Band Neutrophils 2.5 H # Lymphocytes 3.5 H (Manual) Lymphocytes # Monocytes # Monocytes # 2.5 H (Manual) Eosinophils # Basophils # Basophils # 0.7 H (Manual) Myelocytes # 0.5 H Promyelocytes # 1.0 H Nucleated Red Blood Cells # Platelet SIG DECREASED Estimate Giant Platelets 1 H Hypochromasia 1+ Poikilocytosis 3+ Anisocytosis 2+ Macrocytosis 2+ Prothrombin Time 36.8 H Prothrombin Time 2.9 Ratio INR 3.72 International Normalized Ratio Activated 93.4 *H Partial Thrombop last Time Thrombin Time 24.7 H Fibrinogen 127.0 L D-Dimer > 02336.00 H Sodium Level 137 Potassium Level 3.8 Chloride Level 97 Carbon Dioxide 21 Level Anion Gap 19 H Blood Urea 41 H Nitrogen Creatinine 4.35 H Est Glomerular 15 L Filtrat Rate mL/min Glucose Level 123 Calcium Level 9.5 Random 13.3 Vancomycin Level Test 02/09/19 05:36 02/09/19 05:54 Lab Scanned BLOOD TRANSFUSI Report ON Bedside Glucose 128 Medications Medication Current Medications Lactulose (Enulose) 10 gm Q8 PO Last administered on 02/09/19at 05:50; Admin Dose 10 GM; Start 01/29/19 at 06:00 Ondansetron HCl (Zofran Inj) 4 mg Q6H PRN IV NAUSEA AND/OR VOMITING; Start 01/29/19 at 01:00 Epoetin Daniel-epbx (Retacrit (Esrd)) 4,000 unit MoWeFr@1700 SC Last administered on 02/06/19 17:49; Admin Dose 4,000 UNIT; Start 01/30/19 at 17:00 Midodrine (Proamatine) 10 mg TID@,13,17 PO Last administered on 02/09/19 08:23; Admin Dose 10 MG; Start 01/29/19 at 17:00 Multivit/Ca Carb/ B Cmplx/FA/Prenat (Liz-Eugenia) 1 tab DAILY PO Last administered on 02/09/19 08:23; Admin Dose 1 TAB; Start 01/31/19 at 09:00 Docusate Sodium (Colace) 100 mg BID PRN PO constipation; Start 01/30/19 at 14:00 Senna (Senokot) 2 tab DAILY PRN PO constipation; Start 01/30/19 at 14:00 Levalbuterol (Xopenex Neb) 0.63 mg Q4H RESP THERAPY PRN HHN WHEEZING AND RESP DISTRESS Last administered on 02/04/19 05:40; Admin Dose 0.63 MG; Start 02/02/19 at 22:30 Midazolam HCl 50 ml @ 1 mls/hr TITRATE IV Last administered on 02/04/19 21:44; Admin Dose 5 MLS/HR; Start 02/04/19 at 07:00 Fentanyl 100 ml @ 2.5 mls/hr TITRATE IV Last administered on 02/05/19 17:54; Admin Dose 5 MLS/HR; Start 02/04/19 at 07:00 Vancomycin HCl (Vanco Iv Per Pharmacy) VANCOMYCIN PER PHARMACY PER PROTOCOL XX ; Start 02/04/19 at 08:30 Pantoprazole (Protonix Iv) 40 mg BID@06,18 IV Last administered on 02/09/19 05:50; Admin Dose 40 MG; Start 02/04/19 at 18:00 Meropenem/Sodium Chloride 50 ml @ 100 mls/hr Q12 IVPB Last administered on 02/09/19 08:23; Admin Dose 100 MLS/HR; Start 02/05/19 at 12:00 Rifaximin (Xifaxan) 550 mg BID PO Last administered on 02/09/19 08:23; Admin Dose 550 MG; Start 02/05/19 at 21:00 Phenylephrine HCl 80 mg/Dextrose 250 ml @ 18.75 mls/ hr TITRATE PRN IV BLOOD PRESSURE SUPPORT Last administered on 02/09/19at 08:54; Admin Dose 56.25 MLS/HR; Start 02/06/19 at 02:00 Dextrose (D50w Syringe) 50 ml PRN PRN IV HYPOGLYCEMIA (BS<70) Last administered on 02/06/19at 07:42; Admin Dose 50 ML; Start 02/06/19 at 07:30 Diagnostic Test (Pha) (Accu-Chek) 1 ea Q6 XX Last administered on 02/09/19at 05:55; Admin Dose 1 EA; Start 02/08/19 at 12:00 Norepinephrine 32 mg/Dextrose 250 ml @ 0.47 mls/hr TITRATE IV Last administered on 02/09/19at 05:01; Admin Dose 2.81 MLS/HR; Start 02/08/19 at 23:00 Vancomycin HCl 250 ml @ 125 mls/hr ONCE IVPB ; Start 02/09/19 at 14:00; Stop 02/09/19 at 23:59 PHOENIX CUELLAR Feb 09, 2019 13:14
--- NOTE | 2019-02-09 13:43 | CONS ---
Assessment/Plan Assessment/Plan Hospital Course (Demo Recall) 39-year-old male with multiple medical problems: 1 Shock likely secondary to sepsis. 2. Acute Respiratory failure status post intubation secondary to large pleural effusions secondary to volume overload post hemodialysis 3. Fractures of the superior endplates/bodies of L1, L2 and L3 4. Decompensated alcoholic cirrhosis with a history of EtOH use. Hyperbilirubinemia 5. End-stage renal disease, on hemodialysis. 6. Coagulopathy. 7. Severe anemia with thrombocytopenia likely due to cirrhosis. 8. Moderate anemia, likely multifactorial disease 9. Leucocytosis. 10. S.p paracentesis on 01/28/2019 11. Suspicious for metastatic disease 12. Hypotension likely secondary to cirrhosis 13. History of gastrointestinal bleed. 14. Hypoglycemia 15.History of cirrhosis On the physical examination it appears that the patient does have paraphimosis and the constricting skin proximal to the méndez is the one that has poor circulation and signs of ischemia. The foreskin is also swollen. I did reduce the paraphimosis and instructed the staff not to retract the foreskin back. It may take some time for the edema to subside especially that he does have a lot of edema in his pubic area as well as in the thighs. The findings are not those of a Elin gangrene and at the present do not require any surgical intervention. Consultation Date/Type/Reason Admit Date/Time Jan 29, 2019 at 01:13 Date of Consultation: Feb 09, 2019 Type of Consult Urology Reason for Consultation Penile lesions Requesting Provider: MAL ENRIQUE MD Date/Time of Note DATE: 02/09/19 TIME: 13:31 Hx of Present Illness 39-year-old male with multiple medical problems: 1 Shock likely secondary to sepsis. 2. Acute Respiratory failure status post intubation secondary to large pleural effusions secondary to volume overload post hemodialysis 3. Fractures of the superior endplates/bodies of L1, L2 and L3 4. Decompensated alcoholic cirrhosis with a history of EtOH use. Hyperbilirubinemia 5. End-stage renal disease, on hemodialysis. 6. Coagulopathy. 7. Severe anemia with thrombocytopenia likely due to cirrhosis. 8. Moderate anemia, likely multifactorial disease 9. Leucocytosis. 10. S.p paracentesis on 01/28/2019 11. Suspicious for metastatic disease 12. Hypotension likely secondary to cirrhosis 13. History of gastrointestinal bleed. 14. Hypoglycemia 15.History of cirrhosis The patient was noted to have penile lesions and concern was about possible Elin gangrene. Therefore a urological consultation was requested. The medical records of the patient were reviewed and the patient examined Constitutional: no complaints Eyes: no complaints Genitourinary: other (Penile lesions and swelling) Past Medical History Medical History: other (As per history of present illness) Medications Current Medications Lactulose (Enulose) 10 gm Q8 PO Last administered on 02/09/19 05:50; Admin Dose 10 GM; Start 01/29/19 at 06:00 Ondansetron HCl (Zofran Inj) 4 mg Q6H PRN IV NAUSEA AND/OR VOMITING; Start 01/29/19 at 01:00 Epoetin Daniel-epbx (Retacrit (Esrd)) 4,000 unit MoWeFr@1700 SC Last administered on 02/06/19 17:49; Admin Dose 4,000 UNIT; Start 01/30/19 at 17:00 Midodrine (Proamatine) 10 mg TID@,,17 PO Last administered on 02/09/19 08:23; Admin Dose 10 MG; Start 01/29/19 at 17:00 Multivit/Ca Carb/ B Cmplx/FA/Prenat (Liz-Eugenia) 1 tab DAILY PO Last administered on 02/09/19 08:23; Admin Dose 1 TAB; Start 01/31/19 at 09:00 Docusate Sodium (Colace) 100 mg BID PRN PO constipation; Start 01/30/19 at 14:00 Senna (Senokot) 2 tab DAILY PRN PO constipation; Start 01/30/19 at 14:00 Levalbuterol (Xopenex Neb) 0.63 mg Q4H RESP THERAPY PRN HHN WHEEZING AND RESP DISTRESS Last administered on 02/04/19 05:40; Admin Dose 0.63 MG; Start 02/02/19 at 22:30 Midazolam HCl 50 ml @ 1 mls/hr TITRATE IV Last administered on 02/04/19 21:44; Admin Dose 5 MLS/HR; Start 02/04/19 at 07:00 Fentanyl 100 ml @ 2.5 mls/hr TITRATE IV Last administered on 02/05/19 17:54; Admin Dose 5 MLS/HR; Start 02/04/19 at 07:00 Vancomycin HCl (Vanco Iv Per Pharmacy) VANCOMYCIN PER PHARMACY PER PROTOCOL XX ; Start 02/04/19 at 08:30 Pantoprazole (Protonix Iv) 40 mg BID@06,18 IV Last administered on 02/09/19 05:50; Admin Dose 40 MG; Start 02/04/19 at 18:00 Meropenem/Sodium Chloride 50 ml @ 100 mls/hr Q12 IVPB Last administered on 02/09/19 08:23; Admin Dose 100 MLS/HR; Start 02/05/19 at 12:00 Rifaximin (Xifaxan) 550 mg BID PO Last administered on 02/09/19 08:23; Admin Dose 550 MG; Start 02/05/19 at 21:00 Phenylephrine HCl 80 mg/Dextrose 250 ml @ 18.75 mls/ hr TITRATE PRN IV BLOOD PRESSURE SUPPORT Last administered on 02/09/19 08:54; Admin Dose 56.25 MLS/HR; Start 02/06/19 at 02:00 Dextrose (D50w Syringe) 50 ml PRN PRN IV HYPOGLYCEMIA (BS<70) Last administered on 02/06/19at 07:42; Admin Dose 50 ML; Start 02/06/19 at 07:30 Diagnostic Test (Pha) (Accu-Chek) 1 ea Q6 XX Last administered on 02/09/19 05:55; Admin Dose 1 EA; Start 02/08/19 at 12:00 Norepinephrine 32 mg/Dextrose 250 ml @ 0.47 mls/hr TITRATE IV Last administered on 02/09/19 05:01; Admin Dose 2.81 MLS/HR; Start 02/08/19 at 23:00 Vancomycin HCl 250 ml @ 125 mls/hr ONCE IVPB ; Start 02/09/19 at 14:00; Stop 02/09/19 at 23:59 Allergies: Coded Allergies: No Known Allergy (Unverified , 01/29/19) Past Surgical History Past Surgical Hx: other (As per history of present illness) Social History Alcohol Use: heavy (History of) Smoking Status: Former smoker Exam/Review of Systems Exam Vitals Vital Signs Date Temp Pulse Resp B/P (MAP) Pulse Ox O2 O2 Flow FiO2 Time Delivery Rate 02/09/19 125 28 89/54 (66) 100 12:15 02/09/19 99.3 Mechanical 12:00 Ventilator 02/09/19 60 08:11 Intake and Output 02/08/19 02/08/19 02/09/19 1515:00 23:00 07:00 IntakeIntake Total 883.39 ml 934.630 ml 846.245 ml OutputOutput Total 100 ml 250 ml BalanceBalance 883.39 ml 834.630 ml 596.245 ml Constitutional: alert Eyes: icteric Neck: supple Respiratory: normal air movement Gastrointestinal: ascites, distended Genitourinary - Male: nl scrotum, other (The penis has lesions on the foreskin proximal to the méndez appears that the patient did have a [place] catheter and that was removed and when the [place] catheter was inserted the foreskin may have been retracted back and was not returned to cover the glands therefore causing constriction proximal to the méndez and it is the constricted tissue that has discoloration and sign of poor circulation. There is no sign of Elin gangrene.) Results Result Diagram: 02/09/19 0500 02/09/19 0500 Results 24hrs Laboratory Tests Test 02/08/19 17:25 02/08/19 23:47 02/09/19 05:00 02/09/19 05:36 Bedside Glucose 145 141 White Blood 25.0 H Count Red Blood Count 2.22 L Hemoglobin 7.0 L Hematocrit 20.3 L Mean Corpuscular 91.4 Volume Mean Corpuscular 31.5 Hemoglobin Mean Corpuscular 34.5 Hemoglobin Criselda nt Red Cell 19.3 H Distribution Width Platelet Count 55 L Mean Platelet 13.0 H Volume Immature 4.600 H Granulocytes % Neutrophils % Segmented 55 Neutrophils % (Manual) Band Neutrophils 10 H % (Manual) Lymphocytes % Lymphocytes % 14 L (Manual) Monocytes % Monocytes % 10 (Manual) Eosinophils % Eosinophils % 2 (Manual) Basophils % Basophils % 3 H (Manual) Myelocytes % 2 H (Manual) Promyelocytes % 4 H (Manual) Nucleated Red 6 H Blood Cells % Immature 1.140 H Granulocytes # Neutrophils # Neutrophils # 14.4 H (Manual) Band Neutrophils 2.5 H # Lymphocytes 3.5 H (Manual) Lymphocytes # Monocytes # Monocytes # 2.5 H (Manual) Eosinophils # Basophils # Basophils # 0.7 H (Manual) Myelocytes # 0.5 H Promyelocytes # 1.0 H Nucleated Red Blood Cells # Platelet SIG DECREASED Estimate Giant Platelets 1 H Hypochromasia 1+ Poikilocytosis 3+ Anisocytosis 2+ Macrocytosis 2+ Prothrombin Time 36.8 H Prothrombin Time 2.9 Ratio INR 3.72 International Normalized Ratio Activated 93.4 *H Partial Thrombop last Time Thrombin Time 24.7 H Fibrinogen 127.0 L D-Dimer > 41451.00 H Sodium Level 137 Potassium Level 3.8 Chloride Level 97 Carbon Dioxide 21 Level Anion Gap 19 H Blood Urea 41 H Nitrogen Creatinine 4.35 H Est Glomerular 15 L Filtrat Rate mL/min Glucose Level 123 Calcium Level 9.5 Random 13.3 Vancomycin Level Lab Scanned BLOOD TRANSFUSI Report ON Test 02/09/19 05:54 Bedside Glucose 128 Medications Medication Current Medications Lactulose (Enulose) 10 gm Q8 PO Last administered on 02/09/19at 05:50; Admin Dose 10 GM; Start 01/29/19 at 06:00 Ondansetron HCl (Zofran Inj) 4 mg Q6H PRN IV NAUSEA AND/OR VOMITING; Start 01/29/19 at 01:00 Epoetin Daniel-epbx (Retacrit (Esrd)) 4,000 unit MoWeFr@1700 SC Last administered on 02/06/19at 17:49; Admin Dose 4,000 UNIT; Start 01/30/19 at 17:00 Midodrine (Proamatine) 10 mg TID@09,13,17 PO Last administered on 02/09/19 08:23; Admin Dose 10 MG; Start 01/29/19 at 17:00 Multivit/Ca Carb/ B Cmplx/FA/Prenat (Liz-Eugenia) 1 tab DAILY PO Last administered on 02/09/19 08:23; Admin Dose 1 TAB; Start 01/31/19 at 09:00 Docusate Sodium (Colace) 100 mg BID PRN PO constipation; Start 01/30/19 at 14:00 Senna (Senokot) 2 tab DAILY PRN PO constipation; Start 01/30/19 at 14:00 Levalbuterol (Xopenex Neb) 0.63 mg Q4H RESP THERAPY PRN HHN WHEEZING AND RESP DISTRESS Last administered on 02/04/19 05:40; Admin Dose 0.63 MG; Start 02/02/19 at 22:30 Midazolam HCl 50 ml @ 1 mls/hr TITRATE IV Last administered on 02/04/19 21:44; Admin Dose 5 MLS/HR; Start 02/04/19 at 07:00 Fentanyl 100 ml @ 2.5 mls/hr TITRATE IV Last administered on 02/05/19 17:54; Admin Dose 5 MLS/HR; Start 02/04/19 at 07:00 Vancomycin HCl (Vanco Iv Per Pharmacy) VANCOMYCIN PER PHARMACY PER PROTOCOL XX ; Start 02/04/19 at 08:30 Pantoprazole (Protonix Iv) 40 mg BID@06,18 IV Last administered on 02/09/19 05:50; Admin Dose 40 MG; Start 02/04/19 at 18:00 Meropenem/Sodium Chloride 50 ml @ 100 mls/hr Q12 IVPB Last administered on 02/09/19 08:23; Admin Dose 100 MLS/HR; Start 02/05/19 at 12:00 Rifaximin (Xifaxan) 550 mg BID PO Last administered on 02/09/19 08:23; Admin Dose 550 MG; Start 02/05/19 at 21:00 Phenylephrine HCl 80 mg/Dextrose 250 ml @ 18.75 mls/ hr TITRATE PRN IV BLOOD PRESSURE SUPPORT Last administered on 02/09/19 08:54; Admin Dose 56.25 MLS/HR; Start 02/06/19 at 02:00 Dextrose (D50w Syringe) 50 ml PRN PRN IV HYPOGLYCEMIA (BS<70) Last administered on 02/06/19 07:42; Admin Dose 50 ML; Start 02/06/19 at 07:30 Diagnostic Test (Pha) (Accu-Chek) 1 ea Q6 XX Last administered on 02/09/19 05:55; Admin Dose 1 EA; Start 02/08/19 at 12:00 Norepinephrine 32 mg/Dextrose 250 ml @ 0.47 mls/hr TITRATE IV Last administered on 02/09/19 05:01; Admin Dose 2.81 MLS/HR; Start 02/08/19 at 23:00 Vancomycin HCl 250 ml @ 125 mls/hr ONCE IVPB ; Start 02/09/19 at 14:00; Stop 02/09/19 at 23:59 JONAH SUE MD Feb 09, 2019 13:43
[2019-02-09] MEDS ORDERED: VANCOMYCIN 1 GM 250 ML IVPB SCH (14:00)
--- NOTE | 2019-02-09 14:21 | CONS ---
Assessment/Plan Assessment/Plan Hospital Course (Demo Recall) IMP: 1.HYpotension-on casa 2.Tachycardia-s tach 3.ESLD/cirrhosis 4.Jaundice/elevated bili 5. Renal failure 6. Respiratory failure s/p intubation 7. anemia 8. Coagulopathy 9. thrombocytopenia Recc: -ICU -serial ecg's -complete myke -wean casa as possible -check echo -continue abx's and f/u cx data -transfuse PRBC's as necessary -Follow coagulopathy and correct as necessary Consultation Date/Type/Reason Admit Date/Time Jan 29, 2019 at 01:13 Initial Consult Date 02/09/19 Type of Consult Cardiology Reason for Consultation tachycardia/hypotension Requesting Provider: MAL ENRIQUE MD Date/Time of Note DATE: 02/09/19 TIME: 14:15 Exam/Review of Systems Vital Signs Vitals Vital Signs Date Temp Pulse Resp B/P (MAP) Pulse Ox O2 O2 Flow FiO2 Time Delivery Rate 02/09/19 125 28 89/54 (66) 100 12:15 02/09/19 99.3 Mechanical 12:00 Ventilator 02/09/19 60 08:11 Intake and Output 02/08/19 02/08/19 02/09/19 1515:00 23:00 07:00 IntakeIntake Total 883.39 ml 934.630 ml 846.245 ml OutputOutput Total 100 ml 250 ml BalanceBalance 883.39 ml 834.630 ml 596.245 ml Exam Exam Review of Systems: CONSTITUTIONAL: No fevers, chill, jaundice PULMONARY: No sob CARDIOVASCULAR: No chest pain/palpitations GASTROINTESTINAL: No nausea/vomiting. GENITOURINARY: No hematuria/dysuria. MUSCULOSKELETAL: No myagias/arthalgias. PSYCHIATRIC: The patient denies depression. NEUROLOGIC: No weakness Constitutional: other (sedated) Psych: no complaints Head: normocephalic ENMT: mucosa pink and moist, intubated Neck: supple, jvd (9 cm water) Respiratory: diminished breath sounds (at) Cardiovascular: other (tachycardic, regular rhythm) Gastrointestinal: soft Extremities: pitting pedal edema (bilateralo) Labs Result Diagram: 02/09/19 0500 02/09/19 0500 Results 24hrs Laboratory Tests Test 02/08/19 17:25 02/08/19 23:47 02/09/19 05:00 02/09/19 05:36 Bedside Glucose 145 141 White Blood 25.0 H Count Red Blood Count 2.22 L Hemoglobin 7.0 L Hematocrit 20.3 L Mean Corpuscular 91.4 Volume Mean Corpuscular 31.5 Hemoglobin Mean Corpuscular 34.5 Hemoglobin Criselda nt Red Cell 19.3 H Distribution Width Platelet Count 55 L Mean Platelet 13.0 H Volume Immature 4.600 H Granulocytes % Neutrophils % Segmented 55 Neutrophils % (Manual) Band Neutrophils 10 H % (Manual) Lymphocytes % Lymphocytes % 14 L (Manual) Monocytes % Monocytes % 10 (Manual) Eosinophils % Eosinophils % 2 (Manual) Basophils % Basophils % 3 H (Manual) Myelocytes % 2 H (Manual) Promyelocytes % 4 H (Manual) Nucleated Red 6 H Blood Cells % Immature 1.140 H Granulocytes # Neutrophils # Neutrophils # 14.4 H (Manual) Band Neutrophils 2.5 H # Lymphocytes 3.5 H (Manual) Lymphocytes # Monocytes # Monocytes # 2.5 H (Manual) Eosinophils # Basophils # Basophils # 0.7 H (Manual) Myelocytes # 0.5 H Promyelocytes # 1.0 H Nucleated Red Blood Cells # Platelet SIG DECREASED Estimate Giant Platelets 1 H Hypochromasia 1+ Poikilocytosis 3+ Anisocytosis 2+ Macrocytosis 2+ Prothrombin Time 36.8 H Prothrombin Time 2.9 Ratio INR 3.72 International Normalized Ratio Activated 93.4 *H Partial Thrombop last Time Thrombin Time 24.7 H Fibrinogen 127.0 L D-Dimer > 29200.00 H Sodium Level 137 Potassium Level 3.8 Chloride Level 97 Carbon Dioxide 21 Level Anion Gap 19 H Blood Urea 41 H Nitrogen Creatinine 4.35 H Est Glomerular 15 L Filtrat Rate mL/min Glucose Level 123 Calcium Level 9.5 Random 13.3 Vancomycin Level Lab Scanned BLOOD TRANSFUSI Report ON Test 02/09/19 05:54 Bedside Glucose 128 Medications Medications Current Medications Lactulose (Enulose) 10 gm Q8 PO Last administered on 02/09/19at 13:51; Admin Dose 10 GM; Start 01/29/19 at 06:00 Ondansetron HCl (Zofran Inj) 4 mg Q6H PRN IV NAUSEA AND/OR VOMITING; Start 01/29/19 at 01:00 Epoetin Daniel-epbx (Retacrit (Esrd)) 4,000 unit MoWeFr@1700 SC Last administered on 02/06/19 17:49; Admin Dose 4,000 UNIT; Start 01/30/19 at 17:00 Midodrine (Proamatine) 10 mg TID@,,17 PO Last administered on 02/09/19 13:52; Admin Dose 10 MG; Start 01/29/19 at 17:00 Multivit/Ca Carb/ B Cmplx/FA/Prenat (Liz-Eugenia) 1 tab DAILY PO Last administer ed on 02/09/19 08:23; Admin Dose 1 TAB; Start 01/31/19 at 09:00 Docusate Sodium (Colace) 100 mg BID PRN PO constipation; Start 01/30/19 at 14:00 Senna (Senokot) 2 tab DAILY PRN PO constipation; Start 01/30/19 at 14:00 Levalbuterol (Xopenex Neb) 0.63 mg Q4H RESP THERAPY PRN HHN WHEEZING AND RESP DISTRESS Last administered on 02/04/19 05:40; Admin Dose 0.63 MG; Start 02/02/19 at 22:30 Midazolam HCl 50 ml @ 1 mls/hr TITRATE IV Last administered on 02/04/19 21:44; Admin Dose 5 MLS/HR; Start 02/04/19 at 07:00 Fentanyl 100 ml @ 2.5 mls/hr TITRATE IV Last administered on 02/05/19 17:54; Admin Dose 5 MLS/HR; Start 02/04/19 at 07:00 Vancomycin HCl (Vanco Iv Per Pharmacy) VANCOMYCIN PER PHARMACY PER PROTOCOL XX ; Start 02/04/19 at 08:30 Pantoprazole (Protonix Iv) 40 mg BID@06,18 IV Last administered on 02/09/19 05:50; Admin Dose 40 MG; Start 02/04/19 at 18:00 Meropenem/Sodium Chloride 50 ml @ 100 mls/hr Q12 IVPB Last administered on 02/09/19 08:23; Admin Dose 100 MLS/HR; Start 02/05/19 at 12:00 Rifaximin (Xifaxan) 550 mg BID PO Last administered on 02/09/19 08:23; Admin Dose 550 MG; Start 02/05/19 at 21:00 Phenylephrine HCl 80 mg/Dextrose 250 ml @ 18.75 mls/ hr TITRATE PRN IV BLOOD PRESSURE SUPPORT Last administered on 02/09/19 13:13; Admin Dose 56.25 MLS/HR; Start 02/06/19 at 02:00 Dextrose (D50w Syringe) 50 ml PRN PRN IV HYPOGLYCEMIA (BS<70) Last administered on 02/06/19 07:42; Admin Dose 50 ML; Start 02/06/19 at 07:30 Diagnostic Test (Pha) (Accu-Chek) 1 ea Q6 XX Last administered on 02/09/19 05:55; Admin Dose 1 EA; Start 02/08/19 at 12:00 Norepinephrine 32 mg/Dextrose 250 ml @ 0.47 mls/hr TITRATE IV Last administered on 02/09/19 05:01; Admin Dose 2.81 MLS/HR; Start 02/08/19 at 23:00 Vancomycin HCl 250 ml @ 125 mls/hr ONCE IVPB Last administered on 02/09/19 13:52; Admin Dose 125 MLS/HR; Start 02/09/19 at 14:00; Stop 02/09/19 at 23:59 LESLY AGUIRRE Feb 09, 2019 14:21
[2019-02-09] MEDS: EPOETIN ALFA-EPBX (ESRD) 4,000 UNIT/ML VIAL SC SCH (18:11)
[2019-02-10] VITALS (106 sets, daily range): BP systolic 71–108; BP diastolic 42–86; PULSE 100–125; RESP 16–29
[2019-02-10] MEDS: ACCU-CHEK XX SCH ×4 (00:03→18:00)
[2019-02-10] MEDS: PANTOPRAZOLE 40 MG INJ IV SCH (05:39)
[2019-02-10] MEDS: LACTULOSE 30ML CUP PO SCH ×3 (05:39→21:59)
--- NOTE | 2019-02-10 07:56 | CONS ---
Consult Date/Type/Reason Admit Date/Time Jan 29, 2019 at 01:13 Initial Consult Date 02/09/19 Type of Consultation: Urology Reason for Consultation Penile edema and paraphimosis with areas of ischemia Requesting Provider: MAL ENRIQUE MD Date/Time of Note DATE: 02/10/19 TIME: 07:51 Subjective Patient general condition is unchanged Objective Vitals Vital Signs Date Temp Pulse Resp B/P (MAP) Pulse Ox O2 O2 Flow FiO2 Time Delivery Rate 02/10/19 108 21 94/51 (65) 99 Mechanical 07:00 Ventilator 02/10/19 40 05:31 02/10/19 97.4 04:00 Intake and Output 02/09/19 02/09/19 02/10/19 1515:00 23:00 07:00 IntakeIntake Total 1190.88 ml 1183.34 ml 641.10 ml OutputOutput Total 1200 ml 800 ml BalanceBalance 1190.88 ml -16.66 ml -158.90 ml Exam The paraphimosis remained reduced and he has a lot of swelling was seeping from the skin and bleeding from the area where the paraphimosis was reduced. Results/Medications Result Diagram: 02/10/19 0440 02/10/19 0440 Results 24 hrs Laboratory Tests Test 02/09/19 14:29 02/09/19 18:04 02/09/19 18:23 02/09/19 23:42 Bedside Glucose 132 120 137 Creatine Kinase 66 Creatine Kinase 4.6 Index Creatinine Kinase 3.02 H MB (Mass) Troponin I < 0.012 Test 02/10/19 00:37 02/10/19 04:40 02/10/19 04:54 02/10/19 05:36 Creatine Kinase 59 56 Creatine Kinase 4.1 4.4 Index Creatinine Kinase 2.41 H 2.44 H MB (Mass) Troponin I < 0.012 0.012 White Blood Count 28.6 H Red Blood Count 2.02 L Hemoglobin 6.5 *L Hematocrit 18.4 L Mean Corpuscular 91.1 Volume Mean Corpuscular 32.2 Hemoglobin Mean Corpuscular 35.3 Hemoglobin Concen t Red Cell 19.2 H Distribution Width Platelet Count 52 L Mean Platelet 12.6 H Volume Immature 7.800 H Granulocytes % Neutrophils % Lymphocytes % Monocytes % Eosinophils % Basophils % Nucleated Red 1.2 H Blood Cells % Immature 2.230 H Granulocytes # Neutrophils # Lymphocytes # Monocytes # Eosinophils # Basophils # Nucleated Red Blood Cells # Prothrombin Time 33.9 H Prothrombin Time 2.6 Ratio INR International 3.34 Normalized Ratio Activated 85.8 *H Partial Thrombopl ast Time Thrombin Time 23.8 H Fibrinogen 138.0 L D-Dimer > 70496.00 H Sodium Level 137 Potassium Level 3.7 Chloride Level 98 Carbon Dioxide 21 Level Anion Gap 18 H Blood Urea 36 H Nitrogen Creatinine 3.44 H Est Glomerular 20 L Filtrat Rate mL/min Glucose Level 115 Calcium Level 9.5 Phosphorus Level 3.1 Magnesium Level 2.0 Total Bilirubin 24.5 H Direct Bilirubin 18.10 *H Indirect 6.4 H Bilirubin Aspartate Amino 60 H Transf (AST/SGOT) Alanine < 6 L Aminotransferase (ALT/SGPT) Alkaline 209 H Phosphatase Total Protein 6.4 Albumin 3.1 L Globulin 3.30 H Albumin/Globulin 0.93 Ratio Lab Scanned BLOOD TRANSFUSIO Report N Bedside Glucose 129 Medications Current Medications Lactulose (Enulose) 10 gm Q8 PO Last administered on 02/10/19at 05:39; Admin Dose 10 GM; Start 01/29/19 at 06:00 Ondansetron HCl (Zofran Inj) 4 mg Q6H PRN IV NAUSEA AND/OR VOMITING; Start 01/29/19 at 01:00 Epoetin Daniel-epbx (Retacrit (Esrd)) 4,000 unit MoWeFr@1700 SC Last administered on 02/09/19at 18:11; Admin Dose 4,000 UNIT; Start 01/30/19 at 17:00 Midodrine (Proamatine) 10 mg TID@,17 PO Last administered on 02/09/19at 18:09; Admin Dose 10 MG; Start 01/29/19 at 17:00 Multivit/Ca Carb/ B Cmplx/FA/Prenat (Liz-Eugenia) 1 tab DAILY PO Last administered on 02/09/19at 08:23; Admin Dose 1 TAB; Start 01/31/19 at 09:00 Docusate Sodium (Colace) 100 mg BID PRN PO constipation; Start 01/30/19 at 14:00 Senna (Senokot) 2 tab DAILY PRN PO constipation; Start 01/30/19 at 14:00 Levalbuterol (Xopenex Neb) 0.63 mg Q4H RESP THERAPY PRN HHN WHEEZING AND RESP DISTRESS Last administered on 02/04/19 05:40; Admin Dose 0.63 MG; Start at 22:30 Midazolam HCl 50 ml @ 1 mls/hr TITRATE IV Last administered on 02/04/19 21:44; Admin Dose 5 MLS/HR; Start 02/04/19 at 07:00 Fentanyl 100 ml @ 2.5 mls/hr TITRATE IV Last administered on 02/05/19 17:54; Admin Dose 5 MLS/HR; Start 02/04/19 at 07:00 Vancomycin HCl (Vanco Iv Per Pharmacy) VANCOMYCIN PER PHARMACY PER PROTOCOL XX ; Start 02/04/19 at 08:30 Pantoprazole (Protonix Iv) 40 mg BID@06,18 IV Last administered on 02/10/19 05:39; Admin Dose 40 MG; Start 02/04/19 at 18:00 Meropenem/Sodium Chloride 50 ml @ 100 mls/hr Q12 IVPB Last administered on 02/09/19 21:10; Admin Dose 100 MLS/HR; Start 02/05/19 at 12:00 Rifaximin (Xifaxan) 550 mg BID PO Last administered on 02/09/19 21:10; Admin Dose 550 MG; Start 02/05/19 at 21:00 Phenylephrine HCl 80 mg/Dextrose 250 ml @ 18.75 mls/ hr TITRATE PRN IV BLOOD PRESSURE SUPPORT Last administered on 02/09/19 22:46; Admin Dose 56.25 MLS/HR; Start 02/06/19 at 02:00 Dextrose (D50w Syringe) 50 ml PRN PRN IV HYPOGLYCEMIA (BS<70) Last administered on 02/06/19 07:42; Admin Dose 50 ML; Start 02/06/19 at 07:30 Diagnostic Test (Pha) (Accu-Chek) 1 ea Q6 XX Last administered on 02/10/19 05:39; Admin Dose 1 EA; Start 02/08/19 at 12:00 Norepinephrine 32 mg/Dextrose 250 ml @ 0.47 mls/hr TITRATE IV Last administered on 02/09/19 05:01; Admin Dose 2.81 MLS/HR; Start 02/08/19 at 23:00 IV Flush (NS 10 ml) 10 ml PRN PRN IV IV PROTOCOL; Start 02/09/19 at 20:00 Assessment/Plan Hospital Course (Demo Recall) 39-year-old male with multiple medical problems: 1 Shock likely secondary to sepsis. 2. Acute Respiratory failure status post intubation secondary to large pleural effusions secondary to volume overload post hemodialysis 3. Fractures of the superior endplates/bodies of L1, L2 and L3 4. Decompensated alcoholic cirrhosis with a history of EtOH use. Hyperbilirubinemia 5. End-stage renal disease, on hemodialysis. 6. Coagulopathy. 7. Severe anemia with thrombocytopenia likely due to cirrhosis. 8. Moderate anemia, likely multifactorial disease 9. Leucocytosis. 10. S.p paracentesis on 01/28/2019 11. Suspicious for metastatic disease 12. Hypotension likely secondary to cirrhosis 13. History of gastrointestinal bleed. 14. Hypoglycemia 15.History of cirrhosis On the physical examination it appeared that the patient had paraphimosis and the constricting skin proximal to the méndez is the one that has poor circulation and signs of ischemia. The foreskin is also swollen. The paraphimosis remains reduced but he has some bleeding from the skin cracks. He does have seeping from the skin because of the significant edema that he has. We shall continue to elevate the penis and apply sponges on the wounds and make sure that he does not develop paraphimosis again. JONAH SUE MD Feb 10, 2019 07:56
--- NOTE | 2019-02-10 08:32 | CONS ---
Assessment/Plan Assessment/Plan Assessment/Plan (Daily) Unfortunate gentleman with end-stage liver disease cirrhosis who is on a transplant list at a tertiary care center by history. Shock on 2 pressors Respiratory failure intubated on 30% FiO2 History of excessive alcohol consumption and decompensated liver disease secondary to alcohol abuse End-stage renal disease on hemodialysis Other stigmata related to end-stage renal disease and cirrhosis including coagulopathy severe anemia thrombocytopenia leukocytosis, pleural effusio status post paracentesis Lower GI bleed upper GI bleed Penile lesion Sepsis syndrome We will schedule family conference in all likelihood patient and family members will benefit from having bioethics consultation. I will place that order. Consultation Date/Type/Reason Admit Date/Time Jan 29, 2019 at 01:13 Date/Time of Note DATE: 02/10/19 TIME: 08:31 Hx of Present Illness Dictating a palliative care consultation on this unfortunate 39-year-old gentleman who has a past medical history of heavy alcohol consumption liver cirrhosis end-stage renal disease on hemodialysis. The assessment and plan will be reviewed towards the end of this consultation but essentially this gentleman is in the intensive care unit [facility] began to feel weak with low back discomfort tender to emergency room at [facility] after having had multiple admissions at different hospitals for generalized decline in his overall medical condition. Patient is currently in the intensive care unit. He is currently on 2 pressors intubated on 30% FiO2. According to medical records this patient was considered to be a liver transplant candidate but is been hemodynamically compromised to the point that he is not stable for c onsideration at this time and possibly in the recent past. Unfortunately patient is also septic. There are family members that are involved with his care his mother and other extended family members to make decisions on his behalf. Unable to participate in review of systems Past Medical History Medical History: GI bleed, hepatitis, renal disease, other (As per history of present illness) Medications Current Medications Lactulose (Enulose) 10 gm Q8 PO Last administered on 02/10/19at 05:39; Admin Dose 10 GM; Start 01/29/19 at 06:00 Ondansetron HCl (Zofran Inj) 4 mg Q6H PRN IV NAUSEA AND/OR VOMITING; Start 01/29/19 at 01:00 Epoetin Daniel-epbx (Retacrit (Esrd)) 4,000 unit MoWeFr@1700 SC Last administered on 02/09/19 18:11; Admin Dose 4,000 UNIT; Start 01/30/19 at 17:00 Midodrine (Proamatine) 10 mg TID@,13,17 PO Last administered on 02/09/19 18:09; Admin Dose 10 MG; Start 01/29/19 at 17:00 Multivit/Ca Carb/ B Cmplx/FA/Prenat (Liz-Eugenia) 1 tab DAILY PO Last administered on 02/09/19 08:23; Admin Dose 1 TAB; Start 01/31/19 at 09:00 Docusate Sodium (Colace) 100 mg BID PRN PO constipation; Start 01/30/19 at 14:00 Senna (Senokot) 2 tab DAILY PRN PO constipation; Start 01/30/19 at 14:00 Levalbuterol (Xopenex Neb) 0.63 mg Q4H RESP THERAPY PRN HHN WHEEZING AND RESP DISTRESS Last administered on 02/04/19 05:40; Admin Dose 0.63 MG; Start 02/02/19 at 22:30 Midazolam HCl 50 ml @ 1 mls/hr TITRATE IV Last administered on 02/04/19 21:44; Admin Dose 5 MLS/HR; Start 02/04/19 at 07:00 Fentanyl 100 ml @ 2.5 mls/hr TITRATE IV Last administered on 02/05/19 17:54; Admin Dose 5 MLS/HR; Start 02/04/19 at 07:00 Vancomycin HCl (Vanco Iv Per Pharmacy) VANCOMYCIN PER PHARMACY PER PROTOCOL XX ; Start 02/04/19 at 08:30 Pantoprazole (Protonix Iv) 40 mg BID@06,18 IV Last administered on 02/10/19 05:39; Admin Dose 40 MG; Start 02/04/19 at 18:00 Meropenem/Sodium Chloride 50 ml @ 100 mls/hr Q12 IVPB Last administered on 02/09/19 21:10; Admin Dose 100 MLS/HR; Start 02/05/19 at 12:00 Rifaximin (Xifaxan) 550 mg BID PO Last administered on 02/09/19 21:10; Admin Dose 550 MG; Start 02/05/19 at 21:00 Phenylephrine HCl 80 mg/Dextrose 250 ml @ 18.75 mls/ hr TITRATE PRN IV BLOOD PRESSURE SUPPORT Last administered on 02/09/19at 22:46; Admin Dose 56.25 MLS/HR; Start 02/06/19 at 02:00 Dextrose (D50w Syringe) 50 ml PRN PRN IV HYPOGLYCEMIA (BS<70) Last administered on 02/06/19at 07:42; Admin Dose 50 ML; Start 02/06/19 at 07:30 Diagnostic Test (Pha) (Accu-Chek) 1 ea Q6 XX Last administered on 02/10/19at 05:39; Admin Dose 1 EA; Start 02/08/19 at 12:00 Norepinephrine 32 mg/Dextrose 250 ml @ 0.47 mls/hr TITRATE IV Last administered on 02/09/19at 05:01; Admin Dose 2.81 MLS/HR; Start 02/08/19 at 23:00 IV Flush (NS 10 ml) 10 ml PRN PRN IV IV PROTOCOL; Start 02/09/19 at 20:00 Allergies: Coded Allergies: No Known Allergy (Unverified , 01/29/19) Past Surgical History Past Surgical Hx: other (As per history of present illness placement of perma cath) Social History Alcohol Use: heavy (History of) Smoking Status: Former smoker Exam/Review of Systems Exam Vitals Vital Signs Date Temp Pulse Resp B/P (MAP) Pulse Ox O2 O2 Flow FiO2 Time Delivery Rate 02/10/19 108 21 94/51 (65) 99 Mechanical 07:00 Ventilator 02/10/19 40 05:31 02/10/19 97.4 04:00 Intake and Output 02/09/19 02/09/19 02/10/19 1515:00 23:00 07:00 IntakeIntake Total 1190.88 ml 1183.34 ml 641.10 ml OutputOutput Total 1200 ml 800 ml BalanceBalance 1190.88 ml -16.66 ml -158.90 ml Results Result Diagram: 02/10/19 0440 02/10/19 0440 Results 24hrs Laboratory Tests Test 02/09/19 14:29 02/09/19 18:04 02/09/19 18:23 02/09/19 23:42 Bedside Glucose 132 120 137 Creatine Kinase 66 Creatine Kinase 4.6 Index Creatinine Kinase 3.02 H MB (Mass) Troponin I < 0.012 Test 02/10/19 00:37 02/10/19 04:40 02/10/19 04:54 02/10/19 05:36 Creatine Kinase 59 56 Creatine Kinase 4.1 4.4 Index Creatinine Kinase 2.41 H 2.44 H MB (Mass) Troponin I < 0.012 0.012 White Blood Count 28.6 H Red Blood Count 2.02 L Hemoglobin 6.5 *L Hematocrit 18.4 L Mean Corpuscular 91.1 Volume Mean Corpuscular 32.2 Hemoglobin Mean Corpuscular 35.3 Hemoglobin Concen t Red Cell 19.2 H Distribution Width Platelet Count 52 L Mean Platelet 12.6 H Volume Immature 7.800 H Granulocytes % Neutrophils % Lymphocytes % Monocytes % Eosinophils % Basophils % Nucleated Red 1.2 H Blood Cells % Immature 2.230 H Granulocytes # Neutrophils # Lymphocytes # Monocytes # Eosinophils # Basophils # Nucleated Red Blood Cells # Prothrombin Time 33.9 H Prothrombin Time 2.6 Ratio INR International 3.34 Normalized Ratio Activated 85.8 *H Partial Thrombopl ast Time Thrombin Time 23.8 H Fibrinogen 138.0 L D-Dimer > 88613.00 H Sodium Level 137 Potassium Level 3.7 Chloride Level 98 Carbon Dioxide 21 Level Anion Gap 18 H Blood Urea 36 H Nitrogen Creatinine 3.44 H Est Glomerular 20 L Filtrat Rate mL/min Glucose Level 115 Calcium Level 9.5 Phosphorus Level 3.1 Magnesium Level 2.0 Total Bilirubin 24.5 H Direct Bilirubin 18.10 *H Indirect 6.4 H Bilirubin Aspartate Amino 60 H Transf (AST/SGOT) Alanine < 6 L Aminotransferase (ALT/SGPT) Alkaline 209 H Phosphatase Total Protein 6.4 Albumin 3.1 L Globulin 3.30 H Albumin/Globulin 0.93 Ratio Lab Scanned BLOOD TRANSFUSIO Report N Bedside Glucose 129 Medications Medication Current Medications Lactulose (Enulose) 10 gm Q8 PO Last administered on 02/10/19at 05:39; Admin Dose 10 GM; Start 01/29/19 at 06:00 Ondansetron HCl (Zofran Inj) 4 mg Q6H PRN IV NAUSEA AND/OR VOMITING; Start 01/29/19 at 01:00 Epoetin Daniel-epbx (Retacrit (Esrd)) 4,000 unit MoWeFr@1700 SC Last administered on 02/09/19 18:11; Admin Dose 4,000 UNIT; Start 01/30/19 at 17:00 Midodrine (Proamatine) 10 mg TID@,,17 PO Last administered on 02/09/19 18:09; Admin Dose 10 MG; Start 01/29/19 at 17:00 Multivit/Ca Carb/ B Cmplx/FA/Prenat (Liz-Eugenia) 1 tab DAILY PO Last administere d on 02/09/19 08:23; Admin Dose 1 TAB; Start 01/31/19 at 09:00 Docusate Sodium (Colace) 100 mg BID PRN PO constipation; Start 01/30/19 at 14:00 Senna (Senokot) 2 tab DAILY PRN PO constipation; Start 01/30/19 at 14:00 Levalbuterol (Xopenex Neb) 0.63 mg Q4H RESP THERAPY PRN HHN WHEEZING AND RESP D ISTRESS Last administered on 02/04/19 05:40; Admin Dose 0.63 MG; Start 02/02/19 at 22:30 Midazolam HCl 50 ml @ 1 mls/hr TITRATE IV Last administered on 02/04/19 21:44; Admin Dose 5 MLS/HR; Start 02/04/19 at 07:00 Fentanyl 100 ml @ 2.5 mls/hr TITRATE IV Last administered on 02/05/19 17:54; Admin Dose 5 MLS/HR; Start 02/04/19 at 07:00 Vancomycin HCl (Vanco Iv Per Pharmacy) VANCOMYCIN PER PHARMACY PER PROTOCOL XX ; Start 02/04/19 at 08:30 Pantoprazole (Protonix Iv) 40 mg BID@06,18 IV Last administered on 02/10/19 05:39; Admin Dose 40 MG; Start 02/04/19 at 18:00 Meropenem/Sodium Chloride 50 ml @ 100 mls/hr Q12 IVPB Last administered on 02/09/19 21:10; Admin Dose 100 MLS/HR; Start 02/05/19 at 12:00 Rifaximin (Xifaxan) 550 mg BID PO Last administered on 02/09/19 21:10; Admin Dose 550 MG; Start 02/05/19 at 21:00 Phenylephrine HCl 80 mg/Dextrose 250 ml @ 18.75 mls/ hr TITRATE PRN IV BLOOD PRESSURE SUPPORT Last administered on 02/09/19at 22:46; Admin Dose 56.25 MLS/HR; Start 02/06/19 at 02:00 Dextrose (D50w Syringe) 50 ml PRN PRN IV HYPOGLYCEMIA (BS<70) Last administered on 02/06/19at 07:42; Admin Dose 50 ML; Start 02/06/19 at 07:30 Diagnostic Test (Pha) (Accu-Chek) 1 ea Q6 XX Last administered on 02/10/19at 05:39; Admin Dose 1 EA; Start 02/08/19 at 12:00 Norepinephrine 32 mg/Dextrose 250 ml @ 0.47 mls/hr TITRATE IV Last administered on 02/09/19at 05:01; Admin Dose 2.81 MLS/HR; Start 02/08/19 at 23:00 IV Flush (NS 10 ml) 10 ml PRN PRN IV IV PROTOCOL; Start 02/09/19 at 20:00 KATHY HAQ Feb 10, 2019 08:32
[2019-02-10] MEDS: RIFAXIMIN 550 MG TAB PO SCH ×2 (08:47→21:56)
[2019-02-10] MEDS: MEROPENEM 500MG/50 ML (PMX) 50 ML IVPB SCH ×2 (08:47→21:56)
[2019-02-10] MEDS: MULTIVIT/CA CARB/B CMPLX/FA TAB PO SCH (08:47)
[2019-02-10] MEDS: BALSAM PERU/CASTOR OIL 60 GM TUBE TOP SCH ×2 (08:48→21:57)
[2019-02-10] MEDS: PHENYLephrine 80 MG in DEXTROSE 5% 242 ML IV PRN (09:11)
[2019-02-10] MEDS ORDERED: MIDODRINE 10 MG TABLET PO SCH (10:00)
--- NOTE | 2019-02-10 10:40 | PN ---
Date/Time of Note Date/Time of Note DATE: 02/10/19 TIME: 10:37 Assessment/Plan VTE Prophylaxis Risk score (from Ns)>0 risk: 10 SCD applied (from Ns): No SCD contraindicated: low risk/ambulating Pharmacological prophylaxis: NA/contraindicated Pharm contraindication: low risk/ambulating Lines/Catheters IV Catheter Type (from Nrs): PICC Line Central line still needed: Yes Urinary Cath still in place: No Assessment/Plan Assessment/Plan ssessment/Plan 1 Shock likely secondary to sepsis. Sepsis possibly + SBP , now with necrotic lesions on penile area, on pressors 2. Acute Respiratory failure status post intubation secondary to large pleural effusions secondary to volume overload post hemodialysis 3. Fractures of the superior endplates/bodies of L1, L2 and L3 with associated slight anterior superior endplate wedge compression of the L1 and L3 vertebral bodies. Multilevel degenerative changes greatest at L4-5 as described above. Mild degenerative changes of the right posterior lateral aspect of the T11-12 disc space with mild central canal stenosis. 4. Decompensated alcoholic cirrhosis with a history of EtOH use. Hyperbilirubinemia 5. End-stage renal disease, on hemodialysis. 6. Coagulopathy. 7. Severe anemia with thrombocytopenia likely due to cirrhosis. Pt is bleeding rectally and from mouth. 8. Moderate anemia, likely multifactorial disease, likely secondary to end- stage renal disease versus bone marrow suppression versus nutritional deficiency versus cirrhosis. 9. Leucocytosis. 10. S.p paracentesis in previous hospital 01/28/2019 11. Suspicious for metastatic disease 12. Hypotension likely secondary to cirrhosis, rule out sepsis. 13. History of gastrointestinal bleed. 14. Hypoglycemia 15.History of cirrhosis [address] Bonner> paraphimosis Assessment/Plan - cw pressor support - PRBC today - on fi02 30% - Thoracentesis today - cw vancomycin/rifampin/Meropenem -Continue with lactulose - blood cx positive gram postiv e? contaminant peptostrptococcus - cw midodrine and epogen - dR Boggs called - cw Epogen -s/p multiple blood transfusion --Needs a tertiary setting with there is a Ability of CRRT and patient will need liver and a kidney transplant, pt was accepted at [facility] -poor prognosis - fu ID / Heme recs Result Diagram: 02/10/19 0440 02/10/19 0440 Results 24hrs Laboratory Tests Test 02/09/19 14:29 02/09/19 18:04 02/09/19 18:23 02/09/19 23:42 Bedside Glucose 132 120 137 Creatine Kinase 66 Creatine Kinase 4.6 Index Creatinine Kinase 3.02 H MB (Mass) Troponin I < 0.012 Test 02/10/19 00:37 02/10/19 04:40 02/10/19 04:54 02/10/19 05:36 Creatine Kinase 59 56 Creatine Kinase 4.1 4.4 Index Creatinine Kinase 2.41 H 2.44 H MB (Mass) Troponin I < 0.012 0.012 White Blood Count 28.6 H Red Blood Count 2.02 L Hemoglobin 6.5 *L Hematocrit 18.4 L Mean Corpuscular 91.1 Volume Mean Corpuscular 32.2 Hemoglobin Mean Corpuscular 35.3 Hemoglobin Concen t Red Cell 19.2 H Distribution Width Platelet Count 52 L Mean Platelet 12.6 H Volume Immature 7.800 H Granulocytes % Neutrophils % Segmented 67 Neutrophils % (Manual) Band Neutrophils 5 H % (Manual) Lymphocytes % Lymphocytes % 11 L (Manual) Monocytes % Monocytes % 10 (Manual) Eosinophils % Eosinophils % 3 (Manual) Basophils % Basophils % 1 (Manual) Metamyelocytes % 2 H (manual) Promyelocytes % 1 H (Manual) Nucleated Red 2 H Blood Cells % Immature 2.230 H Granulocytes # Neutrophils # Neutrophils # 19.6 H (Manual) Band Neutrophils 1.4 H # Lymphocytes 3.1 H (Manual) Lymphocytes # Monocytes # Monocytes # 2.8 H (Manual) Eosinophils # Basophils # Basophils # 0.2 H (Manual) Metamyelocytes # 0.5 H Promyelocytes # 0.2 H Nucleated Red Blood Cells # Platelet Estimate DECREASED Giant Platelets 1 H Polychromasia 1+ Hypochromasia 1+ Poikilocytosis 2+ Anisocytosis 2+ Macrocytosis 2+ Ovalocytes 1+ Schistocytes 1+ Prothrombin Time 33.9 H Prothrombin Time 2.6 Ratio INR International 3.34 Normalized Ratio Activated 85.8 *H Partial Thrombopl ast Time Thrombin Time 23.8 H Fibrinogen 138.0 L D-Dimer > 08000.00 H Sodium Level 137 Potassium Level 3.7 Chloride Level 98 Carbon Dioxide 21 Level Anion Gap 18 H Blood Urea 36 H Nitrogen Creatinine 3.44 H Est Glomerular 20 L Filtrat Rate mL/min Glucose Level 115 Calcium Level 9.5 Phosphorus Level 3.1 Magnesium Level 2.0 Total Bilirubin 24.5 H Direct Bilirubin 18.10 *H Indirect 6.4 H Bilirubin Aspartate Amino 60 H Transf (AST/SGOT) Alanine < 6 L Aminotransferase (ALT/SGPT) Alkaline 209 H Phosphatase Total Protein 6.4 Albumin 3.1 L Globulin 3.30 H Albumin/Globulin 0.93 Ratio Lab Scanned BLOOD TRANSFUSIO Report N Bedside Glucose 129 Subjective 24 Hr Interval Summary Free Text/Dictation currently on levophed and neospherine on 30 % fi02 plan for thoracentesis HB 6.5 , HAD some blood loss from penile area Exam/Review of Systems Exam Vitals Vital Signs Date Temp Pulse Resp B/P (MAP) Pulse Ox O2 O2 Flow FiO2 Time Delivery Rate 02/10/19 108 08:00 02/10/19 21 94/51 (65) 99 Mechanical 07:00 Ventilator 02/10/19 40 05:31 02/10/19 97.4 04:00 Intake and Output 02/09/19 02/09/19 02/10/19 1515:00 23:00 07:00 IntakeIntake Total 1190.88 ml 1183.34 ml 641.10 ml OutputOutput Total 1200 ml 800 ml BalanceBalance 1190.88 ml -16.66 ml -158.90 ml Exam orally intubated, NG tube with feed Constitutional: frail, scleral icterus Head: normocephalic Neck: supple Respiratory: diminished breath sounds Cardiovascular: regular rate and rhythm Gastrointestinal: soft, ascites+++ Genitourinary - Male: other (lowe) Musculoskeletal: swelling Extremities: edema +++ Results Results 24hrs Laboratory Tests Test 02/09/19 14:29 02/09/19 18:04 02/09/19 18:23 02/09/19 23:42 Bedside Glucose 132 120 137 Creatine Kinase 66 Creatine Kinase 4.6 Index Creatinine Kinase 3.02 H MB (Mass) Troponin I < 0.012 Test 02/10/19 00:37 02/10/19 04:40 02/10/19 04:54 02/10/19 05:36 Creatine Kinase 59 56 Creatine Kinase 4.1 4.4 Index Creatinine Kinase 2.41 H 2.44 H MB (Mass) Troponin I < 0.012 0.012 White Blood Count 28.6 H Red Blood Count 2.02 L Hemoglobin 6.5 *L Hematocrit 18.4 L Mean Corpuscular 91.1 Volume Mean Corpuscular 32.2 Hemoglobin Mean Corpuscular 35.3 Hemoglobin Concen t Red Cell 19.2 H Distribution Width Platelet Count 52 L Mean Platelet 12.6 H Volume Immature 7.800 H Granulocytes % Neutrophils % Segmented 67 Neutrophils % (Manual) Band Neutrophils 5 H % (Manual) Lymphocytes % Lymphocytes % 11 L (Manual) Monocytes % Monocytes % 10 (Manual) Eosinophils % Eosinophils % 3 (Manual) Basophils % Basophils % 1 (Manual) Metamyelocytes % 2 H (manual) Promyelocytes % 1 H (Manual) Nucleated Red 2 H Blood Cells % Immature 2.230 H Granulocytes # Neutrophils # Neutrophils # 19.6 H (Manual) Band Neutrophils 1.4 H # Lymphocytes 3.1 H (Manual) Lymphocytes # Monocytes # Monocytes # 2.8 H (Manual) Eosinophils # Basophils # Basophils # 0.2 H (Manual) Metamyelocytes # 0.5 H Promyelocytes # 0.2 H Nucleated Red Blood Cells # Platelet Estimate DECREASED Giant Platelets 1 H Polychromasia 1+ Hypochromasia 1+ Poikilocytosis 2+ Anisocytosis 2+ Macrocytosis 2+ Ovalocytes 1+ Schistocytes 1+ Prothrombin Time 33.9 H Prothrombin Time 2.6 Ratio INR International 3.34 Normalized Ratio Activated 85.8 *H Partial Thrombopl ast Time Thrombin Time 23.8 H Fibrinogen 138.0 L D-Dimer > 97638.00 H Sodium Level 137 Potassium Level 3.7 Chloride Level 98 Carbon Dioxide 21 Level Anion Gap 18 H Blood Urea 36 H Nitrogen Creatinine 3.44 H Est Glomerular 20 L Filtrat Rate mL/min Glucose Level 115 Calcium Level 9.5 Phosphorus Level 3.1 Magnesium Level 2.0 Total Bilirubin 24.5 H Direct Bilirubin 18.10 *H Indirect 6.4 H Bilirubin Aspartate Amino 60 H Transf (AST/SGOT) Alanine < 6 L Aminotransferase (ALT/SGPT) Alkaline 209 H Phosphatase Total Protein 6.4 Albumin 3.1 L Globulin 3.30 H Albumin/Globulin 0.93 Ratio Lab Scanned BLOOD TRANSFUSIO Report N Bedside Glucose 129 Medications Medication Current Medications Lactulose (Enulose) 10 gm Q8 PO Last administered on 02/10/19at 05:39; Admin Dose 10 GM; Start 01/29/19 at 06:00 Ondansetron HCl (Zofran Inj) 4 mg Q6H PRN IV NAUSEA AND/OR VOMITING; Start 01/29/19 at 01:00 Epoetin Daniel-epbx (Retacrit (Esrd)) 4,000 unit MoWeFr@1700 SC Last administered on 02/09/19 18:11; Admin Dose 4,000 UNIT; Start 01/30/19 at 17:00 Multivit/Ca Carb/ B Cmplx/FA/Prenat (Liz-Eugenia) 1 tab DAILY PO Last administered on 02/10/19 08:47; Admin Dose 1 TAB; Start 01/31/19 at 09:00 Docusate Sodium (Colace) 100 mg BID PRN PO constipation; Start 01/30/19 at 14:00 Senna (Senokot) 2 tab DAILY PRN PO constipation; Start 01/30/19 at 14:00 Levalbuterol (Xopenex Neb) 0.63 mg Q4H RESP THERAPY PRN HHN WHEEZING AND RESP DISTRESS Last administered on 02/04/19 05:40; Admin Dose 0.63 MG; Start 02/02/19 at 22:30 Midazolam HCl 50 ml @ 1 mls/hr TITRATE IV Last administered on 02/04/19 21:44; Admin Dose 5 MLS/HR; Start 02/04/19 at 07:00 Fentanyl 100 ml @ 2.5 mls/hr TITRATE IV Last administered on 02/05/19 17:54; Admin Dose 5 MLS/HR; Start 02/04/19 at 07:00 Vancomycin HCl (Vanco Iv Per Pharmacy) VANCOMYCIN PER PHARMACY PER PROTOCOL XX ; Start 02/04/19 at 08:30 Pantoprazole (Protonix Iv) 40 mg BID@06,18 IV Last administered on 02/10/19 05:39; Admin Dose 40 MG; Start 02/04/19 at 18:00 Meropenem/Sodium Chloride 50 ml @ 100 mls/hr Q12 IVPB Last administered on 08:47; Admin Dose 100 MLS/HR; Start 02/05/19 at 12:00 Rifaximin (Xifaxan) 550 mg BID PO Last administered on 02/10/19 08:47; Admin Dose 550 MG; Start 02/05/19 at 21:00 Phenylephrine HCl 80 mg/Dextrose 250 ml @ 18.75 mls/ hr TITRATE PRN IV BLOOD PRESSURE SUPPORT Last administered on 02/10/19 09:11; Admin Dose 16.88 MLS/HR; Start 02/06/19 at 02:00 Dextrose (D50w Syringe) 50 ml PRN PRN IV HYPOGLYCEMIA (BS<70) Last administered on 02/06/19at 07:42; Admin Dose 50 ML; Start 02/06/19 at 07:30 Diagnostic Test (Pha) (Accu-Chek) 1 ea Q6 XX Last administered on 02/10/19 05:39; Admin Dose 1 EA; Start 02/08/19 at 12:00 Norepinephrine 32 mg/Dextrose 250 ml @ 0.47 mls/hr TITRATE IV Last a dministered on 02/09/19 05:01; Admin Dose 2.81 MLS/HR; Start 02/08/19 at 23:00 IV Flush (NS 10 ml) 10 ml PRN PRN IV IV PROTOCOL; Start 02/09/19 at 20:00 Midodrine (Midodrine) 10 mg TID@0900,1300,1700 PO Last administered on 02/10/19 10:18; Admin Dose 10 MG; Start 02/10/19 at 10:00 MAL ENRIQUE MD Feb 10, 2019 10:40
--- NOTE | 2019-02-10 10:46 | CONS ---
Assessment/Plan Assessment/Plan Hospital Course (Demo Recall) 39 yo with ETOH related cirrhosis, coagulopathy, on dialysis who we are asked to see for coagulopathy #coagulopathy -2/2 cirrhosis and decompensated liver failure -INR > 3 today. pt is having hematuria -will given 2 units FFP, 10mg IV vitamin K -s/p IV vitamin K 5mg. -will need to check daily DIC panel and keep fibrinogen > 120. fibrinogen currently at 138 #Anemia -2/2 to liver failure and CKD -continue epogen -1 units of PRBCs ordered for today #EtOH cirrhosis -pt to be transferred to [facility] for liver transplant #ESRD -continue HD Consultation Date/Type/Reason Admit Date/Time Jan 29, 2019 at 01:13 Initial Consult Date 02/03/19 Type of Consult hematology Reason for Consultation coagulopathy Requesting Provider: MAL ENRIQUE MD Date/Time of Note DATE: 02/10/19 TIME: 10:43 24 HR Interval Summary Free Text/Dictation pt remains on pressors. on Oseas 90 and levo14. bleeding from penis Subjective hx not possible: pt critical, pt critical status Exam/Review of Systems Exam Vitals Vital Signs Date Temp Pulse Resp B/P (MAP) Pulse Ox O2 O2 Flow FiO2 Time Delivery Rate 02/10/19 108 08:00 02/10/19 21 94/51 (65) 99 Mechanical 07:00 Ventilator 02/10/19 40 05:31 02/10/19 97.4 04:00 Intake and Output 02/09/19 02/09/19 02/10/19 1515:00 23:00 07:00 IntakeIntake Total 1190.88 ml 1183.34 ml 641.10 ml OutputOutput Total 1200 ml 800 ml BalanceBalance 1190.88 ml -16.66 ml -158.90 ml Constitutional: distress, frail Psych: confusion Head: normocephalic Eyes: nl conjunctiva ENMT: nl external ears & nose Neck: supple Respiratory: clear to auscultation Cardiovascular: regular rate and rhythm Gastrointestinal: soft Results Result Diagram: 02/10/19 0440 02/10/19 0440 Results 24hrs Laboratory Tests Test 02/09/19 14:29 02/09/19 18:04 02/09/19 18:23 02/09/19 23:42 Bedside Glucose 132 120 137 Creatine Kinase 66 Creatine Kinase 4.6 Index Creatinine Kinase 3.02 H MB (Mass) Troponin I < 0.012 Test 02/10/19 00:37 02/10/19 04:40 02/10/19 04:54 02/10/19 05:36 Creatine Kinase 59 56 Creatine Kinase 4.1 4.4 Index Creatinine Kinase 2.41 H 2.44 H MB (Mass) Troponin I < 0.012 0.012 White Blood Count 28.6 H Red Blood Count 2.02 L Hemoglobin 6.5 *L Hematocrit 18.4 L Mean Corpuscular 91.1 Volume Mean Corpuscular 32.2 Hemoglobin Mean Corpuscular 35.3 Hemoglobin Concen t Red Cell 19.2 H Distribution Width Platelet Count 52 L Mean Platelet 12.6 H Volume Immature 7.800 H Granulocytes % Neutrophils % Segmented 67 Neutrophils % (Manual) Band Neutrophils 5 H % (Manual) Lymphocytes % Lymphocytes % 11 L (Manual) Monocytes % Monocytes % 10 (Manual) Eosinophils % Eosinophils % 3 (Manual) Basophils % Basophils % 1 (Manual) Metamyelocytes % 2 H (manual) Promyelocytes % 1 H (Manual) Nucleated Red 2 H Blood Cells % Immature 2.230 H Granulocytes # Neutrophils # Neutrophils # 19.6 H (Manual) Band Neutrophils 1.4 H # Lymphocytes 3.1 H (Manual) Lymphocytes # Monocytes # Monocytes # 2.8 H (Manual) Eosinophils # Basophils # Basophils # 0.2 H (Manual) Metamyelocytes # 0.5 H Promyelocytes # 0.2 H Nucleated Red Blood Cells # Platelet Estimate DECREASED Giant Platelets 1 H Polychromasia 1+ Hypochromasia 1+ Poikilocytosis 2+ Anisocytosis 2+ Macrocytosis 2+ Ovalocytes 1+ Schistocytes 1+ Prothrombin Time 33.9 H Prothrombin Time 2.6 Ratio INR International 3.34 Normalized Ratio Activated 85.8 *H Partial Thrombopl ast Time Thrombin Time 23.8 H Fibrinogen 138.0 L D-Dimer > 01024.00 H Sodium Level 137 Potassium Level 3.7 Chloride Level 98 Carbon Dioxide 21 Level Anion Gap 18 H Blood Urea 36 H Nitrogen Creatinine 3.44 H Est Glomerular 20 L Filtrat Rate mL/min Glucose Level 115 Calcium Level 9.5 Phosphorus Level 3.1 Magnesium Level 2.0 Total Bilirubin 24.5 H Direct Bilirubin 18.10 *H Indirect 6.4 H Bilirubin Aspartate Amino 60 H Transf (AST/SGOT) Alanine < 6 L Aminotransferase (ALT/SGPT) Alkaline 209 H Phosphatase Total Protein 6.4 Albumin 3.1 L Globulin 3.30 H Albumin/Globulin 0.93 Ratio Lab Scanned BLOOD TRANSFUSIO Report N Bedside Glucose 129 Medications Medication Current Medications Lactulose (Enulose) 10 gm Q8 PO Last administered on 02/10/19 05:39; Admin Dose 10 GM; Start 01/29/19 at 06:00 Ondansetron HCl (Zofran Inj) 4 mg Q6H PRN IV NAUSEA AND/OR VOMITING; Start 01/29/19 at 01:00 Epoetin Daniel-epbx (Retacrit (Esrd)) 4,000 unit MoWeFr@1700 SC Last administered on 02/09/19 18:11; Admin Dose 4,000 UNIT; Start 01/30/19 at 17:00 Multivit/Ca Carb/ B Cmplx/FA/Prenat (Liz-Eugenia) 1 tab DAILY PO Last administered on 02/10/19 08:47; Admin Dose 1 TAB; Start 01/31/19 at 09:00 Docusate Sodium (Colace) 100 mg BID PRN PO constipation; Start 01/30/19 at 14:00 Senna (Senokot) 2 tab DAILY PRN PO constipation; Start 01/30/19 at 14:00 Levalbuterol (Xopenex Neb) 0.63 mg Q4H RESP THERAPY PRN HHN WHEEZING AND RESP DISTRESS Last administered on 02/04/19 05:40; Admin Dose 0.63 MG; Start 02/02/19 at 22:30 Midazolam HCl 50 ml @ 1 mls/hr TITRATE IV Last administered on 02/04/19at 21:44; Admin Dose 5 MLS/HR; Start 02/04/19 at 07:00 Fentanyl 100 ml @ 2.5 mls/hr TITRATE IV Last administered on 02/05/19 17:54; Admin Dose 5 MLS/HR; Start 02/04/19 at 07:00 Vancomycin HCl (Vanco Iv Per Pharmacy) VANCOMYCIN PER PHARMACY PER PROTOCOL XX ; Start 02/04/19 at 08:30 Pantoprazole (Protonix Iv) 40 mg BID@06,18 IV Last administered on 02/10/19 05:39; Admin Dose 40 MG; Start 02/04/19 at 18:00 Meropenem/Sodium Chloride 50 ml @ 100 mls/hr Q12 IVPB Last administered on 02/10/19 08:47; Admin Dose 100 MLS/HR; Start 02/05/19 at 12:00 Rifaximin (Xifaxan) 550 mg BID PO Last administered on 02/10/19 08:47; Admin Dose 550 MG; Start 02/05/19 at 21:00 Phenylephrine HCl 80 mg/Dextrose 250 ml @ 18.75 mls/ hr TITRATE PRN IV BLOOD PRESSURE SUPPORT Last administered on 02/10/19 09:11; Admin Dose 16.88 MLS/HR; Start 02/06/19 at 02:00 Dextrose (D50w Syringe) 50 ml PRN PRN IV HYPOGLYCEMIA (BS<70) Last administered on 02/06/19 07:42; Admin Dose 50 ML; Start 02/06/19 at 07:30 Diagnostic Test (Pha) (Accu-Chek) 1 ea Q6 XX Last administered on 02/10/19 05:39; Admin Dose 1 EA; Start 02/08/19 at 12:00 Norepinephrine 32 mg/Dextrose 250 ml @ 0.47 mls/hr TITRATE IV Last administered on 02/09/19 05:01; Admin Dose 2.81 MLS/HR; Start 02/08/19 at 23:00 IV Flush (NS 10 ml) 10 ml PRN PRN IV IV PROTOCOL; Start 02/09/19 at 20:00 Midodrine (Midodrine) 10 mg TID@0900,1300,1700 PO Last administered on 02/10/19 10:18; Admin Dose 10 MG; Start 02/10/19 at 10:00 EBONIE TOBAR M.D. Feb 10, 2019 10:46
--- NOTE | 2019-02-10 11:23 | CONS ---
Consult Date/Type/Reason Admit Date/Time Jan 29, 2019 at 01:13 Initial Consult Date 02/03/19 Type of Consult Pulmonary Requesting Provider: MAL ENRIQUE MD Date/Time of Note DATE: 02/10/19 TIME: 11:23 Subjective Remains encephalopathic. Currently hemodynamically unstable requiring vasopressor support. Chest x-ray shows large left pleural effusion. Objective Vital Signs Date Temp Pulse Resp B/P (MAP) Pulse Ox O2 O2 Flow FiO2 Time Delivery Rate 02/10/19 102 20 89/44 (59) 99 10:45 02/10/19 Mechanical 10:00 Ventilator 02/10/19 98.9 08:00 02/10/19 40 05:31 Intake and Output 02/09/19 02/09/19 02/10/19 1515:00 23:00 07:00 IntakeIntake Total 1190.88 ml 1183.34 ml 694.07 ml OutputOutput Total 1200 ml 800 ml BalanceBalance 1190.88 ml -16.66 ml -105.93 ml Exam GENERAL: Visible jaundice VITAL SIGNS: per chart NECK: Supple. No JVD or lymphadenopathy. CARDIAC EXAM: S1, S2. No added sounds or murmurs. CHEST: Diminished air entry bilaterally ABDOMEN: Distended but no guarding or rebound EXTREMITIES: No cyanosis, clubbing or edema. NEUROLOGIC: Generalized weakness. No focal deficits. Chronically ill- appearing gentleman orally intubated on mechanical ventilation Vent Setting Ventilator Support Mode: AC, VC plus Fraction of Inspired Oxygen pe: 40 Positive End Expiratory Pressu: 5.0 Results/Medications Result Diagram: 02/10/19 0440 02/10/19 0440 Results 24 hrs Laboratory Tests Test 02/09/19 14:29 02/09/19 18:04 02/09/19 18:23 02/09/19 23:42 Bedside Glucose 132 120 137 Creatine Kinase 66 Creatine Kinase 4.6 Index Creatinine Kinase 3.02 H MB (Mass) Troponin I < 0.012 Test 02/10/19 00:37 02/10/19 04:40 02/10/19 04:54 02/10/19 05:36 Creatine Kinase 59 56 Creatine Kinase 4.1 4.4 Index Creatinine Kinase 2.41 H 2.44 H MB (Mass) Troponin I < 0.012 0.012 White Blood Count 28.6 H Red Blood Count 2.02 L Hemoglobin 6.5 *L Hematocrit 18.4 L Mean Corpuscular 91.1 Volume Mean Corpuscular 32.2 Hemoglobin Mean Corpuscular 35.3 Hemoglobin Concen t Red Cell 19.2 H Distribution Width Platelet Count 52 L Mean Platelet 12.6 H Volume Immature 7.800 H Granulocytes % Neutrophils % Segmented 67 Neutrophils % (Manual) Band Neutrophils 5 H % (Manual) Lymphocytes % Lymphocytes % 11 L (Manual) Monocytes % Monocytes % 10 (Manual) Eosinophils % Eosinophils % 3 (Manual) Basophils % Basophils % 1 (Manual) Metamyelocytes % 2 H (manual) Promyelocytes % 1 H (Manual) Nucleated Red 2 H Blood Cells % Immature 2.230 H Granulocytes # Neutrophils # Neutrophils # 19.6 H (Manual) Band Neutrophils 1.4 H # Lymphocytes 3.1 H (Manual) Lymphocytes # Monocytes # Monocytes # 2.8 H (Manual) Eosinophils # Basophils # Basophils # 0.2 H (Manual) Metamyelocytes # 0.5 H Promyelocytes # 0.2 H Nucleated Red Blood Cells # Platelet Estimate DECREASED Giant Platelets 1 H Polychromasia 1+ Hypochromasia 1+ Poikilocytosis 2+ Anisocytosis 2+ Macrocytosis 2+ Ovalocytes 1+ Schistocytes 1+ Prothrombin Time 33.9 H Prothrombin Time 2.6 Ratio INR International 3.34 Normalized Ratio Activated 85.8 *H Partial Thrombopl ast Time Thrombin Time 23.8 H Fibrinogen 138.0 L D-Dimer > 82105.00 H Sodium Level 137 Potassium Level 3.7 Chloride Level 98 Carbon Dioxide 21 Level Anion Gap 18 H Blood Urea 36 H Nitrogen Creatinine 3.44 H Est Glomerular 20 L Filtrat Rate mL/min Glucose Level 115 Calcium Level 9.5 Phosphorus Level 3.1 Magnesium Level 2.0 Total Bilirubin 24.5 H Direct Bilirubin 18.10 *H Indirect 6.4 H Bilirubin Aspartate Amino 60 H Transf (AST/SGOT) Alanine < 6 L Aminotransferase (ALT/SGPT) Alkaline 209 H Phosphatase Total Protein 6.4 Albumin 3.1 L Globulin 3.30 H Albumin/Globulin 0.93 Ratio Lab Scanned BLOOD TRANSFUSIO Report N Bedside Glucose 129 Medications Current Medications Lactulose (Enulose) 10 gm Q8 PO Last administered on 02/10/19at 05:39; Admin Dose 10 GM; Start 01/29/19 at 06:00 Ondansetron HCl (Zofran Inj) 4 mg Q6H PRN IV NAUSEA AND/OR VOMITING; Start 01/29/19 at 01:00 Epoetin Daniel-epbx (Retacrit (Esrd)) 4,000 unit MoWeFr@1700 SC Last administered on 02/09/19 18:11; Admin Dose 4,000 UNIT; Start 01/30/19 at 17:00 Multivit/Ca Carb/ B Cmplx/FA/Prenat (Liz-Eugenia) 1 tab DAILY PO Last administered on 02/10/19 08:47; Admin Dose 1 TAB; Start 01/31/19 at 09:00 Docusate Sodium (Colace) 100 mg BID PRN PO constipation; Start 01/30/19 at 1 4:00 Senna (Senokot) 2 tab DAILY PRN PO constipation; Start 01/30/19 at 14:00 Levalbuterol (Xopenex Neb) 0.63 mg Q4H RESP THERAPY PRN HHN WHEEZING AND RESP DISTRESS Last administered on 02/04/19 05:40; Admin Dose 0.63 MG; Start 02/02/19 at 22:30 Midazolam HCl 50 ml @ 1 mls/hr TITRATE IV Last administered on 02/04/19 21:44; Admin Dose 5 MLS/HR; Start 02/04/19 at 07:00 Fentanyl 100 ml @ 2.5 mls/hr TITRATE IV Last administered on 02/05/19 17:54; Admin Dose 5 MLS/HR; Start 02/04/19 at 07:00 Vancomycin HCl (Vanco Iv Per Pharmacy) VANCOMYCIN PER PHARMACY PER PROTOCOL XX ; Start 02/04/19 at 08:30 Pantoprazole (Protonix Iv) 40 mg BID@06,18 IV Last administered on 02/10/19 05:39; Admin Dose 40 MG; Start 02/04/19 at 18:00 Meropenem/Sodium Chloride 50 ml @ 100 mls/hr Q12 IVPB Last administered on 02/10/19 08:47; Admin Dose 100 MLS/HR; Start 02/05/19 at 12:00 Rifaximin (Xifaxan) 550 mg BID PO Last administered on 02/10/19 08:47; Admin Dose 550 MG; Start 02/05/19 at 21:00 Phenylephrine HCl 80 mg/Dextrose 250 ml @ 18.75 mls/ hr TITRATE PRN IV BLOOD PRESSURE SUPPORT Last administered on 02/10/19at 09:11; Admin Dose 16.88 MLS/HR; Start 02/06/19 at 02:00 Dextrose (D50w Syringe) 50 ml PRN PRN IV HYPOGLYCEMIA (BS<70) Last administered on 02/06/19at 07:42; Admin Dose 50 ML; Start 02/06/19 at 07:30 Diagnostic Test (Pha) (Accu-Chek) 1 ea Q6 XX Last administered on 02/10/19at 05:39; Admin Dose 1 EA; Start 02/08/19 at 12:00 Norepinephrine 32 mg/Dextrose 250 ml @ 0.47 mls/hr TITRATE IV Last administered on 02/09/19at 05:01; Admin Dose 2.81 MLS/HR; Start 02/08/19 at 23:00 IV Flush (NS 10 ml) 10 ml PRN PRN IV IV PROTOCOL; Start 02/09/19 at 20:00 Midodrine (Midodrine) 10 mg TID@0900,1300,1700 PO Last administered on 02/10/19at 10:18; Admin Dose 10 MG; Start 02/10/19 at 10:00 Phytonadione 5 mg/ Dextrose 50.5 ml @ 101 mls/hr ONCE ONCE IVPB ; Start 02/10/19 at 11:30; Stop 02/10/19 at 11:59 Assessment/Plan Hospital Course (Demo Recall) Assessment 1. End-stage liver disease 2. Renal failure on hemodialysis 3. Hypoxemic respiratory failure requiring mechanical ventilation 4. Encephalopathy probably toxic metabolic 5. Septic shock on multiple vasopressors Plan 1. Continue mechanical ventilation 2. Titrate vasopressors to keep map greater than 65 3. Hemodialysis as tolerated 4. Tube feeding 5. Lactulose and rifaximin 6. Palliative care consultation is overall prognosis extremely poor 7. Left lung thoracentesis. Critical care time 40 minutes Prognosis extremely poor. JIMMIE ACEVES MD, [facility] Feb 10, 2019 11:23
[2019-02-10] MEDS ORDERED: PHYTONADIONE 5 MG in DEXTROSE 5% 50 ML IVPB ONE ×2 (11:30→16:00)
--- NOTE | 2019-02-10 12:26 | CONS ---
Consult Date/Type/Reason Admit Date/Time Jan 29, 2019 at 01:13 Initial Consult Date 02/03/19 Type of Consultation: Urology Requesting Provider: MAL ENRIQUE MD Date/Time of Note DATE: 02/10/19 TIME: 12:25 Subjective Pt still critically ill - if BP will stabilize, [facility] transfer to follow - con't supportive rx now ROS: No fever, no chills, no nausea, no vomiting, no diarrhea/constipation - still bleeding per nurse Objective Vitals Vital Signs Date Temp Pulse Resp B/P (MAP) Pulse Ox O2 O2 Flow FiO2 Time Delivery Rate 02/10/19 102 20 89/44 (59) 99 10:45 02/10/19 Mechanical 10:00 Ventilator 02/10/19 30 08:00 02/10/19 98.9 08:00 Intake and Output 02/09/19 02/09/19 02/10/19 1515:00 23:00 07:00 IntakeIntake Total 1190.88 ml 1183.34 ml 694.07 ml OutputOutput Total 1200 ml 800 ml BalanceBalance 1190.88 ml -16.66 ml -105.93 ml Exam General: WN/WD/NAD, AOx 0 HEENT: Unicetric/atraumatic/EOMI (does not follow commands) NECK: JVD elevated, no thyromegaly - intubated Lymph: no lymphadenopathy HEART: regular with no S3, II/ systolic murmur at apex LUNGS: Coarse sounds ABD: soft, NT, ND, +BS - ascites : Intact Neuro: non focal SKIN: chronic changes EXT: 2+ edema Results/Medications Result Diagram: 02/10/1943902/10/190 Results 24 hrs Laboratory Tests Test 02/09/19 14:29 02/09/19 18:04 02/09/19 18:23 02/09/19 23:42 Bedside Glucose 132 120 137 Creatine Kinase 66 Creatine Kinase 4.6 Index Creatinine Kinase 3.02 H MB (Mass) Troponin I < 0.012 Test 02/10/19 00:37 02/10/19 04:40 02/10/19 04:54 02/10/19 05:36 Creatine Kinase 59 56 Creatine Kinase 4.1 4.4 Index Creatinine Kinase 2.41 H 2.44 H MB (Mass) Troponin I < 0.012 0.012 White Blood Count 28.6 H Red Blood Count 2.02 L Hemoglobin 6.5 *L Hematocrit 18.4 L Mean Corpuscular 91.1 Volume Mean Corpuscular 32.2 Hemoglobin Mean Corpuscular 35.3 Hemoglobin Concen t Red Cell 19.2 H Distribution Width Platelet Count 52 L Mean Platelet 12.6 H Volume Immature 7.800 H Granulocytes % Neutrophils % Segmented 67 Neutrophils % (Manual) Band Neutrophils 5 H % (Manual) Lymphocytes % Lymphocytes % 11 L (Manual) Monocytes % Monocytes % 10 (Manual) Eosinophils % Eosinophils % 3 (Manual) Basophils % Basophils % 1 (Manual) Metamyelocytes % 2 H (manual) Promyelocytes % 1 H (Manual) Nucleated Red 2 H Blood Cells % Immature 2.230 H Granulocytes # Neutrophils # Neutrophils # 19.6 H (Manual) Band Neutrophils 1.4 H # Lymphocytes 3.1 H (Manual) Lymphocytes # Monocytes # Monocytes # 2.8 H (Manual) Eosinophils # Basophils # Basophils # 0.2 H (Manual) Metamyelocytes # 0.5 H Promyelocytes # 0.2 H Nucleated Red Blood Cells # Platelet Estimate DECREASED Giant Platelets 1 H Polychromasia 1+ Hypochromasia 1+ Poikilocytosis 2+ Anisocytosis 2+ Macrocytosis 2+ Ovalocytes 1+ Schistocytes 1+ Prothrombin Time 33.9 H Prothrombin Time 2.6 Ratio INR International 3.34 Normalized Ratio Activated 85.8 *H Partial Thrombopl ast Time Thrombin Time 23.8 H Fibrinogen 138.0 L D-Dimer > 05079.00 H Sodium Level 137 Potassium Level 3.7 Chloride Level 98 Carbon Dioxide 21 Level Anion Gap 18 H Blood Urea 36 H Nitrogen Creatinine 3.44 H Est Glomerular 20 L Filtrat Rate mL/min Glucose Level 115 Calcium Level 9.5 Phosphorus Level 3.1 Magnesium Level 2.0 Total Bilirubin 24.5 H Direct Bilirubin 18.10 *H Indirect 6.4 H Bilirubin Aspartate Amino 60 H Transf (AST/SGOT) Alanine < 6 L Aminotransferase (ALT/SGPT) Alkaline 209 H Phosphatase Total Protein 6.4 Albumin 3.1 L Globulin 3.30 H Albumin/Globulin 0.93 Ratio Lab Scanned BLOOD TRANSFUSIO Report N Bedside Glucose 129 Test 02/10/19 12:01 Bedside Glucose 123 Medications Current Medications Lactulose (Enulose) 10 gm Q8 PO Last administered on 6/25/19at 05:39; Admin Dose 10 GM; Start 01/29/19 at 06:00 Ondansetron HCl (Zofran Inj) 4 mg Q6H PRN IV NAUSEA AND/OR VOMITING; Start 01/29/19 at 01:00 Epoetin Daniel-epbx (Retacrit (Esrd)) 4,000 unit MoWeFr@1700 SC Last administered on 02/09/19 18:11; Admin Dose 4,000 UNIT; Start 01/30/19 at 17:00 Multivit/Ca Carb/ B Cmplx/FA/Prenat (Liz-Eugenia) 1 tab DAILY PO Last administered on 02/10/19 08:47; Admin Dose 1 TAB; Start 01/31/19 at 09:00 Docusate Sodium (Colace) 100 mg BID PRN PO constipation; Start 01/30/19 at 14:00 Senna (Senokot) 2 tab DAILY PRN PO constipation; Start 01/30/19 at 14:00 Levalbuterol (Xopenex Neb) 0.63 mg Q4H RESP THERAPY PRN HHN WHEEZING AND RESP DISTRESS Last administered on 02/04/19 05:40; Admin Dose 0.63 MG; Start 01/17 03/06 at 22:30 Midazolam HCl 50 ml @ 1 mls/hr TITRATE IV Last administered on 02/04/19 21:44; Admin Dose 5 MLS/HR; Start 02/04/19 at 07:00 Fentanyl 100 ml @ 2.5 mls/hr TITRATE IV Last administered on 02/05/19 17:54; Admin Dose 5 MLS/HR; Start 02/04/19 at 07:00 Vancomycin HCl (Vanco Iv Per Pharmacy) VANCOMYCIN PER PHARMACY PER PROTOCOL XX ; Start 02/04/19 at 08:30 Pantoprazole (Protonix Iv) 40 mg BID@06,18 IV Last administered on 02/10/19 05:39; Admin Dose 40 MG; Start 02/04/19 at 18:00 Meropenem/Sodium Chloride 50 ml @ 100 mls/hr Q12 IVPB Last administered on 02/10/19 08:47; Admin Dose 100 MLS/HR; Start 02/05/19 at 12:00 Rifaximin (Xifaxan) 550 mg BID PO Last administered on 02/10/19 08:47; Admin Dose 550 MG; Start 02/05/19 at 21:00 Phenylephrine HCl 80 mg/Dextrose 250 ml @ 18.75 mls/ hr TITRATE PRN IV BLOOD PRESSURE SUPPORT Last administered on 02/10/19 09:11; Admin Dose 16.88 MLS/HR; Start 02/06/19 at 02:00 Dextrose (D50w Syringe) 50 ml PRN PRN IV HYPOGLYCEMIA (BS<70) Last administered on 02/06/19at 07:42; Admin Dose 50 ML; Start 02/06/19 at 07:30 Diagnostic Test (Pha) (Accu-Chek) 1 ea Q6 XX Last administered on 02/10/19 05:39; Admin Dose 1 EA; Start 02/08/19 at 12:00 Norepinephrine 32 mg/Dextrose 250 ml @ 0.47 mls/hr TITRATE IV Last administered on 02/09/19 05:01; Admin Dose 2.81 MLS/HR; Start 02/08/19 at 23:00 IV Flush (NS 10 ml) 10 ml PRN PRN IV IV PROTOCOL; Start 02/09/19 at 20:00 Midodrine (Midodrine) 20 mg TID@0900,1300,1700 PO ; Start 02/10/19 at 13:00; Status UNV Assessment/Plan Hospital Course (Demo Recall) 1. Sinus atchycardia - This is expected with such a significant degree of anemia. Continue supportive care now. Con't supportive care. 2. History of cirrhosis. Defer to primary team. Apparently, the patient was listed for liver transplant easily at one time, but is no longer a candidate. 3. Hypotension. Continue supportive care with blood transfusion. 4. Respiratory failure: The patient is intubated. Pulmonary team follows. Con't resp Rx 5. Anemia with bleeding diathesis. All related to liver team. GI to follow up. 6. ARF - renal team follows VERY POOR PROGNOSIS TRE DUNNE MD Feb 10, 2019 12:26
--- NOTE | 2019-02-10 12:34 | CONS ---
Assessment/Plan Assessment/Plan Hospital Course (Demo Recall) 39 yo male with liver disease with profound jaundice 1. Decompensated end stage liver disease with hyperbilirubinemia 2. Severe anemia. -positive FOB, there are wound around rectum, brown liquid stool 3. Leukocytosis. -trending up 4. Ascites. -paracentesis 02/04 -neg cultures of ascitic fluid 5. End-stage renal disease on dialysis. 6. Coagulopathy due to #1 -heme onc consulted 7. Thrombocytopenia due to #1 -downtrending 8. Scrotal cellulitis 9. Epididymitis rt side 10. Periphomosis Plan INR 3.3. Thoracentesis planned for today Pending PRBC May consider EGD or colonoscopy if pt stablizes Continue lactulose and rifaximin Pending Stool for C. difficile toxins Continue antibiotic Continue supportive care Monitor HH and for acute GI bleeding Patient's prognosis remains poor: Dr Boggs consult pending Pt examined and plan of care discussed with Dr. Guerra Consultation Date/Type/Reason Admit Date/Time Jan 29, 2019 at 01:13 Initial Consult Date Requesting Provider: MAL ENRIQUE MD Date/Time of Note DATE: 02/10/19 TIME: 12:30 24 HR Interval Summary Free Text/Dictation Hemodynamically unstable. Levophed and neosynephrine gtt. Hgb 6.5, PRBCs ordered. No evidence of GI bleeding, brown liquid stool. Tolerating tube feeds 30cc. Exam/Review of Systems Exam Vitals Vital Signs Date Temp Pulse Resp B/P (MAP) Pulse Ox O2 O2 Flow FiO2 Time Delivery Rate 02/10/19 102 20 89/44 (59) 99 10:45 02/10/19 Mechanical 10:00 Ventilator 02/10/19 30 08:00 02/10/19 98.9 08:00 Intake and Output 02/09/19 02/09/19 02/10/19 1515:00 23:00 07:00 IntakeIntake Total 1190.88 ml 1183.34 ml 694.07 ml OutputOutput Total 1200 ml 800 ml BalanceBalance 1190.88 ml -16.66 ml -105.93 ml Eyes: PERRL, icteric ENMT: intubated Respiratory: diminished breath sounds Cardiovascular: other (sinus tachycardia) Gastrointestinal: ascites Extremities: edema Results Result Diagram: 02/10/19 0440 02/10/19 0440 Results 24hrs Laboratory Tests Test 02/09/19 14:29 02/09/19 18:04 02/09/19 18:23 02/09/19 23:42 Bedside Glucose 132 120 137 Creatine Kinase 66 Creatine Kinase 4.6 Index Creatinine Kinase 3.02 H MB (Mass) Troponin I < 0.012 Test 02/10/19 00:37 02/10/19 04:40 02/10/19 04:54 02/10/19 05:36 Creatine Kinase 59 56 Creatine Kinase 4.1 4.4 Index Creatinine Kinase 2.41 H 2.44 H MB (Mass) Troponin I < 0.012 0.012 White Blood Count 28.6 H Red Blood Count 2.02 L Hemoglobin 6.5 *L Hematocrit 18.4 L Mean Corpuscular 91.1 Volume Mean Corpuscular 32.2 Hemoglobin Mean Corpuscular 35.3 Hemoglobin Concen t Red Cell 19.2 H Distribution Width Platelet Count 52 L Mean Platelet 12.6 H Volume Immature 7.800 H Granulocytes % Neutrophils % Segmented 67 Neutrophils % (Manual) Band Neutrophils 5 H % (Manual) Lymphocytes % Lymphocytes % 11 L (Manual) Monocytes % Monocytes % 10 (Manual) Eosinophils % Eosinophils % 3 (Manual) Basophils % Basophils % 1 (Manual) Metamyelocytes % 2 H (manual) Promyelocytes % 1 H (Manual) Nucleated Red 2 H Blood Cells % Immature 2.230 H Granulocytes # Neutrophils # Neutrophils # 19.6 H (Manual) Band Neutrophils 1.4 H # Lymphocytes 3.1 H (Manual) Lymphocytes # Monocytes # Monocytes # 2.8 H (Manual) Eosinophils # Basophils # Basophils # 0.2 H (Manual) Metamyelocytes # 0.5 H Promyelocytes # 0.2 H Nucleated Red Blood Cells # Platelet Estimate DECREASED Giant Platelets 1 H Polychromasia 1+ Hypochromasia 1+ Poikilocytosis 2+ Anisocytosis 2+ Macrocytosis 2+ Ovalocytes 1+ Schistocytes 1+ Prothrombin Time 33.9 H Prothrombin Time 2.6 Ratio INR International 3.34 Normalized Ratio Activated 85.8 *H Partial Thrombopl ast Time Thrombin Time 23.8 H Fibrinogen 138.0 L D-Dimer > 69761.00 H Sodium Level 137 Potassium Level 3.7 Chloride Level 98 Carbon Dioxide 21 Level Anion Gap 18 H Blood Urea 36 H Nitrogen Creatinine 3.44 H Est Glomerular 20 L Filtrat Rate mL/min Glucose Level 115 Calcium Level 9.5 Phosphorus Level 3.1 Magnesium Level 2.0 Total Bilirubin 24.5 H Direct Bilirubin 18.10 *H Indirect 6.4 H Bilirubin Aspartate Amino 60 H Transf (AST/SGOT) Alanine < 6 L Aminotransferase (ALT/SGPT) Alkaline 209 H Phosphatase Total Protein 6.4 Albumin 3.1 L Globulin 3.30 H Albumin/Globulin 0.93 Ratio Lab Scanned BLOOD TRANSFUSIO Report N Bedside Glucose 129 Test 02/10/19 12:01 Bedside Glucose 123 Medications Medication Current Medications Lactulose (Enulose) 10 gm Q8 PO Last administered on 02/10/19 05:39; Admin Dose 10 GM; Start 01/29/19 at 06:00 Ondansetron HCl (Zofran Inj) 4 mg Q6H PRN IV NAUSEA AND/OR VOMITING; Start 01/29/19 at 01:00 Epoetin Daniel-epbx (Retacrit (Esrd)) 4,000 unit MoWeFr@1700 SC Last administered on 02/09/19at 18:11; Admin Dose 4,000 UNIT; Start 01/30/19 at 17:00 Multivit/Ca Carb/ B Cmplx/FA/Prenat (Liz-Eugenia) 1 tab DAILY PO Last administered on 02/10/19 08:47; Admin Dose 1 TAB; Start 01/31/19 at 09:00 Docusate Sodium (Colace) 100 mg BID PRN PO constipation; Start 01/30/19 at 14:00 Senna (Senokot) 2 tab DAILY PRN PO constipation; Start 01/30/19 at 14:00 Levalbuterol (Xopenex Neb) 0.63 mg Q4H RESP THERAPY PRN HHN WHEEZING AND RESP DISTRESS Last administered on 02/04/19 05:40; Admin Dose 0.63 MG; Start 02/02/19 at 22:30 Midazolam HCl 50 ml @ 1 mls/hr TITRATE IV Last administered on 02/04/19at 21:44; Admin Dose 5 MLS/HR; Start 02/04/19 at 07:00 Fentanyl 100 ml @ 2.5 mls/hr TITRATE IV Last administered on 02/05/19at 17:54; Admin Dose 5 MLS/HR; Start 02/04/19 at 07:00 Vancomycin HCl (Vanco Iv Per Pharmacy) VANCOMYCIN PER PHARMACY PER PROTOCOL XX ; Start 02/04/19 at 08:30 Pantoprazole (Protonix Iv) 40 mg BID@06,18 IV Last administered on 02/10/19 05:39; Admin Dose 40 MG; Start 02/04/19 at 18:00 Meropenem/Sodium Chloride 50 ml @ 100 mls/hr Q12 IVPB Last administered on 02/10/19 08:47; Admin Dose 100 MLS/HR; Start 02/05/19 at 12:00 Rifaximin (Xifaxan) 550 mg BID PO Last administered on 02/10/19 08:47; Admin Dose 550 MG; Start 02/05/19 at 21:00 Phenylephrine HCl 80 mg/Dextrose 250 ml @ 18.75 mls/ hr TITRATE PRN IV BLOOD PRESSURE SUPPORT Last administered on 02/10/19 09:11; Admin Dose 16.88 MLS/HR; Start 02/06/19 at 02:00 Dextrose (D50w Syringe) 50 ml PRN PRN IV HYPOGLYCEMIA (BS<70) Last administered on 02/06/19 07:42; Admin Dose 50 ML; Start 02/06/19 at 07:30 Diagnostic Test (Pha) (Accu-Chek) 1 ea Q6 XX Last administered on 02/10/19 05:39; Admin Dose 1 EA; Start 02/08/19 at 12:00 Norepinephrine 32 mg/Dextrose 250 ml @ 0.47 mls/hr TITRATE IV Last administered on 02/09/19 05:01; Admin Dose 2.81 MLS/HR; Start 02/08/19 at 23:00 IV Flush (NS 10 ml) 10 ml PRN PRN IV IV PROTOCOL; Start 02/09/19 at 20:00 Midodrine (Midodrine) 20 mg TID@0900,1300,1700 PO ; Start 02/10/19 at 13:00; Status PHOENIX RODRIGUEZ Feb 10, 2019 12:34
[2019-02-10] MEDS: MIDODRINE 10 MG TABLET PO SCH ×2 (13:21→17:22)
--- NOTE | 2019-02-10 15:05 | CONS ---
Assessment/Plan Assessment/Plan Hospital Course (Demo Recall) No acute events patient remains intubated on pressors no fevers overnight WBC 28.6 H&H 6.5 and 18.4 platelets 54 BUN 36 creatinine 3.44 Chest x-ray this morning revealed large layering left pleural effusion with associated left lung base and perihilar consolidation. There is right perihilar patchy consolidation. Microbiology: Blood culture since admission grew Peptostreptococcus species. Testicular ultrasound suggested right sided epididymitis. Chest x-ray from yesterday revealed no change. Bilateral effusions left greater than right Antimicrobials: Meropenem vancomycin Indwelling's: Endotracheal tube NG tube right subclavian Hieu catheter Physical examination: Chronically ill-appearing wasted middle-aged man who is in no distress head atraumatic normocephalic neck is supple chest rise symmetrical breath sounds diminished bases. Heart: S1-S2 tachycardic abdomen distended bowel sounds hypoactive patient has tympany on percussion. Extremities with bilateral dependent edema. Skin: Positive for jaundice Assessment: 1. Septic shock with multisystem organ failure 2. Bacteremia possibly contaminant 3. Acute respiratory failure 4. Pneumonia 5. Left pleural effusion 6. Ascites, rule out SBP 7. End-stage liver cirrhosis 8. Acute renal failure likely hepatorenal 9. Severe anemia 10. Coagulopathy 11. Hypoglycemia Plan: Remains hemodynamically unstable, repeat blood cultures negative, continue antibiotics, plan for blood transfusion and FFP today, pending thoracentesis Consultation Date/Type/Reason Admit Date/Time Jan 29, 2019 at 01:13 Initial Consult Date 02/03/19 Type of Consult id Requesting Provider: MAL ENRIQUE MD Date/Time of Note DATE: 02/10/19 TIME: 15:02 Exam/Review of Systems Exam Vitals Vital Signs Date Temp Pulse Resp B/P (MAP) Pulse Ox O2 O2 Flow FiO2 Time Delivery Rate 02/10/19 105 20 92/49 (63) 100 14:45 02/10/19 Mechanical 14:00 Ventilator 02/10/19 98.5 12:00 02/10/19 30 08:00 Intake and Output 02/09/19 02/09/19 02/10/19 1515:00 23:00 07:00 IntakeIntake Total 1190.88 ml 1183.34 ml 694.07 ml OutputOutput Total 1200 ml 800 ml BalanceBalance 1190.88 ml -16.66 ml -105.93 ml Results Result Diagram: 02/10/19 0440 02/10/19 0440 Results 24hrs Laboratory Tests Test 02/09/19 18:04 02/09/19 18:23 02/09/19 23:42 02/10/19 00:37 Creatine Kinase 66 59 Creatine Kinase 4.6 4.1 Index Creatinine Kinase 3.02 H 2.41 H MB (Mass) Troponin I < 0.012 < 0.012 Bedside Glucose 120 137 Test 02/10/19 04:40 02/10/19 04:54 02/10/19 05:36 02/10/19 12:01 White Blood Count 28.6 H Red Blood Count 2.02 L Hemoglobin 6.5 *L Hematocrit 18.4 L Mean Corpuscular 91.1 Volume Mean Corpuscular 32.2 Hemoglobin Mean Corpuscular 35.3 Hemoglobin Concen t Red Cell 19.2 H Distribution Width Platelet Count 52 L Mean Platelet 12.6 H Volume Immature 7.800 H Granulocytes % Neutrophils % Segmented 67 Neutrophils % (Manual) Band Neutrophils 5 H % (Manual) Lymphocytes % Lymphocytes % 11 L (Manual) Monocytes % Monocytes % 10 (Manual) Eosinophils % Eosinophils % 3 (Manual) Basophils % Basophils % 1 (Manual) Metamyelocytes % 2 H (manual) Promyelocytes % 1 H (Manual) Nucleated Red 2 H Blood Cells % Immature 2.230 H Granulocytes # Neutrophils # Neutrophils # 19.6 H (Manual) Band Neutrophils 1.4 H # Lymphocytes 3.1 H (Manual) Lymphocytes # Monocytes # Monocytes # 2.8 H (Manual) Eosinophils # Basophils # Basophils # 0.2 H (Manual) Metamyelocytes # 0.5 H Promyelocytes # 0.2 H Nucleated Red Blood Cells # Platelet Estimate DECREASED Giant Platelets 1 H Polychromasia 1+ Hypochromasia 1+ Poikilocytosis 2+ Anisocytosis 2+ Macrocytosis 2+ Ovalocytes 1+ Schistocytes 1+ Prothrombin Time 33.9 H Prothrombin Time 2.6 Ratio INR International 3.34 Normalized Ratio Activated 85.8 *H Partial Thrombopl ast Time Thrombin Time 23.8 H Fibrinogen 138.0 L D-Dimer > 15404.00 H Sodium Level 137 Potassium Level 3.7 Chloride Level 98 Carbon Dioxide 21 Level Anion Gap 18 H Blood Urea 36 H Nitrogen Creatinine 3.44 H Est Glomerular 20 L Filtrat Rate mL/min Glucose Level 115 Calcium Level 9.5 Phosphorus Level 3.1 Magnesium Level 2.0 Total Bilirubin 24.5 H Direct Bilirubin 18.10 *H Indirect 6.4 H Bilirubin Aspartate Amino 60 H Transf (AST/SGOT) Alanine < 6 L Aminotransferase (ALT/SGPT) Alkaline 209 H Phosphatase Creatine Kinase 56 Creatine Kinase 4.4 Index Creatinine Kinase 2.44 H MB (Mass) Troponin I 0.012 Total Protein 6.4 Albumin 3.1 L Globulin 3.30 H Albumin/Globulin 0.93 Ratio Lab Scanned BLOOD TRANSFUSIO Report N Bedside Glucose 129 123 Medications Medication Current Medications Lactulose (Enulose) 10 gm Q8 PO Last administered on 02/10/19 05:39; Admin Dose 10 GM; Start 01/29/19 at 06:00 Ondansetron HCl (Zofran Inj) 4 mg Q6H PRN IV NAUSEA AND/OR VOMITING; Start 01/29/19 at 01:00 Epoetin Daniel-epbx (Retacrit (Esrd)) 4,000 unit MoWeFr@1700 SC Last administered on 02/09/19at 18:11; Admin Dose 4,000 UNIT; Start 01/30/19 at 17:00 Multivit/Ca Carb/ B Cmplx/FA/Prenat (Liz-Eugenia) 1 tab DAILY PO Last administered on 02/10/19at 08:47; Admin Dose 1 TAB; Start 01/31/19 at 09:00 Docusate Sodium (Colace) 100 mg BID PRN PO constipation; Start 01/30/19 at 14:00 Senna (Senokot) 2 tab DAILY PRN PO constipation; Start 01/30/19 at 14:00 Levalbuterol (Xopenex Neb) 0.63 mg Q4H RESP THERAPY PRN HHN WHEEZING AND RESP DISTRESS Last administered on 02/04/19at 05:40; Admin Dose 0.63 MG; Start 02/02/19 at 22:30 Midazolam HCl 50 ml @ 1 mls/hr TITRATE IV Last administered on 02/04/19at 21:44; Admin Dose 5 MLS/HR; Start 02/04/19 at 07:00 Fentanyl 100 ml @ 2.5 mls/hr TITRATE IV Last administered on 02/05/19at 17:54; Admin Dose 5 MLS/HR; Start 02/04/19 at 07:00 Vancomycin HCl (Vanco Iv Per Pharmacy) VANCOMYCIN PER PHARMACY PER PROTOCOL XX ; Start 02/04/19 at 08:30 Pantoprazole (Protonix Iv) 40 mg BID@06,18 IV Last administered on 02/10/19 05:39; Admin Dose 40 MG; Start 02/04/19 at 18:00 Meropenem/Sodium Chloride 50 ml @ 100 mls/hr Q12 IVPB Last administered on 02/10/19 08:47; Admin Dose 100 MLS/HR; Start 02/05/19 at 12:00 Rifaximin (Xifaxan) 550 mg BID PO Last administered on 02/10/19 08:47; Admin Dose 550 MG; Start 02/05/19 at 21:00 Phenylephrine HCl 80 mg/Dextrose 250 ml @ 18.75 mls/ hr TITRATE PRN IV BLOOD PRESSURE SUPPORT Last administered on 02/10/19 09:11; Admin Dose 16.88 MLS/HR; Start 02/06/19 at 02:00 Dextrose (D50w Syringe) 50 ml PRN PRN IV HYPOGLYCEMIA (BS<70) Last administered on 02/06/19 07:42; Admin Dose 50 ML; Start 02/06/19 at 07:30 Diagnostic Test (Pha) (Accu-Chek) 1 ea Q6 XX Last administered on 02/10/19 05:39; Admin Dose 1 EA; Start 02/08/19 at 12:00 Norepinephrine 32 mg/Dextrose 250 ml @ 0.47 mls/hr TITRATE IV Last administered on 02/09/19 05:01; Admin Dose 2.81 MLS/HR; Start 02/08/19 at 23:00 IV Flush (NS 10 ml) 10 ml PRN PRN IV IV PROTOCOL; Start 02/09/19 at 20:00 Midodrine (Midodrine) 20 mg TID@0900,1300,1700 PO Last administered on 02/10/19 13:21; Admin Dose 20 MG; Start 02/10/19 at 13:00 Phytonadione 5 mg/ Dextrose 50.5 ml @ 101 mls/hr ONCE ONCE IVPB ; Start 02/10/19 at 16:00; Stop 02/10/19 at 16:29; Status UNV Phytonadione 10 mg/Dextrose 51 ml @ 102 mls/hr DAILY IVPB ; Start 02/11/19 at 09:00; Stop 02/13/19 at 12:00; Status JAXON ESCOBAR NP Feb 10, 2019 15:05
--- NOTE | 2019-02-10 15:18 | RADRPT ---
Echocardiogram Report Patient Name: LILA GOYALPatient ID: [id number] : 1980 (39y )Study Date: 02/10/2019 7:19:28 AM Gender: MAccession #: [id number] Tech: Sharon Meyers VICENTA Location: [facility] Ref.Physician: LESLY SALTER Height(Cm): BSA: Weight(Kg): Quality: Technically Difficult StudyOrder Physician: LESLY SALTER Account #: Procedures: Echocardiographic Report: Transthoracic echocardiogram with complete 2D, M-Mode, and doppler examination. Indications: Hypotension. Measurements: 2D/M Mode Doppler Measurement Value Normal Range Measurement Value Normal Range LVIDd 2D 4.0 [ 4.2 - 5.8 ] cm AV Peak Mike 1.4 [ 100.0 - 170.0 ] cm/sec LVIDs 2D 2.1 [ 2.5 - 4.0 ] cm AV Peak PG 8.0 [ 2.0 - 9.0 ] mmHg LVPWd 2D 0.9 [ 0.6 - 1.0 ] cm LVOT Peak Mike 1.0 [ 70.0 - 110.0 ] cm/sec IVSd 2D 0.8 [ 0.6 - 1.0 ] cm LVOT Peak PG 4.0 [ 2.0 - 6.0 ] mmHg AoR Diam 2D 2.4 [ 2.6 - 3.4 ] cm MV E Peak Mike 0.8 [ 60.0 - 130.0 ] cm/sec EDV 2D 69.2 [ 62.0 - 150.0 ] ml MV A Peak Mike 0.6 [ 100.0 - 120.0 ] cm/sec ESV 2D 13.9 [ 21.0 - 61.0 ] ml MV E/A 1.2 [ 0.8 - 1.5 ] ratio EF 2D 79.9 [ 52.0 - 72.0 ] percent MV Decel Time 116 [ 104 - 258 ] msec LA Dimen 2D 3.3 [ 3.0 - 4.0 ] cm Lat E` Mike 0.1 [ 10.0 - 15.0 ] cm/sec Lateral E/E` 8.7 [ 1.0 - 2.0 ] ratio Med E` Mike 0.1 cm/sec MV E/A 1.2 [ 0.8 - 1.5 ] ratio Findings: Left Ventricle: Normal left ventricular systolic function. Normal left ventricular cavity size. Normal left ventricular wall thickness. Ejection fraction is visually estimated at 60 %. Tissue Doppler/Mitral Doppler indices are consistent with impaired relaxation (Stage I diastolic dysfunction). Right Ventricle: Normal right ventricular size. Normal right ventricular systolic function. Left Atrium: The left atrium is normal in size. Right Atrium: There is moderate enlargement of right atrium. Mitral Valve: Normal appearance and function of the mitral valve with trace physiologic regurgitation. Aortic Valve: Normal appearance of the aortic valve. No significant aortic stenosis or insufficiency. Tricuspid Valve: Normal appearance and function of the tricuspid valve with trace physiologic regurgitation. Normal right ventricular systolic pressure. Pulmonic Valve: Normal pulmonic valve appearance. Pericardium: Trivial pericardial effusion. Pleural effusion seen. Aorta: Normal aortic root. IVC: Normal size and normal respiratory collapse consistent with normal right atrial pressure. Conclusions: Normal left ventricular systolic function. Normal left ventricular cavity size. Normal left ventricular wall thickness. Ejection fraction is visually estimated at 60 %. Tissue Doppler/Mitral Doppler indices are consistent with impaired relaxation (Stage I diastolic dysfunction). There is moderate enlargement of right atrium. Normal appearance and function of the mitral valve with trace physiologic regurgitation. Normal appearance and function of the tricuspid valve with trace physiologic regurgitation. Normal right ventricular systolic pressure. Trivial pericardial effusion. Pleural effusion seen. Electronically Signed By: Lesly Salter 2019-02-10 15:17:01 PDT
[2019-02-10] MEDS: NORepinephrine 32 MG in DEXTROSE 5% 218 ML IV SCH (17:24)
[2019-02-11] VITALS (102 sets, daily range): BP systolic 74–113; BP diastolic 38–69; PULSE 102–120; RESP 19–28
[2019-02-11] MEDS: LACTULOSE 30ML CUP PO SCH ×3 (05:56→23:00)
[2019-02-11] MEDS: ACCU-CHEK XX SCH ×4 (05:56→17:37)
[2019-02-11] MEDS: PHENYLephrine 80 MG in DEXTROSE 5% 242 ML IV PRN ×2 (06:00→22:04)
--- NOTE | 2019-02-11 08:04 | CONS ---
Assessment/Plan Assessment/Plan Assessment/Plan (Daily) Long discussion with all family members this morning.. discussed options for short term and fdc prognosis... Family have decided to change code status to DNR if he deteriorates suddenly no further escalation of care ,change code status to DNR. If patient does not SIGNIFICANTLY improve in the next 2 to 3 days comfort measures. Family understands patient is too ill to transfer Consultation Date/Type/Reason Admit Date/Time Jan 29, 2019 at 01:13 Date/Time of Note DATE: 02/11/19 TIME: 07:55 Past Medical History Medical History: GI bleed, hepatitis, renal disease, other (As per history of present illness) Medications Current Medications Lactulose (Enulose) 10 gm Q8 PO Last administered on 02/11/19at 05:56; Admin Dose 10 GM; Start 01/29/19 at 06:00 Ondansetron HCl (Zofran Inj) 4 mg Q6H PRN IV NAUSEA AND/OR VOMITING; Start 01/29/19 at 01:00 Epoetin Daniel-epbx (Retacrit (Esrd)) 4,000 unit MoWeFr@1700 SC Last administered on 02/09/19at 18:11; Admin Dose 4,000 UNIT; Start 01/30/19 at 17:00 Multivit/Ca Carb/ B Cmplx/FA/Prenat (Liz-Eugenia) 1 tab DAILY PO Last administered on 02/10/19at 08:47; Admin Dose 1 TAB; Start 01/31/19 at 09:00 Docusate Sodium (Colace) 100 mg BID PRN PO constipation; Start 01/30/19 at 14:00 Senna (Senokot) 2 tab DAILY PRN PO constipation; Start 01/30/19 at 14:00 Levalbuterol (Xopenex Neb) 0.63 mg Q4H RESP THERAPY PRN HHN WHEEZING AND RESP DISTRESS Last administered on 02/04/19at 05:40; Admin Dose 0.63 MG; Start 02/02/19 at 22:30 Midazolam HCl 50 ml @ 1 mls/hr TITRATE IV Last administered on 02/04/19at 21:44; Admin Dose 5 MLS/HR; Start 02/04/19 at 07:00 Fentanyl 100 ml @ 2.5 mls/hr TITRATE IV Last administered on 02/05/19at 17:54; Admin Dose 5 MLS/HR; Start 02/04/19 at 07:00 Vancomycin HCl (Vanco Iv Per Pharmacy) VANCOMYCIN PER PHARMACY PER PROTOCOL XX ; Start 02/04/19 at 08:30 Meropenem/Sodium Chloride 50 ml @ 100 mls/hr Q12 IVPB Last administered on 02/10/19 21:56; Admin Dose 100 MLS/HR; Start 02/05/19 at 12:00 Rifaximin (Xifaxan) 550 mg BID PO Last administered on 02/10/19 21:56; Admin Dose 550 MG; Start 02/05/19 at 21:00 Phenylephrine HCl 80 mg/Dextrose 250 ml @ 18.75 mls/ hr TITRATE PRN IV BLOOD PRESSURE SUPPORT Last administered on 02/11/19 06:00; Admin Dose 9.38 MLS/HR; Start 02/06/19 at 02:00 Dextrose (D50w Syringe) 50 ml PRN PRN IV HYPOGLYCEMIA (BS<70) Last administered on 02/06/19at 07:42; Admin Dose 50 ML; Start 02/06/19 at 07:30 Diagnostic Test (Pha) (Accu-Chek) 1 ea Q6 XX Last administered on 02/11/19 05:56; Admin Dose 1 EA; Start 02/08/19 at 12:00 Norepinephrine 32 mg/Dextrose 250 ml @ 0.47 mls/hr TITRATE IV Last administered on 02/10/19 17:24; Admin Dose 4.69 MLS/HR; Start 02/08/19 at 23:00 IV Flush (NS 10 ml) 10 ml PRN PRN IV IV PROTOCOL; Start 02/09/19 at 20:00 Midodrine (Midodrine) 20 mg TID@0900,1300,1700 PO Last administered on 02/10/19 17:22; Admin Dose 20 MG; Start 02/10/19 at 13:00 Phytonadione 10 mg/Dextrose 51 ml @ 102 mls/hr DAILY IVPB ; Start 02/11/19 at 09:00; Stop 02/13/19 at 12:00 Lansoprazole (Prevacid) 30 mg BID@0600,1800 NGT ; Start 02/11/19 at 18:00 Allergies: Coded Allergies: No Known Allergy (Unverified , 01/29/19) Past Surgical History Past Surgical Hx: other (As per history of present illness placement of permacath) Social History Alcohol Use: heavy (History of) Smoking Status: Former smoker Exam/Review of Systems Exam Vitals Vital Signs Date Temp Pulse Resp B/P (MAP) Pulse Ox O2 O2 Flow FiO2 Time Delivery Rate 02/11/19 112 22 99 30 07:27 02/11/19 88/45 (59) Mechanical 06:00 Ventilator 02/11/19 98.4 04:00 Intake and Output 02/10/19 02/10/19 02/11/19 1414:59 22:59 06:59 IntakeIntake Total 670.50 ml 452.320 ml 400.49 ml OutputOutput Total 0 ml 500 ml 0 ml BalanceBalance 670.50 ml -47.680 ml 400.49 ml Results Result Diagram: 02/11/19 0455 02/11/19 0430 Results 24hrs Laboratory Tests Test 02/10/19 12:01 02/10/19 18:41 02/11/19 00:08 02/11/19 04:30 Bedside Glucose 123 127 123 White Blood Count 30.8 H Red Blood Count 2.06 L Hemoglobin 6.5 *L Hematocrit 18.3 L Mean Corpuscular 88.8 Volume Mean Corpuscular 31.6 Hemoglobin Mean Corpuscular 35.5 Hemoglobin Concen t Red Cell 18.4 H Distribution Width Platelet Count 55 L Mean Platelet 12.3 H Volume Immature 12.700 H Granulocytes % Neutrophils % Lymphocytes % Monocytes % Eosinophils % Basophils % Nucleated Red 1.4 H Blood Cells % Immature 3.900 H Granulocytes # Neutrophils # Lymphocytes # Monocytes # Eosinophils # Basophils # Nucleated Red Blood Cells # Sodium Level 136 Potassium Level 3.6 Chloride Level 98 Carbon Dioxide 21 Level Anion Gap 17 H Blood Urea 44 H Nitrogen Creatinine 3.68 H Est Glomerular 18 L Filtrat Rate mL/min Glucose Level 100 Calcium Level 9.4 Phosphorus Level 3.5 Magnesium Level 2.0 Total Bilirubin 22.3 H Direct Bilirubin 16.70 *H Indirect 5.6 H Bilirubin Aspartate Amino 63 H Transf (AST/SGOT) Alanine 15 Aminotransferase (ALT/SGPT) Alkaline 194 H Phosphatase Total Protein 6.3 Albumin 2.9 L Globulin 3.40 H Albumin/Globulin 0.85 Ratio Test 02/11/19 04:46 02/11/19 04:55 02/11/19 05:55 Lab Scanned BLOOD TRANSFUSIO Report N Platelet Count 54 L Prothrombin Time 25.8 #H Prothrombin Time 2.0 Ratio INR International 2.35 Normalized Ratio Activated 67.7 H Partial Thrombopl ast Time Thrombin Time 22.6 H Fibrinogen 72.0 #L D-Dimer > 04525.00 H Bedside Glucose 117 Medications Medication Current Medications Lactulose (Enulose) 10 gm Q8 PO Last administered on 02/11/19at 05:56; Admin Dose 10 GM; Start 01/29/19 at 06:00 Ondansetron HCl (Zofran Inj) 4 mg Q6H PRN IV NAUSEA AND/OR VOMITING; Start 01/29/19 at 01:00 Epoetin Daniel-epbx (Retacrit (Esrd)) 4,000 unit MoWeFr@1700 SC Last administered on 02/09/19at 18:11; Admin Dose 4,000 UNIT; Start 01/30/19 at 17:00 Multivit/Ca Carb/ B Cmplx/FA/Prenat (Liz-Eugenia) 1 tab DAILY PO Last administered on 02/10/19 08:47; Admin Dose 1 TAB; Start 01/31/19 at 09:00 Docusate Sodium (Colace) 100 mg BID PRN PO constipation; Start 01/30/19 at 14:00 Senna (Senokot) 2 tab DAILY PRN PO constipation; Start 01/30/19 at 14:00 Levalbuterol (Xopenex Neb) 0.63 mg Q4H RESP THERAPY PRN HHN WHEEZING AND RESP DISTRESS Last administered on 02/04/19at 05:40; Admin Dose 0.63 MG; Start 02/02/19 at 22:30 Midazolam HCl 50 ml @ 1 mls/hr TITRATE IV Last administered on 02/04/19at 21:44; Admin Dose 5 MLS/HR; Start 02/04/19 at 07:00 Fentanyl 100 ml @ 2.5 mls/hr TITRATE IV Last administered on 02/05/19at 17:54; Admin Dose 5 MLS/HR; Start 02/04/19 at 07:00 Vancomycin HCl (Vanco Iv Per Pharmacy) VANCOMYCIN PER PHARMACY PER PROTOCOL XX ; Start 02/04/19 at 08:30 Meropenem/Sodium Chloride 50 ml @ 100 mls/hr Q12 IVPB Last administered on 02/10/19 21:56; Admin Dose 100 MLS/HR; Start 02/05/19 at 12:00 Rifaximin (Xifaxan) 550 mg BID PO Last administered on 02/10/19 21:56; Admin Dose 550 MG; Start 02/05/19 at 21:00 Phenylephrine HCl 80 mg/Dextrose 250 ml @ 18.75 mls/ hr TITRATE PRN IV BLOOD PRESSURE SUPPORT Last administered on 02/11/19 06:00; Admin Dose 9.38 MLS/HR; Start 02/06/19 at 02:00 Dextrose (D50w Syringe) 50 ml PRN PRN IV HYPOGLYCEMIA (BS<70) Last administered on 02/06/19 07:42; Admin Dose 50 ML; Start 02/06/19 at 07:30 Diagnostic Test (Pha) (Accu-Chek) 1 ea Q6 XX Last administered on 02/11/19 05:56; Admin Dose 1 EA; Start 02/08/19 at 12:00 Norepinephrine 32 mg/Dextrose 250 ml @ 0.47 mls/hr TITRATE IV Last administered on 02/10/19 17:24; Admin Dose 4.69 MLS/HR; Start 02/08/19 at 23:00 IV Flush (NS 10 ml) 10 ml PRN PRN IV IV PROTOCOL; Start 02/09/19 at 20:00 Midodrine (Midodrine) 20 mg TID@0900,1300,1700 PO Last administered on 02/10/19at 17:22; Admin Dose 20 MG; Start 02/10/19 at 13:00 Phytonadione 10 mg/Dextrose 51 ml @ 102 mls/hr DAILY IVPB ; Start 02/11/19 at 09:00; Stop 02/13/19 at 12:00 Lansoprazole (Prevacid) 30 mg BID@0600,1800 NGT ; Start 02/11/19 at 18:00 KATHY HAQ Feb 11, 2019 08:04
[2019-02-11] MEDS: MEROPENEM 500MG/50 ML (PMX) 50 ML IVPB SCH ×2 (08:59→20:59)
[2019-02-11] MEDS: RIFAXIMIN 550 MG TAB PO SCH ×2 (08:59→20:59)
[2019-02-11] MEDS: PHYTONADIONE 10 MG in DEXTROSE 5% 50 ML IVPB SCH (08:59)
[2019-02-11] MEDS: BALSAM PERU/CASTOR OIL 60 GM TUBE TOP SCH ×2 (09:00→20:59)
[2019-02-11] MEDS: MULTIVIT/CA CARB/B CMPLX/FA TAB PO SCH (09:00)
[2019-02-11] MEDS: MIDODRINE 10 MG TABLET PO SCH ×3 (09:00→17:33)
--- NOTE | 2019-02-11 09:41 | CONS ---
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 TODAY 02/11 FIBRINOGEN 72, GIVEN 10 U CRYO -in terms of procedures, recommend 2 u FFP prior to proceeding with pa racentesis, repeat PT/INR/PTT prior to paracentesis to ensure that coags are in safer range for the procedure -transfuse to keep hgb>7, TRANSFUSE 1 UNIT PRBCS TODAY KEEP plt >20KM TODAY 54k, NO TRANSFUSION NEEDED check daily PTT/PT/INR/fibrinogen grim prognosis--remains intubated, renal failure,liver failure and coagulopathy recommend discussion of goals of care and code status PLAN WAS TO TRANSFER TO [facility] IF PT STABLE Consultation Date/Type/Reason Admit Date/Time Jan 29, 2019 at 01:13 Initial Consult Date 02/03/19 Requesting Provider: MAL ENRIQUE MD Date/Time of Note DATE: 02/11/19 TIME: 09:38 24 HR Interval Summary Free Text/Dictation pt very critical Subjective hx not possible: pt critical Exam/Review of Systems Exam Vitals Vital Signs Date Temp Pulse Resp B/P (MAP) Pulse Ox O2 O2 Flow FiO2 Time Delivery Rate 02/11/19 112 22 100 30 09:24 02/11/19 88/45 (59) Mechanical 06:00 Ventilator 02/11/19 98.4 04:00 Intake and Output 02/10/19 02/10/19 02/11/19 1515:00 23:00 07:00 IntakeIntake Total 668.62 ml 493.420 ml 321.90 ml OutputOutput Total 0 ml 500 ml 0 ml BalanceBalance 668.62 ml -6.580 ml 321.90 ml Constitutional: non-verbal Eyes: icteric ENMT: intubated Respiratory: diminished breath sounds Results Result Diagram: 02/11/19 0455 02/11/19 0430 Results 24hrs Laboratory Tests Test 02/10/19 12:01 02/10/19 18:41 02/11/19 00:08 02/11/19 04:30 Bedside Glucose 123 127 123 White Blood Count 30.8 H Red Blood Count 2.06 L Hemoglobin 6.5 *L Hematocrit 18.3 L Mean Corpuscular 88.8 Volume Mean Corpuscular 31.6 Hemoglobin Mean Corpuscular 35.5 Hemoglobin Concen t Red Cell 18.4 H Distribution Width Platelet Count 55 L Mean Platelet 12.3 H Volume Immature 12.700 H Granulocytes % Neutrophils % Segmented 43 Neutrophils % (Manual) Band Neutrophils 21 H % (Manual) Lymphocytes % Lymphocytes % 15 (Manual) Monocytes % Monocytes % 5 (Manual) Eosinophils % Eosinophils % 4 (Manual) Basophils % Metamyelocytes % 1 H (manual) Myelocytes % 11 H (Manual) Nucleated Red 1.4 H Blood Cells % Immature 3.900 H Granulocytes # Neutrophils # Neutrophils # 15.2 H (Manual) Band Neutrophils 6.4 H # Lymphocytes 4.6 H (Manual) Lymphocytes # Monocytes # Monocytes # 1.5 H (Manual) Eosinophils # Basophils # Metamyelocytes # 0.3 H Myelocytes # 3.3 H Nucleated Red Blood Cells # Platelet Estimate DECREASED Giant Platelets 1 H Polychromasia 3+ Hypochromasia 1+ Poikilocytosis 3+ Anisocytosis 2+ Macrocytosis 2+ Ovalocytes 1+ Schistocytes 1+ Sodium Level 136 Potassium Level 3.6 Chloride Level 98 Carbon Dioxide 21 Level Anion Gap 17 H Blood Urea 44 H Nitrogen Creatinine 3.68 H Est Glomerular 18 L Filtrat Rate mL/min Glucose Level 100 Calcium Level 9.4 Phosphorus Level 3.5 Magnesium Level 2.0 Total Bilirubin 22.3 H Direct Bilirubin 16.70 *H Indirect 5.6 H Bilirubin Aspartate Amino 63 H Transf (AST/SGOT) Alanine 15 Aminotransferase (ALT/SGPT) Alkaline 194 H Phosphatase Total Protein 6.3 Albumin 2.9 L Globulin 3.40 H Albumin/Globulin 0.85 Ratio Test 02/11/19 04:46 02/11/19 04:55 02/11/19 05:55 Lab Scanned BLOOD TRANSFUSIO Report N Platelet Count 54 L Prothrombin Time 25.8 #H Prothrombin Time 2.0 Ratio INR International 2.35 Normalized Ratio Activated 67.7 H Partial Thrombopl ast Time Thrombin Time 22.6 H Fibrinogen 72.0 #L D-Dimer > 33045.00 H Bedside Glucose 117 Medications Medication Current Medications Lactulose (Enulose) 10 gm Q8 PO Last administered on 02/11/19 05:56; Admin Dose 10 GM; Start 01/29/19 at 06:00 Ondansetron HCl (Zofran Inj) 4 mg Q6H PRN IV NAUSEA AND/OR VOMITING; Start 01/29/19 at 01:00 Epoetin Daniel-epbx (Retacrit (Esrd)) 4,000 unit MoWeFr@1700 SC Last administered on 02/09/19 18:11; Admin Dose 4,000 UNIT; Start 01/30/19 at 17:00 Multivit/Ca Carb/ B Cmplx/FA/Prenat (Liz-Eugenia) 1 tab DAILY PO Last admi nistered on 02/11/19 09:00; Admin Dose 1 TAB; Start 01/31/19 at 09:00 Docusate Sodium (Colace) 100 mg BID PRN PO constipation; Start 01/30/19 at 14:00 Senna (Senokot) 2 tab DAILY PRN PO constipation; Start 01/30/19 at 14:00 Levalbuterol (Xopenex Neb) 0.63 mg Q4H RESP THERAPY PRN HHN WHEEZING AND RESP DISTRESS Last administered on 02/04/19 05:40; Admin Dose 0.63 MG; Start 02/02/19 at 22:30 Midazolam HCl 50 ml @ 1 mls/hr TITRATE IV Last administered on 02/04/19at 21:44; Admin Dose 5 MLS/HR; Start 02/04/19 at 07:00 Fentanyl 100 ml @ 2.5 mls/hr TITRATE IV Last administered on 02/05/19at 17:54; Admin Dose 5 MLS/HR; Start 02/04/19 at 07:00 Vancomycin HCl (Vanco Iv Per Pharmacy) VANCOMYCIN PER PHARMACY PER PROTOCOL XX ; Start 02/04/19 at 08:30 Meropenem/Sodium Chloride 50 ml @ 100 mls/hr Q12 IVPB Last administered on 02/11/19at 08:59; Admin Dose 100 MLS/HR; Start 02/05/19 at 12:00 Rifaximin (Xifaxan) 550 mg BID PO Last administered on 02/11/19 08:59; Admin Dose 550 MG; Start 02/05/19 at 21:00 Phenylephrine HCl 80 mg/Dextrose 250 ml @ 18.75 mls/ hr TITRATE PRN IV BLOOD PRESSURE SUPPORT Last administered on 02/11/19 06:00; Admin Dose 9.38 MLS/HR; Start 02/06/19 at 02:00 Dextrose (D50w Syringe) 50 ml PRN PRN IV HYPOGLYCEMIA (BS<70) Last administered on 02/06/19 07:42; Admin Dose 50 ML; Start 02/06/19 at 07:30 Diagnostic Test (Pha) (Accu-Chek) 1 ea Q6 XX Last administered on 02/11/19 05:56; Admin Dose 1 EA; Start 02/08/19 at 12:00 Norepinephrine 32 mg/Dextrose 250 ml @ 0.47 mls/hr TITRATE IV Last administered on 02/10/19 17:24; Admin Dose 4.69 MLS/HR; Start 02/08/19 at 23:00 IV Flush (NS 10 ml) 10 ml PRN PRN IV IV PROTOCOL; Start 02/09/19 at 20:00 Midodrine (Midodrine) 20 mg TID@0900,1300,1700 PO Last administered on 02/11/19 09:00; Admin Dose 20 MG; Start 02/10/19 at 13:00 Phytonadione 10 mg/Dextrose 51 ml @ 102 mls/hr DAILY IVPB Last administered on 02/11/19 08:59; Admin Dose 102 MLS/HR; Start 02/11/19 at 09:00; Stop 02/13/19 at 12:00 Lansoprazole (Prevacid) 30 mg BID@0600,1800 NGT ; Start 02/11/19 at 18:00 PIERCE PACE Feb 11, 2019 09:41
--- NOTE | 2019-02-11 10:29 | PN ---
Date/Time of Note Date/Time of Note DATE: 02/11/19 TIME: 10:24 Assessment/Plan VTE Prophylaxis Risk score (from Ns)>0 risk: 10 SCD applied (from Ns): No SCD contraindicated: low risk/ambulating Pharmacological prophylaxis: NA/contraindicated Pharm contraindication: low risk/ambulating Lines/Catheters [facility] (from [facility] PICC Line Central line still needed: Yes Urinary Cath still in place: No Assessment/Plan Assessment/Plan 1 Shock likely secondary to sepsis/ hypovolemia due to blood loss . Sepsis possibly + SBP , now with necrotic lesions on penile area, on pressors 2. Acute Respiratory failure status post intubation secondary to large pleural effusions secondary to volume overload post hemodialysis 3. Fractures of the superior endplates/bodies of L1, L2 and L3 with associated slight anterior superior endplate wedge compression of the L1 and L3 vertebral bodies. Multilevel degenerative changes greatest at L4-5 as described above. Mild degenerative changes of the right posterior lateral aspect of the T11-12 disc space with mild central canal stenosis. 4. Decompensated alcoholic cirrhosis with a history of EtOH use. Hyperbilirubinemia 5. End-stage renal disease, on hemodialysis. 6. Coagulopathy. 7. Severe anemia with thrombocytopenia likely due to cirrhosis. Pt is bleeding rectally and from mouth. 8. Moderate anemia, likely multifactorial disease, likely secondary to end- stage renal disease versus bone marrow suppression versus nutritional deficiency versus cirrhosis. 9. Leucocytosis. 10. S.p paracentesis in previous hospital 01/28/2019 11. Suspicious for metastatic disease 12. Hypotension likely secondary to cirrhosis, rule out sepsis. 13. History of gastrointestinal bleed.with anemia 14. Hypoglycemia 15.History of cirrhosis [address] Bonner> paraphimosis 17 Elevated INR and low fibrinogen Assessment/Plan - cw pressor support , on levophed 9 and neospherine 60 ,stable BP > MAP 55 and SBP>80 - 2 units of PRBC today and albumin - hd today> pt will benefit from CRRT - on fi02 30% - cryo preciptated today and 2 units of FFP today - cw vancomycin/rifampin/Meropenem - blood cx positive gram postiv e? contaminant peptostrptococcus - cw midodrine and epogen - dR Boggs called> DNR - cw Epogen -s/p multiple blood transfusion --Needs a tertiary setting with there is a Ability of CRRT and patient will need liver and a kidney transplant, pt was accepted at [facility] , will ltry to recontact them today -ovearll poor prognosis but might have some chances with Transplant - fu ID / Heme recs Result Diagram: 02/11/19 0455 02/11/19 0430 Results 24hrs Laboratory Tests Test 02/10/19 12:01 02/10/19 18:41 02/11/19 00:08 02/11/19 04:30 Bedside Glucose 123 127 123 White Blood Count 30.8 H Red Blood Count 2.06 L Hemoglobin 6.5 *L Hematocrit 18.3 L Mean Corpuscular 88.8 Volume Mean Corpuscular 31.6 Hemoglobin Mean Corpuscular 35.5 Hemoglobin Concen t Red Cell 18.4 H Distribution Width Platelet Count 55 L Mean Platelet 12.3 H Volume Immature 12.700 H Granulocytes % Neutrophils % Segmented 43 Neutrophils % (Manual) Band Neutrophils 21 H % (Manual) Lymphocytes % Lymphocytes % 15 (Manual) Monocytes % Monocytes % 5 (Manual) Eosinophils % Eosinophils % 4 (Manual) Basophils % Metamyelocytes % 1 H (manual) Myelocytes % 11 H (Manual) Nucleated Red 1.4 H Blood Cells % Immature 3.900 H Granulocytes # Neutrophils # Neutrophils # 15.2 H (Manual) Band Neutrophils 6.4 H # Lymphocytes 4.6 H (Manual) Lymphocytes # Monocytes # Monocytes # 1.5 H (Manual) Eosinophils # Basophils # Metamyelocytes # 0.3 H Myelocytes # 3.3 H Nucleated Red Blood Cells # Platelet Estimate DECREASED Giant Platelets 1 H Polychromasia 3+ Hypochromasia 1+ Poikilocytosis 3+ Anisocytosis 2+ Macrocytosis 2+ Ovalocytes 1+ Schistocytes 1+ Sodium Level 136 Potassium Level 3.6 Chloride Level 98 Carbon Dioxide 21 Level Anion Gap 17 H Blood Urea 44 H Nitrogen Creatinine 3.68 H Est Glomerular 18 L Filtrat Rate mL/min Glucose Level 100 Calcium Level 9.4 Phosphorus Level 3.5 Magnesium Level 2.0 Total Bilirubin 22.3 H Direct Bilirubin 16.70 *H Indirect 5.6 H Bilirubin Aspartate Amino 63 H Transf (AST/SGOT) Alanine 15 Aminotransferase (ALT/SGPT) Alkaline 194 H Phosphatase Total Protein 6.3 Albumin 2.9 L Globulin 3.40 H Albumin/Globulin 0.85 Ratio Test 02/11/19 04:46 02/11/19 04:55 02/11/19 05:55 Lab Scanned BLOOD TRANSFUSIO Report N Platelet Count 54 L Prothrombin Time 25.8 #H Prothrombin Time 2.0 Ratio INR International 2.35 Normalized Ratio Activated 67.7 H Partial Thrombopl ast Time Thrombin Time 22.6 H Fibrinogen 72.0 #L D-Dimer > 75410.00 H Bedside Glucose 117 Subjective 24 Hr Interval Summary Free Text/Dictation CURRENTLY MAP> 65 and SBP>80 Pt awake, nods to name on phenylepinephrine 60 and levophed 9 hb 6.5 Exam/Review of Systems Exam Vitals Vital Signs Date Temp Pulse Resp B/P (MAP) Pulse Ox O2 O2 Flow FiO2 Time Delivery Rate 02/11/19 112 22 100 30 09:24 02/11/19 88/45 (59) Mechanical 06:00 Ventilator 02/11/19 98.4 04:00 Intake and Output 02/10/19 02/10/19 02/11/19 1515:00 23:00 07:00 IntakeIntake Total 668.62 ml 493.420 ml 321.90 ml OutputOutput Total 0 ml 500 ml 0 ml BalanceBalance 668.62 ml -6.580 ml 321.90 ml Exam rally intubated, NG tube with feed Constitutional: frail, scleral icterus Head: normocephalic Neck: supple Respiratory: diminished breath sounds Cardiovascular: regular rate and rhythm Gastrointestinal: soft, ascites+++ Genitourinary - Male: other (lowe) Musculoskeletal: swelling Results Results 24hrs Laboratory Tests Test 02/10/19 12:01 02/10/19 18:41 02/11/19 00:08 02/11/19 04:30 Bedside Glucose 123 127 123 White Blood Count 30.8 H Red Blood Count 2.06 L Hemoglobin 6.5 *L Hematocrit 18.3 L Mean Corpuscular 88.8 Volume Mean Corpuscular 31.6 Hemoglobin Mean Corpuscular 35.5 Hemoglobin Concen t Red Cell 18.4 H Distribution Width Platelet Count 55 L Mean Platelet 12.3 H Volume Immature 12.700 H Granulocytes % Neutrophils % Segmented 43 Neutrophils % (Manual) Band Neutrophils 21 H % (Manual) Lymphocytes % Lymphocytes % 15 (Manual) Monocytes % Monocytes % 5 (Manual) Eosinophils % Eosinophils % 4 (Manual) Basophils % Metamyelocytes % 1 H (manual) Myelocytes % 11 H (Manual) Nucleated Red 1.4 H Blood Cells % Immature 3.900 H Granulocytes # Neutrophils # Neutrophils # 15.2 H (Manual) Band Neutrophils 6.4 H # Lymphocytes 4.6 H (Manual) Lymphocytes # Monocytes # Monocytes # 1.5 H (Manual) Eosinophils # Basophils # Metamyelocytes # 0.3 H Myelocytes # 3.3 H Nucleated Red Blood Cells # Platelet Estimate DECREASED Giant Platelets 1 H Polychromasia 3+ Hypochromasia 1+ Poikilocytosis 3+ Anisocytosis 2+ Macrocytosis 2+ Ovalocytes 1+ Schistocytes 1+ Sodium Level 136 Potassium Level 3.6 Chloride Level 98 Carbon Dioxide 21 Level Anion Gap 17 H Blood Urea 44 H Nitrogen Creatinine 3.68 H Est Glomerular 18 L Filtrat Rate mL/min Glucose Level 100 Calcium Level 9.4 Phosphorus Level 3.5 Magnesium Level 2.0 Total Bilirubin 22.3 H Direct Bilirubin 16.70 *H Indirect 5.6 H Bilirubin Aspartate Amino 63 H Transf (AST/SGOT) Alanine 15 Aminotransferase (ALT/SGPT) Alkaline 194 H Phosphatase Total Protein 6.3 Albumin 2.9 L Globulin 3.40 H Albumin/Globulin 0.85 Ratio Test 02/11/19 04:46 02/11/19 04:55 02/11/19 05:55 Lab Scanned BLOOD TRANSFUSIO Report N Platelet Count 54 L Prothrombin Time 25.8 #H Prothrombin Time 2.0 Ratio INR International 2.35 Normalized Ratio Activated 67.7 H Partial Thrombopl ast Time Thrombin Time 22.6 H Fibrinogen 72.0 #L D-Dimer > 89068.00 H Bedside Glucose 117 Medications Medication Current Medications Lactulose (Enulose) 10 gm Q8 PO Last administered on 02/11/19at 05:56; Admin Dose 10 GM; Start 01/29/19 at 06:00 Ondansetron HCl (Zofran Inj) 4 mg Q6H PRN IV NAUSEA AND/OR VOMITING; Start 01/29/19 at 01:00 Epoetin Daniel-epbx (Retacrit (Esrd)) 4,000 unit MoWeFr@1700 SC Last administered on 02/09/19at 18:11; Admin Dose 4,000 UNIT; Start 01/30/19 at 17:00 Multivit/Ca Carb/ B Cmplx/FA/Prenat (Liz-Eugenia) 1 tab DAILY PO Last administered on 02/11/19 09:00; Admin Dose 1 TAB; Start 01/31/19 at 09:00 Docusate Sodium (Colace) 100 mg BID PRN PO constipation; Start 01/30/19 at 14:00 Senna (Senokot) 2 tab DAILY PRN PO constipation; Start 01/30/19 at 14:00 Levalbuterol (Xopenex Neb) 0.63 mg Q4H RESP THERAPY PRN HHN WHEEZING AND RESP DISTRESS Last administered on 02/04/19 05:40; Admin Dose 0.63 MG; Start 02/02/19 at 22:30 Midazolam HCl 50 ml @ 1 mls/hr TITRATE IV Last administered on 02/04/19 21:44; Admin Dose 5 MLS/HR; Start 02/04/19 at 07:00 Fentanyl 100 ml @ 2.5 mls/hr TITRATE IV Last administered on 02/05/19 17:54; Admin Dose 5 MLS/HR; Start 02/04/19 at 07:00 Vancomycin HCl (Vanco Iv Per Pharmacy) VANCOMYCIN PER PHARMACY PER PROTOCOL XX ; Start 02/04/19 at 08:30 Meropenem/Sodium Chloride 50 ml @ 100 mls/hr Q12 IVPB Last administered on 02/11/19 08:59; Admin Dose 100 MLS/HR; Start 02/05/19 at 12:00 Rifaximin (Xifaxan) 550 mg BID PO Last administered on 02/11/19 08:59; Admin Dose 550 MG; Start 02/05/19 at 21:00 Phenylephrine HCl 80 mg/Dextrose 250 ml @ 18.75 mls/ hr TITRATE PRN IV BLOOD PRESSURE SUPPORT Last administered on 02/11/19 06:00; Admin Dose 9.38 MLS/HR; Start 02/06/19 at 02:00 Dextrose (D50w Syringe) 50 ml PRN PRN IV HYPOGLYCEMIA (BS<70) Last administered on 02/06/19 07:42; Admin Dose 50 ML; Start 02/06/19 at 07:30 Diagnostic Test (Pha) (Accu-Chek) 1 ea Q6 XX Last administered on 02/11/19 05:56; Admin Dose 1 EA; Start 02/08/19 at 12:00 Norepinephrine 32 mg/Dextrose 250 ml @ 0.47 mls/hr TITRATE IV Last administered on 02/10/19at 17:24; Admin Dose 4.69 MLS/HR; Start 02/08/19 at 23:00 IV Flush (NS 10 ml) 10 ml PRN PRN IV IV PROTOCOL; Start 02/09/19 at 20:00 Midodrine (Midodrine) 20 mg TID@0900,1300,1700 PO Last administered on 02/11/19at 09:00; Admin Dose 20 MG; Start 02/10/19 at 13:00 Phytonadione 10 mg/Dextrose 51 ml @ 102 mls/hr DAILY IVPB Last administered on 02/11/19at 08:59; Admin Dose 102 MLS/HR; Start 02/11/19 at 09:00; Stop 02/13/19 at 12:00 Lansoprazole (Prevacid) 30 mg BID@0600,1800 NGT ; Start 02/11/19 at 18:00 MAL ENRIQUE MD Feb 11, 2019 10:29
--- NOTE | 2019-02-11 10:44 | CONS ---
Consult Date/Type/Reason Admit Date/Time Jan 29, 2019 at 01:13 Initial Consult Date 02/03/19 Type of Consult Pulmonary Requesting Provider: MAL ENRIQUE MD Date/Time of Note DATE: 02/11/19 TIME: 10:43 Subjective Condition continues to decline remains encephalopathic on vasopressors. Appreciate palliative care input transition to DNR noted. Objective Vital Signs Date Temp Pulse Resp B/P (MAP) Pulse Ox O2 O2 Flow FiO2 Time Delivery Rate 02/11/19 113 22 93/44 (60) 100 10:15 02/11/19 Mechanical 10:00 Ventilator 02/11/19 30 09:24 02/11/19 99.8 08:00 Intake and Output 02/10/19 02/10/19 02/11/19 1515:00 23:00 07:00 IntakeIntake Total 668.62 ml 493.420 ml 351.90 ml OutputOutput Total 0 ml 500 ml 0 ml BalanceBalance 668.62 ml -6.580 ml 351.90 ml Exam GENERAL: Visible jaundice VITAL SIGNS: per chart NECK: Supple. No JVD or lymphadenopathy. CARDIAC EXAM: S1, S2. No added sounds or murmurs. CHEST: Diminished air entry bilaterally ABDOMEN: Distended but no guarding or rebound EXTREMITIES: No cyanosis, clubbing or edema. NEUROLOGIC: Generalized weakness. No focal deficits. Chronically ill- appearing gentleman orally intubated on mechanical ventilation Vent Setting Ventilator Support Mode: AC, VC plus Fraction of Inspired Oxygen pe: 30 Positive End Expiratory Pressu: 5.0 Results/Medications Result Diagram: 02/11/19 0455 02/11/19 0430 Results 24 hrs Laboratory Tests Test 02/10/19 12:01 02/10/19 18:41 02/11/19 00:08 02/11/19 04:30 Bedside Glucose 123 127 123 White Blood Count 30.8 H Red Blood Count 2.06 L Hemoglobin 6.5 *L Hematocrit 18.3 L Mean Corpuscular 88.8 Volume Mean Corpuscular 31.6 Hemoglobin Mean Corpuscular 35.5 Hemoglobin Concen t Red Cell 18.4 H Distribution Width Platelet Count 55 L Mean Platelet 12.3 H Volume Immature 12.700 H Granulocytes % Neutrophils % Segmented 43 Neutrophils % (Manual) Band Neutrophils 21 H % (Manual) Lymphocytes % Lymphocytes % 15 (Manual) Monocytes % Monocytes % 5 (Manual) Eosinophils % Eosinophils % 4 (Manual) Basophils % Metamyelocytes % 1 H (manual) Myelocytes % 11 H (Manual) Nucleated Red 1.4 H Blood Cells % Immature 3.900 H Granulocytes # Neutrophils # Neutrophils # 15.2 H (Manual) Band Neutrophils 6.4 H # Lymphocytes 4.6 H (Manual) Lymphocytes # Monocytes # Monocytes # 1.5 H (Manual) Eosinophils # Basophils # Metamyelocytes # 0.3 H Myelocytes # 3.3 H Nucleated Red Blood Cells # Platelet Estimate DECREASED Giant Platelets 1 H Polychromasia 3+ Hypochromasia 1+ Poikilocytosis 3+ Anisocytosis 2+ Macrocytosis 2+ Ovalocytes 1+ Schistocytes 1+ Sodium Level 136 Potassium Level 3.6 Chloride Level 98 Carbon Dioxide 21 Level Anion Gap 17 H Blood Urea 44 H Nitrogen Creatinine 3.68 H Est Glomerular 18 L Filtrat Rate mL/min Glucose Level 100 Calcium Level 9.4 Phosphorus Level 3.5 Magnesium Level 2.0 Total Bilirubin 22.3 H Direct Bilirubin 16.70 *H Indirect 5.6 H Bilirubin Aspartate Amino 63 H Transf (AST/SGOT) Alanine 15 Aminotransferase (ALT/SGPT) Alkaline 194 H Phosphatase Total Protein 6.3 Albumin 2.9 L Globulin 3.40 H Albumin/Globulin 0.85 Ratio Test 02/11/19 04:46 02/11/19 04:55 02/11/19 05:55 Lab Scanned BLOOD TRANSFUSIO Report N Platelet Count 54 L Prothrombin Time 25.8 #H Prothrombin Time 2.0 Ratio INR International 2.35 Normalized Ratio Activated 67.7 H Partial Thrombopl ast Time Thrombin Time 22.6 H Fibrinogen 72.0 #L D-Dimer > 66691.00 H Bedside Glucose 117 Medications Current Medications Lactulose (Enulose) 10 gm Q8 PO Last administered on 02/11/19at 05:56; Admin Dose 10 GM; Start 01/29/19 at 06:00 Ondansetron HCl (Zofran Inj) 4 mg Q6H PRN IV NAUSEA AND/OR VOMITING; Start 01/29/19 at 01:00 Epoetin Daniel-epbx (Retacrit (Esrd)) 4,000 unit MoWeFr@1700 SC Last administered on 02/09/19at 18:11; Admin Dose 4,000 UNIT; Start 01/30/19 at 17:00 Multivit/Ca Carb/ B Cmplx/FA/Prenat (Liz-Eugenia) 1 tab DAILY PO Last administered on 02/11/19 09:00; Admin Dose 1 TAB; Start 01/31/19 at 09:00 Docusate Sodium (Colace) 100 mg BID PRN PO constipation; Start 01/30/19 at 14:00 Senna (Senokot) 2 tab DAILY PRN PO constipation; Start 01/30/19 at 14:00 Levalbuterol (Xopenex Neb) 0.63 mg Q4H RESP THERAPY PRN HHN WHEEZING AND RESP DISTRESS Last administered on 02/04/19 05:40; Admin Dose 0.63 MG; Start 02/02/19 at 22:30 Midazolam HCl 50 ml @ 1 mls/hr TITRATE IV Last administered on 02/04/19 21:44; Admin Dose 5 MLS/HR; Start 02/04/19 at 07:00 Fentanyl 100 ml @ 2.5 mls/hr TITRATE IV Last administered on 02/05/19 17:54; Admin Dose 5 MLS/HR; Start 02/04/19 at 07:00 Vancomycin HCl (Vanco Iv Per Pharmacy) VANCOMYCIN PER PHARMACY PER PROTOCOL XX ; Start 02/04/19 at 08:30 Meropenem/Sodium Chloride 50 ml @ 100 mls/hr Q12 IVPB Last administered on 02/11/19 08:59; Admin Dose 100 MLS/HR; Start 02/05/19 at 12:00 Rifaximin (Xifaxan) 550 mg BID PO Last administered on 02/11/19 08:59; Admin Dose 550 MG; Start 02/05/19 at 21:00 Phenylephrine HCl 80 mg/Dextrose 250 ml @ 18.75 mls/ hr TITRATE PRN IV BLOOD PRESSURE SUPPORT Last administered on 02/11/19 06:00; Admin Dose 9.38 MLS/HR; Start 02/06/19 at 02:00 Dextrose (D50w Syringe) 50 ml PRN PRN IV HYPOGLYCEMIA (BS<70) Last administered on 02/06/19 07:42; Admin Dose 50 ML; Start 02/06/19 at 07:30 Diagnostic Test (Pha) (Accu-Chek) 1 ea Q6 XX Last administered on 6/26/19at 05:56; Admin Dose 1 EA; Start 02/08/19 at 12:00 Norepinephrine 32 mg/Dextrose 250 ml @ 0.47 mls/hr TITRATE IV Last administered on 02/10/19at 17:24; Admin Dose 4.69 MLS/HR; Start 02/08/19 at 23:00 IV Flush (NS 10 ml) 10 ml PRN PRN IV IV PROTOCOL; Start 02/09/19 at 20:00 Midodrine (Midodrine) 20 mg TID@0900,1300,1700 PO Last administered on 02/11/19at 09:00; Admin Dose 20 MG; Start 02/10/19 at 13:00 Phytonadione 10 mg/Dextrose 51 ml @ 102 mls/hr DAILY IVPB Last administered on 02/11/19at 08:59; Admin Dose 102 MLS/HR; Start 02/11/19 at 09:00; Stop 02/13/19 at 12:00 Lansoprazole (Prevacid) 30 mg BID@0600,1800 NGT ; Start 02/11/19 at 18:00 Assessment/Plan Hospital Course (Demo Recall) Assessment 1. End-stage liver disease 2. Renal failure on hemodialysis 3. Hypoxemic respiratory failure requiring mechanical ventilation 4. Encephalopathy probably toxic metabolic 5. Septic shock on multiple vasopressors Plan 1. Continue mechanical ventilation 2. Titrate vasopressors to keep map greater than 65 3. Hemodialysis as tolerated 4. Tube feeding 5. Lactulose and rifaximin 6. Palliative care consultation is overall prognosis extremely poor 7. Left lung thoracentesis on hold secondary to elevated INR. Critical care time 40 minutes Prognosis extremely poor. Agree with transition to comfort care if family agreeable JIMMIE ACEVES MD, [facility] Feb 11, 2019 10:44
[2019-02-11] MEDS: ALBUMIN HUMAN 25% 100 ML IV PRN (11:06)
--- NOTE | 2019-02-11 13:21 | CONS ---
Assessment/Plan Assessment/Plan Hospital Course (Demo Recall) IMP: 1.HYpotension-on casa and levo plus midodrine. NL EF by echo this admit 60% 2.Tachycardia-s tach 3.ESLD/cirrhosis 4.Jaundice/elevated bili 5. Renal failure 6. Respiratory failure s/p intubation 7. anemia severe requiring transfusions 8. Coagulopathy 9. thrombocytopenia Recc: -ICU -serial ecg's -wean casa/levo as possible -continue midodrine -possible transfer for higher levl of care as stability dictates -continue abx's and f/u cx data -transfuse PRBC's as necessary -Follow coagulopathy and correct as necessary Consultation Date/Type/Reason Admit Date/Time Jan 29, 2019 at 01:13 Initial Consult Date 02/09/19 Type of Consult Cardiology Reason for Consultation hypotension Requesting Provider: MAL ENRIQEU MD Date/Time of Note DATE: 02/11/19 TIME: 13:18 Exam/Review of Systems Vital Signs Vitals Vital Signs Date Temp Pulse Resp B/P (MAP) Pulse Ox O2 O2 Flow FiO2 Time Delivery Rate 02/11/19 114 26 100 30 13:13 02/11/19 86/51 (63) 12:30 02/11/19 98.4 Mechanical 12:00 Ventilator Intake and Output 02/10/19 02/10/19 02/11/19 1515:00 23:00 07:00 IntakeIntake Total 668.62 ml 493.420 ml 365.50 ml OutputOutput Total 0 ml 500 ml 0 ml BalanceBalance 668.62 ml -6.580 ml 365.50 ml Exam Exam Review of Systems: CONSTITUTIONAL: No fevers, chills. PULMONARY: No sob CARDIOVASCULAR: No chest pain/palpitations GASTROINTESTINAL: No nausea/vomiting. GENITOURINARY: No hematuria/dysuria. MUSCULOSKELETAL: No myagias/arthalgias. PSYCHIATRIC: The patient denies depression. NEUROLOGIC: No weakness Constitutional: alert Head: normocephalic ENMT: mucosa pink and moist, intubated Neck: supple, jvd (1- cm water) Respiratory: diminished breath sounds (at bases/B) Cardiovascular: regular rate and rhythm Gastrointestinal: soft, non-tender Extremities: pitting pedal edema (anasarca ) Neurological: other (awake) Labs Result Diagram: 02/11/19 0455 02/11/19 0430 Results 24hrs Laboratory Tests Test 02/10/19 18:41 02/11/19 00:08 02/11/19 04:30 02/11/19 04:46 Bedside Glucose 127 123 White Blood Count 30.8 H Red Blood Count 2.06 L Hemoglobin 6.5 *L Hematocrit 18.3 L Mean Corpuscular 88.8 Volume Mean Corpuscular 31.6 Hemoglobin Mean Corpuscular 35.5 Hemoglobin Concen t Red Cell 18.4 H Distribution Width Platelet Count 55 L Mean Platelet 12.3 H Volume Immature 12.700 H Granulocytes % Neutrophils % Segmented 43 Neutrophils % (Manual) Band Neutrophils 21 H % (Manual) Lymphocytes % Lymphocytes % 15 (Manual) Monocytes % Monocytes % 5 (Manual) Eosinophils % Eosinophils % 4 (Manual) Basophils % Metamyelocytes % 1 H (manual) Myelocytes % 11 H (Manual) Nucleated Red 1.4 H Blood Cells % Immature 3.900 H Granulocytes # Neutrophils # Neutrophils # 15.2 H (Manual) Band Neutrophils 6.4 H # Lymphocytes 4.6 H (Manual) Lymphocytes # Monocytes # Monocytes # 1.5 H (Manual) Eosinophils # Basophils # Metamyelocytes # 0.3 H Myelocytes # 3.3 H Nucleated Red Blood Cells # Platelet Estimate DECREASED Giant Platelets 1 H Polychromasia 3+ Hypochromasia 1+ Poikilocytosis 3+ Anisocytosis 2+ Macrocytosis 2+ Ovalocytes 1+ Schistocytes 1+ Sodium Level 136 Potassium Level 3.6 Chloride Level 98 Carbon Dioxide 21 Level Anion Gap 17 H Blood Urea 44 H Nitrogen Creatinine 3.68 H Est Glomerular 18 L Filtrat Rate mL/min Glucose Level 100 Calcium Level 9.4 Phosphorus Level 3.5 Magnesium Level 2.0 Total Bilirubin 22.3 H Direct Bilirubin 16.70 *H Indirect 5.6 H Bilirubin Aspartate Amino 63 H Transf (AST/SGOT) Alanine 15 Aminotransferase (ALT/SGPT) Alkaline 194 H Phosphatase Total Protein 6.3 Albumin 2.9 L Globulin 3.40 H Albumin/Globulin 0.85 Ratio Lab Scanned BLOOD TRANSFUSIO Report N Test 02/11/19 04:55 02/11/19 05:55 02/11/19 12:26 Platelet Count 54 L Prothrombin Time 25.8 #H Prothrombin Time 2.0 Ratio INR International 2.35 Normalized Ratio Activated 67.7 H Partial Thrombopl ast Time Thrombin Time 22.6 H Fibrinogen 72.0 #L D-Dimer > 32071.00 H Bedside Glucose 117 117 Medications Medications Current Medications Lactulose (Enulose) 10 gm Q8 PO Last administered on 02/11/19 05:56; Admin Dose 10 GM; Start 01/29/19 at 06:00 Ondansetron HCl (Zofran Inj) 4 mg Q6H PRN IV NAUSEA AND/OR VOMITING; Start 01/29/19 at 01:00 Epoetin Daniel-epbx (Retacrit (Esrd)) 4,000 unit MoWeFr@1700 SC Last administered on 02/09/19 18:11; Admin Dose 4,000 UNIT; Start 01/30/19 at 17:00 Multivit/Ca Carb/ B Cmplx/FA/Prenat (Liz-Eugenia) 1 tab DAILY PO Last administered on 02/11/19 09:00; Admin Dose 1 TAB; Start 01/31/19 at 09:00 Docusate Sodium (Colace) 100 mg BID PRN PO constipation; Start 01/30/19 at 14:00 Senna (Senokot) 2 tab DAILY PRN PO constipation; Start 01/30/19 at 14:00 Levalbuterol (Xopenex Neb) 0.63 mg Q4H RESP THERAPY PRN HHN WHEEZING AND RESP DISTRESS Last administered on 02/04/19at 05:40; Admin Dose 0.63 MG; Start 02/02/19 at 22:30 Midazolam HCl 50 ml @ 1 mls/hr TITRATE IV Last administered on 02/04/19at 21:44; Admin Dose 5 MLS/HR; Start 02/04/19 at 07:00 Fentanyl 100 ml @ 2.5 mls/hr TITRATE IV Last administered on 02/05/19at 17:54; Admin Dose 5 MLS/HR; Start 02/04/19 at 07:00 Vancomycin HCl (Vanco Iv Per Pharmacy) VANCOMYCIN PER PHARMACY PER PROTOCOL XX ; Start 02/04/19 at 08:30 Meropenem/Sodium Chloride 50 ml @ 100 mls/hr Q12 IVPB Last administered on 02/11/19at 08:59; Admin Dose 100 MLS/HR; Start 02/05/19 at 12:00 Rifaximin (Xifaxan) 550 mg BID PO Last administered on 02/11/19 08:59; Admin Dose 550 MG; Start 02/05/19 at 21:00 Phenylephrine HCl 80 mg/Dextrose 250 ml @ 18.75 mls/ hr TITRATE PRN IV BLOOD PRESSURE SUPPORT Last administered on 02/11/19 06:00; Admin Dose 9.38 MLS/HR; Start 02/06/19 at 02:00 Dextrose (D50w Syringe) 50 ml PRN PRN IV HYPOGLYCEMIA (BS<70) Last administered on 02/06/19at 07:42; Admin Dose 50 ML; Start 02/06/19 at 07:30 Diagnostic Test (Pha) (Accu-Chek) 1 ea Q6 XX Last administered on 02/11/19 05:56; Admin Dose 1 EA; Start 02/08/19 at 12:00 Norepinephrine 32 mg/Dextrose 250 ml @ 0.47 mls/hr TITRATE IV Last administered on 02/10/19at 17:24; Admin Dose 4.69 MLS/HR; Start 02/08/19 at 23:00 IV Flush (NS 10 ml) 10 ml PRN PRN IV IV PROTOCOL; Start 02/09/19 at 20:00 Midodrine (Midodrine) 20 mg TID@0900,1300,1700 PO Last administered on 02/11/19at 09:00; Admin Dose 20 MG; Start 02/10/19 at 13:00 Phytonadione 10 mg/Dextrose 51 ml @ 102 mls/hr DAILY IVPB Last administered on 02/11/19 08:59; Admin Dose 102 MLS/HR; Start 02/11/19 at 09:00; Stop 02/13/19 at 12:00 Lansoprazole (Prevacid) 30 mg BID@0600,1800 NGT ; Start 02/11/19 at 18:00 Albumin Human 100 ml @ 100 mls/hr WITH DIALYSIS PRN IV SBP <90 DURING DIALYSIS Last administered on 02/11/19at 11:06; Admin Dose 100 MLS/HR; Start 02/11/19 at 11:00 Miscellaneous Information (*Rx Drug Level Order Reminder*) RANDOM VANCO LEVEL 6... 0500 ONCE XX ; Start 02/12/19 at 05:00; Stop 02/12/19 at 05:01 LESLY AGUIRRE 26, 2019 13:21
--- NOTE | 2019-02-11 14:37 | CONS ---
Assessment/Plan Assessment/Plan Hospital Course (Demo Recall) 1130 remains unchanged on double pressor support intubated awake in no distress, currently in hemodialysis. T-max 99.8. WBC 30.6 H&H 6.5 and 18.3 platelets 55 Microbiology: Blood culture on admission grew Peptostreptococcus species, repeat blood cultures negative. Testicular ultrasound suggested right sided epididymitis. Antimicrobials: Meropenem vancomycin Indwelling's: Endotracheal tube NG tube right subclavian Hieu catheter Physical examination: Chronically ill-appearing wasted middle-aged man who is in no distress head atraumatic normocephalic neck is supple chest rise symmetrical breath sounds diminished bases. Heart: S1-S2 tachycardic abdomen distended bowel sounds hypoactive patient has tympany on percussion. Extremities with bilateral dependent edema. Skin: Positive for jaundice Assessment: 1. Septic shock with multisystem organ failure 2. Bacteremia possibly contaminant 3. Acute respiratory failure 4. Pneumonia 5. Left pleural effusion 6. Ascites, rule out SBP 7. End-stage liver cirrhosis 8. Acute renal failure likely hepatorenal 9. Severe anemia 10. Coagulopathy 11. Right-sided epididymitis Plan: Niccoli unchanged, hemodynamically unstable, repeat blood cultures negative, continue antibiotics prognosis very poor, patient is DNR status, palliative care recommendations Consultation Date/Type/Reason Admit Date/Time Jan 29, 2019 at 01:13 Initial Consult Date 02/03/19 Type of Consult id Requesting Provider: MAL ENRIQUE MD Date/Time of Note DATE: 02/11/19 TIME: 14:35 Exam/Review of Systems Exam Vitals Vital Signs Date Temp Pulse Resp B/P (MAP) Pulse Ox O2 O2 Flow FiO2 Time Delivery Rate 02/11/19 114 26 100 30 13:13 02/11/19 86/51 (63) 12:30 02/11/19 98.4 Mechanical 12:00 Ventilator Intake and Output 02/10/19 02/10/19 02/11/19 1515:00 23:00 07:00 IntakeIntake Total 668.62 ml 493.420 ml 365.50 ml OutputOutput Total 0 ml 500 ml 0 ml BalanceBalance 668.62 ml -6.580 ml 365.50 ml Results Result Diagram: 02/11/19 0455 02/11/19 0430 Results 24hrs Laboratory Tests Test 02/10/19 18:41 02/11/19 00:08 02/11/19 04:30 02/11/19 04:46 Bedside Glucose 127 123 White Blood Count 30.8 H Red Blood Count 2.06 L Hemoglobin 6.5 *L Hematocrit 18.3 L Mean Corpuscular 88.8 Volume Mean Corpuscular 31.6 Hemoglobin Mean Corpuscular 35.5 Hemoglobin Concen t Red Cell 18.4 H Distribution Width Platelet Count 55 L Mean Platelet 12.3 H Volume Immature 12.700 H Granulocytes % Neutrophils % Segmented 43 Neutrophils % (Manual) Band Neutrophils 21 H % (Manual) Lymphocytes % Lymphocytes % 15 (Manual) Monocytes % Monocytes % 5 (Manual) Eosinophils % Eosinophils % 4 (Manual) Basophils % Metamyelocytes % 1 H (manual) Myelocytes % 11 H (Manual) Nucleated Red 1.4 H Blood Cells % Immature 3.900 H Granulocytes # Neutrophils # Neutrophils # 15.2 H (Manual) Band Neutrophils 6.4 H # Lymphocytes 4.6 H (Manual) Lymphocytes # Monocytes # Monocytes # 1.5 H (Manual) Eosinophils # Basophils # Metamyelocytes # 0.3 H Myelocytes # 3.3 H Nucleated Red Blood Cells # Platelet Estimate DECREASED Giant Platelets 1 H Polychromasia 3+ Hypochromasia 1+ Poikilocytosis 3+ Anisocytosis 2+ Macrocytosis 2+ Ovalocytes 1+ Schistocytes 1+ Sodium Level 136 Potassium Level 3.6 Chloride Level 98 Carbon Dioxide 21 Level Anion Gap 17 H Blood Urea 44 H Nitrogen Creatinine 3.68 H Est Glomerular 18 L Filtrat Rate mL/min Glucose Level 100 Calcium Level 9.4 Phosphorus Level 3.5 Magnesium Level 2.0 Total Bilirubin 22.3 H Direct Bilirubin 16.70 *H Indirect 5.6 H Bilirubin Aspartate Amino 63 H Transf (AST/SGOT) Alanine 15 Aminotransferase (ALT/SGPT) Alkaline 194 H Phosphatase Total Protein 6.3 Albumin 2.9 L Globulin 3.40 H Albumin/Globulin 0.85 Ratio Lab Scanned BLOOD TRANSFUSIO Report N Test 02/11/19 04:55 02/11/19 05:55 02/11/19 12:26 Platelet Count 54 L Prothrombin Time 25.8 #H Prothrombin Time 2.0 Ratio INR International 2.35 Normalized Ratio Activated 67.7 H Partial Thrombopl ast Time Thrombin Time 22.6 H Fibrinogen 72.0 #L D-Dimer > 48232.00 H Bedside Glucose 117 117 Medications Medication Current Medications Lactulose (Enulose) 10 gm Q8 PO Last administered on 02/11/19 05:56; Admin Dose 10 GM; Start 01/29/19 at 06:00 Ondansetron HCl (Zofran Inj) 4 mg Q6H PRN IV NAUSEA AND/OR VOMITING; Start 01/29/19 at 01:00 Epoetin Daniel-epbx (Retacrit (Esrd)) 4,000 unit MoWeFr@1700 SC Last administered on 02/09/19 18:11; Admin Dose 4,000 UNIT; Start 01/30/19 at 17:00 Multivit/Ca Carb/ B Cmplx/FA/Prenat (Liz-Eugenia) 1 tab DAILY PO Last administered on 02/11/19 09:00; Admin Dose 1 TAB; Start 01/31/19 at 09:00 Docusate Sodium (Colace) 100 mg BID PRN PO constipation; Start 01/30/19 at 14:00 Senna (Senokot) 2 tab DAILY PRN PO constipation; Start 01/30/19 at 14:00 Levalbuterol (Xopenex Neb) 0.63 mg Q4H RESP THERAPY PRN HHN WHEEZING AND RESP DISTRESS Last administered on 02/04/19 05:40; Admin Dose 0.63 MG; Start 02/02/19 at 22:30 Midazolam HCl 50 ml @ 1 mls/hr TITRATE IV Last administered on 02/04/19 21:44; Admin Dose 5 MLS/HR; Start 02/04/19 at 07:00 Fentanyl 100 ml @ 2.5 mls/hr TITRATE IV Last administered on 02/05/19at 17:54; Admin Dose 5 MLS/HR; Start 02/04/19 at 07:00 Vancomycin HCl (Vanco Iv Per Pharmacy) VANCOMYCIN PER PHARMACY PER PROTOCOL XX ; Start 02/04/19 at 08:30 Meropenem/Sodium Chloride 50 ml @ 100 mls/hr Q12 IVPB Last administered on 02/11/19 08:59; Admin Dose 100 MLS/HR; Start 02/05/19 at 12:00 Rifaximin (Xifaxan) 550 mg BID PO Last administered on 02/11/19 08:59; Admin Dose 550 MG; Start 02/05/19 at 21:00 Phenylephrine HCl 80 mg/Dextrose 250 ml @ 18.75 mls/ hr TITRATE PRN IV BLOOD PRESSURE SUPPORT Last administered on 02/11/19at 06:00; Admin Dose 9.38 MLS/HR; Start 02/06/19 at 02:00 Dextrose (D50w Syringe) 50 ml PRN PRN IV HYPOGLYCEMIA (BS<70) Last administered on 02/06/19at 07:42; Admin Dose 50 ML; Start 02/06/19 at 07:30 Diagnostic Test (Pha) (Accu-Chek) 1 ea Q6 XX Last administered on 02/11/19at 05:56; Admin Dose 1 EA; Start 02/08/19 at 12:00 Norepinephrine 32 mg/Dextrose 250 ml @ 0.47 mls/hr TITRATE IV Last administered on 02/10/19at 17:24; Admin Dose 4.69 MLS/HR; Start 02/08/19 at 23:00 IV Flush (NS 10 ml) 10 ml PRN PRN IV IV PROTOCOL; Start 02/09/19 at 20:00 Phytonadione 10 mg/Dextrose 51 ml @ 102 mls/hr DAILY IVPB Last administered on 02/11/19at 08:59; Admin Dose 102 MLS/HR; Start 02/11/19 at 09:00; Stop 02/13/19 at 12:00 Lansoprazole (Prevacid) 30 mg BID@0600,1800 NGT ; Start 02/11/19 at 18:00 Albumin Human 100 ml @ 100 mls/hr WITH DIALYSIS PRN IV SBP <90 DURING DIALYSIS Last administered on 02/11/19at 11:06; Admin Dose 100 MLS/HR; Start 02/11/19 at 11:00 Miscellaneous Information (*Rx Drug Level Order Reminder*) RANDOM VANCO LEVEL 6... 0500 ONCE XX ; Start 02/12/19 at 05:00; Stop 02/12/19 at 05:01 Midodrine (Midodrine) 10 mg TID@0900,1300,1700 PO ; Start 02/11/19 at 17:00 JAXON VASQUES NP Feb 11, 2019 14:37
[2019-02-11] MEDS: LANSOPRAZOLE 30 MG CAP NGT SCH (17:34)
[2019-02-11] MEDS: EPOETIN ALFA-EPBX (ESRD) 4,000 UNIT/ML VIAL SC SCH (17:36)
--- NOTE | 2019-02-11 19:05 | CONS ---
Consult Date/Type/Reason Admit Date/Time Jan 29, 2019 at 01:13 Initial Consult Date 02/09/19 Type of Consultation: Urology Reason for Consultation Penile swelling and paraphimosis Requesting Provider: MAL ENRIQUE MD Date/Time of Note DATE: 02/11/19 TIME: 19:03 Subjective Patient is awake and appears to be more alert. Objective Vitals Vital Signs Date Temp Pulse Resp B/P (MAP) Pulse Ox O2 O2 Flow FiO2 Time Delivery Rate 02/11/19 119 26 96/56 (69) 96 18:15 02/11/19 Mechanical 18:00 Ventilator 02/11/19 30 17:08 02/11/19 98.6 16:00 Intake and Output 02/10/19 02/10/19 02/11/19 1515:00 23:00 07:00 IntakeIntake Total 668.62 ml 493.420 ml 365.50 ml OutputOutput Total 0 ml 500 ml 0 ml BalanceBalance 668.62 ml -6.580 ml 365.50 ml Exam He does have mild bleeding from the penile area. The swelling is less Results/Medications Result Diagram: 02/11/19 1715 02/11/19 0430 Results 24 hrs Laboratory Tests Test 02/11/19 00:08 02/11/19 04:30 02/11/19 04:46 02/11/19 04:55 Bedside Glucose 123 White Blood Count 30.8 H Red Blood Count 2.06 L Hemoglobin 6.5 *L Hematocrit 18.3 L Mean Corpuscular 88.8 Volume Mean Corpuscular 31.6 Hemoglobin Mean Corpuscular 35.5 Hemoglobin Concen t Red Cell 18.4 H Distribution Width Platelet Count 55 L 54 L Mean Platelet 12.3 H Volume Immature 12.700 H Granulocytes % Neutrophils % Segmented 43 Neutrophils % (Manual) Band Neutrophils 21 H % (Manual) Lymphocytes % Lymphocytes % 15 (Manual) Monocytes % Monocytes % 5 (Manual) Eosinophils % Eosinophils % 4 (Manual) Basophils % Metamyelocytes % 1 H (manual) Myelocytes % 11 H (Manual) Nucleated Red 1.4 H Blood Cells % Immature 3.900 H Granulocytes # Neutrophils # Neutrophils # 15.2 H (Manual) Band Neutrophils 6.4 H # Lymphocytes 4.6 H (Manual) Lymphocytes # Monocytes # Monocytes # 1.5 H (Manual) Eosinophils # Basophils # Metamyelocytes # 0.3 H Myelocytes # 3.3 H Nucleated Red Blood Cells # Platelet Estimate DECREASED Giant Platelets 1 H Polychromasia 3+ Hypochromasia 1+ Poikilocytosis 3+ Anisocytosis 2+ Macrocytosis 2+ Ovalocytes 1+ Schistocytes 1+ Sodium Level 136 Potassium Level 3.6 Chloride Level 98 Carbon Dioxide 21 Level Anion Gap 17 H Blood Urea 44 H Nitrogen Creatinine 3.68 H Est Glomerular 18 L Filtrat Rate mL/min Glucose Level 100 Calcium Level 9.4 Phosphorus Level 3.5 Magnesium Level 2.0 Total Bilirubin 22.3 H Direct Bilirubin 16.70 *H Indirect 5.6 H Bilirubin Aspartate Amino 63 H Transf (AST/SGOT) Alanine 15 Aminotransferase (ALT/SGPT) Alkaline 194 H Phosphatase Total Protein 6.3 Albumin 2.9 L Globulin 3.40 H Albumin/Globulin 0.85 Ratio Lab Scanned BLOOD TRANSFUSIO Report N Prothrombin Time 25.8 #H Prothrombin Time 2.0 Ratio INR International 2.35 Normalized Ratio Activated 67.7 H Partial Thrombopl ast Time Thrombin Time 22.6 H Fibrinogen 72.0 #L D-Dimer > 49134.00 H Test 02/11/19 05:55 02/11/19 12:26 02/11/19 17:15 02/11/19 17:38 Bedside Glucose 117 117 92 Hemoglobin 8.1 #L Hematocrit 23.1 #L Home Meds No Active Prescriptions or Reported Meds Medications Current Medications Lactulose (Enulose) 10 gm Q8 PO Last administered on 02/11/19at 05:56; Admin Dose 10 GM; Start 01/29/19 at 06:00 Ondansetron HCl (Zofran Inj) 4 mg Q6H PRN IV NAUSEA AND/OR VOMITING; Start 01/29/19 at 01:00 Epoetin Daniel-epbx (Retacrit (Esrd)) 4,000 unit MoWeFr@1700 SC Last administered on 02/11/19at 17:36; Admin Dose 4,000 UNIT; Start 01/30/19 at 17:00 Multivit/Ca Carb/ B Cmplx/FA/Prenat (Liz-Eugenia) 1 tab DAILY PO Last administered on 02/11/19at 09:00; Admin Dose 1 TAB; Start 01/31/19 at 09:00 Docusate Sodium (Colace) 100 mg BID PRN PO constipation; Start 01/30/19 at 14:00 Senna (Senokot) 2 tab DAILY PRN PO constipation; Start 01/30/19 at 14:00 Levalbuterol (Xopenex Neb) 0.63 mg Q4H RESP THERAPY PRN HHN WHEEZING AND RESP DISTRESS Last administered on 02/04/19 05:40; Admin Dose 0.63 MG; Start 02/02/19 at 22:30 Midazolam HCl 50 ml @ 1 mls/hr TITRATE IV Last administered on 02/04/19 21:44; Admin Dose 5 MLS/HR; Start 02/04/19 at 07:00 Fentanyl 100 ml @ 2.5 mls/hr TITRATE IV Last administered on 02/05/19 17:54; Admin Dose 5 MLS/HR; Start 02/04/19 at 07:00 Vancomycin HCl (Vanco Iv Per Pharmacy) VANCOMYCIN PER PHARMACY PER PROTOCOL XX ; Start 02/04/19 at 08:30 Meropenem/Sodium Chloride 50 ml @ 100 mls/hr Q12 IVPB Last administered on 02/11/19 08:59; Admin Dose 100 MLS/HR; Start 02/05/19 at 12:00 Rifaximin (Xifaxan) 550 mg BID PO Last administered on 02/11/19 08:59; Admin Dose 550 MG; Start 02/05/19 at 21:00 Phenylephrine HCl 80 mg/Dextrose 250 ml @ 18.75 mls/ hr TITRATE PRN IV BLOOD PRESSURE SUPPORT Last administered on 02/11/19 06:00; Admin Dose 9.38 MLS/HR; Start 02/06/19 at 02:00 Dextrose (D50w Syringe) 50 ml PRN PRN IV HYPOGLYCEMIA (BS<70) Last administered on 02/06/19at 07:42; Admin Dose 50 ML; Start 02/06/19 at 07:30 Diagnostic Test (Pha) (Accu-Chek) 1 ea Q6 XX Last administered on 02/11/19 05:56; Admin Dose 1 EA; Start 02/08/19 at 12:00 Norepinephrine 32 mg/Dextrose 250 ml @ 0.47 mls/hr TITRATE IV Last administered on 02/10/19 17:24; Admin Dose 4.69 MLS/HR; Start 02/08/19 at 23:00 IV Flush (NS 10 ml) 10 ml PRN PRN IV IV PROTOCOL; Start 02/09/19 at 20:00 Phytonadione 10 mg/Dextrose 51 ml @ 102 mls/hr DAILY IVPB Last administered on 02/11/19at 08:59; Admin Dose 102 MLS/HR; Start 02/11/19 at 09:00; Stop 02/13/19 at 12:00 Lansoprazole (Prevacid) 30 mg BID@0600,1800 NGT Last administered on 02/11/19at 17:34; Admin Dose 30 MG; Start 02/11/19 at 18:00 Albumin Human 100 ml @ 100 mls/hr WITH DIALYSIS PRN IV SBP <90 DURING DIALYSIS Last administered on 02/11/19at 11:06; Admin Dose 100 MLS/HR; Start 02/11/19 at 11:00 Miscellaneous Information (*Rx Drug Level Order Reminder*) RANDOM VANCO LEVEL 6... 0500 ONCE XX ; Start 02/12/19 at 05:00; Stop 02/12/19 at 05:01 Midodrine (Midodrine) 10 mg TID@0900,1300,1700 PO Last administered on 02/11at 17:33; Admin Dose 10 MG; Start 02/11/19 at 17:00 Assessment/Plan Hospital Course (Demo Recall) 39-year-old male with multiple medical problems: 1 Shock likely secondary to sepsis. 2. Acute Respiratory failure status post intubation secondary to large pleural effusions secondary to volume overload post hemodialysis 3. Fractures of the superior endplates/bodies of L1, L2 and L3 4. Decompensated alcoholic cirrhosis with a history of EtOH use. Hyperbilirubinemia 5. End-stage renal disease, on hemodialysis. 6. Coagulopathy. 7. Severe anemia with thrombocytopenia likely due to cirrhosis. 8. Moderate anemia, likely multifactorial disease 9. Leucocytosis. 10. S.p paracentesis on 01/28/2019 11. Suspicious for metastatic disease 12. Hypotension likely secondary to cirrhosis 13. History of gastrointestinal bleed. 14. Hypoglycemia 15.History of cirrhosis On the physical examination it appeared that the patient had paraphimosis and the constricting skin proximal to the méndez is the one that has poor circulation and signs of ischemia. The foreskin is also swollen. The paraphimosis remains reduced but he has bleeding from the skin cracks. I did wrap the penis was a Xeroform and a Gay and that will apply pressure on the bleeding areas and also help decrease the swelling. JONAH SUE MD Feb 11, 2019 19:05
--- NOTE | 2019-02-11 19:23 | CONS ---
Assessment/Plan Assessment/Plan Assessment/Plan (Daily) ssessment/Plan Assessment/Plan Hospital Course (Demo Recall) 39 yo male with liver disease with profound jaundice 1. Decompensated end stage liver disease with hyperbilirubinemia 2. Severe anemia. -positive FOB, there are wound around rectum, brown liquid stool 3. Leukocytosis. -trending up 4. Ascites. -paracentesis 02/04 -neg cultures of ascitic fluid 5. End-stage renal disease on dialysis. 6. Coagulopathy due to #1 -heme onc consulted 7. Thrombocytopenia due to #1 -downtrending 8. Scrotal cellulitis 9. Epididymitis rt side 10. Periphomosis 11 respiratory failure vent dependent Plan INR high Pending PRBC May consider EGD or colonoscopy if pt stablizes Continue lactulose and rifaximin Pending Stool for C. difficile toxins Continue antibiotic Continue supportive care Monitor HH and for acute GI bleeding Patient's prognosis remains poor: Dr Boggs consult pending Consultation Date/Type/Reason Admit Date/Time Jan 29, 2019 at 01:13 Initial Consult Date Requesting Provider: MAL ENRIQUE MD Date/Time of Note DATE: 02/11/19 TIME: 19:21 24 HR Interval Summary Subjective hx not possible: pt non-verbal, pt critical Exam/Review of Systems Exam Vitals Vital Signs Date Temp Pulse Resp B/P (MAP) Pulse Ox O2 O2 Flow FiO2 Time Delivery Rate 02/11/19 114 23 101/52 99 18:45 (68) 02/11/19 Mechanical 18:00 Ventilator 02/11/19 30 17:08 02/11/19 98.6 16:00 Intake and Output 02/10/19 02/10/19 02/11/19 1515:00 23:00 07:00 IntakeIntake Total 668.62 ml 493.420 ml 365.50 ml OutputOutput Total 0 ml 500 ml 0 ml BalanceBalance 668.62 ml -6.580 ml 365.50 ml ENMT: intubated Cardiovascular: regular rate and rhythm, nl pulses Gastrointestinal: soft, ascites, distended Extremities: pitting pedal edema Neurological: unresponsive Results Result Diagram: 02/11/19 1715 02/11/19 0430 Results 24hrs Laboratory Tests Test 02/11/19 00:08 02/11/19 04:30 02/11/19 04:46 02/11/19 04:55 Bedside Glucose 123 White Blood Count 30.8 H Red Blood Count 2.06 L Hemoglobin 6.5 *L Hematocrit 18.3 L Mean Corpuscular 88.8 Volume Mean Corpuscular 31.6 Hemoglobin Mean Corpuscular 35.5 Hemoglobin Concen t Red Cell 18.4 H Distribution Width Platelet Count 55 L 54 L Mean Platelet 12.3 H Volume Immature 12.700 H Granulocytes % Neutrophils % Segmented 43 Neutrophils % (Manual) Band Neutrophils 21 H % (Manual) Lymphocytes % Lymphocytes % 15 (Manual) Monocytes % Monocytes % 5 (Manual) Eosinophils % Eosinophils % 4 (Manual) Basophils % Metamyelocytes % 1 H (manual) Myelocytes % 11 H (Manual) Nucleated Red 1.4 H Blood Cells % Immature 3.900 H Granulocytes # Neutrophils # Neutrophils # 15.2 H (Manual) Band Neutrophils 6.4 H # Lymphocytes 4.6 H (Manual) Lymphocytes # Monocytes # Monocytes # 1.5 H (Manual) Eosinophils # Basophils # Metamyelocytes # 0.3 H Myelocytes # 3.3 H Nucleated Red Blood Cells # Platelet Estimate DECREASED Giant Platelets 1 H Polychromasia 3+ Hypochromasia 1+ Poikilocytosis 3+ Anisocytosis 2+ Macrocytosis 2+ Ovalocytes 1+ Schistocytes 1+ Sodium Level 136 Potassium Level 3.6 Chloride Level 98 Carbon Dioxide 21 Level Anion Gap 17 H Blood Urea 44 H Nitrogen Creatinine 3.68 H Est Glomerular 18 L Filtrat Rate mL/min Glucose Level 100 Calcium Level 9.4 Phosphorus Level 3.5 Magnesium Level 2.0 Total Bilirubin 22.3 H Direct Bilirubin 16.70 *H Indirect 5.6 H Bilirubin Aspartate Amino 63 H Transf (AST/SGOT) Alanine 15 Aminotransferase (ALT/SGPT) Alkaline 194 H Phosphatase Total Protein 6.3 Albumin 2.9 L Globulin 3.40 H Albumin/Globulin 0.85 Ratio Lab Scanned BLOOD TRANSFUSIO Report N Prothrombin Time 25.8 #H Prothrombin Time 2.0 Ratio INR International 2.35 Normalized Ratio Activated 67.7 H Partial Thrombopl ast Time Thrombin Time 22.6 H Fibrinogen 72.0 #L D-Dimer > 91476.00 H Test 02/11/19 05:55 02/11/19 12:26 02/11/19 17:15 02/11/19 17:38 Bedside Glucose 117 117 92 Hemoglobin 8.1 #L Hematocrit 23.1 #L Medications Medication Current Medications Lactulose (Enulose) 10 gm Q8 PO Last administered on 02/11/19 05:56; Admin Dose 10 GM; Start 01/29/19 at 06:00 Ondansetron HCl (Zofran Inj) 4 mg Q6H PRN IV NAUSEA AND/OR VOMITING; Start 01/29/19 at 01:00 Epoetin Daniel-epbx (Retacrit (Esrd)) 4,000 unit MoWeFr@1700 SC Last administered on 02/11/19 17:36; Admin Dose 4,000 UNIT; Start 01/30/19 at 17:00 Multivit/Ca Carb/ B Cmplx/FA/Prenat (Liz-Eugenia) 1 tab DAILY PO Last administered on 02/11/19 09:00; Admin Dose 1 TAB; Start 01/31/19 at 09:00 Docusate Sodium (Colace) 100 mg BID PRN PO constipation; Start 01/30/19 at 14:00 Senna (Senokot) 2 tab DAILY PRN PO constipation; Start 01/30/19 at 14:00 Levalbuterol (Xopenex Neb) 0.63 mg Q4H RESP THERAPY PRN HHN WHEEZING AND RESP DISTRESS Last administered on 02/04/19 05:40; Admin Dose 0.63 MG; Start 02/02/19 at 22:30 Midazolam HCl 50 ml @ 1 mls/hr TITRATE IV Last administered on 02/04/19at 21:44; Admin Dose 5 MLS/HR; Start 02/04/19 at 07:00 Fentanyl 100 ml @ 2.5 mls/hr TITRATE IV Last administered on 02/05/19at 17:54; Admin Dose 5 MLS/HR; Start 02/04/19 at 07:00 Vancomycin HCl (Vanco Iv Per Pharmacy) VANCOMYCIN PER PHARMACY PER PROTOCOL XX ; Start 02/04/19 at 08:30 Meropenem/Sodium Chloride 50 ml @ 100 mls/hr Q12 IVPB Last administered on 02/11/19 08:59; Admin Dose 100 MLS/HR; Start 02/05/19 at 12:00 Rifaximin (Xifaxan) 550 mg BID PO Last administered on 02/11/19 08:59; Admin Dose 550 MG; Start 02/05/19 at 21:00 Phenylephrine HCl 80 mg/Dextrose 250 ml @ 18.75 mls/ hr TITRATE PRN IV BLOOD PRESSURE SUPPORT Last administered on 02/11/19at 06:00; Admin Dose 9.38 MLS/HR; Start 02/06/19 at 02:00 Dextrose (D50w Syringe) 50 ml PRN PRN IV HYPOGLYCEMIA (BS<70) Last administered on 02/06/19at 07:42; Admin Dose 50 ML; Start 02/06/19 at 07:30 Diagnostic Test (Pha) (Accu-Chek) 1 ea Q6 XX Last administered on 02/11/19at 05:56; Admin Dose 1 EA; Start 02/08/19 at 12:00 Norepinephrine 32 mg/Dextrose 250 ml @ 0.47 mls/hr TITRATE IV Last administered on 02/10/19at 17:24; Admin Dose 4.69 MLS/HR; Start 02/08/19 at 23:00 IV Flush (NS 10 ml) 10 ml PRN PRN IV IV PROTOCOL; Start 02/09/19 at 20:00 Phytonadione 10 mg/Dextrose 51 ml @ 102 mls/hr DAILY IVPB Last administered on 02/11/19at 08:59; Admin Dose 102 MLS/HR; Start 02/11/19 at 09:00; Stop 02/13/19 at 12:00 Lansoprazole (Prevacid) 30 mg BID@0600,1800 NGT Last administered on 02/11/19at 17:34; Admin Dose 30 MG; Start 02/11/19 at 18:00 Albumin Human 100 ml @ 100 mls/hr WITH DIALYSIS PRN IV SBP <90 DURING DIALYSIS Last administered on 02/11/19at 11:06; Admin Dose 100 MLS/HR; Start 02/11/19 at 11:00 Miscellaneous Information (*Rx Drug Level Order Reminder*) RANDOM VANCO LEVEL 6... 0500 ONCE XX ; Start 02/12/19 at 05:00; Stop 02/12/19 at 05:01 Midodrine (Midodrine) 10 mg TID@0900,1300,1700 PO Last administered on 02/11/19at 17:33; Admin Dose 10 MG; Start 02/11/19 at 17:00 ELLIS ESTRADA MD Feb 11, 2019 19:23
[2019-02-12] VITALS (95 sets, daily range): BP systolic 78–116; BP diastolic 37–72; PULSE 100–115; RESP 15–29
[2019-02-12] MEDS: ACCU-CHEK XX SCH ×4 (00:58→17:15)
[2019-02-12] MEDS: NORepinephrine 32 MG in DEXTROSE 5% 218 ML IV SCH (01:23)
[2019-02-12] MEDS: LACTULOSE 30ML CUP PO SCH ×3 (05:40→20:47)
[2019-02-12] MEDS: LANSOPRAZOLE 30 MG CAP NGT SCH ×2 (05:40→17:14)
[2019-02-12] MEDS: MIDODRINE 10 MG TABLET PO SCH ×3 (08:21→17:14)
[2019-02-12] MEDS: MULTIVIT/CA CARB/B CMPLX/FA TAB PO SCH (08:22)
[2019-02-12] MEDS: RIFAXIMIN 550 MG TAB PO SCH ×2 (08:22→20:46)
[2019-02-12] MEDS: MEROPENEM 500MG/50 ML (PMX) 50 ML IVPB SCH (08:22)
[2019-02-12] MEDS: BALSAM PERU/CASTOR OIL 60 GM TUBE TOP SCH ×2 (08:29→20:46)
[2019-02-12] MEDS: PHYTONADIONE 10 MG in DEXTROSE 5% 50 ML IVPB SCH (08:57)
--- NOTE | 2019-02-12 09:05 | PN ---
Date/Time of Note Date/Time of Note DATE: 02/12/19 TIME: 09:01 Assessment/Plan VTE Prophylaxis Risk score (from Ns)>0 risk: 11 SCD applied (from [facility] [place]): No SCD contraindicated: low risk/ambulating Pharmacological prophylaxis: NA/contraindicated Pharm contraindication: low risk/ambulating Lines/Catheters IV Catheter Type (from [facility]): PICC Line Central line still needed: Yes Urinary Cath still in place: No Assessment/Plan Assessment/Plan Assessment/Plan 1 Shock likely secondary to sepsis/ hypovolemia due to blood loss . Sepsis possibly + SBP , now with necrotic lesions on penile area, on pressors stablising 2. Acute Respiratory failure status post intubation secondary to large pleural effusions secondary to volume overload post hemodialysis 3. Fractures of the superior endplates/bodies of L1, L2 and L3 with associated slight anterior superior endplate wedge compression of the L1 and L3 vertebral bodies. Multilevel degenerative changes greatest at L4-5 as described above. Mild degenerative changes of the right posterior lateral aspect of the T11-12 disc space with mild central canal stenosis. 4. Decompensated alcoholic cirrhosis with a history of EtOH use. Hyperbilirubinemia 5. End-stage renal disease, on hemodialysis. 6. Coagulopathy. 7. Severe anemia with thrombocytopenia likely due to cirrhosis. Pt is bleeding rectally and from mouth. 8. Moderate anemia, likely multifactorial disease, likely secondary to end- stage renal disease versus bone marrow suppression versus nutritional deficiency versus cirrhosis. 9. Leucocytosis. 10. S.p paracentesis in previous hospital 01/28/2019 11. Suspicious for metastatic disease 12. Hypotension likely secondary to cirrhosis, rule out sepsis. 13. History of gastrointestinal bleed.with anemia 14. Hypoglycemia 15.History of cirrhosis [address] Bonner> paraphimosis 17 Elevated INR and low fibrinogen Assessment/Plan - cw pressor support , on levophed 1 and neospherine 100 ,stable BP > MAP 55 and SBP>80, pt has now decreased pressor requirements - 1 units of PRBC today hb 7.1 -sp HD yesterday - on fi02 30% - 2 units of FFP today - cw vancomycin/rifampin/Meropenem - blood cx positive gram postiv e? contaminant peptostrptococcus - cw midodrine and epogen - dR Boggs called> DNR - cw Epogen -s/p multiple blood transfusion --Needs a tertiary setting with there is a Ability of CRRT and patient will need liver and a kidney transplant, pt was accepted at [facility] , will ltry to recontact them today -ovearll poor prognosis but might have some chances with Transplant - fu ID / Heme recs Pt stable for transfer today has overll decreased pressor requirements on 30% fio2 and pt awake, alert, intubated and following commands Result Diagram: 02/12/190 02/12/19 0440 Results 24hrs Laboratory Tests Test 02/11/19 12:26 02/11/19 17:15 02/11/19 17:38 02/12/19 00:50 Bedside Glucose 117 92 113 Hemoglobin 8.1 #L Hematocrit 23.1 #L Test 02/12/19 04:15 02/12/19 04:40 02/12/19 04:42 02/12/19 05:38 White Blood Count 30.5 H Red Blood Count 2.27 L Hemoglobin 7.1 L Hematocrit 20.4 L Mean Corpuscular 89.9 Volume Mean Corpuscular 31.3 Hemoglobin Mean Corpuscular 34.8 Hemoglobin Concen t Red Cell 17.4 H Distribution Width Platelet Count 58 L 59 L Mean Platelet 12.3 H Volume Immature 11.200 H Granulocytes % Neutrophils % Lymphocytes % Monocytes % Eosinophils % Basophils % Nucleated Red 2.6 H Blood Cells % Immature 3.400 H Granulocytes # Neutrophils # Lymphocytes # Monocytes # Eosinophils # Basophils # Nucleated Red Blood Cells # Prothrombin Time 28.7 H Prothrombin Time 2.2 Ratio INR International 2.70 Normalized Ratio Activated 65.6 H Partial Thrombopl ast Time Thrombin Time 22.2 H Fibrinogen 159.0 #L D-Dimer > 59084.00 H Sodium Level 136 Potassium Level 3.6 Chloride Level 98 Carbon Dioxide 22 Level Anion Gap 16 H Blood Urea 37 H Nitrogen Creatinine 3.09 H Est Glomerular 22 L Filtrat Rate mL/min Glucose Level 93 Calcium Level 9.4 Phosphorus Level 2.9 Magnesium Level 2.0 Total Bilirubin 22.2 H Direct Bilirubin 15.70 *H Indirect 6.5 H Bilirubin Aspartate Amino 76 H Transf (AST/SGOT) Alanine 8 L Aminotransferase (ALT/SGPT) Alkaline 190 H Phosphatase Total Protein 6.5 Albumin 3.0 L Globulin 3.50 H Albumin/Globulin 0.85 Ratio Random Vancomycin 11.2 Level Lab Scanned BLOOD TRANSFUSIO Report N Bedside Glucose 116 Subjective 24 Hr Interval Summary Free Text/Dictation s/p 2 unit prbc yesterday doing better on phenylepinephrine 100 and levophed 1 pt awake,alert following commands, intubated on 30% fi02 Exam/Review of Systems Exam Vitals Vital Signs Date Temp Pulse Resp B/P (MAP) Pulse Ox O2 O2 Flow FiO2 Time Delivery Rate 02/12/19 30 08:06 02/12/19 108 08:00 02/12/19 24 100/50 100 05:15 (67) 02/12/19 Mechanical 05:00 Ventilator 02/12/19 99.0 04:00 Intake and Output 02/11/19 02/11/19 02/12/19 1515:00 23:00 07:00 IntakeIntake Total 743.375 ml 1629.37 ml 484.872 ml OutputOutput Total 2400 ml 175 ml 500 ml BalanceBalance -1656.625 ml 1454.37 ml -15.128 ml Exam rally intubated, NG tube with feed, follows commands Constitutional: frail, scleral icterus Head: normocephalic Neck: supple Respiratory: diminished breath sounds Cardiovascular: regular rate and rhythm Gastrointestinal: soft, ascites+++ Genitourinary - Male: other (lowe) Musculoskeletal: anasaraca Results Results 24hrs Laboratory Tests Test 02/11/19 12:26 02/11/19 17:15 02/11/19 17:38 02/12/19 00:50 Bedside Glucose 117 92 113 Hemoglobin 8.1 #L Hematocrit 23.1 #L Test 02/12/19 04:15 02/12/19 04:40 02/12/19 04:42 02/12/19 05:38 White Blood Count 30.5 H Red Blood Count 2.27 L Hemoglobin 7.1 L Hematocrit 20.4 L Mean Corpuscular 89.9 Volume Mean Corpuscular 31.3 Hemoglobin Mean Corpuscular 34.8 Hemoglobin Concen t Red Cell 17.4 H Distribution Width Platelet Count 58 L 59 L Mean Platelet 12.3 H Volume Immature 11.200 H Granulocytes % Neutrophils % Lymphocytes % Monocytes % Eosinophils % Basophils % Nucleated Red 2.6 H Blood Cells % Immature 3.400 H Granulocytes # Neutrophils # Lymphocytes # Monocytes # Eosinophils # Basophils # Nucleated Red Blood Cells # Prothrombin Time 28.7 H Prothrombin Time 2.2 Ratio INR International 2.70 Normalized Ratio Activated 65.6 H Partial Thrombopl ast Time Thrombin Time 22.2 H Fibrinogen 159.0 #L D-Dimer > 21752.00 H Sodium Level 136 Potassium Level 3.6 Chloride Level 98 Carbon Dioxide 22 Level Anion Gap 16 H Blood Urea 37 H Nitrogen Creatinine 3.09 H Est Glomerular 22 L Filtrat Rate mL/min Glucose Level 93 Calcium Level 9.4 Phosphorus Level 2.9 Magnesium Level 2.0 Total Bilirubin 22.2 H Direct Bilirubin 15.70 *H Indirect 6.5 H Bilirubin Aspartate Amino 76 H Transf (AST/SGOT) Alanine 8 L Aminotransferase (ALT/SGPT) Alkaline 190 H Phosphatase Total Protein 6.5 Albumin 3.0 L Globulin 3.50 H Albumin/Globulin 0.85 Ratio Random Vancomycin 11.2 Level Lab Scanned BLOOD TRANSFUSIO Report N Bedside Glucose 116 Medications Medication Current Medications Lactulose (Enulose) 10 gm Q8 PO Last administered on 02/12/19at 05:40; Admin Dose 10 GM; Start 01/29/19 at 06:00 Ondansetron HCl (Zofran Inj) 4 mg Q6H PRN IV NAUSEA AND/OR VOMITING; Start 01/29/19 at 01:00 Epoetin Daniel-epbx (Retacrit (Esrd)) 4,000 unit MoWeFr@1700 SC Last administered on 02/11/19at 17:36; Admin Dose 4,000 UNIT; Start 01/30/19 at 17:00 Multivit/Ca Carb/ B Cmplx/FA/Prenat (Liz-Eugenia) 1 tab DAILY PO Last administered on 02/12/19at 08:22; Admin Dose 1 TAB; Start 01/31/19 at 09:00 Docusate Sodium (Colace) 100 mg BID PRN PO constipation; Start 01/30/19 at 14:00 Senna (Senokot) 2 tab DAILY PRN PO constipation; Start 01/30/19 at 14:00 Levalbuterol (Xopenex Neb) 0.63 mg Q4H RESP THERAPY PRN HHN WHEEZING AND RESP DISTRESS Last administered on 02/04/19at 05:40; Admin Dose 0.63 MG; Start 02/02/19 at 22:30 Midazolam HCl 50 ml @ 1 mls/hr TITRATE IV Last administered on 02/04/19 21:44; Admin Dose 5 MLS/HR; Start 02/04/19 at 07:00 Fentanyl 100 ml @ 2.5 mls/hr TITRATE IV Last administered on 02/05/19at 17:54; Admin Dose 5 MLS/HR; Start 02/04/19 at 07:00 Vancomycin HCl (Vanco Iv Per Pharmacy) VANCOMYCIN PER PHARMACY PER PROTOCOL XX ; Start 02/04/19 at 08:30 Meropenem/Sodium Chloride 50 ml @ 100 mls/hr Q12 IVPB Last administered on 02/12/19 08:22; Admin Dose 100 MLS/HR; Start 02/05/19 at 12:00 Rifaximin (Xifaxan) 550 mg BID PO Last administered on 02/12/19 08:22; Admin Dose 550 MG; Start 02/05/19 at 21:00 Phenylephrine HCl 80 mg/Dextrose 250 ml @ 18.75 mls/ hr TITRATE PRN IV BLOOD PRESSURE SUPPORT Last administered on 02/11/19 22:04; Admin Dose 18.75 MLS/HR; Start 02/06/19 at 02:00 Dextrose (D50w Syringe) 50 ml PRN PRN IV HYPOGLYCEMIA (BS<70) Last administered on 02/06/19 07:42; Admin Dose 50 ML; Start 02/06/19 at 07:30 Diagnostic Test (Pha) (Accu-Chek) 1 ea Q6 XX Last administered on 02/12/19 05:41; Admin Dose 1 EA; Start 02/08/19 at 12:00 Norepinephrine 32 mg/Dextrose 250 ml @ 0.47 mls/hr TITRATE IV Last administered on 02/12/19at 01:23; Admin Dose 2.34 MLS/HR; Start 02/08/19 at 23:00 IV Flush (NS 10 ml) 10 ml PRN PRN IV IV PROTOCOL; Start 02/09/19 at 20:00 Phytonadione 10 mg/Dextrose 51 ml @ 102 mls/hr DAILY IVPB Last administered on 02/12/19 08:57; Admin Dose 102 MLS/HR; Start 02/11/19 at 09:00; Stop 02/13/19 at 12:00 Lansoprazole (Prevacid) 30 mg BID@0600,1800 NGT Last administered on 02/12/19at 05:40; Admin Dose 30 MG; Start 02/11/19 at 18:00 Albumin Human 100 ml @ 100 mls/hr WITH DIALYSIS PRN IV SBP <90 DURING DIALYSIS Last administered on 02/11/19at 11:06; Admin Dose 100 MLS/HR; Start 02/11/19 at 11:00 Midodrine (Midodrine) 10 mg TID@0900,1300,1700 PO Last administered on 02/12/19at 08:21; Admin Dose 10 MG; Start 02/11/19 at 17:00 Vancomycin HCl 1.25 gm/Sodium Chloride 250 ml @ 83.333 mls/ hr ONCE IVPB ; Start 02/12/19 at 10:00; Stop 02/12/19 at 23:59 Miscellaneous Information (*Rx Drug Level Order Reminder*) RANDOM VANCO LEVEL 6... 0500 ONCE XX ; Start 02/15/19 at 05:00; Stop 02/15/19 at 05:01 MAL ENRIQUE MD Feb 12, 2019 09:05
--- NOTE | 2019-02-12 09:56 | CONS ---
Assessment/Plan Assessment/Plan Assessment/Plan (Daily) End-stage liver cirrhosis secondary to excessive alcohol abuse Acute respiratory failure on ventilator Coagulopathy Severe anemia and thrombocytopenia Status post paracentesis Patient has been accepted to [facility] however there are no beds available at this time. Yesterday had an extensive conversation with family members hopefully [facility] will accept her however they are not interested in patient having extended course on artificial ventilation. They seem to be somewhat surprised that patient has very poor prognosis. In the interim patient will still receive aggressive interventions. Patient remains DO NOT RESUSCITATE all other aggressive care will be continued Consultation Date/Type/Reason Admit Date/Time Jan 29, 2019 at 01:13 Date/Time of Note DATE: 02/12/19 TIME: 09:54 Past Medical History Medical History: GI bleed, hepatitis, renal disease, other (As per history of present illness) Home Meds No Active Prescriptions or Reported Meds Medications Current Medications Lactulose (Enulose) 10 gm Q8 PO Last administered on 02/12/19at 05:40; Admin Dose 10 GM; Start 01/29/19 at 06:00 Ondansetron HCl (Zofran Inj) 4 mg Q6H PRN IV NAUSEA AND/OR VOMITING; Start 01/29/19 at 01:00 Epoetin Daniel-epbx (Retacrit (Esrd)) 4,000 unit MoWeFr@1700 SC Last administered on 02/11/19at 17:36; Admin Dose 4,000 UNIT; Start 01/30/19 at 17:00 Multivit/Ca Carb/ B Cmplx/FA/Prenat (Liz-Eugenia) 1 tab DAILY PO Last administered on 02/12/19at 08:22; Admin Dose 1 TAB; Start 01/31/19 at 09:00 Docusate Sodium (Colace) 100 mg BID PRN PO constipation; Start 01/30/19 at 14:00 Senna (Senokot) 2 tab DAILY PRN PO constipation; Start 01/30/19 at 14:00 Levalbuterol (Xopenex Neb) 0.63 mg Q4H RESP THERAPY PRN HHN WHEEZING AND RESP DISTRESS Last administered on 02/04/19at 05:40; Admin Dose 0.63 MG; Start 02/02/19 at 22:30 Midazolam HCl 50 ml @ 1 mls/hr TITRATE IV Last administered on 02/04/19 21:44; Admin Dose 5 MLS/HR; Start 02/04/19 at 07:00 Fentanyl 100 ml @ 2.5 mls/hr TITRATE IV Last administered on 02/05/19 17:54; Admin Dose 5 MLS/HR; Start 02/04/19 at 07:00 Vancomycin HCl (Vanco Iv Per Pharmacy) VANCOMYCIN PER PHARMACY PER PROTOCOL XX ; Start 02/04/19 at 08:30 Meropenem/Sodium Chloride 50 ml @ 100 mls/hr Q12 IVPB Last administered on 02/12/19 08:22; Admin Dose 100 MLS/HR; Start 02/05/19 at 12:00 Rifaximin (Xifaxan) 550 mg BID PO Last administered on 02/12/19 08:22; Admin Dose 550 MG; Start 02/05/19 at 21:00 Phenylephrine HCl 80 mg/Dextrose 250 ml @ 18.75 mls/ hr TITRATE PRN IV BLOOD PRESSURE SUPPORT Last administered on 02/11/19 22:04; Admin Dose 18.75 MLS/HR; Start 02/06/19 at 02:00 Dextrose (D50w Syringe) 50 ml PRN PRN IV HYPOGLYCEMIA (BS<70) Last administered on 02/06/19 07:42; Admin Dose 50 ML; Start 02/06/19 at 07:30 Diagnostic Test (Pha) (Accu-Chek) 1 ea Q6 XX Last administered on 02/12/19 05:41; Admin Dose 1 EA; Start 02/08/19 at 12:00 Norepinephrine 32 mg/Dextrose 250 ml @ 0.47 mls/hr TITRATE IV Last adminis tered on 02/12/19 01:23; Admin Dose 2.34 MLS/HR; Start 02/08/19 at 23:00 IV Flush (NS 10 ml) 10 ml PRN PRN IV IV PROTOCOL; Start 02/09/19 at 20:00 Phytonadione 10 mg/Dextrose 51 ml @ 102 mls/hr DAILY IVPB Last administered on 02/12/19 08:57; Admin Dose 102 MLS/HR; Start 02/11/19 at 09:00; Stop 02/13/19 at 12:00 Lansoprazole (Prevacid) 30 mg BID@0600,1800 NGT Last administered on 02/12/19at 05:40; Admin Dose 30 MG; Start 02/11/19 at 18:00 Albumin Human 100 ml @ 100 mls/hr WITH DIALYSIS PRN IV SBP <90 DURING DIALYSIS Last administered on 02/11/19at 11:06; Admin Dose 100 MLS/HR; Start 02/11/19 at 11:00 Midodrine (Midodrine) 10 mg TID@0900,1300,1700 PO Last administered on 02/12/19at 08:21; Admin Dose 10 MG; Start 02/11/19 at 17:00 Vancomycin HCl 1.25 gm/Sodium Chloride 250 ml @ 83.333 mls/ hr ONCE IVPB Last administered on 02/12/19at 09:47; Admin Dose 83.333 MLS/HR; Start 02/12/19 at 10:00; Stop 02/12/19 at 23:59 Miscellaneous Information (*Rx Drug Level Order Reminder*) RANDOM VANCO LEVEL 6... 0500 ONCE XX ; Start 02/15/19 at 05:00; Stop 02/15/19 at 05:01 Allergies: Coded Allergies: No Known Allergy (Unverified , 01/29/19) Past Surgical History Past Surgical Hx: other (As per history of present illness placement of permacath) Social History Alcohol Use: heavy (History of) Smoking Status: Former smoker Exam/Review of Systems Exam Vitals Vital Signs Date Temp Pulse Resp B/P (MAP) Pulse Ox O2 O2 Flow FiO2 Time Delivery Rate 02/12/19 30 08:06 02/12/19 108 08:00 02/12/19 24 100/50 100 05:15 (67) 02/12/19 Mechanical 05:00 Ventilator 02/12/19 99.0 04:00 Intake and Output 02/11/19 02/11/19 02/12/19 1515:00 23:00 07:00 IntakeIntake Total 743.375 ml 1629.37 ml 484.872 ml OutputOutput Total 2400 ml 175 ml 500 ml BalanceBalance -1656.625 ml 1454.37 ml -15.128 ml Results Result Diagram: 02/12/19 0440 02/12/19 0440 Results 24hrs Laboratory Tests Test 02/11/19 12:26 02/11/19 17:15 02/11/19 17:38 02/12/19 00:50 Bedside Glucose 117 92 113 Hemoglobin 8.1 #L Hematocrit 23.1 #L Test 02/12/19 04:15 02/12/19 04:40 02/12/19 04:42 02/12/19 05:38 White Blood Count 30.5 H Red Blood Count 2.27 L Hemoglobin 7.1 L Hematocrit 20.4 L Mean Corpuscular 89.9 Volume Mean Corpuscular 31.3 Hemoglobin Mean Corpuscular 34.8 Hemoglobin Concen t Red Cell 17.4 H Distribution Width Platelet Count 58 L 59 L Mean Platelet 12.3 H Volume Immature 11.200 H Granulocytes % Neutrophils % Lymphocytes % Monocytes % Eosinophils % Basophils % Nucleated Red 2.6 H Blood Cells % Immature 3.400 H Granulocytes # Neutrophils # Lymphocytes # Monocytes # Eosinophils # Basophils # Nucleated Red Blood Cells # Prothrombin Time 28.7 H Prothrombin Time 2.2 Ratio INR International 2.70 Normalized Ratio Activated 65.6 H Partial Thrombopl ast Time Thrombin Time 22.2 H Fibrinogen 159.0 #L D-Dimer > 54846.00 H Sodium Level 136 Potassium Level 3.6 Chloride Level 98 Carbon Dioxide 22 Level Anion Gap 16 H Blood Urea 37 H Nitrogen Creatinine 3.09 H Est Glomerular 22 L Filtrat Rate mL/min Glucose Level 93 Calcium Level 9.4 Phosphorus Level 2.9 Magnesium Level 2.0 Total Bilirubin 22.2 H Direct Bilirubin 15.70 *H Indirect 6.5 H Bilirubin Aspartate Amino 76 H Transf (AST/SGOT) Alanine 8 L Aminotransferase (ALT/SGPT) Alkaline 190 H Phosphatase Total Protein 6.5 Albumin 3.0 L Globulin 3.50 H Albumin/Globulin 0.85 Ratio Random Vancomycin 11.2 Level Lab Scanned BLOOD TRANSFUSIO Report N Bedside Glucose 116 Medications Medication Current Medications Lactulose (Enulose) 10 gm Q8 PO Last administered on 02/12/19at 05:40; Admin Dose 10 GM; Start 01/29/19 at 06:00 Ondansetron HCl (Zofran Inj) 4 mg Q6H PRN IV NAUSEA AND/OR VOMITING; Start 01/29/19 at 01:00 Epoetin Daniel-epbx (Retacrit (Esrd)) 4,000 unit MoWeFr@1700 SC Last administered on 02/11/19at 17:36; Admin Dose 4,000 UNIT; Start 01/30/19 at 17:00 Multivit/Ca Carb/ B Cmplx/FA/Prenat (Liz-Eugenia) 1 tab DAILY PO Last administered on 02/12/19 08:22; Admin Dose 1 TAB; Start 01/31/19 at 09:00 Docusate Sodium (Colace) 100 mg BID PRN PO constipation; Start 01/30/19 at 14:00 Senna (Senokot) 2 tab DAILY PRN PO constipation; Start 01/30/19 at 14:00 Levalbuterol (Xopenex Neb) 0.63 mg Q4H RESP THERAPY PRN HHN WHEEZING AND RESP DISTRESS Last administered on 02/04/19 05:40; Admin Dose 0.63 MG; Start 02/02/19 at 22:30 Midazolam HCl 50 ml @ 1 mls/hr TITRATE IV Last administered on 02/04/19 21:44; Admin Dose 5 MLS/HR; Start 02/04/19 at 07:00 Fentanyl 100 ml @ 2.5 mls/hr TITRATE IV Last administered on 02/05/19 17:54; Admin Dose 5 MLS/HR; Start 02/04/19 at 07:00 Vancomycin HCl (Vanco Iv Per Pharmacy) VANCOMYCIN PER PHARMACY PER PROTOCOL XX ; Start 02/04/19 at 08:30 Meropenem/Sodium Chloride 50 ml @ 100 mls/hr Q12 IVPB Last administered on 02/12/19 08:22; Admin Dose 100 MLS/HR; Start 02/05/19 at 12:00 Rifaximin (Xifaxan) 550 mg BID PO Last administered on 02/12/19 08:22; Admin Dose 550 MG; Start 02/05/19 at 21:00 Phenylephrine HCl 80 mg/Dextrose 250 ml @ 18.75 mls/ hr TITRATE PRN IV BLOOD PRESSURE SUPPORT Last administered on 02/11/19 22:04; Admin Dose 18.75 MLS/HR; Start 02/06/19 at 02:00 Dextrose (D50w Syringe) 50 ml PRN PRN IV HYPOGLYCEMIA (BS<70) Last administered on 02/06/19 07:42; Admin Dose 50 ML; Start 02/06/19 at 07:30 Diagnostic Test (Pha) (Accu-Chek) 1 ea Q6 XX Last administered on 02/12/19at 05:41; Admin Dose 1 EA; Start 02/08/19 at 12:00 Norepinephrine 32 mg/Dextrose 250 ml @ 0.47 mls/hr TITRATE IV Last administered on 02/12/19at 01:23; Admin Dose 2.34 MLS/HR; Start 02/08/19 at 23:00 IV Flush (NS 10 ml) 10 ml PRN PRN IV IV PROTOCOL; Start 02/09/19 at 20:00 Phytonadione 10 mg/Dextrose 51 ml @ 102 mls/hr DAILY IVPB Last administered on 02/12/19at 08:57; Admin Dose 102 MLS/HR; Start 02/11/19 at 09:00; Stop 02/13/19 at 12:00 Lansoprazole (Prevacid) 30 mg BID@0600,1800 NGT Last administered on 02/12/19at 05:40; Admin Dose 30 MG; Start 02/11/19 at 18:00 Albumin Human 100 ml @ 100 mls/hr WITH DIALYSIS PRN IV SBP <90 DURING DIALYSIS Last administered on 02/11/19at 11:06; Admin Dose 100 MLS/HR; Start 02/11/19 at 11:00 Midodrine (Midodrine) 10 mg TID@0900,1300,1700 PO Last administered on 02/12/19at 08:21; Admin Dose 10 MG; Start 02/11/19 at 17:00 Vancomycin HCl 1.25 gm/Sodium Chloride 250 ml @ 83.333 mls/ hr ONCE IVPB Last administered on 02/12/19at 09:47; Admin Dose 83.333 MLS/HR; Start 02/12/19 at 10:00; Stop 02/12/19 at 23:59 Miscellaneous Information (*Rx Drug Level Order Reminder*) RANDOM VANCO LEVEL 6... 0500 ONCE XX ; Start 02/15/19 at 05:00; Stop 02/15/19 at 05:01 KATHY HAQ Feb 12, 2019 09:56
--- NOTE | 2019-02-12 09:59 | CONS ---
Consult Date/Type/Reason Admit Date/Time Jan 29, 2019 at 01:13 Initial Consult Date 02/03/19 Type of Consult Pulmonary Requesting Provider: MAL ENRIQUE MD Date/Time of Note DATE: 02/12/19 TIME: 09:58 Subjective More alert today. Still requiring vasopressor support but now only one vasopressor. Objective Vital Signs Date Temp Pulse Resp B/P (MAP) Pulse Ox O2 O2 Flow FiO2 Time Delivery Rate 02/12/19 30 08:06 02/12/19 108 08:00 02/12/19 24 100/50 100 05:15 (67) 02/12/19 Mechanical 05:00 Ventilator 02/12/19 99.0 04:00 Intake and Output 02/11/19 02/11/19 02/12/19 1515:00 23:00 07:00 IntakeIntake Total 743.375 ml 1629.37 ml 484.872 ml OutputOutput Total 2400 ml 175 ml 500 ml BalanceBalance -1656.625 ml 1454.37 ml -15.128 ml Exam GENERAL: Chronically ill-appearing gentleman orally intubated VITAL SIGNS: per chart NECK: Supple. No JVD or lymphadenopathy. CARDIAC EXAM: S1, S2. No added sounds or murmurs. CHEST: Diminished air entry bilaterally ABDOMEN: Distended but no guarding or rebound EXTREMITIES: No cyanosis, clubbing or edema. NEUROLOGIC: Generalized weakness. No focal deficits. Chronically ill-appear ing gentleman orally intubated on mechanical ventilation Vent Setting Ventilator Support Mode: AC Fraction of Inspired Oxygen pe: 30 Positive End Expiratory Pressu: 5.0 Results/Medications Result Diagram: 02/12/19 0440 02/12/19 0440 Results 24 hrs Laboratory Tests Test 02/11/19 12:26 02/11/19 17:15 02/11/19 17:38 02/12/19 00:50 Bedside Glucose 117 92 113 Hemoglobin 8.1 #L Hematocrit 23.1 #L Test 02/12/19 04:15 02/12/19 04:40 02/12/19 04:42 02/12/19 05:38 White Blood Count 30.5 H Red Blood Count 2.27 L Hemoglobin 7.1 L Hematocrit 20.4 L Mean Corpuscular 89.9 Volume Mean Corpuscular 31.3 Hemoglobin Mean Corpuscular 34.8 Hemoglobin Concen t Red Cell 17.4 H Distribution Width Platelet Count 58 L 59 L Mean Platelet 12.3 H Volume Immature 11.200 H Granulocytes % Neutrophils % Lymphocytes % Monocytes % Eosinophils % Basophils % Nucleated Red 2.6 H Blood Cells % Immature 3.400 H Granulocytes # Neutrophils # Lymphocytes # Monocytes # Eosinophils # Basophils # Nucleated Red Blood Cells # Prothrombin Time 28.7 H Prothrombin Time 2.2 Ratio INR International 2.70 Normalized Ratio Activated 65.6 H Partial Thrombopl ast Time Thrombin Time 22.2 H Fibrinogen 159.0 #L D-Dimer > 73772.00 H Sodium Level 136 Potassium Level 3.6 Chloride Level 98 Carbon Dioxide 22 Level Anion Gap 16 H Blood Urea 37 H Nitrogen Creatinine 3.09 H Est Glomerular 22 L Filtrat Rate mL/min Glucose Level 93 Calcium Level 9.4 Phosphorus Level 2.9 Magnesium Level 2.0 Total Bilirubin 22.2 H Direct Bilirubin 15.70 *H Indirect 6.5 H Bilirubin Aspartate Amino 76 H Transf (AST/SGOT) Alanine 8 L Aminotransferase (ALT/SGPT) Alkaline 190 H Phosphatase Total Protein 6.5 Albumin 3.0 L Globulin 3.50 H Albumin/Globulin 0.85 Ratio Random Vancomycin 11.2 Level Lab Scanned BLOOD TRANSFUSIO Report N Bedside Glucose 116 Medications Current Medications Lactulose (Enulose) 10 gm Q8 PO Last administered on 02/12/19at 05:40; Admin Dose 10 GM; Start 01/29/19 at 06:00 Ondansetron HCl (Zofran Inj) 4 mg Q6H PRN IV NAUSEA AND/OR VOMITING; Start 01/29/19 at 01:00 Epoetin Daniel-epbx (Retacrit (Esrd)) 4,000 unit MoWeFr@1700 SC Last administered on 02/11/19at 17:36; Admin Dose 4,000 UNIT; Start 01/30/19 at 17:00 Multivit/Ca Carb/ B Cmplx/FA/Prenat (Liz-Eugenia) 1 tab DAILY PO Last administered on 02/12/19at 08:22; Admin Dose 1 TAB; Start 01/31/19 at 09:00 Docusate Sodium (Colace) 100 mg BID PRN PO constipation; Start 01/30/19 at 14:00 Senna (Senokot) 2 tab DAILY PRN PO constipation; Start 01/30/19 at 14:00 Levalbuterol (Xopenex Neb) 0.63 mg Q4H RESP THERAPY PRN HHN WHEEZING AND RESP DISTRESS Last administered on 02/04/19 05:40; Admin Dose 0.63 MG; Start 02/02/19 at 22:30 Midazolam HCl 50 ml @ 1 mls/hr TITRATE IV Last administered on 02/04/19 21:44; Admin Dose 5 MLS/HR; Start 02/04/19 at 07:00 Fentanyl 100 ml @ 2.5 mls/hr TITRATE IV Last administered on 02/05/19 17:54; Admin Dose 5 MLS/HR; Start 02/04/19 at 07:00 Vancomycin HCl (Vanco Iv Per Pharmacy) VANCOMYCIN PER PHARMACY PER PROTOCOL XX ; Start 02/04/19 at 08:30 Meropenem/Sodium Chloride 50 ml @ 100 mls/hr Q12 IVPB Last administered on 02/12/19 08:22; Admin Dose 100 MLS/HR; Start 02/05/19 at 12:00 Rifaximin (Xifaxan) 550 mg BID PO Last administered on 02/12/19 08:22; Admin Dose 550 MG; Start 02/05/19 at 21:00 Phenylephrine HCl 80 mg/Dextrose 250 ml @ 18.75 mls/ hr TITRATE PRN IV BLOOD PRESSURE SUPPORT Last administered on 02/11/19 22:04; Admin Dose 18.75 MLS/HR; Start 02/06/19 at 02:00 Dextrose (D50w Syringe) 50 ml PRN PRN IV HYPOGLYCEMIA (BS<70) Last administered on 02/06/19at 07:42; Admin Dose 50 ML; Start 02/06/19 at 07:30 Diagnostic Test (Pha) (Accu-Chek) 1 ea Q6 XX Last administered on 02/12/19 05:41; Admin Dose 1 EA; Start 02/08/19 at 12:00 Norepinephrine 32 mg/Dextrose 250 ml @ 0.47 mls/hr TITRATE IV Last administered on 02/12/19 01:23; Admin Dose 2.34 MLS/HR; Start 02/08/19 at 23:00 IV Flush (NS 10 ml) 10 ml PRN PRN IV IV PROTOCOL; Start 02/09/19 at 20:00 Phytonadione 10 mg/Dextrose 51 ml @ 102 mls/hr DAILY IVPB Last administered on 02/12/19at 08:57; Admin Dose 102 MLS/HR; Start 02/11/19 at 09:00; Stop 02/13/19 at 12:00 Lansoprazole (Prevacid) 30 mg BID@0600,1800 NGT Last administered on 02/12/19at 05:40; Admin Dose 30 MG; Start 02/11/19 at 18:00 Albumin Human 100 ml @ 100 mls/hr WITH DIALYSIS PRN IV SBP <90 DURING DIALYSIS Last administered on 02/11/19at 11:06; Admin Dose 100 MLS/HR; Start 02/11/19 at 11:00 Midodrine (Midodrine) 10 mg TID@0900,1300,1700 PO Last administered on 02/12/19at 08:21; Admin Dose 10 MG; Start 02/11/19 at 17:00 Vancomycin HCl 1.25 gm/Sodium Chloride 250 ml @ 83.333 mls/ hr ONCE IVPB Last administered on 02/12/19at 09:47; Admin Dose 83.333 MLS/HR; Start 02/12/19 at 10:00; Stop 02/12/19 at 23:59 Miscellaneous Information (*Rx Drug Level Order Reminder*) RANDOM VANCO LEVEL 6... 0500 ONCE XX ; Start 02/15/19 at 05:00; Stop 02/15/19 at 05:01 Assessment/Plan Hospital Course (Demo Recall) Assessment 1. End-stage liver disease 2. Renal failure on hemodialysis 3. Hypoxemic respiratory failure requiring mechanical ventilation 4. Encephalopathy probably toxic metabolic 5. Septic shock now on only one vasopressor. Plan 1. Continue mechanical ventilation 2. Titrate vasopressors to keep map greater than 65 3. Hemodialysis as tolerated 4. Tube feeding 5. Lactulose and rifaximin 6. Transfer to [facility] possibly today. 7. Left lung thoracentesis on hold secondary to elevated INR. Critical care time 40 minutes Discussed with primary team patient accepted at [facility] liver transplant unit. JIMMIE ACEVES MD, [facility] Feb 12, 2019 09:59
[2019-02-12] MEDS ORDERED: VANCOMYCIN HCL 1.25 GM in SOD CHLORIDE 0.9% 250 ML IVPB SCH (10:00)
--- NOTE | 2019-02-12 11:09 | CONS ---
Assessment/Plan Assessment/Plan Hospital Course (Demo Recall) 39 yo with ETOH related cirrhosis, coagulopathy, on dialysis who we are asked to see for coagulopathy #coagulopathy -2/2 cirrhosis and decompensated liver failure -INR is 2.7 today -s/p IV vitamin K 5mg, FFP -will need to check daily DIC panel and keep fibrinogen > 120. fibrinogen currently at 159 #Anemia -2/2 to liver failure and CKD -continue epogen -1 units of PRBCs ordered for today #EtOH cirrhosis -pt to be transferred to [facility] for liver transplant #ESRD -continue HD Consultation Date/Type/Reason Admit Date/Time Jan 29, 2019 at 01:13 Initial Consult Date 02/03/19 Type of Consult hematology Reason for Consultation liver failure/ coagulopathy Requesting Provider: MAL ENRIQUE MD Date/Time of Note DATE: 02/12/19 TIME: 11:03 24 HR Interval Summary Free Text/Dictation pt getting 1 unit of PRBCs today. received 2 units of FFP yesterday. bleeding around the penile shaft is less. PT did get HD yesterday Exam/Review of Systems Exam Vitals Vital Signs Date Temp Pulse Resp B/P (MAP) Pulse Ox O2 O2 Flow FiO2 Time Delivery Rate 02/12/19 105 21 99/51 (67) 100 10:15 02/12/19 30 08:06 02/12/19 98.6 Mechanical 08:00 Ventilator Intake and Output 02/11/19 02/11/19 02/12/19 1515:00 23:00 07:00 IntakeIntake Total 743.375 ml 1629.37 ml 505.572 ml OutputOutput Total 2400 ml 175 ml 500 ml BalanceBalance -1656.625 ml 1454.37 ml 5.572 ml Constitutional: distress, frail Psych: confusion Head: normocephalic Eyes: nl conjunctiva ENMT: nl external ears & nose, intubated Neck: supple Respiratory: clear to auscultation Cardiovascular: regular rate and rhythm Gastrointestinal: soft Musculoskeletal: muscle weakness, swelling Results Result Diagram: 02/12/190 02/12/19439 Results 24hrs Laboratory Tests Test 02/11/19 12:26 02/11/19 17:15 02/11/19 17:38 02/12/19 00:50 Bedside Glucose 117 92 113 Hemoglobin 8.1 #L Hematocrit 23.1 #L Test 02/12/19 04:15 02/12/19 04:40 02/12/19 04:42 02/12/19 05:38 White Blood 30.5 H Count Red Blood Count 2.27 L Hemoglobin 7.1 L Hematocrit 20.4 L Mean Corpuscular 89.9 Volume Mean Corpuscular 31.3 Hemoglobin Mean Corpuscular 34.8 Hemoglobin Criselda nt Red Cell 17.4 H Distribution Width Platelet Count 58 L 59 L Mean Platelet 12.3 H Volume Immature 11.200 H Granulocytes % Neutrophils % Segmented 68 Neutrophils % (Manual) Band Neutrophils 7 H % (Manual) Lymphocytes % Lymphocytes % 18 (Manual) Monocytes % Monocytes % 4 (Manual) Eosinophils % Basophils % Myelocytes % 1 H (Manual) Promyelocytes % 2 H (Manual) Nucleated Red 2.6 H Blood Cells % Immature 3.400 H Granulocytes # Neutrophils # Neutrophils # 21.4 H (Manual) Band Neutrophils 2.1 H # Lymphocytes 5.4 H (Manual) Lymphocytes # Monocytes # Monocytes # 1.2 H (Manual) Eosinophils # Basophils # Myelocytes # 0.3 H Promyelocytes # 0.6 H Nucleated Red Blood Cells # Platelet SIG DECREASED Estimate Poikilocytosis 3+ Anisocytosis 2+ Macrocytosis 2+ Target Cells 1+ Prothrombin Time 28.7 H Prothrombin Time 2.2 Ratio INR 2.70 International Normalized Ratio Activated 65.6 H Partial Thrombop last Time Thrombin Time 22.2 H Fibrinogen 159.0 #L D-Dimer > 10893.00 H Sodium Level 136 Potassium Level 3.6 Chloride Level 98 Carbon Dioxide 22 Level Anion Gap 16 H Blood Urea 37 H Nitrogen Creatinine 3.09 H Est Glomerular 22 L Filtrat Rate mL/min Glucose Level 93 Calcium Level 9.4 Phosphorus Level 2.9 Magnesium Level 2.0 Total Bilirubin 22.2 H Direct Bilirubin 15.70 *H Indirect 6.5 H Bilirubin Aspartate Amino 76 H Transf (AST/SGOT ) Alanine 8 L Aminotransferase (ALT/SGPT) Alkaline 190 H Phosphatase Total Protein 6.5 Albumin 3.0 L Globulin 3.50 H Albumin/Globulin 0.85 Ratio Random 11.2 Vancomycin Level Lab Scanned BLOOD TRANSFUSI Report ON Bedside Glucose 116 Medications Medication Current Medications Lactulose (Enulose) 10 gm Q8 PO Last administered on 02/12/19at 05:40; Admin Dose 10 GM; Start 01/29/19 at 06:00 Ondansetron HCl (Zofran Inj) 4 mg Q6H PRN IV NAUSEA AND/OR VOMITING; Start 01/29/19 at 01:00 Epoetin Daniel-epbx (Retacrit (Esrd)) 4,000 unit MoWeFr@1700 SC Last administered on 02/11/19 17:36; Admin Dose 4,000 UNIT; Start 01/30/19 at 17:00 Multivit/Ca Carb/ B Cmplx/FA/Prenat (Liz-Eugenia) 1 tab DAILY PO Last administered on 02/12/19 08:22; Admin Dose 1 TAB; Start 01/31/19 at 09:00 Docusate Sodium (Colace) 100 mg BID PRN PO constipation; Start 01/30/19 at 14:00 Senna (Senokot) 2 tab DAILY PRN PO constipation; Start 01/30/19 at 14:00 Levalbuterol (Xopenex Neb) 0.63 mg Q4H RESP THERAPY PRN HHN WHEEZING AND RESP DISTRESS Last administered on 02/04/19 05:40; Admin Dose 0.63 MG; Start 02/02/19 at 22:30 Midazolam HCl 50 ml @ 1 mls/hr TITRATE IV Last administered on 02/04/19 21:44; Admin Dose 5 MLS/HR; Start 02/04/19 at 07:00 Fentanyl 100 ml @ 2.5 mls/hr TITRATE IV Last administered on 02/05/19 17:54; Admin Dose 5 MLS/HR; Start 02/04/19 at 07:00 Vancomycin HCl (Vanco Iv Per Pharmacy) VANCOMYCIN PER PHARMACY PER PROTOCOL XX ; Start 02/04/19 at 08:30 Meropenem/Sodium Chloride 50 ml @ 100 mls/hr Q12 IVPB Last administered on 02/12/19 08:22; Admin Dose 100 MLS/HR; Start 02/05/19 at 12:00 Rifaximin (Xifaxan) 550 mg BID PO Last administered on 02/12/19 08:22; Admin Dose 550 MG; Start 02/05/19 at 21:00 Phenylephrine HCl 80 mg/Dextrose 250 ml @ 18.75 mls/ hr TITRATE PRN IV BLOOD PRESSURE SUPPORT Last administered on 6/26/19at 22:04; Admin Dose 18.75 MLS/HR; Start 02/06/19 at 02:00 Dextrose (D50w Syringe) 50 ml PRN PRN IV HYPOGLYCEMIA (BS<70) Last administered on 02/06/19at 07:42; Admin Dose 50 ML; Start 02/06/19 at 07:30 Diagnostic Test (Pha) (Accu-Chek) 1 ea Q6 XX Last administered on 02/12/19at 05 :41; Admin Dose 1 EA; Start 02/08/19 at 12:00 Norepinephrine 32 mg/Dextrose 250 ml @ 0.47 mls/hr TITRATE IV Last administered on 02/12/19at 01:23; Admin Dose 2.34 MLS/HR; Start 02/08/19 at 23:00 IV Flush (NS 10 ml) 10 ml PRN PRN IV IV PROTOCOL; Start 02/09/19 at 20:00 Phytonadione 10 mg/Dextrose 51 ml @ 102 mls/hr DAILY IVPB Last administered on 02/12/19at 08:57; Admin Dose 102 MLS/HR; Start 02/11/19 at 09:00; Stop 02/13/19 at 12:00 Lansoprazole (Prevacid) 30 mg BID@0600,1800 NGT Last administered on 02/12/19at 05:40; Admin Dose 30 MG; Start 02/11/19 at 18:00 Albumin Human 100 ml @ 100 mls/hr WITH DIALYSIS PRN IV SBP <90 DURING DIALYSIS Last administered on 02/11/19at 11:06; Admin Dose 100 MLS/HR; Start 02/11/19 at 11:00 Midodrine (Midodrine) 10 mg TID@0900,1300,1700 PO Last administered on 02/12/19at 08:21; Admin Dose 10 MG; Start 02/11/19 at 17:00 Vancomycin HCl 1.25 gm/Sodium Chloride 250 ml @ 83.333 mls/ hr ONCE IVPB Last administered on 02/12/19at 09:47; Admin Dose 83.333 MLS/HR; Start 02/12/19 at 10:00; Stop 02/12/19 at 23:59 Miscellaneous Information (*Rx Drug Level Order Reminder*) RANDOM VANCO LEVEL 6... 0500 ONCE XX ; Start 02/15/19 at 05:00; Stop 02/15/19 at 05:01 EBONIE TOBAR M.D. Feb 12, 2019 11:09
--- NOTE | 2019-02-12 11:22 | CONS ---
Assessment/Plan Assessment/Plan Hospital Course (Demo Recall) IMP: 1.HYpotension-on casa plus midodrine. NL EF by echo this admit 60%. Levo weaned off. Neg trop x 3 2.Tachycardia-s tach 3.ESLD/cirrhosis 4.Jaundice/elevated bili 5. Renal failure 6. Respiratory failure s/p intubation 7. anemia severe requiring transfusions 8. Coagulopathy-follow closely s/p vitamin K 9. thrombocytopenia Recc: -ICU -serial ecg's -wean casa as possible -continue midodrine BP support -possible transfer for higher level of care as stability dictates -continue abx's and f/u cx data -transfuse PRBC's as necessary -Follow coagulopathy and correct further as necessary Consultation Date/Type/Reason Admit Date/Time Jan 29, 2019 at 01:13 Initial Consult Date 02/09/19 Type of Consult Cardiology Reason for Consultation hypotension Requesting Provider: MAL ENRIQUE MD Date/Time of Note DATE: 02/12/19 TIME: 11:19 Exam/Review of Systems Vital Signs Vitals Vital Signs Date Temp Pulse Resp B/P (MAP) Pulse Ox O2 O2 Flow FiO2 Time Delivery Rate 02/12/19 105 21 99/51 (67) 100 10:15 02/12/19 30 08:06 02/12/19 98.6 Mechanical 08:00 Ventilator Intake and Output 02/11/19 02/11/19 02/12/19 1515:00 23:00 07:00 IntakeIntake Total 743.375 ml 1629.37 ml 505.572 ml OutputOutput Total 2400 ml 175 ml 500 ml BalanceBalance -1656.625 ml 1454.37 ml 5.572 ml Exam Exam Review of Systems: CONSTITUTIONAL: No fevers, chills. PULMONARY: intubated CARDIOVASCULAR: No chest pain/palpitations GASTROINTESTINAL: No nausea/vomiting. GENITOURINARY: No hematuria/dysuria. MUSCULOSKELETAL: No myagias/arthalgias. PSYCHIATRIC: The patient denies depression. NEUROLOGIC: awake Constitutional: other (awake) Head: normocephalic ENMT: intubated Respiratory: clear to auscultation Cardiovascular: regular rate and rhythm Gastrointestinal: soft, non-tender Musculoskeletal: muscle tone (normal) Extremities: pitting pedal edema (bilateral/anasarca) Neurological: other (No focal deficits) Labs Result Diagram: 02/12/19 0440 02/12/19 0440 Results 24hrs Laboratory Tests Test 02/11/19 12:26 02/11/19 17:15 02/11/19 17:38 02/12/19 00:50 Bedside Glucose 117 92 113 Hemoglobin 8.1 #L Hematocrit 23.1 #L Test 02/12/19 04:15 02/12/19 04:40 02/12/19 04:42 02/12/19 05:38 White Blood 30.5 H Count Red Blood Count 2.27 L Hemoglobin 7.1 L Hematocrit 20.4 L Mean Corpuscular 89.9 Volume Mean Corpuscular 31.3 Hemoglobin Mean Corpuscular 34.8 Hemoglobin Criselda nt Red Cell 17.4 H Distribution Width Platelet Count 58 L 59 L Mean Platelet 12.3 H Volume Immature 11.200 H Granulocytes % Neutrophils % Segmented 68 Neutrophils % (Manual) Band Neutrophils 7 H % (Manual) Lymphocytes % Lymphocytes % 18 (Manual) Monocytes % Monocytes % 4 (Manual) Eosinophils % Basophils % Myelocytes % 1 H (Manual) Promyelocytes % 2 H (Manual) Nucleated Red 2.6 H Blood Cells % Immature 3.400 H Granulocytes # Neutrophils # Neutrophils # 21.4 H (Manual) Band Neutrophils 2.1 H # Lymphocytes 5.4 H (Manual) Lymphocytes # Monocytes # Monocytes # 1.2 H (Manual) Eosinophils # Basophils # Myelocytes # 0.3 H Promyelocytes # 0.6 H Nucleated Red Blood Cells # Platelet SIG DECREASED Estimate Poikilocytosis 3+ Anisocytosis 2+ Macrocytosis 2+ Target Cells 1+ Prothrombin Time 28.7 H Prothrombin Time 2.2 Ratio INR 2.70 International Normalized Ratio Activated 65.6 H Partial Thrombop last Time Thrombin Time 22.2 H Fibrinogen 159.0 #L D-Dimer > 58182.00 H Sodium Level 136 Potassium Level 3.6 Chloride Level 98 Carbon Dioxide 22 Level Anion Gap 16 H Blood Urea 37 H Nitrogen Creatinine 3.09 H Est Glomerular 22 L Filtrat Rate mL/min Glucose Level 93 Calcium Level 9.4 Phosphorus Level 2.9 Magnesium Level 2.0 Total Bilirubin 22.2 H Direct Bilirubin 15.70 *H Indirect 6.5 H Bilirubin Aspartate Amino 76 H Transf (AST/SGOT ) Alanine 8 L Aminotransferase (ALT/SGPT) Alkaline 190 H Phosphatase Total Protein 6.5 Albumin 3.0 L Globulin 3.50 H Albumin/Globulin 0.85 Ratio Random 11.2 Vancomycin Level Lab Scanned BLOOD TRANSFUSI Report ON Bedside Glucose 116 Medications Medications Current Medications Lactulose (Enulose) 10 gm Q8 PO Last administered on 02/12/19 05:40; Admin Dose 10 GM; Start 01/29/19 at 06:00 Ondansetron HCl (Zofran Inj) 4 mg Q6H PRN IV NAUSEA AND/OR VOMITING; Start 01/29/19 at 01:00 Epoetin Daniel-epbx (Retacrit (Esrd)) 4,000 unit MoWeFr@1700 SC Last administered on 02/11/19 17:36; Admin Dose 4,000 UNIT; Start 01/30/19 at 17:00 Multivit/Ca Carb/ B Cmplx/FA/Prenat (Liz-Eugenia) 1 tab DAILY PO Last administered on 02/12/19 08:22; Admin Dose 1 TAB; Start 01/31/19 at 09:00 Docusate Sodium (Colace) 100 mg BID PRN PO constipation; Start 01/30/19 at 14:00 Senna (Senokot) 2 tab DAILY PRN PO constipation; Start 01/30/19 at 14:00 Levalbuterol (Xopenex Neb) 0.63 mg Q4H RESP THERAPY PRN HHN WHEEZING AND RESP DISTRESS Last administered on 02/04/19 05:40; Admin Dose 0.63 MG; Start 01/17 03/06 at 22:30 Midazolam HCl 50 ml @ 1 mls/hr TITRATE IV Last administered on 02/04/19at 21:44; Admin Dose 5 MLS/HR; Start 02/04/19 at 07:00 Fentanyl 100 ml @ 2.5 mls/hr TITRATE IV Last administered on 02/05/19at 17:54; Admin Dose 5 MLS/HR; Start 02/04/19 at 07:00 Vancomycin HCl (Vanco Iv Per Pharmacy) VANCOMYCIN PER PHARMACY PER PROTOCOL XX ; Start 02/04/19 at 08:30 Meropenem/Sodium Chloride 50 ml @ 100 mls/hr Q12 IVPB Last administered on 02/12/19 08:22; Admin Dose 100 MLS/HR; Start 02/05/19 at 12:00 Rifaximin (Xifaxan) 550 mg BID PO Last administered on 02/12/19 08:22; Admin Dose 550 MG; Start 02/05/19 at 21:00 Phenylephrine HCl 80 mg/Dextrose 250 ml @ 18.75 mls/ hr TITRATE PRN IV BLOOD PRESSURE SUPPORT Last administered on 02/11/19 22:04; Admin Dose 18.75 MLS/HR; Start 02/06/19 at 02:00 Dextrose (D50w Syringe) 50 ml PRN PRN IV HYPOGLYCEMIA (BS<70) Last administered on 02/06/19 07:42; Admin Dose 50 ML; Start 02/06/19 at 07:30 Diagnostic Test (Pha) (Accu-Chek) 1 ea Q6 XX Last administered on 02/12/19 05:41; Admin Dose 1 EA; Start 02/08/19 at 12:00 Norepinephrine 32 mg/Dextrose 250 ml @ 0.47 mls/hr TITRATE IV Last administered on 02/12/19 01:23; Admin Dose 2.34 MLS/HR; Start 02/08/19 at 23:00 IV Flush (NS 10 ml) 10 ml PRN PRN IV IV PROTOCOL; Start 02/09/19 at 20:00 Phytonadione 10 mg/Dextrose 51 ml @ 102 mls/hr DAILY IVPB Last administered on 02/12/19 08:57; Admin Dose 102 MLS/HR; Start 02/11/19 at 09:00; Stop 02/13/19 at 12:00 Lansoprazole (Prevacid) 30 mg BID@0600,1800 NGT Last administered on 02/12/19 05:40; Admin Dose 30 MG; Start 02/11/19 at 18:00 Albumin Human 100 ml @ 100 mls/hr WITH DIALYSIS PRN IV SBP <90 DURING DIALYSIS Last administered on 02/11/19 11:06; Admin Dose 100 MLS/HR; Start 02/11/19 at 11:00 Midodrine (Midodrine) 10 mg TID@0900,1300,1700 PO Last administered on 02/12/19 08:21; Admin Dose 10 MG; Start 02/11/19 at 17:00 Vancomycin HCl 1.25 gm/Sodium Chloride 250 ml @ 83.333 mls/ hr ONCE IVPB Last administered on 02/12/19at 09:47; Admin Dose 83.333 MLS/HR; Start 02/12/19 at 10:00; Stop 02/12/19 at 23:59 Miscellaneous Information (*Rx Drug Level Order Reminder*) RANDOM VANCO LEVEL 6... 0500 ONCE XX ; Start 02/15/19 at 05:00; Stop 02/15/19 at 05:01 LESLY AGUIRRE Feb 12, 2019 11:22
--- NOTE | 2019-02-12 11:32 | CONS ---
Assessment/Plan Assessment/Plan Assessment/Plan (Daily) sessment/Plan Assessment/Plan Hospital Course (Demo Recall) 39 yo male with liver disease with profound jaundice 1. Decompensated end stage liver disease with hyperbilirubinemia 2. Severe anemia. -positive FOB, there are wound around rectum, brown liquid stool 3. Leukocytosis. -trending up 4. Ascites. -paracentesis 02/04 -neg cultures of ascitic fluid 5. End-stage renal disease on dialysis. 6. Coagulopathy due to #1 -heme onc consulted 7. Thrombocytopenia due to #1 -downtrending 8. Scrotal cellulitis 9. Epididymitis rt side 10. Periphomosis 11 respiratory failure vent dependent plan #12 encephalopathy much better patient is alert awake Plan INR high May consider EGD or colonoscopy if pt stablizes Continue lactulose and rifaximin Continue antibiotic Continue supportive care Monitor HH and for acute GI bleeding Transfusion on as-needed basis FFP or cryoprecipitate as per credit card control clerk Patient is waiting to be transferred to [facility] Consultation Date/Type/Reason Admit Date/Time Jan 29, 2019 at 01:13 Initial Consult Date Requesting Provider: MAL ENRIQUE MD Date/Time of Note DATE: 02/12/19 TIME: 11:30 24 HR Interval Summary Subjective hx not possible: pt non-verbal, pt critical Exam/Review of Systems Exam Vitals Vital Signs Date Temp Pulse Resp B/P (MAP) Pulse Ox O2 O2 Flow FiO2 Time Delivery Rate 02/12/19 105 21 99/51 (67) 100 10:15 02/12/19 30 08:06 02/12/19 98.6 Mechanical 08:00 Ventilator Intake and Output 02/11/19 02/11/19 02/12/19 1515:00 23:00 07:00 IntakeIntake Total 743.375 ml 1629.37 ml 505.572 ml OutputOutput Total 2400 ml 175 ml 500 ml BalanceBalance -1656.625 ml 1454.37 ml 5.572 ml Constitutional: alert, oriented ENMT: intubated Respiratory: diminished breath sounds Cardiovascular: regular rate and rhythm, nl pulses Gastrointestinal: non-tender, ascites, distended Extremities: pitting pedal edema Results Result Diagram: 02/12/19 0440 02/12/19 0440 Results 24hrs Laboratory Tests Test 02/11/19 12:26 02/11/19 17:15 02/11/19 17:38 02/12/19 00:50 Bedside Glucose 117 92 113 Hemoglobin 8.1 #L Hematocrit 23.1 #L Test 02/12/19 04:15 02/12/19 04:40 02/12/19 04:42 02/12/19 05:38 White Blood 30.5 H Count Red Blood Count 2.27 L Hemoglobin 7.1 L Hematocrit 20.4 L Mean Corpuscular 89.9 Volume Mean Corpuscular 31.3 Hemoglobin Mean Corpuscular 34.8 Hemoglobin Criselda nt Red Cell 17.4 H Distribution Width Platelet Count 58 L 59 L Mean Platelet 12.3 H Volume Immature 11.200 H Granulocytes % Neutrophils % Segmented 68 Neutrophils % (Manual) Band Neutrophils 7 H % (Manual) Lymphocytes % Lymphocytes % 18 (Manual) Monocytes % Monocytes % 4 (Manual) Eosinophils % Basophils % Myelocytes % 1 H (Manual) Promyelocytes % 2 H (Manual) Nucleated Red 2.6 H Blood Cells % Immature 3.400 H Granulocytes # Neutrophils # Neutrophils # 21.4 H (Manual) Band Neutrophils 2.1 H # Lymphocytes 5.4 H (Manual) Lymphocytes # Monocytes # Monocytes # 1.2 H (Manual) Eosinophils # Basophils # Myelocytes # 0.3 H Promyelocytes # 0.6 H Nucleated Red Blood Cells # Platelet SIG DECREASED Estimate Poikilocytosis 3+ Anisocytosis 2+ Macrocytosis 2+ Target Cells 1+ Prothrombin Time 28.7 H Prothrombin Time 2.2 Ratio INR 2.70 International Normalized Ratio Activated 65.6 H Partial Thrombop last Time Thrombin Time 22.2 H Fibrinogen 159.0 #L D-Dimer > 22252.00 H Sodium Level 136 Potassium Level 3.6 Chloride Level 98 Carbon Dioxide 22 Level Anion Gap 16 H Blood Urea 37 H Nitrogen Creatinine 3.09 H Est Glomerular 22 L Filtrat Rate mL/min Glucose Level 93 Calcium Level 9.4 Phosphorus Level 2.9 Magnesium Level 2.0 Total Bilirubin 22.2 H Direct Bilirubin 15.70 *H Indirect 6.5 H Bilirubin Aspartate Amino 76 H Transf (AST/SGOT ) Alanine 8 L Aminotransferase (ALT/SGPT) Alkaline 190 H Phosphatase Total Protein 6.5 Albumin 3.0 L Globulin 3.50 H Albumin/Globulin 0.85 Ratio Random 11.2 Vancomycin Level Lab Scanned BLOOD TRANSFUSI Report ON Bedside Glucose 116 Test 02/12/19 11:24 Bedside Glucose 104 Medications Medication Current Medications Lactulose (Enulose) 10 gm Q8 PO Last administered on 02/12/19 05:40; Admin Dose 10 GM; Start 01/29/19 at 06:00 Ondansetron HCl (Zofran Inj) 4 mg Q6H PRN IV NAUSEA AND/OR VOMITING; Start 01/29/19 at 01:00 Epoetin Daniel-epbx (Retacrit (Esrd)) 4,000 unit MoWeFr@1700 SC Last administered on 02/11/19 17:36; Admin Dose 4,000 UNIT; Start 01/30/19 at 17:00 Multivit/Ca Carb/ B Cmplx/FA/Prenat (Liz-Eugenia) 1 tab DAILY PO Last administered on 02/12/19 08:22; Admin Dose 1 TAB; Start 01/31/19 at 09:00 Docusate Sodium (Colace) 100 mg BID PRN PO constipation; Start 01/30/19 at 14:00 Senna (Senokot) 2 tab DAILY PRN PO constipation; Start 01/30/19 at 14:00 Levalbuterol (Xopenex Neb) 0.63 mg Q4H RESP THERAPY PRN HHN WHEEZING AND RESP DISTRESS Last administered on 02/04/19 05:40; Admin Dose 0.63 MG; Start 02/02/19 at 22:30 Midazolam HCl 50 ml @ 1 mls/hr TITRATE IV Last administered on 02/04/19 21:44; Admin Dose 5 MLS/HR; Start 02/04/19 at 07:00 Fentanyl 100 ml @ 2.5 mls/hr TITRATE IV Last administered on 02/05/19 17:54; Admin Dose 5 MLS/HR; Start 02/04/19 at 07:00 Vancomycin HCl (Vanco Iv Per Pharmacy) VANCOMYCIN PER PHARMACY PER PROTOCOL XX ; Start 02/04/19 at 08:30 Meropenem/Sodium Chloride 50 ml @ 100 mls/hr Q12 IVPB Last administered on 02/12/19 08:22; Admin Dose 100 MLS/HR; Start 02/05/19 at 12:00 Rifaximin (Xifaxan) 550 mg BID PO Last administered on 02/12/19 08:22; Admin Dose 550 MG; Start 02/05/19 at 21:00 Phenylephrine HCl 80 mg/Dextrose 250 ml @ 18.75 mls/ hr TITRATE PRN IV BLOOD PRESSURE SUPPORT Last administered on 02/11/19 22:04; Admin Dose 18.75 MLS/HR; Start 02/06/19 at 02:00 Dextrose (D50w Syringe) 50 ml PRN PRN IV HYPOGLYCEMIA (BS<70) Last administered on 02/06/19 07:42; Admin Dose 50 ML; Start 02/06/19 at 07:30 Diagnostic Test (Pha) (Accu-Chek) 1 ea Q6 XX Last administered on 02/12/19 05:41; Admin Dose 1 EA; Start 02/08/19 at 12:00 Norepinephrine 32 mg/Dextrose 250 ml @ 0.47 mls/hr TITRATE IV Last administered on 02/12/19 01:23; Admin Dose 2.34 MLS/HR; Start 02/08/19 at 23:00 IV Flush (NS 10 ml) 10 ml PRN PRN IV IV PROTOCOL; Start 02/09/19 at 20:00 Phytonadione 10 mg/Dextrose 51 ml @ 102 mls/hr DAILY IVPB Last administered on 02/12/19 08:57; Admin Dose 102 MLS/HR; Start 02/11/19 at 09:00; Stop 02/13/19 at 12:00 Lansoprazole (Prevacid) 30 mg BID@0600,1800 NGT Last administered on 02/12/19 05:40; Admin Dose 30 MG; Start 02/11/19 at 18:00 Albumin Human 100 ml @ 100 mls/hr WITH DIALYSIS PRN IV SBP <90 DURING DIALYSIS Last administered on 02/11/19 11:06; Admin Dose 100 MLS/HR; Start 02/11/19 at 11:00 Midodrine (Midodrine) 10 mg TID@0900,1300,1700 PO Last administered on 02/12/19 08:21; Admin Dose 10 MG; Start 02/11/19 at 17:00 Vancomycin HCl 1.25 gm/Sodium Chloride 250 ml @ 83.333 mls/ hr ONCE IVPB Last administered on 02/12/19 09:47; Admin Dose 83.333 MLS/HR; Start 02/12/19 at 10:00; Stop 02/12/19 at 23:59 Miscellaneous Information (*Rx Drug Level Order Reminder*) RANDOM VANCO LEVEL 6... 0500 ONCE XX ; Start 02/15/19 at 05:00; Stop 02/15/19 at 05:01 ELLIS ESTRADA MD Feb 12, 2019 11:32
[2019-02-12] MEDS: PHENYLephrine 80 MG in DEXTROSE 5% 242 ML IV PRN (12:20)
--- NOTE | 2019-02-12 12:26 | CONS ---
Assessment/Plan Assessment/Plan Hospital Course (Demo Recall) No acute changes patient is awake and comfortable on vent now on Oseas-Synephrine drip only and getting blood transfusion, no fevers WBC 30.5 H&H 7.1 and 20.4 platelets 59 BUN 37 creatinine 3.09. Total bilirubin 22.2 Microbiology: Blood culture on admission grew Peptostreptococcus species, repeat blood cultures negative. Testicular ultrasound suggested right sided epididymitis. Antimicrobials: Meropenem vancomycin Indwelling's: Endotracheal tube NG tube right subclavian Hieu catheter Physical examination: Chronically ill-appearing wasted middle-aged man who is in no distress head atraumatic normocephalic neck is supple chest rise symmetrical breath sounds diminished bases. Heart: S1-S2 tachycardic abdomen distended bowel sounds hypoactive patient has tympany on percussion. Extremities with bilateral dependent edema. Skin: Positive for jaundice Assessment: 1. Septic shock with multisystem organ failure 2. Bacteremia possibly contaminant 3. Acute respiratory failure 4. Pneumonia 5. Left pleural effusion 6. Ascites, rule out SBP 7. End-stage liver cirrhosis 8. Acute renal failure likely hepatorenal 9. Severe anemia 10. Coagulopathy 11. Right-sided epididymitis 12. DNR Plan: Remains hemodynamically unstable, repeat blood cultures negative, continue antibiotics, blood products prn, palliative care recommendations Consultation Date/Type/Reason Admit Date/Time Jan 29, 2019 at 01:13 Initial Consult Date 02/03/19 Type of Consult id Requesting Provider: MAL ENRIQUE MD Date/Time of Note DATE: 02/12/19 TIME: 12:25 Exam/Review of Systems Exam Vitals Vital Signs Date Temp Pulse Resp B/P (MAP) Pulse Ox O2 O2 Flow FiO2 Time Delivery Rate 02/12/19 105 21 99/51 (67) 100 10:15 02/12/19 30 08:06 02/12/19 98.6 Mechanical 08:00 Ventilator Intake and Output 02/11/19 02/11/19 02/12/19 1515:00 23:00 07:00 IntakeIntake Total 743.375 ml 1629.37 ml 505.572 ml OutputOutput Total 2400 ml 175 ml 500 ml BalanceBalance -1656.625 ml 1454.37 ml 5.572 ml Results Result Diagram: 02/12/190 02/12/19 0440 Results 24hrs Laboratory Tests Test 02/11/19 12:26 02/11/19 17:15 02/11/19 17:38 02/12/19 00:50 Bedside Glucose 117 92 113 Hemoglobin 8.1 #L Hematocrit 23.1 #L Test 02/12/19 04:15 02/12/19 04:40 02/12/19 04:42 02/12/19 05:38 White Blood 30.5 H Count Red Blood Count 2.27 L Hemoglobin 7.1 L Hematocrit 20.4 L Mean Corpuscular 89.9 Volume Mean Corpuscular 31.3 Hemoglobin Mean Corpuscular 34.8 Hemoglobin Criselda nt Red Cell 17.4 H Distribution Width Platelet Count 58 L 59 L Mean Platelet 12.3 H Volume Immature 11.200 H Granulocytes % Neutrophils % Segmented 68 Neutrophils % (Manual) Band Neutrophils 7 H % (Manual) Lymphocytes % Lymphocytes % 18 (Manual) Monocytes % Monocytes % 4 (Manual) Eosinophils % Basophils % Myelocytes % 1 H (Manual) Promyelocytes % 2 H (Manual) Nucleated Red 2.6 H Blood Cells % Immature 3.400 H Granulocytes # Neutrophils # Neutrophils # 21.4 H (Manual) Band Neutrophils 2.1 H # Lymphocytes 5.4 H (Manual) Lymphocytes # Monocytes # Monocytes # 1.2 H (Manual) Eosinophils # Basophils # Myelocytes # 0.3 H Promyelocytes # 0.6 H Nucleated Red Blood Cells # Platelet SIG DECREASED Estimate Poikilocytosis 3+ Anisocytosis 2+ Macrocytosis 2+ Target Cells 1+ Prothrombin Time 28.7 H Prothrombin Time 2.2 Ratio INR 2.70 International Normalized Ratio Activated 65.6 H Partial Thrombop last Time Thrombin Time 22.2 H Fibrinogen 159.0 #L D-Dimer > 89761.00 H Sodium Level 136 Potassium Level 3.6 Chloride Level 98 Carbon Dioxide 22 Level Anion Gap 16 H Blood Urea 37 H Nitrogen Creatinine 3.09 H Est Glomerular 22 L Filtrat Rate mL/min Glucose Level 93 Calcium Level 9.4 Phosphorus Level 2.9 Magnesium Level 2.0 Total Bilirubin 22.2 H Direct Bilirubin 15.70 *H Indirect 6.5 H Bilirubin Aspartate Amino 76 H Transf (AST/SGOT ) Alanine 8 L Aminotransferase (ALT/SGPT) Alkaline 190 H Phosphatase Total Protein 6.5 Albumin 3.0 L Globulin 3.50 H Albumin/Globulin 0.85 Ratio Random 11.2 Vancomycin Level Lab Scanned BLOOD TRANSFUSI Report ON Bedside Glucose 116 Test 02/12/19 11:09 02/12/19 11:24 Prothrombin Time 24.6 H Prothrombin Time 1.9 Ratio INR 2.21 International Normalized Ratio Bedside Glucose 104 Medications Medication Current Medications Lactulose (Enulose) 10 gm Q8 PO Last administered on 02/12/19 05:40; Admin Dose 10 GM; Start 01/29/19 at 06:00 Ondansetron HCl (Zofran Inj) 4 mg Q6H PRN IV NAUSEA AND/OR VOMITING; Start 01/29/19 at 01:00 Epoetin Daniel-epbx (Retacrit (Esrd)) 4,000 unit MoWeFr@1700 SC Last administered on 02/11/19at 17:36; Admin Dose 4,000 UNIT; Start 01/30/19 at 17:00 Multivit/Ca Carb/ B Cmplx/FA/Prenat (Liz-Eugenia) 1 tab DAILY PO Last administered on 02/12/19 08:22; Admin Dose 1 TAB; Start 01/31/19 at 09:00 Docusate Sodium (Colace) 100 mg BID PRN PO constipation; Start 01/30/19 at 14:00 Senna (Senokot) 2 tab DAILY PRN PO constipation; Start 01/30/19 at 14:00 Levalbuterol (Xopenex Neb) 0.63 mg Q4H RESP THERAPY PRN HHN WHEEZING AND RESP DISTRESS Last administered on 02/04/19 05:40; Admin Dose 0.63 MG; Start 02/02/19 at 22:30 Midazolam HCl 50 ml @ 1 mls/hr TITRATE IV Last administered on 02/04/19at 21:44; Admin Dose 5 MLS/HR; Start 02/04/19 at 07:00 Fentanyl 100 ml @ 2.5 mls/hr TITRATE IV Last administered on 02/05/19at 17:54; Admin Dose 5 MLS/HR; Start 02/04/19 at 07:00 Vancomycin HCl (Vanco Iv Per Pharmacy) VANCOMYCIN PER PHARMACY PER PROTOCOL XX ; Start 02/04/19 at 08:30 Rifaximin (Xifaxan) 550 mg BID PO Last administered on 02/12/19 08:22; Admin Dose 550 MG; Start 02/05/19 at 21:00 Phenylephrine HCl 80 mg/Dextrose 250 ml @ 18.75 mls/ hr TITRATE PRN IV BLOOD PRESSURE SUPPORT Last administered on 02/12/19 12:20; Admin Dose 15 MLS/HR; Start 02/06/19 at 02:00 Dextrose (D50w Syringe) 50 ml PRN PRN IV HYPOGLYCEMIA (BS<70) Last administered on 02/06/19 07:42; Admin Dose 50 ML; Start 02/06/19 at 07:30 Diagnostic Test (Pha) (Accu-Chek) 1 ea Q6 XX Last administered on 02/12/19 11:30; Admin Dose 1 EA; Start 02/08/19 at 12:00 Norepinephrine 32 mg/Dextrose 250 ml @ 0.47 mls/hr TITRATE IV Last administered on 02/12/19 01:23; Admin Dose 2.34 MLS/HR; Start 02/08/19 at 23:00 IV Flush (NS 10 ml) 10 ml PRN PRN IV IV PROTOCOL; Start 02/09/19 at 20:00 Phytonadione 10 mg/Dextrose 51 ml @ 102 mls/hr DAILY IVPB Last administered on 02/12/19 08:57; Admin Dose 102 MLS/HR; Start 02/11/19 at 09:00; Stop 02/13/19 at 12:00 Lansoprazole (Prevacid) 30 mg BID@0600,1800 NGT Last administered on 02/12/19 05:40; Admin Dose 30 MG; Start 02/11/19 at 18:00 Albumin Human 100 ml @ 100 mls/hr WITH DIALYSIS PRN IV SBP <90 DURING DIALYSIS Last administered on 02/11/19 11:06; Admin Dose 100 MLS/HR; Start 02/11/19 at 11:00 Midodrine (Midodrine) 10 mg TID@0900,1300,1700 PO Last administered on 02/12/19 08:21; Admin Dose 10 MG; Start 02/11/19 at 17:00 Vancomycin HCl 1.25 gm/Sodium Chloride 250 ml @ 83.333 mls/ hr ONCE IVPB Last administered on 02/12/19 09:47; Admin Dose 83.333 MLS/HR; Start 02/12/19 at 10:00; Stop 02/12/19 at 23:59 Miscellaneous Information (*Rx Drug Level Order Reminder*) RANDOM VANCO LEVEL 6... 0500 ONCE XX ; Start 02/15/19 at 05:00; Stop 02/15/19 at 05:01 Meropenem/Sodium Chloride 50 ml @ 100 mls/hr Q24H IVPB ; Start 02/13/19 at 12:30 JAXON VASQUES NP Feb 12, 2019 12:26
--- NOTE | 2019-02-12 17:12 | RADRPT ---
Vent Rate: 107 bpm RR Interval: 560 msec DE Interval: 134 msec QRS Duration: 89 msec QT Interval: 310 msec QTC Interval: 414 msec P-R-T Dairy: 30 - -39 - 17 degrees Sinus tachycardia...rate> 99 Left axis deviation...QRS axis (-30,-90) Low voltage, extremity and precordial leads...extremity<0.5mV, precordial<1.0mV Electronically Signed By: Kleber Parker
--- NOTE | 2019-02-12 20:02 | CONS ---
Consult Date/Type/Reason Admit Date/Time Jan 29, 2019 at 01:13 Initial Consult Date 02/09/19 Type of Consultation: Urology Reason for Consultation Penile swelling Requesting Provider: MAL ENRIQUE MD Date/Time of Note DATE: 02/12/19 TIME: 20:00 Subjective Patient remains on a respirator and vasopressors. He is awake Objective Vitals Vital Signs Date Temp Pulse Resp B/P (MAP) Pulse Ox O2 O2 Flow FiO2 Time Delivery Rate 02/12/19 22 91/51 (64) 99 19:00 02/12/19 106 18:45 02/12/19 30 17:20 02/12/19 98.7 16:00 02/12/19 Mechanical 12:00 Ventilator Intake and Output 02/11/19 02/11/19 02/12/19 1515:00 23:00 07:00 IntakeIntake Total 743.375 ml 1629.37 ml 505.572 ml OutputOutput Total 2400 ml 175 ml 500 ml BalanceBalance -1656.625 ml 1454.37 ml 5.572 ml Exam The penis still have swelling and it is covered with a dressing that I applied on it yesterday. There is no bleeding Results/Medications Result Diagram: 02/12/19 0440 02/12/19 0440 Results 24 hrs Laboratory Tests Test 02/12/19 00:50 02/12/19 04:15 02/12/19 04:40 02/12/19 04:42 Bedside Glucose 113 White Blood 30.5 H Count Red Blood Count 2.27 L Hemoglobin 7.1 L Hematocrit 20.4 L Mean Corpuscular 89.9 Volume Mean Corpuscular 31.3 Hemoglobin Mean Corpuscular 34.8 Hemoglobin Criselda nt Red Cell 17.4 H Distribution Width Platelet Count 58 L 59 L Mean Platelet 12.3 H Volume Immature 11.200 H Granulocytes % Neutrophils % Segmented 68 Neutrophils % (Manual) Band Neutrophils 7 H % (Manual) Lymphocytes % Lymphocytes % 18 (Manual) Monocytes % Monocytes % 4 (Manual) Eosinophils % Basophils % Myelocytes % 1 H (Manual) Promyelocytes % 2 H (Manual) Nucleated Red 2.6 H Blood Cells % Immature 3.400 H Granulocytes # Neutrophils # Neutrophils # 21.4 H (Manual) Band Neutrophils 2.1 H # Lymphocytes 5.4 H (Manual) Lymphocytes # Monocytes # Monocytes # 1.2 H (Manual) Eosinophils # Basophils # Myelocytes # 0.3 H Promyelocytes # 0.6 H Nucleated Red Blood Cells # Platelet SIG DECREASED Estimate Poikilocytosis 3+ Anisocytosis 2+ Macrocytosis 2+ Target Cells 1+ Prothrombin Time 28.7 H Prothrombin Time 2.2 Ratio INR 2.70 International Normalized Ratio Activated 65.6 H Partial Thrombop last Time Thrombin Time 22.2 H Fibrinogen 159.0 #L D-Dimer > 83745.00 H Sodium Level 136 Potassium Level 3.6 Chloride Level 98 Carbon Dioxide 22 Level Anion Gap 16 H Blood Urea 37 H Nitrogen Creatinine 3.09 H Est Glomerular 22 L Filtrat Rate mL/min Glucose Level 93 Calcium Level 9.4 Phosphorus Level 2.9 Magnesium Level 2.0 Total Bilirubin 22.2 H Direct Bilirubin 15.70 *H Indirect 6.5 H Bilirubin Aspartate Amino 76 H Transf (AST/SGOT ) Alanine 8 L Aminotransferase (ALT/SGPT) Alkaline 190 H Phosphatase Total Protein 6.5 Albumin 3.0 L Globulin 3.50 H Albumin/Globulin 0.85 Ratio Random 11.2 Vancomycin Level Lab Scanned BLOOD TRANSFUSI Report ON Test 02/12/19 05:38 02/12/19 11:09 02/12/19 11:24 02/12/19 17:14 Bedside Glucose 116 104 107 Prothrombin Time 24.6 H Prothrombin Time 1.9 Ratio INR 2.21 International Normalized Ratio Home Meds No Active Prescriptions or Reported Meds Medications Current Medications Lactulose (Enulose) 10 gm Q8 PO Last administered on 02/12/19at 05:40; Admin Dose 10 GM; Start 01/29/19 at 06:00 Ondansetron HCl (Zofran Inj) 4 mg Q6H PRN IV NAUSEA AND/OR VOMITING; Start 01/29/19 at 01:00 Epoetin Daniel-epbx (Retacrit (Esrd)) 4,000 unit MoWeFr@1700 SC Last administered on 02/11/19at 17:36; Admin Dose 4,000 UNIT; Start 01/30/19 at 17:00 Multivit/Ca Carb/ B Cmplx/FA/Prenat (Liz-Eugenia) 1 tab DAILY PO Last administered on 02/12/19at 08:22; Admin Dose 1 TAB; Start 01/31/19 at 09:00 Docusate Sodium (Colace) 100 mg BID PRN PO constipation; Start 01/30/19 at 14:00 Senna (Senokot) 2 tab DAILY PRN PO constipation; Start 01/30/19 at 14:00 Levalbuterol (Xopenex Neb) 0.63 mg Q4H RESP THERAPY PRN HHN WHEEZING AND RESP DISTRESS Last administered on 02/04/19at 05:40; Admin Dose 0.63 MG; Start 02/02/19 at 22:30 Midazolam HCl 50 ml @ 1 mls/hr TITRATE IV Last administered on 02/04/19 21:44; Admin Dose 5 MLS/HR; Start 02/04/19 at 07:00 Fentanyl 100 ml @ 2.5 mls/hr TITRATE IV Last administered on 02/05/19 17:54; Admin Dose 5 MLS/HR; Start 02/04/19 at 07:00 Vancomycin HCl (Vanco Iv Per Pharmacy) VANCOMYCIN PER PHARMACY PER PROTOCOL XX ; Start 02/04/19 at 08:30 Rifaximin (Xifaxan) 550 mg BID PO Last administered on 02/12/19 08:22; Admin Dose 550 MG; Start 02/05/19 at 21:00 Phenylephrine HCl 80 mg/Dextrose 250 ml @ 18.75 mls/ hr TITRATE PRN IV BLOOD PRESSURE SUPPORT Last administered on 02/12/19 12:20; Admin Dose 15 MLS/HR; Start 02/06/19 at 02:00 Dextrose (D50w Syringe) 50 ml PRN PRN IV HYPOGLYCEMIA (BS<70) Last administered on 02/06/19at 07:42; Admin Dose 50 ML; Start 02/06/19 at 07:30 Diagnostic Test (Pha) (Accu-Chek) 1 ea Q6 XX Last administered on 02/12/19 17:15; Admin Dose 1 EA; Start 02/08/19 at 12:00 Norepinephrine 32 mg/Dextrose 250 ml @ 0.47 mls/hr TITRATE IV Last administered on 02/12/19 01:23; Admin Dose 2.34 MLS/HR; Start 02/08/19 at 23:00 IV Flush (NS 10 ml) 10 ml PRN PRN IV IV PROTOCOL; Start 02/09/19 at 20:00 Phytonadione 10 mg/Dextrose 51 ml @ 102 mls/hr DAILY IVPB Last administered on 02/12/19at 08:57; Admin Dose 102 MLS/HR; Start 02/11/19 at 09:00; Stop 02/13/19 at 12:00 Lansoprazole (Prevacid) 30 mg BID@0600,1800 NGT Last administered on 02/12/19at 17:14; Admin Dose 30 MG; Start 02/11/19 at 18:00 Albumin Human 100 ml @ 100 mls/hr WITH DIALYSIS PRN IV SBP <90 DURING DIALYSIS Last administered on 02/11/19at 11:06; Admin Dose 100 MLS/HR; Start 02/11/19 at 11:00 Midodrine (Midodrine) 10 mg TID@0900,1300,1700 PO Last administered on 02/12/19at 17:14; Admin Dose 10 MG; Start 02/11/19 at 17:00 Vancomycin HCl 1.25 gm/Sodium Chloride 250 ml @ 83.333 mls/ hr ONCE IVPB Last administered on 02/12/19at 09:47; Admin Dose 83.333 MLS/HR; Start 02/12/19 at 10:00; Stop 02/12/19 at 23:59 Miscellaneous Information (*Rx Drug Level Order Reminder*) RANDOM VANCO LEVEL 6... 0500 ONCE XX ; Start 02/15/19 at 05:00; Stop 02/15/19 at 05:01 Meropenem/Sodium Chloride 50 ml @ 100 mls/hr Q24H IVPB ; Start 02/13/19 at 12:30 Assessment/Plan Hospital Course (Demo Recall) 39-year-old male with multiple medical problems: 1 Shock likely secondary to sepsis. 2. Acute Respiratory failure status post intubation secondary to large pleural effusions secondary to volume overload post hemodialysis 3. Fractures of the superior endplates/bodies of L1, L2 and L3 4. Decompensated alcoholic cirrhosis with a history of EtOH use. Hyperbilirubinemia 5. End-stage renal disease, on hemodialysis. 6. Coagulopathy. 7. Severe anemia with thrombocytopenia likely due to cirrhosis. 8. Moderate anemia, likely multifactorial disease 9. Leucocytosis. 10. S.p paracentesis on 01/28/2019 11. Suspicious for metastatic disease 12. Hypotension likely secondary to cirrhosis 13. History of gastrointestinal bleed. 14. Hypoglycemia 15.History of cirrhosis On the physical examination it appeared that the patient had paraphimosis and the constricting skin proximal to the méndez is the one that has poor circulation and signs of ischemia. The foreskin is also swollen. The dressing that was put on yesterday is intact and no evidence of bleeding. The tip of the penis is still swollen but no paraphimosis. Continue the present treatment JONAH SUE MD Feb 12, 2019 20:02
[2019-02-13] VITALS (81 sets, daily range): BP systolic 60–108; BP diastolic 45–84; PULSE 91–113; RESP 15–30
[2019-02-13] MEDS: PHENYLephrine 80 MG in DEXTROSE 5% 242 ML IV PRN ×2 (04:51→18:52)
[2019-02-13] MEDS: LACTULOSE 30ML CUP PO SCH ×2 (05:39→12:55)
[2019-02-13] MEDS: LANSOPRAZOLE 30 MG CAP NGT SCH ×2 (05:49→18:38)
[2019-02-13] MEDS: ACCU-CHEK XX SCH ×4 (05:51→18:38)
[2019-02-13] MEDS: BALSAM PERU/CASTOR OIL 60 GM TUBE TOP SCH (09:00)
--- NOTE | 2019-02-13 09:28 | CONS ---
Consult Date/Type/Reason Admit Date/Time Jan 29, 2019 at 01:13 Initial Consult Date 02/03/19 Type of Consult Pulmonary Requesting Provider: MAL ENRIQUE MD Date/Time of Note DATE: 02/13/19 TIME: 09:27 Subjective Patient is comfortable this morning. Continues low-dose vasopressor support awake alert oriented. Chest x-ray shows progressive left effusion. Objective Vital Signs Date Temp Pulse Resp B/P (MAP) Pulse Ox O2 O2 Flow FiO2 Time Delivery Rate 02/13/19 101 20 94/51 (65) 92 06:00 02/13/19 30 05:22 02/13/19 98.5 04:00 02/12/19 Mechanical 12:00 Ventilator Intake and Output 02/12/19 02/12/19 02/13/19 1515:00 23:00 07:00 IntakeIntake Total 616 ml 410 ml 315 ml OutputOutput Total 400 ml 100 ml BalanceBalance 616 ml 10 ml 215 ml Exam GENERAL: Chronically ill-appearing gentleman orally intubated VITAL SIGNS: per chart NECK: Supple. No JVD or lymphadenopathy. CARDIAC EXAM: S1, S2. No added sounds or murmurs. CHEST: Diminished air entry bilaterally ABDOMEN: Distended but no guarding or rebound EXTREMITIES: No cyanosis, clubbing or edema. NEUROLOGIC: Generalized weakness. No focal deficits. Chronically ill-appear ing gentleman orally intubated on mechanical ventilation Vent Setting Ventilator Support Mode: AC, VC plus Fraction of Inspired Oxygen pe: 30 Positive End Expiratory Pressu: 5.0 Results/Medications Result Diagram: 02/13/19 0436 02/13/19 0436 Results 24 hrs Laboratory Tests Test 02/12/19 11:09 02/12/19 11:24 02/12/19 17:14 02/13/19 01:13 Prothrombin Time 24.6 H Prothrombin Time 1.9 Ratio INR International 2.21 Normalized Ratio Bedside Glucose 104 107 117 Test 02/13/19 04:36 02/13/19 04:51 02/13/19 05:50 02/13/19 08:26 White Blood Count 33.0 H Red Blood Count 2.36 L Hemoglobin 7.4 L Hematocrit 21.4 L Mean Corpuscular 90.7 Volume Mean Corpuscular 31.4 Hemoglobin Mean Corpuscular 34.6 Hemoglobin Concen t Red Cell 17.3 H Distribution Width Platelet Count 70 L Mean Platelet 12.3 H Volume Immature 10.500 H Granulocytes % Neutrophils % Lymphocytes % Monocytes % Eosinophils % Basophils % Nucleated Red 3.3 H Blood Cells % Immature 3.460 H Granulocytes # Neutrophils # Lymphocytes # Monocytes # Eosinophils # Basophils # Nucleated Red Blood Cells # Prothrombin Time 27.6 H 27.5 H Prothrombin Time 2.2 2.1 Ratio INR International 2.56 2.55 Normalized Ratio Activated 62.8 H Partial Thrombopl ast Time Thrombin Time 22.5 H Fibrinogen 143.0 L D-Dimer > 96689.00 H Sodium Level 135 Potassium Level 3.5 Chloride Level 95 L Carbon Dioxide 23 Level Anion Gap 17 H Blood Urea 44 H Nitrogen Creatinine 3.46 H Est Glomerular 20 L Filtrat Rate mL/min Glucose Level 158 Calcium Level 9.2 Phosphorus Level 3.6 Magnesium Level 2.1 Total Bilirubin 22.7 H Direct Bilirubin 16.40 *H Indirect 6.3 H Bilirubin Aspartate Amino 85 H Transf (AST/SGOT) Alanine 12 L Aminotransferase (ALT/SGPT) Alkaline 246 H Phosphatase Total Protein 6.7 Albumin 3.0 L Globulin 3.70 H Albumin/Globulin 0.81 Ratio Lab Scanned BLOOD TRANSFUSIO Report N Bedside Glucose 111 Medications Current Medications Lactulose (Enulose) 10 gm Q8 PO Last administered on 02/12/19at 05:40; Admin Dose 10 GM; Start 01/29/19 at 06:00 Ondansetron HCl (Zofran Inj) 4 mg Q6H PRN IV NAUSEA AND/OR VOMITING; Start 01/29/19 at 01:00 Epoetin Daniel-epbx (Retacrit (Esrd)) 4,000 unit MoWeFr@1700 SC Last administered on 02/11/19at 17:36; Admin Dose 4,000 UNIT; Start 01/30/19 at 17:00 Multivit/Ca Carb/ B Cmplx/FA/Prenat (Liz-Eugenia) 1 tab DAILY PO Last admini stered on 02/12/19at 08:22; Admin Dose 1 TAB; Start 01/31/19 at 09:00 Docusate Sodium (Colace) 100 mg BID PRN PO constipation; Start 01/30/19 at 14:00 Senna (Senokot) 2 tab DAILY PRN PO constipation; Start 01/30/19 at 14:00 Levalbuterol (Xopenex Neb) 0.63 mg Q4H RESP THERAPY PRN HHN WHEEZING AND RESP DISTRESS Last administered on 02/04/19 05:40; Admin Dose 0.63 MG; Start 02/02/19 at 22:30 Midazolam HCl 50 ml @ 1 mls/hr TITRATE IV Last administered on 02/04/19 21:44; Admin Dose 5 MLS/HR; Start 02/04/19 at 07:00 Fentanyl 100 ml @ 2.5 mls/hr TITRATE IV Last administered on 02/05/19 17:54; Admin Dose 5 MLS/HR; Start 02/04/19 at 07:00 Vancomycin HCl (Vanco Iv Per Pharmacy) VANCOMYCIN PER PHARMACY PER PROTOCOL XX ; Start 02/04/19 at 08:30 Rifaximin (Xifaxan) 550 mg BID PO Last administered on 02/12/19 20:46; Admin Dose 550 MG; Start 02/05/19 at 21:00 Phenylephrine HCl 80 mg/Dextrose 250 ml @ 18.75 mls/ hr TITRATE PRN IV BLOOD PRESSURE SUPPORT Last administered on 02/13/19 04:51; Admin Dose 15 MLS/HR; Start 02/06/19 at 02:00 Dextrose (D50w Syringe) 50 ml PRN PRN IV HYPOGLYCEMIA (BS<70) Last administered on 02/06/19 07:42; Admin Dose 50 ML; Start 02/06/19 at 07:30 Diagnostic Test (Pha) (Accu-Chek) 1 ea Q6 XX Last administered on 02/12/19at 17:15; Admin Dose 1 EA; Start 02/08/19 at 12:00 Norepinephrine 32 mg/Dextrose 250 ml @ 0.47 mls/hr TITRATE IV Last administered on 02/12/19 01:23; Admin Dose 2.34 MLS/HR; Start 02/08/19 at 23:00 IV Flush (NS 10 ml) 10 ml PRN PRN IV IV PROTOCOL; Start 02/09/19 at 20:00 Phytonadione 10 mg/Dextrose 51 ml @ 102 mls/hr DAILY IVPB Last administered on 02/12/19 08:57; Admin Dose 102 MLS/HR; Start 02/11/19 at 09:00; Stop 02/13/19 at 12:00 Lansoprazole (Prevacid) 30 mg BID@0600,1800 NGT Last administered on 02/13/19at 05:49; Admin Dose 30 MG; Start 02/11/19 at 18:00 Albumin Human 100 ml @ 100 mls/hr WITH DIALYSIS PRN IV SBP <90 DURING DIALYSIS Last administered on 02/11/19at 11:06; Admin Dose 100 MLS/HR; Start 02/11/19 at 11:00 Midodrine (Midodrine) 10 mg TID@0900,1300,1700 PO Last administered on 02/12/19at 17:14; Admin Dose 10 MG; Start 02/11/19 at 17:00 Miscellaneous Information (*Rx Drug Level Order Reminder*) RANDOM VANCO LEVEL 6... 0500 ONCE XX ; Start 02/15/19 at 05:00; Stop 02/15/19 at 05:01 Meropenem/Sodium Chloride 50 ml @ 100 mls/hr Q24H IVPB ; Start 02/13/19 at 12:30 Assessment/Plan Hospital Course (Demo Recall) Assessment 1. End-stage liver disease 2. Renal failure on hemodialysis 3. Hypoxemic respiratory failure requiring mechanical ventilation 4. Encephalopathy probably toxic metabolic 5. Septic shock now on only one vasopressor. Plan 1. Continue mechanical ventilation 2. Titrate vasopressors to keep map greater than 65 3. Hemodialysis as tolerated 4. Tube feeding 5. Lactulose and rifaximin 6. Transfer to [facility] possibly today. 7. Left lung thoracentesis on hold secondary to elevated INR. Also pending transfer. Critical care time 40 minutes Discussed with primary team patient accepted at [facility] liver transplant unit. JIMMIE ACEVES MD, [facility] Feb 13, 2019 09:28
--- NOTE | 2019-02-13 09:44 | PN ---
Date/Time of Note Date/Time of Note DATE: 02/13/19 TIME: 09:38 Assessment/Plan VTE Prophylaxis Risk score (from Ns)>0 risk: 8 SCD applied (from [facility] [place] SCD contraindicated: low risk/ambulating Pharmacological prophylaxis: NA/contraindicated Pharm contraindication: low risk/ambulating Lines/Catheters IV Catheter Type (from [facility]): PICC Line Central line still needed: Yes Urinary Cath still in place: No Assessment/Plan Assessment/Plan 1 Shock likely secondary to sepsis/ hypovolemia due to blood loss . Sepsis possibly + SBP , cx neg so far except one bld cx +peptostreptococcus , repeat bld cx neg now with necrotic lesions on penile area improved , on pressors stablising 2. Acute Respiratory failure status post intubation secondary to large pleural effusions secondary to volume overload post hemodialysis 3. Fractures of the superior endplates/bodies of L1, L2 and L3 with associated slight anterior superior endplate wedge compression of the L1 and L3 vertebral bodies. Multilevel degenerative changes greatest at L4-5 as described above. Mild degenerative changes of the right posterior lateral aspect of the T11-12 disc space with mild central canal stenosis. 4. Decompensated alcoholic cirrhosis with a history of EtOH use. Hyperbilirubinemia 5. End-stage renal disease, on hemodialysis. 6. Severe Coagulopathy. 7. Severe anemia with thrombocytopenia likely due to cirrhosis. Pt is bleeding rectally and from mouth.hx EGD in past with gastritis and EV in OSH 8. Moderate anemia, likely multifactorial disease, likely secondary to end- stage renal disease versus bone marrow suppression versus nutritional deficiency versus cirrhosis. 9. Leucocytosis. 10. S.p paracentesis in previous hospital 01/28/2019 11. Suspicious for metastatic disease 13. History of gastrointestinal bleed.with anemia 14. Hypoglycemia likely due to liver failure 15.History of cirrhosis [address] Bonner> paraphimosis 17 Elevated INR and low fibrinogen Assessment/Plan - cw pressor support , only neospherine 100 ,stable BP > MAP 55 and SBP>80, pt has now decreased pressor requirements> on vancomycin and meropenam, bld cx neg so far - hb 7.4 today - HD likely today - on fi02 30% - 1 units of FFP today - cw vancomycin/rifampin/Meropenem - blood cx positive gram postiv e? contaminant peptostrptococcus, repeat cx neg so far, fu ID - cw midodrine and epogen - cw Epogen -s/p multiple blood transfusion --Needs a tertiary setting with there is a Ability of CRRT and patient will need liver and a kidney transplant, pt was accepted at [facility] today, spoke to Dr Liliya gtz poor prognosis but might have some chances with Transplant - fu ID / Heme recs/pul recs Pt stable for transfer today has overall decreased pressor requirements on 30% fio2 and pt awake, alert, intubated and following commands Result Diagram: 02/13/19 0436 02/13/19 0436 Results 24hrs Laboratory Tests Test 02/12/19 11:09 02/12/19 11:24 02/12/19 17:14 02/13/19 01:13 Prothrombin Time 24.6 H Prothrombin Time 1.9 Ratio INR International 2.21 Normalized Ratio Bedside Glucose 104 107 117 Test 02/13/19 04:36 02/13/19 04:51 02/13/19 05:50 02/13/19 08:26 White Blood Count 33.0 H Red Blood Count 2.36 L Hemoglobin 7.4 L Hematocrit 21.4 L Mean Corpuscular 90.7 Volume Mean Corpuscular 31.4 Hemoglobin Mean Corpuscular 34.6 Hemoglobin Concen t Red Cell 17.3 H Distribution Width Platelet Count 70 L Mean Platelet 12.3 H Volume Immature 10.500 H Granulocytes % Neutrophils % Lymphocytes % Monocytes % Eosinophils % Basophils % Nucleated Red 3.3 H Blood Cells % Immature 3.460 H Granulocytes # Neutrophils # Lymphocytes # Monocytes # Eosinophils # Basophils # Nucleated Red Blood Cells # Prothrombin Time 27.6 H 27.5 H Prothrombin Time 2.2 2.1 Ratio INR International 2.56 2.55 Normalized Ratio Activated 62.8 H Partial Thrombopl ast Time Thrombin Time 22.5 H Fibrinogen 143.0 L D-Dimer > 89066.00 H Sodium Level 135 Potassium Level 3.5 Chloride Level 95 L Carbon Dioxide 23 Level Anion Gap 17 H Blood Urea 44 H Nitrogen Creatinine 3.46 H Est Glomerular 20 L Filtrat Rate mL/min Glucose Level 158 Calcium Level 9.2 Phosphorus Level 3.6 Magnesium Level 2.1 Total Bilirubin 22.7 H Direct Bilirubin 16.40 *H Indirect 6.3 H Bilirubin Aspartate Amino 85 H Transf (AST/SGOT) Alanine 12 L Aminotransferase (ALT/SGPT) Alkaline 246 H Phosphatase Total Protein 6.7 Albumin 3.0 L Globulin 3.70 H Albumin/Globulin 0.81 Ratio Lab Scanned BLOOD TRANSFUSIO Report N Bedside Glucose 111 Subjective 24 Hr Interval Summary Free Text/Dictation pt awake,alert and oriented and following commands on 30% fi02 and neospherine 80 SBP>80 Exam/Review of Systems Exam Vitals Vital Signs Date Temp Pulse Resp B/P (MAP) Pulse Ox O2 O2 Flow FiO2 Time Delivery Rate 02/13/19 101 20 94/51 (65) 92 06:00 02/13/19 30 05:22 02/13/19 98.5 04:00 02/12/19 Mechanical 12:00 Ventilator Intake and Output 02/12/19 02/12/19 02/13/19 1515:00 23:00 07:00 IntakeIntake Total 616 ml 410 ml 315 ml OutputOutput Total 400 ml 100 ml BalanceBalance 616 ml 10 ml 215 ml Exam ally intubated, NG tube with feed, follows commands Constitutional: frail, scleral icterus Head: normocephalic Neck: supple Respiratory: diminished breath sounds Cardiovascular: regular rate and rhythm Gastrointestinal: soft, ascites+++ Genitourinary - Male: other (lowe) Musculoskeletal: anasaraca ++ BLE edema Results Results 24hrs Laboratory Tests Test 02/12/19 11:09 02/12/19 11:24 02/12/19 17:14 02/13/19 01:13 Prothrombin Time 24.6 H Prothrombin Time 1.9 Ratio INR International 2.21 Normalized Ratio Bedside Glucose 104 107 117 Test 02/13/19 04:36 02/13/19 04:51 02/13/19 05:50 02/13/19 08:26 White Blood Count 33.0 H Red Blood Count 2.36 L Hemoglobin 7.4 L Hematocrit 21.4 L Mean Corpuscular 90.7 Volume Mean Corpuscular 31.4 Hemoglobin Mean Corpuscular 34.6 Hemoglobin Concen t Red Cell 17.3 H Distribution Width Platelet Count 70 L Mean Platelet 12.3 H Volume Immature 10.500 H Granulocytes % Neutrophils % Lymphocytes % Monocytes % Eosinophils % Basophils % Nucleated Red 3.3 H Blood Cells % Immature 3.460 H Granulocytes # Neutrophils # Lymphocytes # Monocytes # Eosinophils # Basophils # Nucleated Red Blood Cells # Prothrombin Time 27.6 H 27.5 H Prothrombin Time 2.2 2.1 Ratio INR International 2.56 2.55 Normalized Ratio Activated 62.8 H Partial Thrombopl ast Time Thrombin Time 22.5 H Fibrinogen 143.0 L D-Dimer > 18177.00 H Sodium Level 135 Potassium Level 3.5 Chloride Level 95 L Carbon Dioxide 23 Level Anion Gap 17 H Blood Urea 44 H Nitrogen Creatinine 3.46 H Est Glomerular 20 L Filtrat Rate mL/min Glucose Level 158 Calcium Level 9.2 Phosphorus Level 3.6 Magnesium Level 2.1 Total Bilirubin 22.7 H Direct Bilirubin 16.40 *H Indirect 6.3 H Bilirubin Aspartate Amino 85 H Transf (AST/SGOT) Alanine 12 L Aminotransferase (ALT/SGPT) Alkaline 246 H Phosphatase Total Protein 6.7 Albumin 3.0 L Globulin 3.70 H Albumin/Globulin 0.81 Ratio Lab Scanned BLOOD TRANSFUSIO Report N Bedside Glucose 111 Medications Medication Current Medications Lactulose (Enulose) 10 gm Q8 PO Last administered on 02/12/19at 05:40; Admin Dose 10 GM; Start 01/29/19 at 06:00 Ondansetron HCl (Zofran Inj) 4 mg Q6H PRN IV NAUSEA AND/OR VOMITING; Start 01/29/19 at 01:00 Epoetin Daniel-epbx (Retacrit (Esrd)) 4,000 unit MoWeFr@1700 SC Last administered on 02/11/19at 17:36; Admin Dose 4,000 UNIT; Start 01/30/19 at 17:00 Multivit/Ca Carb/ B Cmplx/FA/Prenat (Liz-Eugenia) 1 tab DAILY PO Last administered on 02/12/19at 08:22; Admin Dose 1 TAB; Start 01/31/19 at 09:00 Docusate Sodium (Colace) 100 mg BID PRN PO constipation; Start 01/30/19 at 14:00 Senna (Senokot) 2 tab DAILY PRN PO constipation; Start 01/30/19 at 14:00 Levalbuterol (Xopenex Neb) 0.63 mg Q4H RESP THERAPY PRN HHN WHEEZING AND RESP DISTRESS Last administered on 02/04/19at 05:40; Admin Dose 0.63 MG; Start 02/02/19 at 22:30 Midazolam HCl 50 ml @ 1 mls/hr TITRATE IV Last administered on 02/04/19 21:44; Admin Dose 5 MLS/HR; Start 02/04/19 at 07:00 Fentanyl 100 ml @ 2.5 mls/hr TITRATE IV Last administered on 02/05/19at 17:54; Admin Dose 5 MLS/HR; Start 02/04/19 at 07:00 Vancomycin HCl (Vanco Iv Per Pharmacy) VANCOMYCIN PER PHARMACY PER PROTOCOL XX ; Start 02/04/19 at 08:30 Rifaximin (Xifaxan) 550 mg BID PO Last administered on 02/12/19 20:46; Admin Dose 550 MG; Start 02/05/19 at 21:00 Phenylephrine HCl 80 mg/Dextrose 250 ml @ 18.75 mls/ hr TITRATE PRN IV BLOOD PRESSURE SUPPORT Last administered on 02/13/19 04:51; Admin Dose 15 MLS/HR; Start 02/06/19 at 02:00 Dextrose (D50w Syringe) 50 ml PRN PRN IV HYPOGLYCEMIA (BS<70) Last administered on 02/06/19 07:42; Admin Dose 50 ML; Start 02/06/19 at 07:30 Diagnostic Test (Pha) (Accu-Chek) 1 ea Q6 XX Last administered on 02/12/19 17:15; Admin Dose 1 EA; Start 02/08/19 at 12:00 Norepinephrine 32 mg/Dextrose 250 ml @ 0.47 mls/hr TITRATE IV Last administered on 02/12/19 01:23; Admin Dose 2.34 MLS/HR; Start 02/08/19 at 23:00 IV Flush (NS 10 ml) 10 ml PRN PRN IV IV PROTOCOL; Start 02/09/19 at 20:00 Phytonadione 10 mg/Dextrose 51 ml @ 102 mls/hr DAILY IVPB Last administered on 02/12/19 08:57; Admin Dose 102 MLS/HR; Start 02/11/19 at 09:00; Stop 02/13/19 at 12:00 Lansoprazole (Prevacid) 30 mg BID@0600,1800 NGT Last administered on 02/13/19 05:49; Admin Dose 30 MG; Start 02/11/19 at 18:00 Albumin Human 100 ml @ 100 mls/hr WITH DIALYSIS PRN IV SBP <90 DURING DIALYSIS Last administered on 02/11/19at 11:06; Admin Dose 100 MLS/HR; Start 02/11/19 at 11:00 Midodrine (Midodrine) 10 mg TID@0900,1300,1700 PO Last administered on 02/12/19at 17:14; Admin Dose 10 MG; Start 02/11/19 at 17:00 Miscellaneous Information (*Rx Drug Level Order Reminder*) RANDOM VANCO LEVEL 6... 0500 ONCE XX ; Start 02/15/19 at 05:00; Stop 02/15/19 at 05:01 Meropenem/Sodium Chloride 50 ml @ 100 mls/hr Q24H IVPB ; Start 02/13/19 at 12:30 MAL ENRIQUE MD Feb 13, 2019 09:44
[2019-02-13] MEDS: RIFAXIMIN 550 MG TAB PO SCH (09:58)
[2019-02-13] MEDS: MULTIVIT/CA CARB/B CMPLX/FA TAB PO SCH (09:58)
[2019-02-13] MEDS: MIDODRINE 10 MG TABLET PO SCH ×3 (10:04→18:37)
[2019-02-13] MEDS: PHYTONADIONE 10 MG in DEXTROSE 5% 50 ML IVPB SCH (10:04)
[2019-02-13] MEDS ORDERED: ALBUMIN HUMAN 25% 100 ML IV ONE (11:00)
--- NOTE | 2019-02-13 11:10 | CONS ---
Assessment/Plan Assessment/Plan Assessment/Plan (Daily) Hospital Course (Demo Recall) 39 yo male with liver disease with profound jaundice 1. Decompensated end stage liver disease with hyperbilirubinemia 2. Severe anemia. -positive FOB, there are wound around rectum, brown liquid stool 3. Leukocytosis. -trending up 4. Ascites. -paracentesis 02/04 -neg cultures of ascitic fluid 5. End-stage renal disease on dialysis. 6. Coagulopathy due to #1 -heme onc consulted 7. Thrombocytopenia due to #1 -downtrending 8. Scrotal cellulitis 9. Epididymitis rt side 10. Periphomosis 11 respiratory failure vent dependent plan #12 encephalopathy much better patient is alert awake Plan INR high May consider EGD or colonoscopy if pt stablizes Continue lactulose and rifaximin Continue antibiotic Continue supportive care Monitor HH and for acute GI bleeding Transfusion on as-needed basis FFP or cryoprecipitate as per internet site designer Patient is waiting to be transferred to [facility] Patient is a hypotensive needs albumin to maintain his blood pressure and hopefu lly continue his dialysis at [facility] to remove fluid. He is extremely fluid overloaded with 4+ pedal edema and ascites. Hopefully patient will be transferred to [facility] today Consultation Date/Type/Reason Admit Date/Time Jan 29, 2019 at 01:13 Initial Consult Date Requesting Provider: MAL ENRIQUE MD Date/Time of Note DATE: 02/13/19 TIME: 11:09 24 HR Interval Summary Free Text/Dictation Patient is fully awake and oriented. He is intubated and has anasarca Exam/Review of Systems Exam Vitals Vital Signs Date Temp Pulse Resp B/P (MAP) Pulse Ox O2 O2 Flow FiO2 Time Delivery Rate 02/13/19 101 20 94/51 (65) 92 06:00 02/13/19 30 05:22 02/13/19 98.5 04:00 02/12/19 Mechanical 12:00 Ventilator Intake and Output 02/12/19 02/12/19 02/13/19 1515:00 23:00 07:00 IntakeIntake Total 616 ml 410 ml 315 ml OutputOutput Total 400 ml 100 ml BalanceBalance 616 ml 10 ml 215 ml Constitutional: alert, oriented ENMT: intubated Neck: supple, non-tender Respiratory: diminished breath sounds Cardiovascular: regular rate and rhythm, nl pulses Gastrointestinal: non-tender, ascites, distended Extremities: pitting pedal edema Results Result Diagram: 02/13/19 0436 02/13/19 0436 Results 24hrs Laboratory Tests Test 02/12/19 11:24 02/12/19 17:14 02/13/19 01:13 02/13/19 04:36 Bedside Glucose 104 107 117 White Blood Count 33.0 H Red Blood Count 2.36 L Hemoglobin 7.4 L Hematocrit 21.4 L Mean Corpuscular 90.7 Volume Mean Corpuscular 31.4 Hemoglobin Mean Corpuscular 34.6 Hemoglobin Concen t Red Cell 17.3 H Distribution Width Platelet Count 70 L Mean Platelet 12.3 H Volume Immature 10.500 H Granulocytes % Neutrophils % Lymphocytes % Monocytes % Eosinophils % Basophils % Nucleated Red 3.3 H Blood Cells % Immature 3.460 H Granulocytes # Neutrophils # Lymphocytes # Monocytes # Eosinophils # Basophils # Nucleated Red Blood Cells # Prothrombin Time 27.6 H Prothrombin Time 2.2 Ratio INR International 2.56 Normalized Ratio Activated 62.8 H Partial Thrombopl ast Time Thrombin Time 22.5 H Fibrinogen 143.0 L D-Dimer > 22839.00 H Sodium Level 135 Potassium Level 3.5 Chloride Level 95 L Carbon Dioxide 23 Level Anion Gap 17 H Blood Urea 44 H Nitrogen Creatinine 3.46 H Est Glomerular 20 L Filtrat Rate mL/min Glucose Level 158 Calcium Level 9.2 Phosphorus Level 3.6 Magnesium Level 2.1 Total Bilirubin 22.7 H Direct Bilirubin 16.40 *H Indirect 6.3 H Bilirubin Aspartate Amino 85 H Transf (AST/SGOT) Alanine 12 L Aminotransferase (ALT/SGPT) Alkaline 246 H Phosphatase Total Protein 6.7 Albumin 3.0 L Globulin 3.70 H Albumin/Globulin 0.81 Ratio Test 02/13/19 04:51 02/13/19 05:50 02/13/19 08:26 Lab Scanned BLOOD TRANSFUSIO Report N Bedside Glucose 111 Prothrombin Time 27.5 H Prothrombin Time 2.1 Ratio INR International 2.55 Normalized Ratio Medications Medication Current Medications Lactulose (Enulose) 10 gm Q8 PO Last administered on 02/12/19at 05:40; Admin Dose 10 GM; Start 01/29/19 at 06:00 Ondansetron HCl (Zofran Inj) 4 mg Q6H PRN IV NAUSEA AND/OR VOMITING; Start 01/29/19 at 01:00 Epoetin Daniel-epbx (Retacrit (Esrd)) 4,000 unit MoWeFr@1700 SC Last administered on 02/11/19 17:36; Admin Dose 4,000 UNIT; Start 01/30/19 at 17:00 Multivit/Ca Carb/ B Cmplx/FA/Prenat (Liz-Eugenia) 1 tab DAILY PO Last administered on 02/13/19 09:58; Admin Dose 1 TAB; Start 01/31/19 at 09:00 Docusate Sodium (Colace) 100 mg BID PRN PO constipation; Start 01/30/19 at 14:00 Senna (Senokot) 2 tab DAILY PRN PO constipation; Start 01/30/19 at 14:00 Levalbuterol (Xopenex Neb) 0.63 mg Q4H RESP THERAPY PRN HHN WHEEZING AND RESP DISTRESS Last administered on 02/04/19 05:40; Admin Dose 0.63 MG; Start 02/02/19 at 22:30 Midazolam HCl 50 ml @ 1 mls/hr TITRATE IV Last administered on 02/04/19 21:44; Admin Dose 5 MLS/HR; Start 02/04/19 at 07:00 Fentanyl 100 ml @ 2.5 mls/hr TITRATE IV Last administered on 02/05/19 17:54; Admin Dose 5 MLS/HR; Start 02/04/19 at 07:00 Vancomycin HCl (Vanco Iv Per Pharmacy) VANCOMYCIN PER PHARMACY PER PROTOCOL XX ; Start 02/04/19 at 08:30 Rifaximin (Xifaxan) 550 mg BID PO Last administered on 02/13/19 09:58; Admin Dose 550 MG; Start 02/05/19 at 21:00 Phenylephrine HCl 80 mg/Dextrose 250 ml @ 18.75 mls/ hr TITRATE PRN IV BLOOD PRESSURE SUPPORT Last administered on 02/13/19 04:51; Admin Dose 15 MLS/HR; Start 02/06/19 at 02:00 Dextrose (D50w Syringe) 50 ml PRN PRN IV HYPOGLYCEMIA (BS<70) Last administered on 02/06/19 07:42; Admin Dose 50 ML; Start 02/06/19 at 07:30 Diagnostic Test (Pha) (Accu-Chek) 1 ea Q6 XX Last administered on 02/12/19at 17:15; Admin Dose 1 EA; Start 02/08/19 at 12:00 Norepinephrine 32 mg/Dextrose 250 ml @ 0.47 mls/hr TITRATE IV Last administered on 02/12/19at 01:23; Admin Dose 2.34 MLS/HR; Start 02/08/19 at 23:00 IV Flush (NS 10 ml) 10 ml PRN PRN IV IV PROTOCOL; Start 02/09/19 at 20:00 Phytonadione 10 mg/Dextrose 51 ml @ 102 mls/hr DAILY IVPB Last administered on 02/13/19at 10:04; Admin Dose 102 MLS/HR; Start 02/11/19 at 09:00; Stop 02/13/19 at 12:00 Lansoprazole (Prevacid) 30 mg BID@0600,1800 NGT Last administered on 02/13/19at 05:49; Admin Dose 30 MG; Start 02/11/19 at 18:00 Albumin Human 100 ml @ 100 mls/hr WITH DIALYSIS PRN IV SBP <90 DURING DIALYSIS Last administered on 02/11/19at 11:06; Admin Dose 100 MLS/HR; Start 02/11/19 at 11:00 Midodrine (Midodrine) 10 mg TID@0900,1300,1700 PO Last administered on 02/13/19at 10:04; Admin Dose 10 MG; Start 02/11/19 at 17:00 Miscellaneous Information (*Rx Drug Level Order Reminder*) RANDOM VANCO LEVEL 6... 0500 ONCE XX ; Start 02/15/19 at 05:00; Stop 02/15/19 at 05:01 Meropenem/Sodium Chloride 50 ml @ 100 mls/hr Q24H IVPB ; Start 02/13/19 at 12:30 Albumin Human 100 ml @ 100 mls/hr ONCE ONCE IV ; Start 02/13/19 at 11:00; Stop 02/13/19 at 11:59 ELLIS ESTRADA MD Feb 13, 2019 11:10
--- NOTE | 2019-02-13 11:11 | CONS ---
Consult Date/Type/Reason Admit Date/Time Jan 29, 2019 at 01:13 Initial Consult Date 02/03/19 Type of Consultation: Urology Requesting Provider: MAL ENRIQUE MD Date/Time of Note DATE: 02/13/19 TIME: 11:09 Subjective No acute events - BP low, as expected - awaiting TX to [facility] for liver Tx - hope today - con't supportive RX for now ROS: No fever, no chills, no nausea, no vomiting, no diarrhea/constipation + SOB Objective Vitals Vital Signs Date Temp Pulse Resp B/P (MAP) Pulse Ox O2 O2 Flow FiO2 Time Delivery Rate 02/13/19 101 20 94/51 (65) 92 06:00 02/13/19 30 05:22 02/13/19 98.5 04:00 02/12/19 Mechanical 12:00 Ventilator Intake and Output 02/12/19 02/12/19 02/13/19 1515:00 23:00 07:00 IntakeIntake Total 616 ml 410 ml 315 ml OutputOutput Total 400 ml 100 ml BalanceBalance 616 ml 10 ml 215 ml Exam General: WN/WD/NAD, AOx 0 HEENT: ++icetric/atraumatic/EOMI (does not follow commands) NECK: JVD elevated, no thyromegaly Lymph: no lymphadenopathy HEART: regular with no S3, II/ systolic murmur at apex, PMI L LUNGS: Coarse sounds ABD: soft, NT, ND, +BS - anasarca : Intact Neuro: non focal SKIN: chronic changes EXT: 4+ edema Results/Medications Result Diagram: 02/13/19 0436 02/13/19 0436 Results 24 hrs Laboratory Tests Test 02/12/19 11:24 02/12/19 17:14 02/13/19 01:13 02/13/19 04:36 Bedside Glucose 104 107 117 White Blood Count 33.0 H Red Blood Count 2.36 L Hemoglobin 7.4 L Hematocrit 21.4 L Mean Corpuscular 90.7 Volume Mean Corpuscular 31.4 Hemoglobin Mean Corpuscular 34.6 Hemoglobin Concen t Red Cell 17.3 H Distribution Width Platelet Count 70 L Mean Platelet 12.3 H Volume Immature 10.500 H Granulocytes % Neutrophils % Lymphocytes % Monocytes % Eosinophils % Basophils % Nucleated Red 3.3 H Blood Cells % Immature 3.460 H Granulocytes # Neutrophils # Lymphocytes # Monocytes # Eosinophils # Basophils # Nucleated Red Blood Cells # Prothrombin Time 27.6 H Prothrombin Time 2.2 Ratio INR International 2.56 Normalized Ratio Activated 62.8 H Partial Thrombopl ast Time Thrombin Time 22.5 H Fibrinogen 143.0 L D-Dimer > 74248.00 H Sodium Level 135 Potassium Level 3.5 Chloride Level 95 L Carbon Dioxide 23 Level Anion Gap 17 H Blood Urea 44 H Nitrogen Creatinine 3.46 H Est Glomerular 20 L Filtrat Rate mL/min Glucose Level 158 Calcium Level 9.2 Phosphorus Level 3.6 Magnesium Level 2.1 Total Bilirubin 22.7 H Direct Bilirubin 16.40 *H Indirect 6.3 H Bilirubin Aspartate Amino 85 H Transf (AST/SGOT) Alanine 12 L Aminotransferase (ALT/SGPT) Alkaline 246 H Phosphatase Total Protein 6.7 Albumin 3.0 L Globulin 3.70 H Albumin/Globulin 0.81 Ratio Test 02/13/19 04:51 02/13/19 05:50 02/13/19 08:26 Lab Scanned BLOOD TRANSFUSIO Report N Bedside Glucose 111 Prothrombin Time 27.5 H Prothrombin Time 2.1 Ratio INR International 2.55 Normalized Ratio Home Meds No Active Prescriptions or Reported Meds Medications Current Medications Lactulose (Enulose) 10 gm Q8 PO Last administered on 02/12/19at 05:40; Admin Dose 10 GM; Start 01/29/19 at 06:00 Ondansetron HCl (Zofran Inj) 4 mg Q6H PRN IV NAUSEA AND/OR VOMITING; Start 01/29/19 at 01:00 Epoetin Daniel-epbx (Retacrit (Esrd)) 4,000 unit MoWeFr@1700 SC Last administered on 02/11/19at 17:36; Admin Dose 4,000 UNIT; Start 01/30/19 at 17:00 Multivit/Ca Carb/ B Cmplx/FA/Prenat (Liz-Eugenia) 1 tab DAILY PO Last a dministered on 02/13/19at 09:58; Admin Dose 1 TAB; Start 01/31/19 at 09:00 Docusate Sodium (Colace) 100 mg BID PRN PO constipation; Start 01/30/19 at 14:00 Senna (Senokot) 2 tab DAILY PRN PO constipation; Start 01/30/19 at 14:00 Levalbuterol (Xopenex Neb) 0.63 mg Q4H RESP THERAPY PRN HHN WHEEZING AND RESP DISTRESS Last administered on 02/04/19 05:40; Admin Dose 0.63 MG; Start 02/02/19 at 22:30 Midazolam HCl 50 ml @ 1 mls/hr TITRATE IV Last administered on 02/04/19 21:44; Admin Dose 5 MLS/HR; Start 02/04/19 at 07:00 Fentanyl 100 ml @ 2.5 mls/hr TITRATE IV Last administered on 02/05/19 17:54; Admin Dose 5 MLS/HR; Start 02/04/19 at 07:00 Vancomycin HCl (Vanco Iv Per Pharmacy) VANCOMYCIN PER PHARMACY PER PROTOCOL XX ; Start 02/04/19 at 08:30 Rifaximin (Xifaxan) 550 mg BID PO Last administered on 02/13/19 09:58; Admin Dose 550 MG; Start 02/05/19 at 21:00 Phenylephrine HCl 80 mg/Dextrose 250 ml @ 18.75 mls/ hr TITRATE PRN IV BLOOD PRESSURE SUPPORT Last administered on 02/13/19 04:51; Admin Dose 15 MLS/HR; Start 02/06/19 at 02:00 Dextrose (D50w Syringe) 50 ml PRN PRN IV HYPOGLYCEMIA (BS<70) Last administered on 02/06/19 07:42; Admin Dose 50 ML; Start 02/06/19 at 07:30 Diagnostic Test (Pha) (Accu-Chek) 1 ea Q6 XX Last administered on 02/12/19at 17:15; Admin Dose 1 EA; Start 02/08/19 at 12:00 Norepinephrine 32 mg/Dextrose 250 ml @ 0.47 mls/hr TITRATE IV Last administere d on 02/12/19 01:23; Admin Dose 2.34 MLS/HR; Start 02/08/19 at 23:00 IV Flush (NS 10 ml) 10 ml PRN PRN IV IV PROTOCOL; Start 02/09/19 at 20:00 Phytonadione 10 mg/Dextrose 51 ml @ 102 mls/hr DAILY IVPB Last administered on 02/13/19at 10:04; Admin Dose 102 MLS/HR; Start 02/11/19 at 09:00; Stop 02/13/19 at 12:00 Lansoprazole (Prevacid) 30 mg BID@0600,1800 NGT Last administered on 02/13/19at 05:49; Admin Dose 30 MG; Start 02/11/19 at 18:00 Albumin Human 100 ml @ 100 mls/hr WITH DIALYSIS PRN IV SBP <90 DURING DIALYSIS Last administered on 02/11/19at 11:06; Admin Dose 100 MLS/HR; Start 02/11/19 at 11:00 Midodrine (Midodrine) 10 mg TID@0900,1300,1700 PO Last administered on 02/13/19at 10:04; Admin Dose 10 MG; Start 02/11/19 at 17:00 Miscellaneous Information (*Rx Drug Level Order Reminder*) RANDOM VANCO LEVEL 6... 0500 ONCE XX ; Start 02/15/19 at 05:00; Stop 02/15/19 at 05:01 Meropenem/Sodium Chloride 50 ml @ 100 mls/hr Q24H IVPB ; Start 02/13/19 at 12:30 Albumin Human 100 ml @ 100 mls/hr ONCE ONCE IV ; Start 02/13/19 at 11:00; Stop 02/13/19 at 11:59 Assessment/Plan Hospital Course (Demo Recall) 1. Sinus atchycardia - This is expected with such a significant degree of anemia. Continue supportive care now. Con't supportive care. HR better - gurpreet iting Tx for transplant. 2. History of cirrhosis. Defer to primary team. Apparently, the patient was listed for liver transplant easily at one time, but is no longer a candidate. To [facility]. 3. Hypotension. Continue supportive care with blood transfusion. Blood products as needed. 4. Respiratory failure: The patient is intubated. Pulmonary team follows. Con't resp Rx 5. Anemia with bleeding diathesis. All related to liver team. GI to follow up. 6. ARF - renal team follows - HD as needed VERY POOR PROGNOSIS without Liver Tx. TRE DUNNE MD Feb 13, 2019 11:11
[2019-02-13] MEDS ORDERED: MEROPENEM 500MG/50 ML (PMX) 50 ML IVPB SCH (12:30)
--- NOTE | 2019-02-13 13:16 | CONS ---
Assessment/Plan Assessment/Plan Hospital Course (Demo Recall) 39 yo with ETOH related cirrhosis, coagulopathy, on dialysis who we are asked to see for coagulopathy #coagulopathy -2/2 cirrhosis and decompensated liver failure -INR is 2.1 today -s/p IV vitamin K 5mg, FFP -will need to check daily DIC panel and keep fibrinogen > 120. fibrinogen currently at 143 #Anemia -2/2 to liver failure and CKD -continue epogen -1 units of PRBCs ordered for today #EtOH cirrhosis -pt to be transferred to [facility] for liver transplant -currently on pressors #ESRD -continue HD Consultation Date/Type/Reason Admit Date/Time Jan 29, 2019 at 01:13 Initial Consult Date 02/03/19 Type of Consult hematology Reason for Consultation coagulopathy Requesting Provider: MAL ENRIQUE MD Date/Time of Note DATE: 02/13/19 TIME: 13:13 24 HR Interval Summary Free Text/Dictation pt continues on pressor support. currently getting ffp. no active bleed Exam/Review of Systems Exam Vitals Vital Signs Date Temp Pulse Resp B/P (MAP) Pulse Ox O2 O2 Flow FiO2 Time Delivery Rate 02/13/19 96 22 95 30 11:05 02/13/19 94/51 (65) 06:00 02/13/19 98.5 04:00 02/12/19 Mechanical 12:00 Ventilator Intake and Output 02/12/19 02/12/19 02/13/19 1515:00 23:00 07:00 IntakeIntake Total 616 ml 410 ml 315 ml OutputOutput Total 400 ml 100 ml BalanceBalance 616 ml 10 ml 215 ml Constitutional: alert Psych: depression Head: normocephalic Eyes: nl conjunctiva ENMT: nl external ears & nose Neck: supple, other (trach in place) Respiratory: diminished breath sounds Cardiovascular: regular rate and rhythm Gastrointestinal: soft Musculoskeletal: swelling Results Result Diagram: 02/13/19 0436 02/13/19 0436 Results 24hrs Laboratory Tests Test 02/12/19 17:14 02/13/19 01:13 02/13/19 04:36 02/13/19 04:51 Bedside Glucose 107 117 White Blood 33.0 H Count Red Blood Count 2.36 L Hemoglobin 7.4 L Hematocrit 21.4 L Mean Corpuscular 90.7 Volume Mean Corpuscular 31.4 Hemoglobin Mean Corpuscular 34.6 Hemoglobin Criselda nt Red Cell 17.3 H Distribution Width Platelet Count 70 L Mean Platelet 12.3 H Volume Immature 10.500 H Granulocytes % Neutrophils % Segmented 74 Neutrophils % (Manual) Band Neutrophils 7 H % (Manual) Lymphocytes % Lymphocytes % 8 L (Manual) Monocytes % Monocytes % 7 (Manual) Eosinophils % Eosinophils % 2 (Manual) Basophils % Myelocytes % 2 H (Manual) Nucleated Red 4 H Blood Cells % Immature 3.460 H Granulocytes # Neutrophils # Neutrophils # 25.2 H (Manual) Band Neutrophils 2.3 H # Lymphocytes 2.6 (Manual) Lymphocytes # Monocytes # Monocytes # 2.3 H (Manual) Eosinophils # Basophils # Myelocytes # 0.6 H Nucleated Red Blood Cells # Toxic 1+ Granulation Platelet SIG DECREASED Estimate Polychromasia 1+ Poikilocytosis 3+ Anisocytosis 2+ Macrocytosis 2+ Target Cells 1+ Prothrombin Time 27.6 H Prothrombin Time 2.2 Ratio INR 2.56 International Normalized Ratio Activated 62.8 H Partial Thrombop last Time Thrombin Time 22.5 H Fibrinogen 143.0 L D-Dimer > 27324.00 H Sodium Level 135 Potassium Level 3.5 Chloride Level 95 L Carbon Dioxide 23 Level Anion Gap 17 H Blood Urea 44 H Nitrogen Creatinine 3.46 H Est Glomerular 20 L Filtrat Rate mL/min Glucose Level 158 Calcium Level 9.2 Phosphorus Level 3.6 Magnesium Level 2.1 Total Bilirubin 22.7 H Direct Bilirubin 16.40 *H Indirect 6.3 H Bilirubin Aspartate Amino 85 H Transf (AST/SGOT ) Alanine 12 L Aminotransferase (ALT/SGPT) Alkaline 246 H Phosphatase Total Protein 6.7 Albumin 3.0 L Globulin 3.70 H Albumin/Globulin 0.81 Ratio Lab Scanned BLOOD TRANSFUSI Report ON Test 02/13/19 05:50 02/13/19 08:26 Bedside Glucose 111 Prothrombin Time 27.5 H Prothrombin Time 2.1 Ratio INR 2.55 International Normalized Ratio Medications Medication Current Medications Lactulose (Enulose) 10 gm Q8 PO Last administered on 02/13/19at 12:55; Admin Dose 10 GM; Start 01/29/19 at 06:00 Ondansetron HCl (Zofran Inj) 4 mg Q6H PRN IV NAUSEA AND/OR VOMITING; Start 01/29/19 at 01:00 Epoetin Daniel-epbx (Retacrit (Esrd)) 4,000 unit MoWeFr@1700 SC Last administered on 02/11/19 17:36; Admin Dose 4,000 UNIT; Start 01/30/19 at 17:00 Multivit/Ca Carb/ B Cmplx/FA/Prenat (Liz-Eugenia) 1 tab DAILY PO Last administered on 02/13/19 09:58; Admin Dose 1 TAB; Start 01/31/19 at 09:00 Docusate Sodium (Colace) 100 mg BID PRN PO constipation; Start 01/30/19 at 14:00 Senna (Senokot) 2 tab DAILY PRN PO constipation; Start 01/30/19 at 14:00 Levalbuterol (Xopenex Neb) 0.63 mg Q4H RESP THERAPY PRN HHN WHEEZING AND RESP DISTRESS Last administered on 02/04/19 05:40; Admin Dose 0.63 MG; Start 02/02/19 at 22:30 Midazolam HCl 50 ml @ 1 mls/hr TITRATE IV Last administered on 02/04/19 21:44; Admin Dose 5 MLS/HR; Start 02/04/19 at 07:00 Fentanyl 100 ml @ 2.5 mls/hr TITRATE IV Last administered on 02/05/19 17:54; Admin Dose 5 MLS/HR; Start 02/04/19 at 07:00 Vancomycin HCl (Vanco Iv Per Pharmacy) VANCOMYCIN PER PHARMACY PER PROTOCOL XX ; Start 02/04/19 at 08:30 Rifaximin (Xifaxan) 550 mg BID PO Last administered on 02/13/19 09:58; Admin Dose 550 MG; Start 02/05/19 at 21:00 Phenylephrine HCl 80 mg/Dextrose 250 ml @ 18.75 mls/ hr TITRATE PRN IV BLOOD PRESSURE SUPPORT Last administered on 02/13/19 04:51; Admin Dose 15 MLS/HR; Start 02/06/19 at 02:00 Dextrose (D50w Syringe) 50 ml PRN PRN IV HYPOGLYCEMIA (BS<70) Last administered on 02/06/19 07:42; Admin Dose 50 ML; Start 02/06/19 at 07:30 Diagnostic Test (Pha) (Accu-Chek) 1 ea Q6 XX Last administered on 02/13/19 12:32; Admin Dose 1 EA; Start 02/08/19 at 12:00 Norepinephrine 32 mg/Dextrose 250 ml @ 0.47 mls/hr TITRATE IV Last administered on 02/12/19 01:23; Admin Dose 2.34 MLS/HR; Start 02/08/19 at 23:00 IV Flush (NS 10 ml) 10 ml PRN PRN IV IV PROTOCOL; Start 02/09/19 at 20:00 Lansoprazole (Prevacid) 30 mg BID@0600,1800 NGT Last administered on 02/13/19 05:49; Admin Dose 30 MG; Start 02/11/19 at 18:00 Albumin Human 100 ml @ 100 mls/hr WITH DIALYSIS PRN IV SBP <90 DURING DIALYSIS Last administered on 02/11/19 11:06; Admin Dose 100 MLS/HR; Start 02/11/19 at 11:00 Midodrine (Midodrine) 10 mg TID@0900,1300,1700 PO Last administered on 02/13/19at 12:55; Admin Dose 10 MG; Start 02/11/19 at 17:00 Miscellaneous Information (*Rx Drug Level Order Reminder*) RANDOM VANCO LEVEL 6... 0500 ONCE XX ; Start 02/15/19 at 05:00; Stop 02/15/19 at 05:01 Meropenem/Sodium Chloride 50 ml @ 100 mls/hr Q24H IVPB Last administered on 02/13/19at 12:55; Admin Dose 100 MLS/HR; Start 02/13/19 at 12:30 EBONIE TOBAR M.D. Feb 13, 2019 13:16
--- NOTE | 2019-02-13 14:06 | CONS ---
Assessment/Plan Assessment/Plan Hospital Course (Demo Recall) Patient remains unchanged, intubated on Oseas-Synephrine drip no fevers overnight WBC 33 platelets 73 Chest x-ray this morning revealed no significant interval change Microbiology: Blood culture on admission grew Peptostreptococcus species, repeat blood cultures negative. Testicular ultrasound suggested right sided epididymitis. Antimicrobials: Meropenem vancomycin Indwelling's: Endotracheal tube NG tube right subclavian Hieu catheter Physical examination: Chronically ill-appearing wasted middle-aged man who is in no distress head atraumatic normocephalic neck is supple chest rise symmetrical breath sounds diminished bases. Heart: S1-S2 tachycardic abdomen distended bowel sounds hypoactive patient has tympany on percussion. Extremities with bilateral dependent edema. Skin: Positive for jaundice Assessment: 1. Septic shock with multisystem organ failure 2. Bacteremia possibly contaminant 3. Acute respiratory failure 4. Pneumonia 5. Left pleural effusion 6. Ascites, rule out SBP 7. End-stage liver cirrhosis 8. Acute renal failure likely hepatorenal 9. Severe anemia 10. Coagulopathy 11. Right-sided epididymitis 12. DNR Plan: Remains unchanged, continue present care, antibiotics, pending transfer to tertiary care facility Consultation Date/Type/Reason Admit Date/Time Jan 29, 2019 at 01:13 Initial Consult Date 02/03/19 Type of Consult id Requesting Provider: MAL ENRIQUE MD Date/Time of Note DATE: 02/13/19 TIME: 14:05 Exam/Review of Systems Exam Vitals Vital Signs Date Temp Pulse Resp B/P (MAP) Pulse Ox O2 O2 Flow FiO2 Time Delivery Rate 02/13/19 96 22 95 30 11:05 02/13/19 94/51 (65) 06:00 02/13/19 98.5 04:00 02/12/19 Mechanical 12:00 Ventilator Intake and Output 02/12/19 02/12/19 02/13/19 1515:00 23:00 07:00 IntakeIntake Total 616 ml 410 ml 315 ml OutputOutput Total 400 ml 100 ml BalanceBalance 616 ml 10 ml 215 ml Results Result Diagram: 02/13/19 0436 02/13/19 0436 Results 24hrs Laboratory Tests Test 02/12/19 17:14 02/13/19 01:13 02/13/19 04:36 02/13/19 04:51 Bedside Glucose 107 117 White Blood 33.0 H Count Red Blood Count 2.36 L Hemoglobin 7.4 L Hematocrit 21.4 L Mean Corpuscular 90.7 Volume Mean Corpuscular 31.4 Hemoglobin Mean Corpuscular 34.6 Hemoglobin Criselda nt Red Cell 17.3 H Distribution Width Platelet Count 70 L Mean Platelet 12.3 H Volume Immature 10.500 H Granulocytes % Neutrophils % Segmented 74 Neutrophils % (Manual) Band Neutrophils 7 H % (Manual) Lymphocytes % Lymphocytes % 8 L (Manual) Monocytes % Monocytes % 7 (Manual) Eosinophils % Eosinophils % 2 (Manual) Basophils % Myelocytes % 2 H (Manual) Nucleated Red 4 H Blood Cells % Immature 3.460 H Granulocytes # Neutrophils # Neutrophils # 25.2 H (Manual) Band Neutrophils 2.3 H # Lymphocytes 2.6 (Manual) Lymphocytes # Monocytes # Monocytes # 2.3 H (Manual) Eosinophils # Basophils # Myelocytes # 0.6 H Nucleated Red Blood Cells # Toxic 1+ Granulation Platelet SIG DECREASED Estimate Polychromasia 1+ Poikilocytosis 3+ Anisocytosis 2+ Macrocytosis 2+ Target Cells 1+ Prothrombin Time 27.6 H Prothrombin Time 2.2 Ratio INR 2.56 International Normalized Ratio Activated 62.8 H Partial Thrombop last Time Thrombin Time 22.5 H Fibrinogen 143.0 L D-Dimer > 27865.00 H Sodium Level 135 Potassium Level 3.5 Chloride Level 95 L Carbon Dioxide 23 Level Anion Gap 17 H Blood Urea 44 H Nitrogen Creatinine 3.46 H Est Glomerular 20 L Filtrat Rate mL/min Glucose Level 158 Calcium Level 9.2 Phosphorus Level 3.6 Magnesium Level 2.1 Total Bilirubin 22.7 H Direct Bilirubin 16.40 *H Indirect 6.3 H Bilirubin Aspartate Amino 85 H Transf (AST/SGOT ) Alanine 12 L Aminotransferase (ALT/SGPT) Alkaline 246 H Phosphatase Total Protein 6.7 Albumin 3.0 L Globulin 3.70 H Albumin/Globulin 0.81 Ratio Lab Scanned BLOOD TRANSFUSI Report ON Test 02/13/19 05:50 02/13/19 08:26 Bedside Glucose 111 Prothrombin Time 27.5 H Prothrombin Time 2.1 Ratio INR 2.55 International Normalized Ratio Medications Medication Current Medications Lactulose (Enulose) 10 gm Q8 PO Last administered on 02/13/19at 12:55; Admin Dose 10 GM; Start 01/29/19 at 06:00 Ondansetron HCl (Zofran Inj) 4 mg Q6H PRN IV NAUSEA AND/OR VOMITING; Start 01/29/19 at 01:00 Epoetin Daniel-epbx (Retacrit (Esrd)) 4,000 unit MoWeFr@1700 SC Last administered on 02/11/19 17:36; Admin Dose 4,000 UNIT; Start 01/30/19 at 17:00 Multivit/Ca Carb/ B Cmplx/FA/Prenat (Liz-Eugenia) 1 tab DAILY PO Last administered on 02/13/19 09:58; Admin Dose 1 TAB; Start 01/31/19 at 09:00 Docusate Sodium (Colace) 100 mg BID PRN PO constipation; Start 01/30/19 at 14:00 Senna (Senokot) 2 tab DAILY PRN PO constipation; Start 01/30/19 at 14:00 Levalbuterol (Xopenex Neb) 0.63 mg Q4H RESP THERAPY PRN HHN WHEEZING AND RESP DISTRESS Last administered on 02/04/19 05:40; Admin Dose 0.63 MG; Start 02/02/19 at 22:30 Midazolam HCl 50 ml @ 1 mls/hr TITRATE IV Last administered on 02/04/19 21:44; Admin Dose 5 MLS/HR; Start 02/04/19 at 07:00 Fentanyl 100 ml @ 2.5 mls/hr TITRATE IV Last administered on 02/05/19at 17:54; Admin Dose 5 MLS/HR; Start 02/04/19 at 07:00 Vancomycin HCl (Vanco Iv Per Pharmacy) VANCOMYCIN PER PHARMACY PER PROTOCOL XX ; Start 02/04/19 at 08:30 Rifaximin (Xifaxan) 550 mg BID PO Last administered on 02/13/19 09:58; Admin Dose 550 MG; Start 02/05/19 at 21:00 Phenylephrine HCl 80 mg/Dextrose 250 ml @ 18.75 mls/ hr TITRATE PRN IV BLOOD PRESSURE SUPPORT Last administered on 02/13/19 04:51; Admin Dose 15 MLS/HR; Start 02/06/19 at 02:00 Dextrose (D50w Syringe) 50 ml PRN PRN IV HYPOGLYCEMIA (BS<70) Last administered on 6/21/19at 07:42; Admin Dose 50 ML; Start 02/06/19 at 07:30 Diagnostic Test (Pha) (Accu-Chek) 1 ea Q6 XX Last administered on 02/13/19at 12:32; Admin Dose 1 EA; Start 02/08/19 at 12:00 Norepinephrine 32 mg/Dextrose 250 ml @ 0.47 mls/hr TITRATE IV Last administered on 02/12/19 01:23; Admin Dose 2.34 MLS/HR; Start 02/08/19 at 23:00 IV Flush (NS 10 ml) 10 ml PRN PRN IV IV PROTOCOL; Start 02/09/19 at 20:00 Lansoprazole (Prevacid) 30 mg BID@0600,1800 NGT Last administered on 02/13/19 05:49; Admin Dose 30 MG; Start 02/11/19 at 18:00 Albumin Human 100 ml @ 100 mls/hr WITH DIALYSIS PRN IV SBP <90 DURING DIALYSIS Last administered on 02/11/19 11:06; Admin Dose 100 MLS/HR; Start 02/11/19 at 11:00 Midodrine (Midodrine) 10 mg TID@0900,1300,1700 PO Last administered on 12:55; Admin Dose 10 MG; Start 02/11/19 at 17:00 Miscellaneous Information (*Rx Drug Level Order Reminder*) RANDOM VANCO LEVEL 6... 0500 ONCE XX ; Start 02/15/19 at 05:00; Stop 02/15/19 at 05:01 Meropenem/Sodium Chloride 50 ml @ 100 mls/hr Q24H IVPB Last administered on 02/13/19at 12:55; Admin Dose 100 MLS/HR; Start 02/13/19 at 12:30 JAXON VASQUES NP Feb 13, 2019 14:06
[2019-02-13] MEDS: ALBUMIN HUMAN 25% 100 ML IV PRN ×2 (16:29→17:24)
[2019-02-13] MEDS: EPOETIN ALFA-EPBX (ESRD) 4,000 UNIT/ML VIAL SC SCH (18:38)
--- NOTE | 2019-02-13 18:53 | CONS ---
Consult Date/Type/Reason Admit Date/Time Jan 29, 2019 at 01:13 Initial Consult Date 02/09/19 Type of Consultation: Urology Reason for Consultation Penile edema and paraphimosis Requesting Provider: MAL ENRIQUE MD Date/Time of Note DATE: 02/13/19 TIME: 18:51 Subjective Patient condition is about the same. He is awake and on the respirator Objective Vitals Vital Signs Date Temp Pulse Resp B/P (MAP) Pulse Ox O2 O2 Flow FiO2 Time Delivery Rate 02/13/19 97 17:30 02/13/19 20 82/73 (76) 100 Mechanical 17:12 Ventilator 02/13/19 30 17:08 02/13/19 97.3 16:00 Intake and Output 02/12/19 02/12/19 02/13/19 1515:00 23:00 07:00 IntakeIntake Total 616 ml 410 ml 390 ml OutputOutput Total 400 ml 100 ml BalanceBalance 616 ml 10 ml 290 ml Exam The penile dressing was removed. The swelling of the penis is less. He still have some edema mostly around the frenular area. Results/Medications Result Diagram: 02/13/19 0436 02/13/19 0436 Results 24 hrs Laboratory Tests Test 02/13/19 01:13 02/13/19 04:36 02/13/19 04:51 02/13/19 05:50 Bedside Glucose 117 111 White Blood 33.0 H Count Red Blood Count 2.36 L Hemoglobin 7.4 L Hematocrit 21.4 L Mean Corpuscular 90.7 Volume Mean Corpuscular 31.4 Hemoglobin Mean Corpuscular 34.6 Hemoglobin Criselda nt Red Cell 17.3 H Distribution Width Platelet Count 70 L Mean Platelet 12.3 H Volume Immature 10.500 H Granulocytes % Neutrophils % Segmented 74 Neutrophils % (Manual) Band Neutrophils 7 H % (Manual) Lymphocytes % Lymphocytes % 8 L (Manual) Monocytes % Monocytes % 7 (Manual) Eosinophils % Eosinophils % 2 (Manual) Basophils % Myelocytes % 2 H (Manual) Nucleated Red 4 H Blood Cells % Immature 3.460 H Granulocytes # Neutrophils # Neutrophils # 25.2 H (Manual) Band Neutrophils 2.3 H # Lymphocytes 2.6 (Manual) Lymphocytes # Monocytes # Monocytes # 2.3 H (Manual) Eosinophils # Basophils # Myelocytes # 0.6 H Nucleated Red Blood Cells # Toxic 1+ Granulation Platelet SIG DECREASED Estimate Polychromasia 1+ Poikilocytosis 3+ Anisocytosis 2+ Macrocytosis 2+ Target Cells 1+ Prothrombin Time 27.6 H Prothrombin Time 2.2 Ratio INR 2.56 International Normalized Ratio Activated 62.8 H Partial Thrombop last Time Thrombin Time 22.5 H Fibrinogen 143.0 L D-Dimer > 97702.00 H Sodium Level 135 Potassium Level 3.5 Chloride Level 95 L Carbon Dioxide 23 Level Anion Gap 17 H Blood Urea 44 H Nitrogen Creatinine 3.46 H Est Glomerular 20 L Filtrat Rate mL/min Glucose Level 158 Calcium Level 9.2 Phosphorus Level 3.6 Magnesium Level 2.1 Total Bilirubin 22.7 H Direct Bilirubin 16.40 *H Indirect 6.3 H Bilirubin Aspartate Amino 85 H Transf (AST/SGOT ) Alanine 12 L Aminotransferase (ALT/SGPT) Alkaline 246 H Phosphatase Total Protein 6.7 Albumin 3.0 L Globulin 3.70 H Albumin/Globulin 0.81 Ratio Lab Scanned BLOOD TRANSFUSI Report ON Test 02/13/19 08:26 Prothrombin Time 27.5 H Prothrombin Time 2.1 Ratio INR 2.55 International Normalized Ratio Home Meds No Active Prescriptions or Reported Meds Medications Current Medications Lactulose (Enulose) 10 gm Q8 PO Last administered on 02/13/19at 12:55; Admin Dose 10 GM; Start 01/29/19 at 06:00 Ondansetron HCl (Zofran Inj) 4 mg Q6H PRN IV NAUSEA AND/OR VOMITING; Start 01/29/19 at 01:00 Epoetin Daniel-epbx (Retacrit (Esrd)) 4,000 unit MoWeFr@1700 SC Last administered on 02/13/19at 18:38; Admin Dose 4,000 UNIT; Start 01/30/19 at 17:00 Multivit/Ca Carb/ B Cmplx/FA/Prenat (Liz-Eugenia) 1 tab DAILY PO Last administered on 02/13/19at 09:58; Admin Dose 1 TAB; Start 01/31/19 at 09:00 Docusate Sodium (Colace) 100 mg BID PRN PO constipation; Start 01/30/19 at 14:00 Senna (Senokot) 2 tab DAILY PRN PO constipation; Start 01/30/19 at 14:00 Levalbuterol (Xopenex Neb) 0.63 mg Q4H RESP THERAPY PRN HHN WHEEZING AND RESP DISTRESS Last administered on 02/04/19 05:40; Admin Dose 0.63 MG; Start 02/02/19 at 22:30 Midazolam HCl 50 ml @ 1 mls/hr TITRATE IV Last administered on 02/04/19 21:44; Admin Dose 5 MLS/HR; Start 02/04/19 at 07:00 Fentanyl 100 ml @ 2.5 mls/hr TITRATE IV Last administered on 02/05/19 17:54; Admin Dose 5 MLS/HR; Start 02/04/19 at 07:00 Vancomycin HCl (Vanco Iv Per Pharmacy) VANCOMYCIN PER PHARMACY PER PROTOCOL XX ; Start 02/04/19 at 08:30 Rifaximin (Xifaxan) 550 mg BID PO Last administered on 02/13/19 09:58; Admin Dose 550 MG; Start 02/05/19 at 21:00 Phenylephrine HCl 80 mg/Dextrose 250 ml @ 18.75 mls/ hr TITRATE PRN IV BLOOD PRESSURE SUPPORT Last administered on 02/13/19 04:51; Admin Dose 15 MLS/HR; Start 02/06/19 at 02:00 Dextrose (D50w Syringe) 50 ml PRN PRN IV HYPOGLYCEMIA (BS<70) Last administered on 02/06/19 07:42; Admin Dose 50 ML; Start 02/06/19 at 07:30 Diagnostic Test (Pha) (Accu-Chek) 1 ea Q6 XX Last administered on 02/13/19at 18:38; Admin Dose 1 EA; Start 02/08/19 at 12:00 Norepinephrine 32 mg/Dextrose 250 ml @ 0.47 mls/hr TITRATE IV Last administered on 02/12/19 01:23; Admin Dose 2.34 MLS/HR; Start 02/08/19 at 23:00 IV Flush (NS 10 ml) 10 ml PRN PRN IV IV PROTOCOL; Start 02/09/19 at 20:00 Lansoprazole (Prevacid) 30 mg BID@0600,1800 NGT Last administered on 02/13/19 18:38; Admin Dose 30 MG; Start 02/11/19 at 18:00 Albumin Human 100 ml @ 100 mls/hr WITH DIALYSIS PRN IV SBP <90 DURING DIALYSIS Last administered on 02/13/19at 17:24; Admin Dose 100 MLS/HR; Start 02/11/19 at 11:00 Midodrine (Midodrine) 10 mg TID@0900,1300,1700 PO Last administered on 02/13/19at 18:37; Admin Dose 10 MG; Start 02/11/19 at 17:00 Miscellaneous Information (*Rx Drug Level Order Reminder*) RANDOM VANCO LEVEL 6... 0500 ONCE XX ; Start 02/15/19 at 05:00; Stop 02/15/19 at 05:01 Meropenem/Sodium Chloride 50 ml @ 100 mls/hr Q24H IVPB Last administered on 02/13/19at 12:55; Admin Dose 100 MLS/HR; Start 02/13/19 at 12:30 Assessment/Plan Hospital Course (Demo Recall) 39-year-old male with multiple medical problems: 1 Shock likely secondary to sepsis. 2. Acute Respiratory failure status post intubation secondary to large pleural effusions secondary to volume overload post hemodialysis 3. Fractures of the superior endplates/bodies of L1, L2 and L3 4. Decompensated alcoholic cirrhosis with a history of EtOH use. Hyperbilirubinemia 5. End-stage renal disease, on hemodialysis. 6. Coagulopathy. 7. Severe anemia with thrombocytopenia likely due to cirrhosis. 8. Moderate anemia, likely multifactorial disease 9. Leucocytosis. 10. S.p paracentesis on 01/28/2019 11. Suspicious for metastatic disease 12. Hypotension likely secondary to cirrhosis 13. History of gastrointestinal bleed. 14. Hypoglycemia 15.History of cirrhosis On the physical examination it appeared that the patient had paraphimosis and the constricting skin proximal to the méndez is the one that has poor circulation and signs of ischemia. The foreskin is also swollen. The penile dressing was removed and I applied a new one. The swelling has decreased. Most of the swelling is around the frenular area. Patient is going to be transferred to [facility]. JONAH SUE MD Feb 13, 2019 18:53
--- NOTE | 2019-02-13 19:19 | PDOCDIS ---
Discharge Instructions DIAGNOSIS Discharge Diagnosis LIVER CIRRHOSIS ESRD ON HD COAGULOPATHY CONDITION [id number] Patient Condition: [id number] Guarded HOME CARE INSTRUCTIONS: [id number] Diet Instructions: Gerald Low Fat /Cholesterol Elizabeth Your diet recommendation is: Gerald npo ACTIVITY: [id number] Activity Restrictions: [id number] Slowly Increase Activity FOLLOW UP/APPOINTMENTS Follow-up Plan [facility] [place] intubated MAL ENRIQUE MD Feb 13, 2019 19:19
--- NOTE | 2019-02-13 21:43 | DS ---
DATE OF ADMISSION: 01/29/2019 DATE OF DISCHARGE: 02/13/2019 HISTORY OF PRESENT ILLNESS AND HOSPITAL COURSE: This is a 39-year-old male with a past medical histo ry of heavy alcohol drinking, history of alcoholic liver cirrhosis, who was recently started on hemod ialysis at [facility] 4 months ago, history of decompensated liver failure, GI bleed, statu s post multiple EGDs, anasarca, debility, coagulopathy. He has multiple admissions in the past in [facility]. He was transferred to [facility] on 01/28/2019 secondary to insurance [employer]. The patient was going to his dialysis center, but the patient was very weak, was found to have low blood pressures and was admitted to [facility], but was transferred due to insurance alicia rain. On admission, sodium was 135, potassium 5.3, chloride 92, bicarbonate 24. Alkaline phosphat ase is 135, total bilirubin 35.8. The patient had abdominal ultrasound that showed cirrhosis. No fo ale lesion, no biliary dilatation. Findings are suggestive of bilateral renal parenchymal disease wi thout evidence of hydronephrosis, large volume ascites and splenomegaly. The patient was admitted to telemetry floor. The patient was also started on albumin, midodrine. The patient was also started on lactulose, Rocephin and was given 1 unit of blood. Over the hospitalization course, the patient h ad very decompensated liver cirrhosis, severe coagulopathy, elevated INR, low fibrinogen. The patien t required blood transfusions. Blood cultures were sent and one blood culture was positive for pepto streptococcus, but the repeat blood cultures have been negative. The patient also had paracentesis d one in the hospital. However, the patient was seen by GI consult. The patient was continued on hemo dialysis in the hospital. The patient was seen by a pulmonology. Over the course of the hospitaliza tion, the patient's condition got deteriorated, had anasarca. A chest x-ray showed bilateral effusio ns and the patient could not get paracentesis as the patient required a large amount of blood product s and eventually the patient got intubated on February 04 due to respiratory failure. The patient was also started on pressors, started on ICU. The patient was seen by pulmonary consultation with Dr. Diego burnett. ID consultation with Dr. Whitney. GI consultation with Dr. Guerra and their recommendations wer e followed. The patient was also tachycardic and was seen by cardiology consultation. The patient w ere seen by hematology and their recommendations were followed. The patient was getting vitamin K ev . His coags are quite adequate, especially PTT out of proportion, which was related to the li nedra dysfunction. The patient had low fibrinogen, likely secondary to synthetic dysfunction. The pat ient received multiple units of cryoprecipitate fibrinogen, FFPs. The patient was taken off sedation . The patient was awake, alert, oriented. The patient's condition got a little bit stabilized and w as just requiring 1 pressor. There were multiple attempts made for the patient to transfer to a live r transplant service. The patient would require CRRT for volume removal anasarca. The patient was r equiring thoracentesis; however, INR was quite elevated and due to higher blood requirements, the tho racentesis was not done as requirements were only 30%. The patient was feeling better. Multiple dis cussions were made with the family at bedside and the patient is eventually being transferred to [facility] for liver and kidney transplant and CRRT. The patient also was noted to have paraphimosis a nd was followed by Dr. Sue and his recommendations were followed. FINAL DISCHARGE DIAGNOSES: 1. Shock, likely secondary to sepsis, hypovolemia due to blood loss, sepsis, possibly SBP. Culture is negative except 1 blood culture positive for peptostreptococcus. On pressure stabilizing, current ly, only on Oseas-Synephrine. 2. Acute respiratory failure, status post intubation secondary to pleural effusion secondary to volu me overload post-hemodialysis. 3. L1, L2, L3 with vertebral fractures. 4. Decompensated liver cirrhosis. 5. End-stage renal disease. 6. Severe coagulopathy. 7. Severe anemia. 8. Leukocytosis. 9. History of GI bleed. 10. Hypoglycemia secondary to liver failure. 11. Elevated INR and low fibrinogen. DISCHARGE CONDITION: Critical. Case was discussed with Dr. Mcclellan and she agreed for the patient to g et transferred. Multiple discussions were made with the family and also with consulting physicians adam gracia with the transfer. Dictated By: MAL ROMERO/MUMTAZ Conf#: [id number] DID#: [id number] CC: JONAH SUE MD; ABEL BARRIENTOS MD;*[facility]*
== END 2019-02-13 20:20 | disposition short-term general hospital (02) | DRG 432 ==
LOC: 6WM 22:17 → UNDOADMIN 22:17 → 6WM 01-29 01:13 → ICU 02-04 06:02 → 6WM 02-04 06:02
PROVIDERS: ADMIT Internal Medicine Nephrology; ATTEND Internal Medicine Nephrology
PROC: 30233N1 Transfusion of Nonautologous Red Blood Cells into Peripheral Vein, Percutaneous Approach (ICD-10-PCS; principal; 2019-01-29)
PROC: 5A1D70Z Performance of Urinary Filtration, Intermittent, Less than 6 Hours Per Day (ICD-10-PCS; 2019-01-30)
PROC: 30233M1 Transfusion of Nonautologous Plasma Cryoprecipitate into Peripheral Vein, Percutaneous Approach (ICD-10-PCS; 2019-02-03)
PROC: 0BH17EZ Insertion of Endotracheal Airway into Trachea, Via Natural or Artificial Opening (ICD-10-PCS; 2019-02-04)
PROC: 5A1955Z Respiratory Ventilation, Greater than 96 Consecutive Hours (ICD-10-PCS; 2019-02-04)
PROC: 0W9G3ZZ Drainage of Peritoneal Cavity, Percutaneous Approach (ICD-10-PCS; 2019-02-04)
PROC: 30233K1 Transfusion of Nonautologous Frozen Plasma into Peripheral Vein, Percutaneous Approach (ICD-10-PCS; 2019-02-04)
PROC: 02HV33Z Insertion of Infusion Device into Superior Vena Cava, Percutaneous Approach (ICD-10-PCS; 2019-02-09)
DX: K70.31 Alcoholic cirrhosis of liver with ascites (principal); A41.9 Sepsis, unspecified organism; N18.6 End stage renal disease; K72.00 Acute and subacute hepatic failure without coma; G92 Toxic encephalopathy; R65.21 Severe sepsis with septic shock; J96.01 Acute respiratory failure with hypoxia; K65.2 Spontaneous bacterial peritonitis; J18.9 Pneumonia, unspecified organism; I12.0 Hypertensive chronic kidney disease with stage 5 chronic kidney disease or end stage renal disease; D68.4 Acquired coagulation factor deficiency; M48.56XA Collapsed vertebra, not elsewhere classified, lumbar region, initial encounter for fracture; J91.8 Pleural effusion in other conditions classified elsewhere; D69.9 Hemorrhagic condition, unspecified; D63.1 Anemia in chronic kidney disease; D63.8 Anemia in other chronic diseases classified elsewhere; D69.59 Other secondary thrombocytopenia; E16.1 Other hypoglycemia; E87.70 Fluid overload, unspecified; I95.89 Other hypotension; K72.10 Chronic hepatic failure without coma; M47.816 Spondylosis without myelopathy or radiculopathy, lumbar region; N47.2 Paraphimosis; N45.1 Epididymitis; R19.5 Other fecal abnormalities; Z99.2 Dependence on renal dialysis; Z66 Do not resuscitate; Z87.891 Personal history of nicotine dependence
CPT/HCPCS: 31500; 36430; 36569; 36600; 71045; 72128; 72131; 72149; 76870; 76937; 80048; 80053; 80202; 82042; 82105; 82140; 82270; 82550; 82553; 82607; 82668; 82728; 82746; 82803; 82945; 82962; 83540; 83605; 83615; 83735; 84100; 84157; 84484; 85014; 85018; 85025; 85049; 85335; 85362; 85378; 85384; 85610; 85613; 85670; 85730; 86644; 86850; 86900; 86901; 86920; 87070; 87081; 87102; 87116; 87252; 87340; 88104; 88305; 89051; 90935; 93005; 93306; 94002; 94003; 94640; 94664; 94770; C9113; J0692; J0696; J2185; J2250; J2370; J3010; J3370; J7040; J7050; J7070; P9016; P9047; P9059; Q5105